=== PATIENT | male | born 1960 | race Caucasian/White ===

== ENCOUNTER → 2019-12-26 08:05 | Outpatient (BNVA) | payer BC, MEDICARE, OTHER, SELFPAY | PROVIDERS: PCP Internal Medicine; Referring Provider Physician Assistant; Visit Provider Family Medicine Adult Medicine | DX: Z76.89 Persons encountering health services in other specified circumstances (principal) ==

== ENCOUNTER → 2020-02-05 08:06 | Outpatient (BNVA) | payer BC, MEDICARE, OTHER, SELFPAY | PROVIDERS: Visit Provider Family Medicine Adult Medicine | DX: Z76.89 Persons encountering health services in other specified circumstances (principal) ==

== ENCOUNTER → 2020-03-09 08:03 | Outpatient (BNVA) | payer MEDICARE, OTHER, SELFPAY | PROVIDERS: PCP Internal Medicine; Visit Provider Family Medicine Adult Medicine | DX: M54.16 Radiculopathy, lumbar region (principal); M47.812 Spondylosis without myelopathy or radiculopathy, cervical region; Z96.89 Presence of other specified functional implants | CPT/HCPCS: 99212 ==

== ENCOUNTER → 2020-04-20 08:00 | Outpatient (BNVA) | payer MEDICARE, OTHER, SELFPAY | PROVIDERS: PCP Internal Medicine; Visit Provider Family Medicine Adult Medicine | DX: M54.16 Radiculopathy, lumbar region (principal); M47.812 Spondylosis without myelopathy or radiculopathy, cervical region; Z96.89 Presence of other specified functional implants; Z79.899 Other long term (current) drug therapy | CPT/HCPCS: 99212 ==

== ENCOUNTER → 2020-05-21 11:17 | Outpatient (BNVA) | payer MEDICARE, OTHER, SELFPAY | PROVIDERS: PCP Internal Medicine; Visit Provider Nurse Practitioner Family | DX: M54.16 Radiculopathy, lumbar region (principal); Z96.89 Presence of other specified functional implants; M47.812 Spondylosis without myelopathy or radiculopathy, cervical region ==

== ENCOUNTER → 2020-06-21 08:02 | Outpatient (BNVA) | payer MEDICARE, OTHER, SELFPAY | PROVIDERS: PCP Hospitalist; Visit Provider Nurse Practitioner Family | DX: M54.16 Radiculopathy, lumbar region (principal); M47.812 Spondylosis without myelopathy or radiculopathy, cervical region | CPT/HCPCS: 99212 ==

== ENCOUNTER → 2020-07-20 09:33 | Outpatient (BNVA) | payer MEDICARE, OTHER, SELFPAY | PROVIDERS: PCP Hospitalist; Visit Provider Family Medicine Adult Medicine | DX: M54.16 Radiculopathy, lumbar region (principal); M47.812 Spondylosis without myelopathy or radiculopathy, cervical region | CPT/HCPCS: Q3014 ==

== ENCOUNTER → 2020-08-18 08:58 | Outpatient (BNVA) | payer MEDICARE, OTHER, SELFPAY | PROVIDERS: PCP Hospitalist; Visit Provider Nurse Practitioner Family | DX: M54.16 Radiculopathy, lumbar region (principal); M47.812 Spondylosis without myelopathy or radiculopathy, cervical region | CPT/HCPCS: 99212 ==

== ENCOUNTER → 2020-08-30 09:02 | Outpatient (BNVA) | payer MEDICARE, OTHER, SELFPAY | PROVIDERS: PCP Hospitalist; Visit Provider Anesthesiology | DX: M96.1 Postlaminectomy syndrome, not elsewhere classified (principal); M46.1 Sacroiliitis, not elsewhere classified; Z96.89 Presence of other specified functional implants | CPT/HCPCS: 99212 ==

== ENCOUNTER → 2020-09-16 08:11 | Outpatient (BNVA) | payer MEDICARE, OTHER, SELFPAY | PROVIDERS: PCP Hospitalist; Visit Provider Family Medicine Adult Medicine | DX: M54.16 Radiculopathy, lumbar region (principal); M47.812 Spondylosis without myelopathy or radiculopathy, cervical region | CPT/HCPCS: 99212 ==

== ENCOUNTER → 2020-10-14 08:34 | Outpatient (BNVA) | payer MEDICARE, OTHER, SELFPAY | PROVIDERS: PCP Hospitalist; Visit Provider Family Medicine Adult Medicine | DX: Z51.81 Encounter for therapeutic drug level monitoring (principal); M54.16 Radiculopathy, lumbar region; M47.812 Spondylosis without myelopathy or radiculopathy, cervical region | CPT/HCPCS: 99212 ==

== ENCOUNTER → 2020-11-09 08:33 | Outpatient (BNVA) | payer MEDICARE, OTHER, SELFPAY | PROVIDERS: PCP Hospitalist; Visit Provider Family Medicine Adult Medicine | DX: M96.1 Postlaminectomy syndrome, not elsewhere classified (principal); M46.1 Sacroiliitis, not elsewhere classified; M47.812 Spondylosis without myelopathy or radiculopathy, cervical region; M54.16 Radiculopathy, lumbar region; Z79.891 Long term (current) use of opiate analgesic; Z96.89 Presence of other specified functional implants | CPT/HCPCS: 99212 ==

== ENCOUNTER 2020-11-16 06:20 | Outpatient (REF) | payer MEDICARE, OTHER, SELFPAY ==
--- NOTE | ~2020-11-16 | FL_ITS ---
EXAMINATION: XR FLUOROSCOPY WITH IMAGES CLINICAL INFORMATION: Sacroiliitis. COMPARISON: MRI lumbar spine of 05/16/2017 TECHNIQUE: Fluoroscopy performed by Michelle Banegas NP. Fluoroscopy time: 0.2 minutes DAP: 2.24 Gycm2 Images: 1 FINDINGS: Single view demonstrates the patient to be status post pedicle screw and tierra fixation of what appears to be L4 through S1. Single needle is directed to the sacroiliac joint with a small amount of contrast present. FL/FL guidance in treatment room IMPRESSION: Apparent sacroiliac joint injection.
== END 2020-11-16 06:21 | disposition home or self-care (01) ==
LOC: HO.RADIR 06:20
PROVIDERS: Visit Provider Anesthesiology
DX: M96.1 Postlaminectomy syndrome, not elsewhere classified (principal); M46.1 Sacroiliitis, not elsewhere classified; Z96.89 Presence of other specified functional implants
CPT/HCPCS: 27096; Q9967

== ENCOUNTER → 2020-11-24 08:33 | Outpatient (BNVA) | payer MEDICARE, OTHER, SELFPAY | PROVIDERS: Visit Provider Anesthesiology | DX: M96.1 Postlaminectomy syndrome, not elsewhere classified (principal); M46.1 Sacroiliitis, not elsewhere classified; Z96.89 Presence of other specified functional implants | CPT/HCPCS: 99212 ==

== ENCOUNTER → 2020-12-07 08:26 | Outpatient (BNVA) | payer MEDICARE, OTHER, SELFPAY | PROVIDERS: PCP Hospitalist; Visit Provider Family Medicine Adult Medicine | DX: Z51.81 Encounter for therapeutic drug level monitoring (principal); M96.1 Postlaminectomy syndrome, not elsewhere classified; M54.16 Radiculopathy, lumbar region; Z96.89 Presence of other specified functional implants | CPT/HCPCS: 99212 ==

== ENCOUNTER 2020-12-09 16:33 | Outpatient (REF) | payer MEDICARE, OTHER, SELFPAY | END 2020-12-09 16:34 | disposition home or self-care (01) | LOC: HO.LAB 16:33 | PROVIDERS: Visit Provider Internal Medicine | DX: Z20.822 Contact with and (suspected) exposure to COVID-19 (principal); J06.9 Acute upper respiratory infection, unspecified | CPT/HCPCS: U0003; U0005 ==

== ENCOUNTER → 2021-01-11 08:00 | Outpatient (BNVA) | payer MEDICARE, OTHER, SELFPAY | PROVIDERS: PCP Hospitalist; Visit Provider Family Medicine Adult Medicine | DX: M96.1 Postlaminectomy syndrome, not elsewhere classified (principal); M54.16 Radiculopathy, lumbar region; M47.812 Spondylosis without myelopathy or radiculopathy, cervical region; M46.1 Sacroiliitis, not elsewhere classified; Z88.8 Allergy status to other drugs, medicaments and biological substances; Z96.89 Presence of other specified functional implants; Z95.1 Presence of aortocoronary bypass graft | CPT/HCPCS: 99212 ==

== ENCOUNTER → 2021-02-17 08:24 | Outpatient (BNVA) | payer MEDICARE, OTHER, SELFPAY | PROVIDERS: PCP Hospitalist; Visit Provider Family Medicine Adult Medicine | DX: Z51.81 Encounter for therapeutic drug level monitoring (principal); M96.1 Postlaminectomy syndrome, not elsewhere classified; M54.16 Radiculopathy, lumbar region; Z96.89 Presence of other specified functional implants | CPT/HCPCS: 99212 ==

== ENCOUNTER → 2021-03-17 08:08 | Outpatient (BNVA) | payer MEDICARE, OTHER, SELFPAY | PROVIDERS: PCP Hospitalist; Visit Provider Family Medicine Adult Medicine ==

== ENCOUNTER → 2021-04-14 08:29 | Outpatient (BNVA) | payer MEDICARE, OTHER, SELFPAY | PROVIDERS: PCP Hospitalist; Visit Provider Anesthesiology ==

== ENCOUNTER → 2021-05-11 15:32 | Outpatient (BNVA) | payer MEDICARE, OTHER, SELFPAY | PROVIDERS: PCP Hospitalist; Visit Provider Anesthesiology | DX: M96.1 Postlaminectomy syndrome, not elsewhere classified (principal); M46.1 Sacroiliitis, not elsewhere classified; Z96.82 Presence of neurostimulator; Z95.1 Presence of aortocoronary bypass graft | CPT/HCPCS: 99212 ==

== ENCOUNTER → 2021-06-15 08:47 | Outpatient (BNVA) | payer MEDICARE, OTHER, SELFPAY | PROVIDERS: PCP Hospitalist; Visit Provider Anesthesiology | DX: Z13.89 Encounter for screening for other disorder (principal) ==

== ENCOUNTER → 2021-07-13 08:23 | Outpatient (BNVA) | payer MEDICARE, OTHER, SELFPAY | PROVIDERS: PCP Hospitalist; Visit Provider Anesthesiology | DX: Z51.81 Encounter for therapeutic drug level monitoring (principal); F11.20 Opioid dependence, uncomplicated | CPT/HCPCS: 99211 ==

== ENCOUNTER → 2021-08-10 08:30 | Outpatient (BNVA) | payer MEDICARE, OTHER, SELFPAY | PROVIDERS: PCP Hospitalist; Visit Provider Anesthesiology | DX: Z79.891 Long term (current) use of opiate analgesic (principal) | CPT/HCPCS: 99211 ==

== ENCOUNTER → 2021-09-14 08:27 | Outpatient (BNVA) | payer MEDICARE, OTHER, SELFPAY | PROVIDERS: PCP Hospitalist; Visit Provider Nurse Practitioner Family | DX: Z51.81 Encounter for therapeutic drug level monitoring (principal); F11.20 Opioid dependence, uncomplicated; M46.1 Sacroiliitis, not elsewhere classified; M96.1 Postlaminectomy syndrome, not elsewhere classified; M47.812 Spondylosis without myelopathy or radiculopathy, cervical region | CPT/HCPCS: 99212 ==

== ENCOUNTER → 2021-10-19 08:00 | Outpatient (BNVA) | payer MEDICARE, OTHER, SELFPAY | PROVIDERS: PCP Hospitalist; Visit Provider Nurse Practitioner Family | DX: Z51.81 Encounter for therapeutic drug level monitoring (principal); F11.20 Opioid dependence, uncomplicated; M46.1 Sacroiliitis, not elsewhere classified; M96.1 Postlaminectomy syndrome, not elsewhere classified; M47.812 Spondylosis without myelopathy or radiculopathy, cervical region | CPT/HCPCS: 99212 ==

== ENCOUNTER 2021-11-18 10:19 | Day surgery (SDC) | payer MEDICARE, OTHER, SELFPAY ==
--- NOTE | 2021-11-17 13:45 | P.CONAN_ITS ---
Documented by User: Shyanne Del Cid NP 11/17/21 13:45 HPI - Anesthesia Eval Consult details Narrative: 61yo M for Upper Endoscopy with Balloon Dilitation PMFSH Active Problems Active Problems: All Active Problems (Updated 11/15/21 @ 14:37 by Rahel Ramachandran RN) Upper respiratory tract infection (Acute) Sacroiliitis (Acute) Postlaminectomy syndrome of lumbosacral region (Acute) Right lumbar radiculopathy (Acute) Spinal cord stimulator status (Acute) Derangement of left shoulder joint (Acute) Cervical arthritis (Acute) History of coronary artery bypass graft (Acute) Past Medical History Medical History Angina pectoris Anxiety and depression Asthma CAD (coronary artery disease) Cervical arthritis Derangement of left shoulder joint History of shingles HTN (hypertension) Hx of migraines On beta irineo at home HELDER on CPAP Postlaminectomy syndrome of lumbosacral region Pre-diabetes Right lumbar radiculopathy Sacroiliitis Spinal cord stimulator status Surgical History Surgical History History of carpal tunnel release History of coronary artery bypass graft History of esophagogastroduodenoscopy (EGD) History of lumbar discectomy History of umbilical hernia repair Hx of colonoscopy Hx of shoulder surgery Social History Social History Household Members Other:: lives with and son Alcohol intake: never Patient Tobacco Use Status: Former Tobacco user Quit Date: 1976 Use of substances other than those prescribed or required for medical reasons: No Are you DNR?: No Advance Directives: No Advance Directives Information Provided: Yes 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 Meds Allergies Allergy/AdvReac Type Severity Reaction Status Date / Time Mvjvnyh-CVS-GtP Reductase Allergy Unknown RAISES CPK Verified 09/14/21 08:46 Inhibitor LEVELS [JFENSZL-ITF-CGB REDUCTASE INHIBITOR] Home Medications Medication Instructions Recorded Confirmed Last Taken Type alirocumab 75 mg/mL subcutaneous mg subcut 12/20/19 09/14/21 Unknown History pen injector flu vac [id number] 36mos up(PF) 60 ml IM 12/20/19 09/14/21 Unknown History mcg (15 mcg x4)/0.5 mL IM syringe lorazepam 1 mg tablet 1 mg PO BID 12/20/19 11/15/21 Unknown History trazodone 100 mg tablet 100 mg PO BEDTIME 12/20/19 11/15/21 Unknown History albuterol sulfate 90 mcg/actuation 2 puff PO Q4H 12/26/19 11/15/21 Unknown History aerosol inhaler losartan 50 mg tablet 50 mg PO DAILY 12/26/19 11/15/21 11/18/21 History chlorthalidone 25 mg tablet 25 mg PO DAILY 03/09/20 11/15/21 Unknown History metformin 500 mg tablet 500 mg PO DAILY 03/09/20 11/15/21 11/18/21 History metoprolol succinate 100 mg 200 mg PO DAILY 08/18/20 11/15/21 Unknown History tablet,extended release 24 hr valsartan 80 mg tablet 160 mg PO DAILY 08/18/20 11/15/21 Unknown History Exam Exam Date and Time: November 17, 2021 1345 Assessment and Plan Assessment Anesthesia Assessment: Chart Reviewed Documented by User: David Mac MD 11/18/21 12:28 [facility] Past Medical History Medical History Angina pectoris Anxiety and depression Asthma CAD (coronary artery disease) Cervical arthritis Derangement of left shoulder joint History of shingles HTN (hypertension) Hx of migraines On beta irineo at home HELDER on CPAP Postlaminectomy syndrome of lumbosacral region Pre-diabetes Right lumbar radiculopathy Sacroiliitis Spinal cord stimulator status Family History Family history of problems with anesthesia: No Surgical History Surgical History History of carpal tunnel release History of coronary artery bypass graft History of esophagogastroduodenoscopy (EGD) History of lumbar discectomy History of umbilical hernia repair Hx of colonoscopy Hx of shoulder surgery History of Problems with Anesthesia: No Social History Social History Household Members Other:: lives with and son Alcohol intake: never Patient Tobacco Use Status: Former Tobacco user Quit Date: 1976 Use of substances other than those prescribed or required for medical reasons: No Are you DNR?: No Advance Directives: No Advance Directives Information Provided: Yes 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 Meds Allergies Allergy/AdvReac Type Severity Reaction Status Date / Time Xzfjibi-YZK-YzK Reductase Allergy Unknown RAISES CPK Verified 09/14/21 08:46 Inhibitor LEVELS [GJUWJTB-CLY-MYE REDUCTASE INHIBITOR] Home Medications Medication Instructions Recorded Confirmed Last Taken Type alirocumab 75 mg/mL subcutaneous mg subcut 12/20/19 09/14/21 Unknown History pen injector flu vac [id number] 36mos up(PF) 60 ml IM 12/20/19 09/14/21 Unknown History mcg (15 mcg x4)/0.5 mL IM syringe lorazepam 1 mg tablet 1 mg PO BID 12/20/19 11/15/21 Unknown History trazodone 100 mg tablet 100 mg PO BEDTIME 12/20/19 11/15/21 Unknown History albuterol sulfate 90 mcg/actuation 2 puff PO Q4H 12/26/19 11/15/21 Unknown History aerosol inhaler losartan 50 mg tablet 50 mg PO DAILY 12/26/19 11/15/21 11/18/21 History chlorthalidone 25 mg tablet 25 mg PO DAILY 03/09/20 11/15/21 Unknown History metformin 500 mg tablet 500 mg PO DAILY 03/09/20 11/15/21 11/18/21 History metoprolol succinate 100 mg 200 mg PO DAILY 08/18/20 11/15/21 Unknown History tablet,extended release 24 hr valsartan 80 mg tablet 160 mg PO DAILY 08/18/20 11/15/21 Unknown History Exam Airway Mallampati Class: III TM Dist: >3cm Neck ROM: Full Assessment and Plan Assessment Anesthesia Assessment: Anesthesia Plan Discussed Final Anesthetic Review Family History of Problems with Anesthesia: No History of Problems with Anesthesia: No NPO: Yes ASA Class: III Final Preanesthetic Review: No Changes in Pt Med Stat, Meds/Allgs Chart Reviewed, Consent Obtained/Reviewed and Anes Risks/Benef Reviewed Patient Risk: Intermediate Procedure Risk: Low Anesthetic Plan Anesthetic Plan: MAC: Disposition: Standard PACU
[2021-11-18 10:50] VITALS: BP 116/76; PULSE 76; RESP 20; TEMP 36.2; O2SAT 97; BMI 29.4
[2021-11-18 11:15] LABS: Glucose, Whole Blood 129 mg/dL (60-115)
[2021-11-18 11:35] VITALS: BMI 29.4
[2021-11-18] MEDS: Lactated Ringers 1,000 ML 100 ML IVCONT (11:37)
[2021-11-18 12:52] VITALS: BP 87/40; PULSE 76; RESP 16; TEMP 36.5; O2SAT 97
--- NOTE | 2021-11-18 12:54 | PM.OP ---
Brief Operative Note Date of Service: 11/18/21 Pre-op diagnosis: Dysphagia Post-op diagnosis: other (Minimal hiatal hernia, minimal gastritis, R/O EoE) Procedure: EGD with biopsies Surgeon: Kirt Platt Anesthesia: MAC Was an Electric Pile Driver Operator used for this Procedure?: No Estimated blood loss (mL): 2.0 Pathology: other (A. EG Junction at 39cm B. Gastric antrum C. Esophagus at 25cm ) Condition: stable Disposition: PACU
[2021-11-18 13:07] VITALS: BP 92/52; PULSE 72; RESP 16; O2SAT 97
[2021-11-18 13:22] VITALS: BP 103/68; PULSE 69; RESP 16; TEMP 36.5; O2SAT 97
--- NOTE | 2021-11-19 01:01 | OP_ITS ---
SURGEON: Kirt Platt MD INDICATIONS: The patient presents for evaluation of a sense of dysphagia and reflux. Full consent has been obtained from him for this, including risks of bleeding and perforation. PREOPERATIVE DIAGNOSIS: POSTOPERATIVE DIAGNOSIS: PROCEDURE PERFORMED: Esophagogastroduodenoscopy with biopsies. ESTIMATED BLOOD LOSS: COMPLICATIONS: ANESTHESIA: Monitored anesthesia care. ASSISTANTS: SPECIMENS: PREOPERATIVE DIAGNOSES: Dysphagia and reflux. POSTOPERATIVE DIAGNOSES: Dysphagia and reflux, minimal hiatal hernia, rule out eosinophilic esophagitis, minimal gastritis. DESCRIPTION OF PROCEDURE: Patient was placed in the left lateral decubitus position. The Olympus video gastroscope was passed in the posterior oropharynx and upper esophagus under direct vision. The scope was passed slowly to the distal esophagus. The gastroesophageal junction appeared at 39 cm. The gastroesophageal junction was patent without any sign of stricture nor ring. There was some minimal irregularity, but no esophagitis. The scope entered into the stomach easily. There was a minimal hiatal hernia. The scope was advanced to the pylorus and the duodenum was cannulated to the descending portion. The duodenum including the bulb appeared normal without mass or ulceration. The scope was withdrawn back into the stomach. The gastric antrum and body had some mild areas of erythema, but no erosions or ulceration. The scope was retroflexed visualizing the proximal stomach carefully, which appeared normal, without any sign of mass or ulceration. The scope was straightened. Biopsies were obtained from the gastric antrum. There was good peristalsis, The scope was withdrawn back to the esophagus. Again, the gastroesophageal junction was widely patent; and therefore, dilation was not performed. Biopsies were obtained at the EG junction at 39 cm. Proximal to this, the esophageal mucosa appeared normal. There were no proximal esophageal rings. I did obtain biopsies in the proximal esophagus at 25 cm. The scope was withdrawn from the patient. He tolerated the procedure well and was returned to the recovery area in stable condition. IMPRESSION: 1. Minimal hiatal hernia. 2. Minimal gastritis. 3. Gastroesophageal reflux. 4. Rule out eosinophilic esophagitis. PLAN: The results of the biopsies will be checked. He does report that he has actually been feeling better since he resumed his omeprazole and I did advise him to continue that in regard to the reflux and sense of dysphagia, which is probably in relation to some reflux and esophageal spasm. He reports that his dysphagia has been quite minimal and without any difficult eating. If things are stable, he will see me on a p.r.n. basis and undergo a screening colonoscopy in 2024. I did advise him to contact me prior to that if the dysphagia becomes a problem again. This has been discussed with his . MD LOTTIE Zamarripa/PJ / [id number] MTDD
== END 2021-11-18 13:33 | disposition home or self-care (01) ==
PROVIDERS: PCP Internal Medicine; Visit Provider Internal Medicine
PROC: (CPT 43239; principal; 2021-11-18 11:30)
DX: R13.10 Dysphagia, unspecified (principal); K21.9 Gastro-esophageal reflux disease without esophagitis; K29.50 Unspecified chronic gastritis without bleeding; K44.9 Diaphragmatic hernia without obstruction or gangrene; G47.33 Obstructive sleep apnea (adult) (pediatric); I10 Essential (primary) hypertension; E78.5 Hyperlipidemia, unspecified; R73.03 Prediabetes; F32.A Depression, unspecified; I25.10 Atherosclerotic heart disease of native coronary artery without angina pectoris; Z95.1 Presence of aortocoronary bypass graft; M96.1 Postlaminectomy syndrome, not elsewhere classified; Z96.82 Presence of neurostimulator; Z79.84 Long term (current) use of oral hypoglycemic drugs; Z79.82 Long term (current) use of aspirin; Z79.899 Other long term (current) drug therapy; Z88.8 Allergy status to other drugs, medicaments and biological substances; Z87.891 Personal history of nicotine dependence
CPT/HCPCS: 43239; 82947; 88305; 88342

== ENCOUNTER → 2021-11-23 08:38 | Outpatient (BNVA) | payer MEDICARE, OTHER, SELFPAY | PROVIDERS: PCP Internal Medicine; Visit Provider Anesthesiology | DX: Z51.81 Encounter for therapeutic drug level monitoring (principal); F11.20 Opioid dependence, uncomplicated; M46.1 Sacroiliitis, not elsewhere classified; M96.1 Postlaminectomy syndrome, not elsewhere classified; M47.812 Spondylosis without myelopathy or radiculopathy, cervical region | CPT/HCPCS: 99212 ==

== ENCOUNTER → 2021-12-28 09:20 | Outpatient (BNVA) | payer MEDICARE, OTHER, SELFPAY | PROVIDERS: PCP Internal Medicine; Visit Provider Anesthesiology | DX: Z51.81 Encounter for therapeutic drug level monitoring (principal); F11.20 Opioid dependence, uncomplicated; M46.1 Sacroiliitis, not elsewhere classified; M96.1 Postlaminectomy syndrome, not elsewhere classified; M47.812 Spondylosis without myelopathy or radiculopathy, cervical region | CPT/HCPCS: 99212 ==

== ENCOUNTER → 2022-01-25 08:35 | Outpatient (BNVA) | payer MEDICARE, OTHER, SELFPAY | PROVIDERS: PCP Internal Medicine; Visit Provider Anesthesiology | DX: Z51.81 Encounter for therapeutic drug level monitoring (principal); F11.20 Opioid dependence, uncomplicated | CPT/HCPCS: 99211 ==

== ENCOUNTER → 2022-02-23 08:07 | Outpatient (BNVA) | payer MEDICARE, OTHER, SELFPAY | PROVIDERS: PCP Internal Medicine; Visit Provider Anesthesiology | DX: Z51.81 Encounter for therapeutic drug level monitoring (principal); F11.20 Opioid dependence, uncomplicated; M46.1 Sacroiliitis, not elsewhere classified; M96.1 Postlaminectomy syndrome, not elsewhere classified; M47.812 Spondylosis without myelopathy or radiculopathy, cervical region | CPT/HCPCS: 99212 ==

== ENCOUNTER → 2022-03-29 08:36 | Outpatient (BNVA) | payer MEDICARE, OTHER, SELFPAY | PROVIDERS: PCP Internal Medicine; Visit Provider Anesthesiology | DX: Z51.81 Encounter for therapeutic drug level monitoring (principal); Z79.899 Other long term (current) drug therapy | CPT/HCPCS: 99211 ==

== ENCOUNTER → 2022-04-26 08:30 | Outpatient (BNVA) | payer MEDICARE, OTHER, SELFPAY | PROVIDERS: PCP Internal Medicine; Visit Provider Anesthesiology | DX: Z51.81 Encounter for therapeutic drug level monitoring (principal); F11.20 Opioid dependence, uncomplicated; M46.1 Sacroiliitis, not elsewhere classified; M96.1 Postlaminectomy syndrome, not elsewhere classified; M47.812 Spondylosis without myelopathy or radiculopathy, cervical region | CPT/HCPCS: 99212 ==

== ENCOUNTER → 2022-05-29 08:31 | Outpatient (BNVA) | payer MEDICARE, OTHER, SELFPAY | PROVIDERS: PCP Internal Medicine; Visit Provider Anesthesiology | DX: Z51.81 Encounter for therapeutic drug level monitoring (principal); F11.20 Opioid dependence, uncomplicated; M96.1 Postlaminectomy syndrome, not elsewhere classified; M46.1 Sacroiliitis, not elsewhere classified; M47.812 Spondylosis without myelopathy or radiculopathy, cervical region | CPT/HCPCS: 99212 ==

== ENCOUNTER → 2022-06-28 08:33 | Outpatient (BNVA) | payer MEDICARE, OTHER, SELFPAY | PROVIDERS: PCP Internal Medicine; Visit Provider Anesthesiology | DX: Z51.81 Encounter for therapeutic drug level monitoring (principal); F11.20 Opioid dependence, uncomplicated | CPT/HCPCS: 99211 ==

== ENCOUNTER → 2022-07-26 08:28 | Outpatient (BNVA) | payer MEDICARE, OTHER, SELFPAY | PROVIDERS: PCP Internal Medicine; Visit Provider Anesthesiology | DX: Z51.81 Encounter for therapeutic drug level monitoring (principal); F11.20 Opioid dependence, uncomplicated; M46.1 Sacroiliitis, not elsewhere classified; M96.1 Postlaminectomy syndrome, not elsewhere classified; M47.812 Spondylosis without myelopathy or radiculopathy, cervical region; G62.9 Polyneuropathy, unspecified | CPT/HCPCS: 99212 ==

== ENCOUNTER 2022-08-15 06:15 | Outpatient (REF) | payer MEDICARE, OTHER, SELFPAY ==
--- NOTE | ~2022-08-15 | FL_ITS ---
EXAMINATION: FL guidance in treatment room INDICATION: Reason for Exam M46.1 - Sacroiliitis, not elsewhere classified COMPARISON: Radiographs 11/16/2021 TECHNIQUE: Multiple fluoroscopic OR images were provided. FLUOROSCOPY TIME: 0.1 minute DOSE AREA PRODUCT: 0.743 Gy-cm2 FINDINGS: Intraoperative fluoroscopy was obtained. No radiologist was in attendance. Please refer to operative report for complete evaluation. Partially imaged lumbar spinal fusion hardware. FL/FL guidance in treatment room IMPRESSION: Intraoperative fluoroscopy was obtained. No radiologist was in attendance. Please refer to operative report for complete evaluation.
== END 2022-08-15 06:16 | disposition home or self-care (01) ==
LOC: CF 06:15
PROVIDERS: Visit Provider Anesthesiology
DX: M46.1 Sacroiliitis, not elsewhere classified (principal); M96.1 Postlaminectomy syndrome, not elsewhere classified; M47.812 Spondylosis without myelopathy or radiculopathy, cervical region; G62.9 Polyneuropathy, unspecified
CPT/HCPCS: 27096; J3301

== ENCOUNTER → 2022-08-23 08:29 | Outpatient (BNVA) | payer MEDICARE, OTHER, SELFPAY | PROVIDERS: PCP Internal Medicine; Visit Provider Anesthesiology | DX: Z51.81 Encounter for therapeutic drug level monitoring (principal); F11.20 Opioid dependence, uncomplicated | CPT/HCPCS: 99211 ==

== ENCOUNTER → 2022-09-11 13:11 | Outpatient (BNVA) | payer MEDICARE, OTHER, SELFPAY | PROVIDERS: PCP Internal Medicine; Visit Provider Anesthesiology | DX: M46.1 Sacroiliitis, not elsewhere classified (principal); M96.1 Postlaminectomy syndrome, not elsewhere classified; M47.812 Spondylosis without myelopathy or radiculopathy, cervical region; G62.9 Polyneuropathy, unspecified | CPT/HCPCS: 99212 ==

== ENCOUNTER 2022-09-14 08:25 | Outpatient (REF) | payer MEDICARE, OTHER, SELFPAY ==
--- NOTE | 2022-09-14 08:28 | EMG_ITS ---
Bilateral tibial and peroneal motor studies were performed. Bilateral superficial peroneal and a sural study was performed and paraspinal muscles were tested. IMPRESSION: 1. Chronic right lower lumbar radiculopathy. 2. Mild axonal sensory motor peripheral neuropathy. MD USSI Sahni/PJ / [id number]
== END 2022-09-14 08:26 | disposition home or self-care (01) ==
LOC: HO.NEURO 08:25
PROVIDERS: PCP Internal Medicine; Visit Provider Anesthesiology
DX: G62.9 Polyneuropathy, unspecified (principal); R20.0 Anesthesia of skin
CPT/HCPCS: 95886; 95911

== ENCOUNTER → 2022-09-25 08:35 | Outpatient (BNVA) | payer MEDICARE, OTHER, SELFPAY | PROVIDERS: PCP Internal Medicine; Visit Provider Anesthesiology | DX: Z51.81 Encounter for therapeutic drug level monitoring (principal); F11.20 Opioid dependence, uncomplicated; M46.1 Sacroiliitis, not elsewhere classified; M96.1 Postlaminectomy syndrome, not elsewhere classified; M47.812 Spondylosis without myelopathy or radiculopathy, cervical region; G62.9 Polyneuropathy, unspecified | CPT/HCPCS: 99212 ==

== ENCOUNTER → 2022-10-27 08:39 | Outpatient (BNVA) | payer MEDICARE, OTHER, SELFPAY | PROVIDERS: PCP Internal Medicine; Visit Provider Anesthesiology | DX: Z79.891 Long term (current) use of opiate analgesic (principal) | CPT/HCPCS: 99211 ==

== ENCOUNTER 2022-10-30 09:10 | Outpatient (AMB) | payer MEDICARE, OTHER, SELFPAY ==
[2022-10-30 09:16] VITALS: BP 106/64; PULSE 88; RESP 18; O2SAT 97; BMI 27.3
--- NOTE | 2022-10-30 09:16 | MHC.OFFVIS ---
Intake Vital Signs 10/30/22 09:16 Height 5 ft 10 in Weight 190 lb 2 oz BMI 27.3 BP 106/64 Blood Pressure Location Lt brachial Position Sitting Respiration 18 Pulse 88 Pulse Source Pulse Oximeter Pulse Oximetry (%) 97 Oxygen Delivery Method Room Air Intake Visit Reasons: Follow Up Allergies Jdrsved-SSY-RzE Reductase Inhibitor [IZRSZUG-VIM-DBX REDUCTASE INHIBITOR] Allergy (Unknown, Verified 10/30/22 09:17) RAISES CPK LEVELS HPI HPI Comments History of Present Illness Details Issac presents to the office today to discuss possibility of the treatments. He is here to meet [employer] field service representative who is working to adjust the spinal cord stimulator (it was implanted by a neurosurgeon.) He receives some benefits from DTM program but is willing to consider I DDD. He is requesting me to increase his doses of the opioid next time he is here for pill count. I told him that considering idea of the pain pump this will be contour productive. I told him that I would not mind to increase the dose a little bit but if he considers pain pump we would need to taper medication 1st and then stop it for 2 month before implantation of the pain pump. Possibility of treatment of his condition with nonopioid intrathecal medication also exists. therapeutic SI joint injection which was performed on 08/15/2022. Now patient reports that he has pain was reduced not significantly enough after sacroiliac joint injection. Originally he said that his pain was reduced by 50%. He is diabetic with polyneuropathy. EMG results: 1. Chronic right lower lumbar radiculopathy. 2. Mild axonal sensory motor peripheral neuropathy. Therefore patient suffers from combination of the radiculopathy stemming out of the postlaminectomy syndrome as well as idiopathic and diabetic peripheral neuropathy. He is here for pill count. His supposed to present 57 pills in his possession. He came with 58 pills in his possession. His pill count is correct. It demonstrates responsible attitude to were the opioid medication. His primary care physician prescribes him lorazepam, however the patient admits that other medications were tried to substitute lorazepam and did not well worked for him. Therefore he will continue lorazepam. He has naloxone at home in his possession. In the past we discussed possibility of treating his conditions with [employer] SCS by replacing the batteries of the SCS from [employer] to [employer]. Prior: Patient does report over the last several months he has also noticed some pain, numbness and tingling of his feet bilaterally. Feels like the balls of my feet are swollen sometimes. He is unsure if this was related to his blood sugars though he reports that these have been better controlled recently he takes his metformin daily as prescribed and states that his diet has been better controlled which leads him to believe that this neuropathy is not caused by his diabetes. He states that his most recent A1c was just over 7. We discussed ordering an EMG which patient is familiar with and agrees with this plan. Prior: Issac is in the office today for pill count and discussion of the further management.? His pill count is correct today his supposed to bring 33 pills in his possession and he presented with 34 pills. He reports his pain level today 4/10 or less.? He is currently on oxycodone/acetaminophen 10mg t.i.d. He reports that the medications were result in significant help with his pain condition, he reports better ADLs, less anxiety, more mobility, better social interactions.? He reports level of pain today a 4/10.? He denies side effects of the medications.? Denies constipation. SI joint fusion verses SI joint stimulations was discussed in the past , the patient is reluctant to go for the procedure at this time.? He cannot commit himself for 8-12 months for low physical activity. Prior :? History of low back pain 2 to postlaminectomy syndrome with radiation of the pain into bilateral lower extremity however with sensation of intermittent numbness into the right lower extremity when he positions himself on the right side in the bed.? He received sacroiliac joint diagnostic injection right with bupivacaine only and he reports overall 75% pain relief for the 1st 6 hours.? ? I offered him sacroiliac joint fusion versus sacroiliac joint peripheral stimulation on the right.? 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 He is asking me to return to this issue in the future. [facility] Medical History (Updated 07/26/22 @ 10:38 by Alfredito Fulton MD) Angina pectoris Anxiety and depression Asthma CAD (coronary artery disease) Cervical arthritis Derangement of left shoulder joint History of shingles HTN (hypertension) Hx of migraines On beta irineo at home HELDER on CPAP Postlaminectomy syndrome of lumbosacral region Pre-diabetes Right lumbar radiculopathy Sacroiliitis Spinal cord stimulator status Surgical History History of carpal tunnel release History of coronary artery bypass graft History of esophagogastroduodenoscopy (EGD) History of lumbar discectomy History of umbilical hernia repair Hx of colonoscopy Hx of shoulder surgery Social History Household Members Other:: lives with and son Alcohol intake: never Patient Tobacco Use Status: Former Tobacco user Quit Date: 1976 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 Review of Systems Const All systems reviewed & are unremarkable except as noted in HPI and below ENT Reports Normal hearing present Neuro Reports Normal hearing present and Denies Abnormal speech present Physical Exam Vital Signs: Last Vital Signs Pulse 88 10/30/22 09:16 Resp 18 10/30/22 09:16 BP 106/64 10/30/22 09:16 Pulse Ox 97 10/30/22 09:16 Oxygen Delivery Method Room Air 10/30/22 09:16 BMI result Body Mass Index 27.3 Const General: cooperative, healthy appearing and alert Orientation/consciousness: patient oriented x3 HEENT Head: Yes normocephalic and Yes atraumatic Ears: hearing grossly normal bilaterally Eyes General: appearance normal, both eyes and all related structures Eyelids: Yes eyelids normal Pupils: Equal, round and reactive pupils present EOM: EOMs intact bilaterally Neck Neck: Yes normal visual inspection Resp Effort & Inspection: normal respiratory effort and able to speak in complete sentences Cardio Jugular venous distension: no JVD Back/Spine/Pelvis Other: Lumbar spine visible inspection multiple very well-healed scars demonstrates previous fusions. Lateral left hip incision also demonstrates the results of anterior fusion. Peter test positive on right Pelvic compression test positive on right Suri finger test positive on right SLR with increased pain on right Spurling test negative bilaterally Stinchfield positive on right Neuro General: patient oriented x3 and gait normal Cranial nerves: Yes Equal, round and reactive pupils present and Yes Normal hearing present Cognition (Neuro): normal cognition Speech: No Abnormal speech present Motor exam (neuro): 5/5 motor strength present throughout Psych Appearance: grossly normal Mental Status: mental status grossly normal Speech and movement: Normal speech and movement present Affect: normal affect Attitude: cooperative Thought process: Normal thought process present Thought content: Normal thought content present Insight: Good insight present (Psych) Judgement: Good judgement present (Psych) Assessment & Plan Assessment & Plan (1) Sacroiliitis: Code(s): M46.1 - Sacroiliitis, not elsewhere classified (2) Postlaminectomy syndrome of lumbosacral region: Code(s): M96.1 - Postlaminectomy syndrome, not elsewhere classified (3) Cervical arthritis: Code(s): M47.812 - Spondylosis without myelopathy or radiculopathy, cervical region (4) Peripheral neuropathy: Code(s): G62.9 - Polyneuropathy, unspecified Plan The patient is working with [employer] field service representative Dharmesh hernandez to adjust the SCS to introduce D TM into the system.. He is considering pain pump. Opioid and nonopioid medications could be employed for the pain pump. Trial with a bupivacaine could be done without waiting for opioid taper down and waiting. He reports that the DTM is so far helping him very minimally. Sacroiliac joint injection also was effective less than 50%. That was therapeutic SI joint injection. He requests me to increase the doses of the opioid medications, however I would like to avoid it if it is possible especially if we go for pain pump trials and eventually implants. Coding Level of Care Code Tele Est Pt Level 4 (22470) Diagnoses Sacroiliitis M46.1 Postlaminectomy syndrome of lumbosacral region M96.1 Cervical arthritis M47.812 Peripheral neuropathy G62.9
== END 2022-10-30 10:02 | disposition home or self-care (01) ==
PROVIDERS: PCP Internal Medicine; Visit Provider Anesthesiology
DX: M46.1 Sacroiliitis, not elsewhere classified (principal); M96.1 Postlaminectomy syndrome, not elsewhere classified; M47.812 Spondylosis without myelopathy or radiculopathy, cervical region; G62.9 Polyneuropathy, unspecified
CPT/HCPCS: 99214

== ENCOUNTER → 2022-10-30 09:10 | Outpatient (BNVA) | payer MEDICARE, OTHER, SELFPAY | PROVIDERS: PCP Internal Medicine; Visit Provider Anesthesiology | DX: M54.16 Radiculopathy, lumbar region (principal); M47.812 Spondylosis without myelopathy or radiculopathy, cervical region; M46.1 Sacroiliitis, not elsewhere classified; M96.1 Postlaminectomy syndrome, not elsewhere classified; G62.9 Polyneuropathy, unspecified; G60.8 Other hereditary and idiopathic neuropathies; R73.03 Prediabetes; Z96.82 Presence of neurostimulator; Z79.891 Long term (current) use of opiate analgesic | CPT/HCPCS: 99212 ==

== ENCOUNTER 2022-11-29 08:26 | Outpatient (AMB) | payer MEDICARE, OTHER, SELFPAY ==
[2022-11-29 18:00] VITALS: BP 137/81; PULSE 73; RESP 16; O2SAT 98; BMI 27.9
--- NOTE | 2022-11-29 18:00 | A.OFFVIS_ITS ---
Intake Vital Signs 11/29/22 18:00 Height 5 ft 10 in Weight 194 lb 4 oz BMI 27.9 BP 137/81 Blood Pressure Location Rt brachial Position Sitting Respiration 16 Pulse 73 Pulse Source Pulse Oximeter Pulse Oximetry (%) 98 Oxygen Delivery Method Room Air Intake Visit Reasons: Pill count Intake Note: patient comes in for pill count. Allergies Najwyjy-JYF-MtK Reductase Inhibitor [EFRIZMO-MWK-DVI REDUCTASE INHIBITOR] Allergy (Unknown, Verified 11/29/22 18:00) RAISES CPK LEVELS HPI HPI Comments History of Present Illness Details Issac is here for the follow-up and pain medication pill count. He presented himself originally with 51 tablet in his possession. When he was confronted with the fact that he field up this medication on November 19 he stated that he left night pills intentionally at home because he thought that he would need to calculate his pills from the date of the prescription which his pharmacy [facility] wrote on the prescription bottle instead of the issue date. The date of the prescription issue was 11/16/2022. He was allowed to go home and bring missing 9 pills. He did that which put our suspicion for diversion to low level. We have had prolonged and difficult conversation with the patient. He was explained that according to the opioid contract he signed with us he needs to bring all the prescription without calculation to the office for the count. He was strictly warned this time that he will be allowed to pass with his opioid prescriptions without suspension, however if minimal misconduct will happen again he will be suspended without any consideration. His opioid addiction risk is low so therefore he would be suspended only for 6 month. At this time we will continue without suspension. Possibility of treatment of his condition with nonopioid intrathecal medication also exists. therapeutic SI joint injection which was performed on 08/15/2022. Now patient reports that he has pain was reduced not significantly enough after sacroiliac joint injection. Originally he said that his pain was reduced by 50%. He is diabetic with polyneuropathy. EMG results: 1. Chronic right lower lumbar radiculopathy. 2. Mild axonal sensory motor peripheral neuropathy. Therefore patient suffers from combination of the radiculopathy stemming out of the postlaminectomy syndrome as well as idiopathic and diabetic peripheral neuropathy. He requested me to send him to repeat MRI of the lumbar spine to port the issue of right chronic radiculopathy which was diagnosed by EMG to rest. I will send him for the MRI of the lumbar spine. It will be with and without contrast because of postlaminectomy syndrome. He is here for pill count. His supposed to present 57 pills in his possession. He came with 58 pills in his possession. His pill count is correct. It demonstrates responsible attitude to were the opioid medication. His primary care physician prescribes him lorazepam, however the patient admits that other medications were tried to substitute lorazepam and did not well worked for him. Therefore he will continue lorazepam. He has naloxone at home in his po ssession. In the past we discussed possibility of treating his conditions with Nevro SCS by replacing the batteries of the SCS from [employer] to [employer]. Prior: Patient does report over the last several months he has also noticed some pain, numbness and tingling of his feet bilaterally. Feels like the balls of my feet are swollen sometimes. He is unsure if this was related to his blood sugars though he reports that these have been better controlled recently he takes his metformin daily as prescribed and states that his diet has been better controlled which leads him to believe that this neuropathy is not caused by his diabetes. He states that his most recent A1c was just over 7. We discussed ordering an EMG which patient is familiar with and agrees with this plan. Prior: Issac is in the office today for pill count and discussion of the further management.? His pill count is correct today his supposed to bring 33 pills in his possession and he presented with 34 pills. He reports his pain level today 4/10 or less.? He is currently on oxycodone/acetaminophen 10mg t.i.d. He reports that the medications were result in significant help with his pain condition, he reports better ADLs, less anxiety, more mobility, better social interactions.? He reports level of pain today a 4/10.? He denies side effects of the medications.? Denies constipation. SI joint fusion verses SI joint stimulations was discussed in the past , the patient is reluctant to go for the procedure at this time.? He cannot commit himself for 8-12 months for low physical activity. Prior :? History of low back pain 2 to postlaminectomy syndrome with radiation of the pain into bilateral lower extremity however with sensation of intermittent numbness into the right lower extremity when he positions himself on the right side in the bed.? He received sacroiliac joint diagnostic injection right with bupivacaine only and he reports overall 75% pain relief for the 1st 6 hours.? ? I offered him sacroiliac joint fusion versus sacroiliac joint peripheral stimulation on the right.? 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 He is asking me to return to this issue in the future. [facility] Medical History (Updated 07/26/22 @ 10:38 by Alfredito Fulton MD) Pre-diabetes History of shingles Hx of migraines Anxiety and depression HELDER on CPAP Asthma On beta irineo at home CAD (coronary artery disease) Angina pectoris HTN (hypertension) Sacroiliitis Postlaminectomy syndrome of lumbosacral region Right lumbar radiculopathy Spinal cord stimulator status Derangement of left shoulder joint Cervical arthritis Surgical History History of esophagogastroduodenoscopy (EGD) Hx of colonoscopy Hx of shoulder surgery History of carpal tunnel release History of umbilical hernia repair History of coronary artery bypass graft History of lumbar discectomy Social History Household Members Other:: lives with and son Alcohol intake: never Patient Tobacco Use Status: Former Tobacco user Quit Date: 1976 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 Review of Systems Const All systems reviewed & are unremarkable except as noted in HPI and below ENT Reports Normal hearing present Neuro Reports Normal hearing present and Denies Abnormal speech present Physical Exam Vital Signs: Last Vital Signs Pulse 73 11/29/22 18:00 Resp 16 11/29/22 18:00 BP 137/81 11/29/22 18:00 Pulse Ox 98 11/29/22 18:00 Oxygen Delivery Method Room Air 11/29/22 18:00 BMI result Body Mass Index 27.9 Const General: cooperative, healthy appearing and alert Orientation/consciousness: patient oriented x3 HEENT Head: Yes normocephalic and Yes atraumatic Ears: hearing grossly normal bilaterally Eyes General: appearance normal, both eyes and all related structures Eyelids: Yes eyelids normal Pupils: Equal, round and reactive pupils present EOM: EOMs intact bilaterally Neck Neck: Yes normal visual inspection Resp Effort & Inspection: normal respiratory effort and able to speak in complete sentences Cardio Jugular venous distension: no JVD Back/Spine/Pelvis Other: Lumbar spine visible inspection multiple very well-healed scars demonstrates previous fusions. Lateral left hip incision also demonstrates the results of anterior fusion. Peter test positive on right Pelvic compression test positive on right Suri finger test positive on right SLR with increased pain on right Spurling test negative bilaterally Stinchfield positive on right Neuro General: patient oriented x3 and gait normal Cranial nerves: Yes Equal, round and reactive pupils present and Yes Normal hearing present Cognition (Neuro): normal cognition Speech: No Abnormal speech present Motor exam (neuro): 5/5 motor strength present throughout Psych Appearance: grossly normal Mental Status: mental status grossly normal Speech and movement: Normal speech and movement present Affect: normal affect Attitude: cooperative Thought process: Normal thought process present Thought content: Normal thought content present Insight: Good insight present (Psych) Judgement: Good judgement present (Psych) Assessment & Plan Assessment & Plan (1) Peripheral neuropathy: Code(s): G62.9 - Polyneuropathy, unspecified (2) Postlaminectomy syndrome of lumbosacral region: Code(s): M96.1 - Postlaminectomy syndrome, not elsewhere classified (3) Right lumbar radiculopathy: Code(s): M54.16 - Radiculopathy, lumbar region (4) Spinal cord stimulator status: Code(s): Z96.89 - Presence of other specified functional implants (5) Cervical arthritis: Code(s): M47.812 - Spondylosis without myelopathy or radiculopathy, cervical region Plan 1. Patient came today with 9 pills short. He was allowed to go home and bring those 9 pills to us because it looks like that it was honest mistake he made because of the way his pharmacy labels his opioid medication putting instead of the date of the issue of the medication when actual medication exchanged hands the date on when the received the prescription. He was strictly warned that next time he needs to bring all of his opioid pills without any calculation to the office he just need to be sure not to exceed the the daily doses he is being prescribed. He wants to investigate where the radiculopathy which was diagnosed on EMG is coming from. He requests me to send him to the MRI. Because he has postlaminectomy syndrome I will send him for MRI with and without contrast. I will see him for the next pill count in 1 month hopefully the MRI will be ready by then. Orders: Orders MR lumbar spine wo/w con Today M96.1 - Postlaminectomy syndrome, not elsewhere classified Medications: Refilled oxycodone Partial Fill upon patient request. 10 mg PO Q8H 30 days PRN 90 tabs 0RF pain M46.1 - Sacroiliitis, not elsewhere classified, M96.1 - Postlaminectomy syndrome, not elsewhere classified Patient Instructions: I here by testify that I spent 1 hour and 15 minutes today with the patient explaining his conditions performing pill counts planning his care organizing his note. Coding Level of Care Code Est Pt Level 5 (76496) Diagnoses Peripheral neuropathy G62.9 Postlaminectomy syndrome of lumbosacral region M96.1 Right lumbar radiculopathy M54.16 Spinal cord stimulator status Z96.89 Cervical arthritis M47.812
== END 2022-11-29 08:55 | disposition home or self-care (01) ==
PROVIDERS: PCP Internal Medicine; Visit Provider Anesthesiology
DX: G62.9 Polyneuropathy, unspecified (principal); M96.1 Postlaminectomy syndrome, not elsewhere classified; M54.16 Radiculopathy, lumbar region; Z79.891 Long term (current) use of opiate analgesic; Z96.89 Presence of other specified functional implants
CPT/HCPCS: 99215

== ENCOUNTER → 2022-11-29 08:26 | Outpatient (BNVA) | payer MEDICARE, OTHER, SELFPAY | PROVIDERS: PCP Internal Medicine; Visit Provider Anesthesiology | DX: M96.1 Postlaminectomy syndrome, not elsewhere classified (principal); M46.1 Sacroiliitis, not elsewhere classified; M54.16 Radiculopathy, lumbar region; M47.812 Spondylosis without myelopathy or radiculopathy, cervical region; Z96.82 Presence of neurostimulator; Z79.891 Long term (current) use of opiate analgesic | CPT/HCPCS: 99212 ==

== ENCOUNTER 2022-12-29 09:03 | Outpatient (REF) | payer MEDICARE, OTHER, SELFPAY | END 2022-12-29 09:04 | disposition home or self-care (01) | LOC: HO.LAB 09:03 | PROVIDERS: PCP Internal Medicine; Visit Provider Nurse Practitioner Family | DX: M46.1 Sacroiliitis, not elsewhere classified (principal); M96.1 Postlaminectomy syndrome, not elsewhere classified; M47.812 Spondylosis without myelopathy or radiculopathy, cervical region; M54.16 Radiculopathy, lumbar region; Z79.891 Long term (current) use of opiate analgesic | CPT/HCPCS: 99212 ==

== ENCOUNTER 2022-12-29 09:03 | Outpatient (AMB) | payer MEDICARE, OTHER, SELFPAY ==
--- NOTE | 2022-12-29 09:12 | A.OFFVIS_ITS ---
Intake Vital Signs 12/29/22 09:17 Height 5 ft 10 in Weight 187 lb 8 oz BMI 26.9 BP 143/81 H Blood Pressure Location Rt brachial Position Sitting Pulse 89 Pulse Source Pulse Oximeter Pulse Oximetry (%) 97 Oxygen Delivery Method Room Air Intake Visit Reasons: PILL COUNT/random UDS Intake Note: Issac comes in today for a pill count to oxycodone, patient should have 60 tablets and presents with 60 tablets which he last took today 12/29/22 at 2am. Pain today 08/26. Patient will also have random UDS done today, aware that he will need to go to the lab on the first floor of this building today 12/29/22 before 12pm. Phlebotomy Services Technician Required: No Allergies Ibyltxx-GPW-PsO Reductase Inhibitor [TRTQEMA-AZB-OOR REDUCTASE INHIBITOR] Allergy (Unknown, Verified 12/29/22 09:19) RAISES CPK LEVELS HPI HPI Comments History of Present Illness Details Patient is a 62 years old male with history of sacroiliitis, postlaminectomy syndrome of lumbosacral region, chronic right lumbar radiculopathy, Medtronic alexa cord stimulator status, derangement of left shoulder joint, and cervical arthritis presents today for a pill count. He was previously seen in this office by Dr. Fulton. Patient is supposed to have #60 pills, in his possession has #60 pills. This demonstrates a responsible attitude in regards to the medication regimen. Patient reports mild to moderate pain relief on his current regime of oxycodone 10 mg TID prn. Denies any constipation, nausea, sedation, dizziness, or urinary retention. Patient reports he is trying to schedule lumbar spine MRI for past 6 weeks without success due to MRI department missing information about his Medtronic SCS device and confirming function of MRI mode. Patient reports lower back pain across his lumbar and sacral regions with radiation into his right lower leg. This has been chronic issue for him per EMG studies. We will contact MRI department today to expedite scheduling of his test. PRIOR Dr. Fulton 11/29/22: Issac is here for the follow-up and pain medication pill count. He presented himself originally with 51 tablet in his possession. When he was confronted with the fact that he field up this medication on November 19 he stated that he left night pills intentionally at home because he thought that he would need to calculate his pills from the date of the prescription which his pharmacy [facility]idi wrote on the prescription bottle instead of the issue date. The date of the prescription issue was 11/16/2022. He was allowed to go home and bring missing 9 pills. He did that which put our suspicion for diversion to low level. We have had prolonged and difficult conversation with the patient. He was explained that according to the opioid contract he signed with us he needs to bring all the prescription without calculation to the office for the count. He was strictly warned this time that he will be allowed to pass with his opioid prescriptions without suspension, however if minimal misconduct will happen again he will be suspended without any consideration. His opioid addiction risk is low so therefore he would be suspended only for 6 month. At this time we will continue without suspension. Possibility of treatment of his condition with nonopioid intrathecal medication also exists. therapeutic SI joint injection which was performed on 08/15/2022. Now patient reports that he has pain was reduced not significantly enough after sacroiliac joint injection. Originally he said that his pain was reduced by 50%. He is diabetic with polyneuropathy. EMG results: 1. Chronic right lower lumbar radiculopathy. 2. Mild axonal sensory motor peripheral neuropathy. Therefore patient suffers from combination of the radiculopathy stemming out of the postlaminectomy syndrome as well as idiopathic and diabetic peripheral neuropathy. He requested me to send him to repeat MRI of the lumbar spine to port the issue of right chronic radiculopathy which was diagnosed by EMG to rest. I will send him for the MRI of the lumbar spine. It will be with and without contrast because of postlaminectomy syndrome. He is here for pill count. His supposed to present 57 pills in his possession. He came with 58 pills in his possession. His pill count is correct. It demonstrates responsible attitude to were the opioid medication. His primary c are physician prescribes him lorazepam, however the patient admits that other medications were tried to substitute lorazepam and did not well worked for him. Therefore he will continue lorazepam. He has naloxone at home in his possession. In the past we discussed possibility of treating his conditions with Nevro SCS by replacing the batteries of the SCS from [employer] to [employer]. Prior: Patient does report over the last several months he has also noticed some pain, numbness and tingling of his feet bilaterally. Feels like the balls of my feet are swollen sometimes. He is unsure if this was related to his blood sugars though he reports that these have been better controlled recently he takes his metformin daily as prescribed and states that his diet has been better controlled which leads him to believe that this neuropathy is not caused by his diabetes. He states that his most recent A1c was just over 7. We discussed ordering an EMG which patient is familiar with and agrees with this plan. Prior: Issac is in the office today for pill count and discussion of the further management.? His pill count is correct today his supposed to bring 33 pills in h is possession and he presented with 34 pills. He reports his pain level today 4/10 or less.? He is currently on oxycodone/acetaminophen 10mg t.i.d. He reports that the medications were result in significant help with his pain condition, he reports better ADLs, less anxiety, more mobility, better social interactions.? He reports level of pain today a 4/10.? He denies side effects of the medications.? Denies constipation. SI joint fusion verses SI joint stimulations was discussed in the past , the patient is reluctant to go for the procedure at this time.? He cannot commit himself for 8-12 months for low physical activity. Prior :? History of low back pain 2 to postlaminectomy syndrome with radiation of the pain into bilateral lower extremity however with sensation of intermittent numbness into the right lower extremity when he positions himself on the right side in the bed.? He received sacroiliac joint diagnostic injection right with bupivacaine only and he reports overall 75% pain relief for the 1st 6 hours.? ? I offered him sacroiliac joint fusion versus sacroiliac joint peripheral stimulation on the right.? 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 He is asking me to return to this issue in the future. [facility] Medical History Pre-diabetes History of shingles Hx of migraines Anxiety and depression HELDER on CPAP Asthma On beta irineo at home CAD (coronary artery disease) Angina pectoris HTN (hypertension) Sacroiliitis Postlaminectomy syndrome of lumbosacral region Right lumbar radiculopathy Spinal cord stimulator status Derangement of left shoulder joint Cervical arthritis Surgical History History of esophagogastroduodenoscopy (EGD) Hx of colonoscopy Hx of shoulder surgery History of carpal tunnel release History of umbilical hernia repair History of coronary artery bypass graft History of lumbar discectomy Social History Household Members Other:: lives with and son Alcohol intake: never Patient Tobacco Use Status: Former Tobacco user Quit Date: 1976 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 Alert and oriented. Mood and affect appropriate. Follows and participates in conversation appropriately. Respiratory effort is unlabored. No cough. Able to transition from sit to stand unassisted. Back/Spine/Pelvis Cervical Spine: cervical ROM normal and No Cervical spine tenderness Thoracic/Lumbar Spine: thoracic and lumbar spine normal to inspection, Thoracic/lumbar spine scar(s), Lasegue's sign positive on the right and localized, pain with thoraco-lumbar ROM, paraspinal muscle tenderness, No thoracic spinal tenderness and lumbar spinal tenderness Sacroiliac joints: on the right (+Peter's, +Stinchfield, +Pelvic compression, +Suri sign) tender to palpation and on the left nontender Psych Appearance: grossly normal Mental Status: mental status grossly normal Speech and movement: Normal speech and movement present Affect: normal affect Attitude: cooperative Thought process: Normal thought process present Thought content: Normal thought content present Insight: Good insight present (Psych) Judgement: Good judgement present (Psych) Assessment & Plan Assessment & Plan (1) Sacroiliitis: Code(s): M46.1 - Sacroiliitis, not elsewhere classified (2) Postlaminectomy syndrome of lumbosacral region: Code(s): M96.1 - Postlaminectomy syndrome, not elsewhere classified (3) Cervical arthritis: Code(s): M47.812 - Spondylosis without myelopathy or radiculopathy, cervical region (4) Right lumbar radiculopathy: Code(s): M54.16 - Radiculopathy, lumbar region Plan Patient has shown accountability for his opioid regimen and the pill count was accurate. Patient brought all of his medication in its original container. The patient reported no noted side effects and noted mild to moderate analgesia. There is no evidence of misuse, abuse or diversion at this time. Jumia. Will send in prescription for Percocet 10-325 mg TID for 30 days with an advanced date of 01/18/23. Patient is aware to avoid simultaneous intake of his opioid and lorazepam, as well as to separate by at least 2 hours. He does have narcan at home. MRI department contacted to expedite scheduling patient's MRI test. All questions were answered and patient is in agreement of plan. Follow up in 4 weeks for a pill count. Orders: Orders MR lumbar spine wo/w con 11/29/22 M48.061 - Spinal stenosis, lumbar region without neurogenic claudication, M96.1 - Postlaminectomy syndrome, not elsewhere classified Medications: Refilled oxycodone Partial Fill upon patient request. 10 mg PO Q8H PRN 90 tabs 0RF pain 30 days M46.1 - Sacroiliitis, not elsewhere classified, M96.1 - Postlaminectomy syndrome, not elsewhere classified Coding Level of Care Code Est Pt Level 4 (84407) Diagnoses Sacroiliitis M46.1 Postlaminectomy syndrome of lumbosacral region M96.1 Cervical arthritis M47.812 Right lumbar radiculopathy M54.16
[2022-12-29 09:17] VITALS: BP 143/81; PULSE 89; O2SAT 97; BMI 26.9
== END 2022-12-29 09:30 | disposition home or self-care (01) ==
PROVIDERS: PCP Internal Medicine; Visit Provider Nurse Practitioner Family
DX: M46.1 Sacroiliitis, not elsewhere classified (principal); M96.1 Postlaminectomy syndrome, not elsewhere classified; M47.812 Spondylosis without myelopathy or radiculopathy, cervical region; M54.16 Radiculopathy, lumbar region
CPT/HCPCS: 99214

== ENCOUNTER 2023-02-07 08:53 | Outpatient (AMB) | payer MEDICARE, OTHER, SELFPAY ==
--- NOTE | 2023-02-07 08:55 | A.OFFVIS_ITS ---
Intake Vital Signs 02/07/23 09:03 Height 5 ft 10 in Weight 189 lb 4 oz BMI 27.2 BP 137/70 Blood Pressure Location Lt brachial Position Sitting Respiration 18 Pulse 83 Pulse Source Pulse Oximeter Pulse Oximetry (%) 98 Oxygen Delivery Method Room Air Intake Visit Reasons: PILL COUNT/confirmed Allergies Hicieeu-KCZ-LoN Reductase Inhibitor [[id number]-DKK REDUCTASE INHIBITOR] Allergy (Unknown, Verified 02/07/23 09:04) RAISES CPK LEVELS HPI HPI Comments History of Present Illness Details Issac is a very pleasant 62 year old male who presents to the office for follow up chronic pain and chronic opioid therapy management. Patient is prescribed Oxycodone 10mg po TID prn. Patient arrived today with the expectation of having 30 pills, she presented 32 pills which were counted in the presence of two staff members and returned to the patient in the original prescription bottle. This demonstrates responsible attitude toward patient's opioid medications. Pain is reported today as 5/10 and last dose of pain medication was taken at 12 o'clock this morning. Pain is adequately managed on current opioid regimen. Patient states he is able to engage in activities of daily living with minimal interruption due to chronic pain. Patient denies side effects including somnolence, constipation, itching, dyspnea, rash, dizziness or weakness. Patient given Gabapentin 300mg po TID at last visit. He reports this has been helping with the radiculopathy pain to the right leg. Requesting refill today. MRI has finally been scheduled, 02/21/2023. Prior visit with Riri [employer]IST[employer] MANAGER: Patient is a 62 years old male with history of sacroiliitis, postlaminectomy syndrome of lumbosacral region, chronic right lumbar radiculopathy, Medtronic alexa cord stimulator status, derangement of left shoulder joint, and cervical arthritis presents today for a pill count. He was previously seen in this office by Dr. Fulton. Patient is supposed to have #60 pills, in his possession has #60 pills. This demonstrates a responsible attitude in regards to the medication regimen. Patient reports mild to moderate pain relief on his current regime of oxycodone 10 mg TID prn. Denies any constipation, nausea, sedation, dizziness, or urinary retention. Patient reports he is trying to schedule lumbar spine MRI for past 6 weeks without success due to MRI department missing information about his Medtronic SCS device and confirming function of MRI mode. Patient reports lower back pain across his lumbar and sacral regions with radiation into his right lower leg. This has been chronic issue for him per EMG studies. We will contact MRI department today to expedite scheduling of his test. PRIOR Dr. Fulton 11/29/22: Issac is here for the follow-up and pain medication pill count. He presented himself originally with 51 tablet in his possession. When he was confronted with the fact that he field up this medication on November 19 he stated that he left night pills intentionally at home because he thought that he would need to calculate his pills from the date of the prescription which his pharmacy Heidi wrote on the prescription bottle instead of the issue date. The date of the prescription issue was 11/16/2022. He was allowed to go home and bring missing 9 pills. He did that which put our suspicion for diversion to low level. We have had prolonged and difficult conversation with the patient. He was explained that according to the opioid contract he signed with us he needs to bring all the prescription without calculation to the office for the count. He was strictly warned this time that he will be allowed to pass with his opioid prescriptions without suspension, however if minimal misconduct will happen again he will be suspended without any consideration. His opioid addiction risk is low so therefore he would be suspended only for 6 month. At this time we will continue without suspension. Possibility of treatment of his condition with nonopioid intrathecal medication also exists. therapeutic SI joint injection which was performed on 08/15/2022. Now patient reports that he has pain was reduced not significantly enough after sacroiliac joint injection. Originally he said that his pain was reduced by 50%. He is diabetic with polyneuropathy. EMG results: 1. Chronic right lower lumbar radiculopathy. 2. Mild axonal sensory motor peripheral neuropathy. Therefore patient suffers from combination of the radiculopathy stemming out of the postlaminectomy syndrome as well as idiopathic and diabetic peripheral neuropathy. He requested me to send him to repeat MRI of the lumbar spine to port the issue of right chronic radiculopathy which was diagnosed by EMG to rest. I will send him for the MRI of the lumbar spine. It will be with and without contrast because of postlaminectomy syndrome. He is here for pill count. His supposed to present 57 pills in his possession. He came with 58 pills in his possession. His pill count is correct. It demonstrates responsible attitude to were the opioid medication. His primary care physician prescribes him lorazepam, however the patient admits that other medications were tried to substitute lorazepam and did not well worked for him. Therefore he will continue lorazepam. He has naloxone at home in his possession. In the past we discussed possibility of treating his conditions with Nev[employer] SCS by replacing the batteries of the SCS from [employer] to [employer]. Prior: Patient does report over the last several months he has also noticed some pain, numbness and tingling of his feet bilaterally. Feels like the balls of my feet are swollen sometimes. He is unsure if this was related to his blood sugars though he reports that these have been better controlled recently he takes his metformin daily as prescribed and states that his diet has been better controlled which leads him to believe that this neuropathy is not caused by his diabetes. He states that his most recent A1c was just over 7. We discussed ordering an EMG which patient is familiar with and agrees with this plan. Prior: Issac is in the office today for pill count and discussion of the further management.? His pill count is correct today his supposed to bring 33 pills in his possession and he presented with 34 pills. He reports his pain level today 4/10 or less.? He is currently on oxycodone/acetaminophen 10mg t.i.d. He reports that the medications were result in significant help with his pain condition, he reports better ADLs, less anxiety, more mobility, better social interactions.? He reports level of pain today a 4/10.? He denies side effects of the medications.? Denies constipation. SI joint fusion verses SI joint stimulations was discussed in the past , the patient is reluctant to go for the procedure at this time.? He cannot commit himself for 8-12 months for low physical activity. Prior :? History of low back pain 2 to postlaminectomy syndrome with radiation of the pain into bilateral lower extremity however with sensation of intermittent numbness into the right lower extremity when he positions himself on the right side in the bed.? He received sacroiliac joint diagnostic injection right with bupivacaine only and he reports overall 75% pain relief for the 1st 6 hours.? ? I offered him sacroiliac joint fusion versus sacroiliac joint peripheral stimulation on the right.? 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 He is asking me to return to this issue in the future. [facility] Medical History Pre-diabetes History of shingles Hx of migraines Anxiety and depression HELDER on CPAP Asthma On beta irineo at home CAD (coronary artery disease) Angina pectoris HTN (hypertension) Sacroiliitis Postlaminectomy syndrome of lumbosacral region Right lumbar radiculopathy Spinal cord stimulator status Derangement of left shoulder joint Cervical arthritis Surgical History History of esophagogastroduodenoscopy (EGD) Hx of colonoscopy Hx of shoulder surgery History of carpal tunnel release History of umbilical hernia repair History of coronary artery bypass graft History of lumbar discectomy Household Members Other:: lives with and son Alcohol intake: never Patient Tobacco Use Status: Former Tobacco user Quit Date: 1976 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 Answers questions appropriately. Fully engaged in examination. Skin: warm, dry, intact HEENT: Normocephalic. Hearing intact. Cardiac: External chest normal in appearance. Respiratory: No cough, audible wheezing or stridor. Abdomen: without gross distension. MS: No obvious swelling or deformities. Able to transition from sit to stand unassisted. Ambulates with bilaterally normal heel strike and toe off Neurological: Oriented to person, place, time and situation. Thought process intact. Psychiatric: Appropriate mood and affect. Good judgment and insight. Assessment & Plan Assessment & Plan (1) Sacroiliitis: Code(s): M46.1 - Sacroiliitis, not elsewhere classified (2) Postlaminectomy syndrome of lumbosacral region: Code(s): M96.1 - Postlaminectomy syndrome, not elsewhere classified (3) Cervical arthritis: Code(s): M47.812 - Spondylosis without myelopathy or radiculopathy, cervical region (4) Right lumbar radiculopathy: Code(s): M54.16 - Radiculopathy, lumbar region Plan [place]pat was reviewed and without concerns. No obvious signs of diversion, abuse or misuse of the opioid medications. Will send in prescription for Oxycodone 10mg po Q8H PRN with an advanced date of 02/17/2023. Gabapentin 300mg po TID 3RF sent today Patient to follow-up in the office in 1 month, sooner if needed. All questions and concerns have been answered and patient agrees with the plan. Medications: Refilled gabapentin 300 mg PO TID 30 days 90 caps 3RF pain M54.16 - Radiculopathy, lumbar region, M96.1 - Postlaminectomy syndrome, not elsewhere classified oxycodone Partial Fill upon patient request. 10 mg PO Q8H 30 days PRN 90 tabs 0RF pain M46.1 - Sacroiliitis, not elsewhere classified, M96.1 - Postlaminectomy syndrome, not elsewhere classified Coding Level of Care Code Est Pt Level 4 (13777) Diagnoses Sacroiliitis M46.1 Postlaminectomy syndrome of lumbosacral region M96.1 Cervical arthritis M47.812 Right lumbar radiculopathy M54.16
[2023-02-07 09:03] VITALS: BP 137/70; PULSE 83; RESP 18; O2SAT 98; BMI 27.2
== END 2023-02-07 09:12 | disposition home or self-care (01) ==
PROVIDERS: PCP Internal Medicine; Visit Provider Registered Nurse Emergency
DX: M46.1 Sacroiliitis, not elsewhere classified (principal); M96.1 Postlaminectomy syndrome, not elsewhere classified; M47.812 Spondylosis without myelopathy or radiculopathy, cervical region; Z79.891 Long term (current) use of opiate analgesic; M54.16 Radiculopathy, lumbar region
CPT/HCPCS: 99214

== ENCOUNTER → 2023-02-07 08:53 | Outpatient (BNVA) | payer MEDICARE, OTHER, SELFPAY | PROVIDERS: PCP Internal Medicine; Visit Provider Registered Nurse Emergency | DX: M96.1 Postlaminectomy syndrome, not elsewhere classified (principal); M46.1 Sacroiliitis, not elsewhere classified; M47.812 Spondylosis without myelopathy or radiculopathy, cervical region; M54.16 Radiculopathy, lumbar region; Z79.891 Long term (current) use of opiate analgesic | CPT/HCPCS: 99212 ==

== ENCOUNTER 2023-02-21 08:17 | Outpatient (REF) | payer MEDICARE, OTHER, SELFPAY ==
--- NOTE | ~2023-02-21 | MR_ITS ---
MR LUMBAR SPINE WITHOUT AND WITH CONTRAST CLINICAL INFORMATION: Postlaminectomy syndrome. COMPARISON: Lumbar spine MRI May 16, 2017. TECHNIQUE: MRI of the lumbar spine was obtained using routine sequences with and without contrast. Intravenous contrast: Gadavist 8.5 mL FINDINGS: There are redemonstrated postoperative changes following laminectomy and posterior instrumented lumbar interbody fusion at the L4-S1 levels. The surgical hardware is not diagnostically assessed on MRI. There are 5 nonrib-bearing lumbar-type vertebral bodies. There is no bone marrow edema. There are no acute fractures. There is an intraosseous hemangioma within the T12 vertebral body. Fatty marrow changes involving the L5 vertebral body. Nonsurgical disc volumes are preserved. There is disc desiccation at L3-L4. Conus terminates at the L1 level. There are no significant extraspinal soft tissue findings. There is artifact from a spinal stimulator device versus baclofen pump within the lower thoracic spine. At T11-T12, there is stable slight grade 1 degenerative anterolisthesis in the setting of advanced bilateral facet arthropathy resulting in bilateral foraminal encroachment with mass effect on the exiting nerve roots bilaterally. L1-L2: Disc contour is normal. There is mild bilateral facet arthropathy. There is no central canal stenosis and there is no foraminal stenosis. L2-L3: There is a diffuse annular disc bulge and there is mild bilateral facet arthropathy. There is no central canal stenosis. There is mild foraminal encroachment bilaterally. L3-L4: There is a diffuse annular disc bulge and there is severe bilateral facet arthropathy and ligamentum flavum thickening. Findings in concert result in right subarticular zone stenosis with mass effect on the traversing right L4 nerve root which is progressed. Disc C5 and facet arthropathy result in similar mild to moderate bilateral foraminal stenosis. L4-L5: There are postoperative changes following laminectomy and posterior instrumented lumbar interbody fusion. There is diffuse osteophytic ridging and there is advanced bilateral facet arthropathy. There is no central canal stenosis. There is mild foraminal encroachment bilaterally. L5-S1: There are postoperative changes following laminectomy and posterior instrumented lumbar interbody fusion. There is no central canal stenosis. Osteophytic ridging results in mass effect on the extraforaminal L5 nerve roots bilaterally and narrowing of the right subarticular zone with mass effect on the traversing right S1 nerve root which is unchanged. There is enhancing granulation/scar tissue inseparable from the traversing right S1 nerve root as well. MR/MR lumbar spine wo/w con IMPRESSION: - At the junctional L3-L4 level, progressive spondylitic changes result in worsening right subarticular zone stenosis with mass effect on the traversing right L4 nerve root. Similar mild to moderate bilateral foraminal stenosis at this level. - There are redemonstrated postoperative changes following laminectomy and posterior instrumented lumbar interbody fusion at the L4-S1 levels. Osteophytic ridging at L5-S1 results in mass effect on the extraforaminal L5 nerve roots bilaterally and narrowing of the right subarticular zone with mass effect on the traversing right S1 nerve root which is unchanged. There is enhancing granulation/scar tissue inseparable from the traversing right S1 nerve root as well. - At T11-T12, there is stable slight grade 1 degenerative anterolisthesis in the setting of advanced bilateral facet arthropathy resulting in bilateral foraminal encroachment with mass effect on the exiting nerve roots bilaterally.
[2023-02-21] MEDS: gadobutroL 10 ML VIAL IVPUSH (09:26)
== END 2023-02-21 08:18 | disposition home or self-care (01) ==
LOC: HO.MRI 08:17
PROVIDERS: PCP Internal Medicine; Visit Provider Nurse Practitioner Family
DX: M48.061 Spinal stenosis, lumbar region without neurogenic claudication (principal); M96.1 Postlaminectomy syndrome, not elsewhere classified
CPT/HCPCS: 72158; A9585

== ENCOUNTER 2023-03-07 08:16 | Outpatient (AMB) | payer MEDICARE, OTHER, SELFPAY ==
--- NOTE | 2023-03-07 08:35 | A.OFFVIS_ITS ---
Intake Vital Signs 03/07/23 08:54 Height 5 ft 10 in Weight 189 lb 6 oz BMI 27.2 BP 140/80 H Blood Pressure Location Lt brachial Position Sitting Respiration 16 Pulse 79 Pulse Source Pulse Oximeter Pulse Oximetry (%) 97 Oxygen Delivery Method Room Air Intake Visit Reasons: Medication Count/ MRI results Intake Note: patient comes in for pill count to oxycodone 10 mg tablets. Reports pain level of 3/10. Allergies Gstavtp-YWJ-PjG Reductase Inhibitor [EVIZLSL-KEQ-HGR REDUCTASE INHIBITOR] Allergy (Unknown, Verified 03/07/23 08:55) RAISES CPK LEVELS HPI HPI Comments History of Present Illness Details Issac is a very pleasant 62 year old male who presents to the office for follow up chronic pain and chronic opioid therapy management. Patient is prescribed Oxycodone 10mg po TID prn. He presented himself today with 21 pills in his possession. He is supposed to have 36 pills in his possession. He reports today that he has pain since the last refill visit started to get a lot worse. However he never informed us about his pain worsening, he never gave us a call he never explained the needs to increase the dose. He on the last visit admitted that gabapentin and oxycodone help his pain significantly. He is also taking lorazepam 2 g a day. This is very dangerous combination of the medications. With his behavior when he takes the medications in higher dose the than his daily dose and he takes unpredictable amount of lorazepam it is very dangerous to prescribe he has opioid medications further. His risks level were moderate therefore he will be suspended with us for 1 year. I will start tapering his medication starting from next prescription date. I will decrease his medication to 25 mg for the next month. Alternatively he can ask his primary care physician to prescribe him the current dose of the medication. I also will prescribe him medications to mitigate symptoms of the withdrawal. They will be clonidine and hydroxyzine. I evaluated his MRI as well. There is 1 level higher than his fusion L3-L4 on the right were there is subarticular stenosis with progression. It might be giving him exacerbation of his postlaminectomy pain. I offered him and he agreed to go for L3-L4 transforaminal epidural steroid injection on the right. I will schedule this procedure AP. I also will refer him to evaluation to Dr. Nieto. I am not sure if anything could be done minimally invasively at L3-L4 subarticular level but at least the conversation in my opinion could be done. Will continue gabapentin 300 mg p.o. t.i.d. Prior: Issac is here for the follow-up and pain medication pill count. He presented himself originally with 51 tablet in his possession. When he was confronted with the fact that he field up this medication on November 19 he stated that he left night pills intentionally at home because he thought that he would need to calculate his pills from the date of the prescription which his pharmacy [facility] wrote on the prescription bottle instead of the issue date. The date of the prescription issue was 11/16/2022. He was allowed to go home and bring missing 9 pills. He did that which put our suspicion for diversion to low level. We have had prolonged and difficult conversation with the patient. He was explained that according to the opioid contract he signed with us he needs t o bring all the prescription without calculation to the office for the count. He was strictly warned this time that he will be allowed to pass with his opioid prescriptions without suspension, however if minimal misconduct will happen again he will be suspended without any consideration. His opioid addiction risk is low so therefore he would be suspended only for 6 month. At this time we will continue without suspension. Possibility of treatment of his condition with nonopioid intrathecal medication also exists. therapeutic SI joint injection which was performed on 08/15/2022. Now patient reports that he has pain was reduced not significantly enough after sacroiliac joint injection. Originally he said that his pain was reduced by 50%. He is diabetic with polyneuropathy. EMG results: 1. Chronic right lower lumbar radiculopathy. 2. Mild axonal sensory motor peripheral neuropathy. Therefore patient suffers from combination of the radiculopathy stemming out of the postlaminectomy syndrome as well as idiopathic and diabetic peripheral neuropathy. He requested me to send him to repeat MRI of the lumbar spine to port the issue of right chronic radiculopathy which was diagnosed by EMG to rest. I will send him for the MRI of the lumbar spine. It will be with and without contrast because of postlaminectomy syndrome. He is here for pill count. His supposed to present 57 pills in his possession. He came with 58 pills in his possession. His pill count is correct. It demonstrates responsible attitude to were the opioid medication. His primary care physician prescribes him lorazepam, however the patient admits that other medications were tried to substitute lorazepam and did not well worked for him. Therefore he will continue lorazepam. He has naloxone at home in his possession. In the past we discussed possibility of treating his conditions with Nevro SCS by replacing the batteries of the SCS from [employer] to [employer]. Prior: Patient does report over the last several months he has also noticed some pain, numbness and tingling of his feet bilaterally. Feels like the balls of my feet are swollen sometimes. He is unsure if this was related to his blood sugars though he reports that these have been better controlled recently he takes his metformin daily as prescribed and states that his diet has been better controlled which leads him to believe that this neuropathy is not caused by his diabetes. He states that his most recent A1c was just over 7. We discussed ordering an EMG which patient is familiar with and agrees with this plan. Prior: Issac is in the office today for pill count and discussion of the further management.? His pill count is correct today his supposed to bring 33 pills in his possession and he presented with 34 pills. He reports his pain level today 4/10 or less.? He is currently on oxycodone/acetaminophen 10mg t.i.d. He reports that the medications were result in significant help with his pain condition, he reports better ADLs, less anxiety, more mobility, better social interactions.? He reports level of pain today a 4/10.? He denies side effects of the medications.? Denies constipation. SI joint fusion verses SI joint stimulations was discussed in the past , the patient is reluctant to go for the procedure at this time.? He cannot commit himself for 8-12 months for low physical activity. Prior :? History of low back pain 2 to postlaminectomy syndrome with radiation of the pain into bilateral lower extremity however with sensation of intermittent numbness into the right lower extremity when he positions himself on the right side in the bed.? He received sacroiliac joint diagnostic injection right with bupivacaine only and he reports overall 75% pain relief for the 1st 6 hours.? ? I offered him sacroiliac joint fusion versus sacroiliac joint peripheral stimulation on the right.? 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 He is asking me to return to this issue in the future. [facility] Medical History Pre-diabetes History of shingles Hx of migraines Anxiety and depression HELDER on CPAP Asthma On beta irineo at home CAD (coronary artery disease) Angina pectoris HTN (hypertension) Sacroiliitis Postlaminectomy syndrome of lumbosacral region Right lumbar radiculopathy Spinal cord stimulator status Derangement of left shoulder joint Cervical arthritis Surgical History History of esophagogastroduodenoscopy (EGD) Hx of colonoscopy Hx of shoulder surgery History of carpal tunnel release History of umbilical hernia repair History of coronary artery bypass graft History of lumbar discectomy Social History Household Members Other:: lives with and son Alcohol intake: never Patient Tobacco Use Status: Former Tobacco user Quit Date: 1976 Current occupation: [employer] Review of Systems Const All systems reviewed & are unremarkable except as noted in HPI and below ENT Reports Normal hearing present Neuro Reports Normal hearing present and Denies Abnormal speech present Physical Exam Vital Signs: Last Vital Signs Pulse 79 03/07/23 08:54 Resp 16 03/07/23 08:54 BP 140/80 H 03/07/23 08:54 Pulse Ox 97 03/07/23 08:54 Oxygen Delivery Method Room Air 03/07/23 08:54 BMI result Body Mass Index 27.2 Const General: cooperative, healthy appearing and alert Orientation/consciousness: patient oriented x3 HEENT Head: Yes normocephalic and Yes atraumatic Ears: hearing grossly normal bilaterally Eyes General: appearance normal, both eyes and all related structures Eyelids: Yes eyelids normal Pupils: Equal, round and reactive pupils present EOM: EOMs intact bilaterally Neck Neck: Yes normal visual inspection Resp Effort & Inspection: normal respiratory effort and able to speak in complete sentences Cardio Jugular venous distension: no JVD Back/Spine/Pelvis Other: Lumbar spine visible inspection multiple very well-healed scars demonstrates previous fusions. Lateral left hip incision also demonstrates the results of anterior fusion. Peter test positive on right Pelvic compression test positive on right Suri finger test positive on right SLR with increased pain on right Spurling test negative bilaterally Stinchfield positive on right Neuro General: patient oriented x3 and gait normal Cranial nerves: Yes Equal, round and reactive pupils present and Yes Normal hearing present Cognition (Neuro): normal cognition Speech: No Abnormal speech present Motor exam (neuro): 5/5 motor strength present throughout Psych Appearance: grossly normal Mental Status: mental status grossly normal Speech and movement: Normal speech and movement present Affect: normal affect Attitude: cooperative Thought process: Normal thought process present Thought content: Normal thought content present Insight: Good insight present (Psych) Judgement: Good judgement present (Psych) Results Reviewed Results Reviewed: MRI of the lumbar spine was obtained using routine sequences with and without contrast. Intravenous contrast: Gadavist 8.5 mL FINDINGS: There are redemonstrated postoperative changes following laminectomy and posterior instrumented lumbar interbody fusion at the L4-S1 levels. The surgical hardware is not diagnostically assessed on MRI. There are 5 nonrib-bearing lumbar-type vertebral bodies. There is no bone marrow edema. There are no acute fractures. There is an intraosseous hemangioma within the T12 vertebral body. Fatty marrow changes involving the L5 vertebral body. Nonsurgical disc volumes are preserved. There is disc desiccation at L3-L4. Conus terminates at the L1 level. There are no significant extraspinal soft tissue findings. There is artifact from a spinal stimulator device versus baclofen pump within the lower thoracic spine. At T11-T12, there is stable slight grade 1 degenerative anterolisthesis in the setting of advanced bilateral facet arthropathy resulting in bilateral foraminal encroachment with mass effect on the exiting nerve roots bilaterally. L1-L2: Disc contour is normal. There is mild bilateral facet arthropathy. There is no central canal stenosis and there is no foraminal stenosis. L2-L3: There is a diffuse annular disc bulge and there is mild bilateral facet arthropathy. There is no central canal stenosis. There is mild foraminal encroachment bilaterally. L3-L4: There is a diffuse annular disc bulge and there is severe bilateral facet arthropathy and ligamentum flavum thickening. Findings in concert result in right subarticular zone stenosis with mass effect on the traversing right L4 nerve root which is progressed. Disc C5 and facet arthropathy result in similar mild to moderate bilateral foraminal stenosis. L4-L5: There are postoperative changes following laminectomy and posterior instrumented lumbar interbody fusion. There is diffuse osteophytic ridging and there is advanced bilateral facet arthropathy. There is no central canal stenosis. There is mild foraminal encroachment bilaterally. L5-S1: There are postoperative changes following laminectomy and posterior instrumented lumbar interbody fusion. There is no central canal stenosis. Osteophytic ridging results in mass effect on the extraforaminal L5 nerve roots bilaterally and narrowing of the right subarticular zone with mass effect on the traversing right S1 nerve root which is unchanged. There is enhancing granulation/scar tissue inseparable from the traversing right S1 nerve root as well. IMPRESSION: - At the junctional L3-L4 level, progressive spondylitic changes result in worsening right subarticular zone stenosis with mass effect on the traversing right L4 nerve root. Similar mild to moderate bilateral foraminal stenosis at this level. - There are redemonstrated postoperative changes following laminectomy and posterior instrumented lumbar interbody fusion at the L4-S1 levels. Osteophytic ridging at L5-S1 results in mass effect on the extraforaminal L5 nerve roots bilaterally and narrowing of the right subarticular zone with mass effect on the traversing right S1 nerve root which is unchanged. There is enhancing granulation/scar tissue inseparable from the traversing right S1 nerve root as well. - At T11-T12, there is stable slight grade 1 degenerative anterolisthesis in the setting of advanced bilateral facet arthropathy resulting in bilateral foraminal encroachment with mass effect on the exiting nerve roots bilaterally Assessment & Plan Assessment & Plan (1) Postlaminectomy syndrome of lumbosacral region: Code(s): M96.1 - Postlaminectomy syndrome, not elsewhere classified (2) Right lumbar radiculopathy: Code(s): M54.16 - Radiculopathy, lumbar region (3) Radiculopathy of lumbar region: Code(s): M54.16 - Radiculopathy, lumbar region Plan 1. He will be suspended for 12 months. See discussion as above. I will start taper of the medication of this patient a by prescribing him 25 mg of oxycodone a day for the next 30 days. I will see him for the pill count in 1 month. I will prescribe him clonidine and hydroxyzine to mitigate withdrawal symptoms. 2. I will schedule him for transforaminal epidural steroid injection L3-L4 on the right. 3. I will send him for consult with Dr. Nieto. Orders: Referrals Neurosurgery Referral M54.16 - Radiculopathy, lumbar region, M96.1 - Postlaminectomy syndrome, not elsewhere classified Medications: New oxycodone Partial Fill upon patient request. 5 mg PO Q4H 30 days PRN 125 tabs 0RF pain MDD 5 pills a day clonidine HCl 0.1 mg PO BID 10 days PRN 20 tabs 1RF opioid withdrawal Discontinued oxycodone Partial Fill upon patient request. Discontinued Reason: Doctor's Order 10 mg PO Q8H 30 days PRN 90 tabs 0RF pain M46.1 - Sacroiliitis, not elsewhere classified, M96.1 - Postlaminectomy syndrome, not elsewhere classified Patient Instructions: I here by testify that I spent 55 minutes in conversation with this patient, preparation of his discharge materials, evaluating his prior records, evaluating his prior injections, evaluating his diagnostic studies, and organizing this note. Coding Level of Care Code Est Pt Level 5 (27014) Diagnoses Postlaminectomy syndrome of lumbosacral region M96.1 Right lumbar radiculopathy M54.16 Radiculopathy of lumbar region M54.16
[2023-03-07 08:54] VITALS: BP 140/80; PULSE 79; RESP 16; O2SAT 97; BMI 27.2
== END 2023-03-07 09:08 | disposition home or self-care (01) ==
PROVIDERS: PCP Internal Medicine; Visit Provider Anesthesiology
DX: M96.1 Postlaminectomy syndrome, not elsewhere classified (principal); M54.16 Radiculopathy, lumbar region
CPT/HCPCS: 99215

== ENCOUNTER → 2023-03-07 08:16 | Outpatient (BNVA) | payer MEDICARE, OTHER, SELFPAY | PROVIDERS: PCP Internal Medicine; Visit Provider Anesthesiology | DX: Z51.81 Encounter for therapeutic drug level monitoring (principal); F11.20 Opioid dependence, uncomplicated; M96.1 Postlaminectomy syndrome, not elsewhere classified; M54.16 Radiculopathy, lumbar region | CPT/HCPCS: 99212 ==

== ENCOUNTER 2023-04-04 08:19 | Outpatient (AMB) | payer MEDICARE, OTHER, SELFPAY ==
[2023-04-04 08:30] VITALS: BP 164/98; PULSE 103; RESP 16; O2SAT 97; BMI 27.3
--- NOTE | 2023-04-04 08:30 | MHC.OFFVIS ---
Intake Vital Signs 04/04/23 08:30 Height 5 ft 10 in Weight 190 lb 6 oz BMI 27.3 BP 164/98 H Blood Pressure Location Rt brachial Position Sitting Respiration 16 Pulse 103 H Pulse Source Pulse Oximeter Pulse Oximetry (%) 97 Oxygen Delivery Method Room Air Intake Visit Reasons: 1 month follow up/confirmed Allergies Wzkxtfs-VEG-WfM Reductase Inhibitor [JPDTMIO-BCG-COP REDUCTASE INHIBITOR] Allergy (Unknown, Verified 04/04/23 08:26) RAISES CPK LEVELS HPI HPI Comments History of Present Illness Details Issac is a very pleasant 62 year old male who presents to the office for follow up chronic pain and chronic opioid therapy management. He was on Oxycodone 10mg po TID prn. For failing to present proper amount of opioid medications for us on a pill count in February he was suspended for 1 year. He is currently in the taper. I will prescribe next time for him 5 mg oxycodone p.r.n. every 6 hours 120 pills. Very difficult and prolonged conversation started today with the patient. He was requesting not to taper his medication today. I explained to him the reasons he was suspended and I told him that I can not take it back. I suggested him that he may ask his primary care physician to prescribe medications for him with the way he wants it. He did not break any contracts with his PCP. He stated that his primary care physician from the day one told him that he will not be prescribing any opioid medications to him. His risks level were moderate therefore he is suspended with us for 1 year. We discussed his MRI again today. There is 1 level higher than his fusion L3-L4 on the right were there is subarticular stenosis with progression. It might be giving him exacerbation of his postlaminectomy pain. I offered him and he agreed to go for L3-L4 transforaminal epidural steroid injection on the right. He decided not to go for this procedure and he wants to see Dr. Nieto first. Last time I made a referral to him and the appointment is scheduled . He aslo was c/o multiple other pain generators including rotator cuff tear b/l shoulder joints, stiff elbow with severe pain there, migrain headaches for which he apparently is taking fioricet. This is another reason not to return to the opioids, because his psychiatrist prescribes him benzodiazepins, his neurologist prescribes him barbiturate and at the same time he is receiving opioids from me. This fact only support out decision about his taper. At the same time concurrent administration of opioid medications for patients with migraine headache very often results in worsening headache. Prior: Issac is here for the follow-up and pain medication pill count. He presented himself originally with 51 tablet in his possession. When he was confronted with the fact that he field up this medication on November 19 he stated that he left night pills intentionally at home because he thought that he would need to calculate his pills from the date of the prescription which his pharmacy [facility] wrote on the prescription bottle instead of the issue date. The date of the prescription issue was 11/16/2022. He was allowed to go home and bring missing 9 pills. He did that which put our suspicion for diversion to low level. We have had prolonged and difficult conversation with the patient. He was explained that according to the opioid contract he signed with us he needs to bring all the prescription without calculation to the office for the count. He was strictly warned this time that he will be allowed to pass with his opioid prescriptions without suspension, however if minimal misconduct will happen again he will be suspended without any consideration. His opioid addiction risk is low so therefore he would be suspended only for 6 month. At this time we will continue without suspension. Possibility of treatment of his condition with nonopioid intrathecal medication also exists. therapeutic SI joint injection which was performed on 08/15/2022. Now patient reports that he has pain was reduced not significantly enough after sacroiliac joint injection. Originally he said that his pain was reduced by 50%. He is diabetic with polyneuropathy. EMG results: 1. Chronic right lower lumbar radiculopathy. 2. Mild axonal sensory motor peripheral neuropathy. In the past we discussed possibility of treating his conditions with Nevro SCS by replacing the batteries of the SCS from [employer] to [employer] Prior: Patient does report over the last several months he has also noticed some pain, numbness and tingling of his feet bilaterally. Feels like the balls of my feet are swollen sometimes. He is unsure if this was related to his blood sugars though he reports that these have been better controlled recently he takes his metformin daily as prescribed and states that his diet has been better controlled which leads him to believe that this neuropathy is not caused by his diabetes. Prior :? History of low back pain 2 to postlaminectomy syndrome with radiation of the pain into bilateral lower extremity however with sensation of intermittent numbness into the right lower extremity when he positions himself on the right side in the bed.? He received sacroiliac joint diagnostic injection right with bupivacaine only and he reports overall 75% pain relief for the 1st 6 hours.? ? I offered him sacroiliac joint fusion versus sacroiliac joint peripheral stimulation on the right.? 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 He is asking me to return to this issue in the future. [facility] Medical History Pre-diabetes History of shingles Hx of migraines Anxiety and depression HELDER on CPAP Asthma On beta irineo at home CAD (coronary artery disease) Angina pectoris HTN (hypertension) Sacroiliitis Postlaminectomy syndrome of lumbosacral region Right lumbar radiculopathy Spinal cord stimulator status Derangement of left shoulder joint Cervical arthritis Surgical History History of esophagogastroduodenoscopy (EGD) Hx of colonoscopy Hx of shoulder surgery History of carpal tunnel release History of umbilical hernia repair History of coronary artery bypass graft History of lumbar discectomy Social History Household Members Other:: lives with and son Alcohol intake: never Patient Tobacco Use Status: Former Tobacco user Quit Date: 1976 Current occupation: Disabled [employer] Review of Systems Const All systems reviewed & are unremarkable except as noted in HPI and below ENT Reports Normal hearing present Neuro Reports Normal hearing present and Denies Abnormal speech present Physical Exam Vital Signs: Last Vital Signs Pulse 103 H 04/04/23 08:30 Resp 16 04/04/23 08:30 BP 164/98 H 04/04/23 08:30 Pulse Ox 97 04/04/23 08:30 Oxygen Delivery Method Room Air 04/04/23 08:30 BMI result Body Mass Index 27.3 Const General: cooperative, healthy appearing and alert Orientation/consciousness: patient oriented x3 HEENT Head: Yes normocephalic and Yes atraumatic Ears: hearing grossly normal bilaterally Eyes General: appearance normal, both eyes and all related structures Eyelids: Yes eyelids normal Pupils: Equal, round and reactive pupils present EOM: EOMs intact bilaterally Neck Neck: Yes normal visual inspection Resp Effort & Inspection: normal respiratory effort and able to speak in complete sentences Cardio Jugular venous distension: no JVD Back/Spine/Pelvis Other: Lumbar spine visible inspection multiple very well-healed scars demonstrates previous fusions. Lateral left hip incision also demonstrates the results of anterior fusion. Peter test positive on right Pelvic compression test positive on right Suri finger test positive on right SLR with increased pain on right Spurling test negative bilaterally Stinchfield positive on right Neuro General: patient oriented x3 and gait normal Cranial nerves: Yes Equal, round and reactive pupils present and Yes Normal hearing present Cognition (Neuro): normal cognition Speech: No Abnormal speech present Motor exam (neuro): 5/5 motor strength present throughout Psych Appearance: grossly normal Mental Status: mental status grossly normal Speech and movement: Normal speech and movement present Affect: normal affect Attitude: cooperative Thought process: Normal thought process present Thought content: Normal thought content present Insight: Good insight present (Psych) Judgement: Good judgement present (Psych) Assessment & Plan Assessment & Plan (1) Postlaminectomy syndrome of lumbosacral region: Code(s): M96.1 - Postlaminectomy syndrome, not elsewhere classified (2) Right lumbar radiculopathy: Code(s): M54.16 - Radiculopathy, lumbar region (3) Radiculopathy of lumbar region: Code(s): M54.16 - Radiculopathy, lumbar region Plan 1. He is suspended for 12 months starting from February 2023. See discussion as above. Continue taper of the medication of this patient a by prescribing him 25 mg of oxycodone a day for the next 30 days. I will see him for the pill count in 1 month.He will continue clonidine and hydroxyzine to mitigate withdrawal symptoms. 2. He does not want to go transforaminal epidural steroid injection L3-L4 on the right. 3. He wants to see Dr. Nieto first. Medications: Changed From oxycodone Partial Fill upon patient request. 5 mg PO Q4H 30 days PRN 125 tabs 0RF pain MDD 5 pills a day To oxycodone Partial Fill upon patient request. 5 mg PO Q6H 30 days PRN 120 tabs 0RF pain MDD 5 pills a day Refilled oxycodone Partial Fill upon patient request. 5 mg PO Q6H PRN 120 tabs 0RF pain 30 days MDD max 4 pills a day Coding Level of Care Code Est Pt Level 4 (48480) Diagnoses Postlaminectomy syndrome of lumbosacral region M96.1 Right lumbar radiculopathy M54.16 Radiculopathy of lumbar region M54.16
== END 2023-04-04 09:16 | disposition home or self-care (01) ==
PROVIDERS: PCP Internal Medicine; Visit Provider Anesthesiology
DX: M96.1 Postlaminectomy syndrome, not elsewhere classified (principal); M54.16 Radiculopathy, lumbar region
CPT/HCPCS: 99214

== ENCOUNTER → 2023-04-04 08:19 | Outpatient (BNVA) | payer MEDICARE, OTHER, SELFPAY | PROVIDERS: PCP Internal Medicine; Visit Provider Anesthesiology | DX: M96.1 Postlaminectomy syndrome, not elsewhere classified (principal); M54.16 Radiculopathy, lumbar region; Z79.891 Long term (current) use of opiate analgesic | CPT/HCPCS: 99212 ==

== ENCOUNTER 2023-05-02 08:29 | Outpatient (AMB) | payer MEDICARE, OTHER, SELFPAY ==
--- NOTE | 2023-05-02 08:30 | A.OFFVIS_ITS ---
Intake Vital Signs 05/02/23 08:39 Height 5 ft 10 in Weight 186 lb 4 oz BMI 26.7 BP 140/72 H Blood Pressure Location Lt brachial Position Sitting Respiration 16 Pulse 67 Pulse Source Pulse Oximeter Pulse Oximetry (%) 98 Oxygen Delivery Method Room Air Intake Visit Reasons: PILL COUNT Intake Note: Patient comes in for pill count. Reports pain 6/10. Allergies Hzheoci-ARQ-XwV Reductase Inhibitor [KAVJHYF-ZDP-YYF REDUCTASE INHIBITOR] Allergy (Unknown, Verified 05/02/23 08:39) RAISES CPK LEVELS HPI HPI Comments History of Present Illness Details Issac is a very pleasant 62 year old male who presents to the office for follow up chronic pain and chronic opioid therapy management. He was on Oxycodone 10mg po TID prn. For failing to present proper amount of opioid medications for us on a pill count in February he was suspended for 1 year. He is currently in the taper. Last time I prescribed him 5 mg oxycodone p.r.n. every 6 hours 120 pills. Today he reported that he agreed with his primary care physician that he will continue to prescribe him his opioid medications until February when he will be restored in our opioid program. His pill count is correct today he is supposed to have 72 pills in his possession and he presented with 71 pill. Last time it was difficult and prolonged conversation started today with the patient. He was requesting not to taper his medication today. I explained to him the reasons he was suspended and I told him that I can not take it back. I suggested him that he may ask his primary care physician to prescribe medications for him with the way he wants it. He did not break any contracts with his PCP. He stated that his primary care physician from the day one told him that he will not be prescribing any opioid medications to him. His risks level were moderate therefore he is suspended with us for 1 year. He has an appointment with Dr. Nieto scheduled next week. There is 1 level higher than his fusion L3-L4 on the right were there is subarticular stenosis with progression. It might be giving him exacerbation of his postlaminectomy pain. I offered him L3-L4 transforaminal epidural steroid injection however she decided to go for neurosurgical consult 1st. He aslo was c/o multiple other pain generators including rotator cuff tear b/l shoulder joints, stiff elbow with severe pain there, migrain headaches for which he apparently is taking fioricet. This is another reason not to return to the opioids, because his psychiatrist prescribes him benzodiazepins, his neurologist prescribes him barbiturate and at the same time he is receiving opioids from me. This fact only support out decision about his taper. At the same time concurrent administration of opioid medications for patients with migraine headache very often results in worsening headache. Prior: Issac is here for the follow-up and pain medication pill count. He presented himself originally with 51 tablet in his possession. When he was confronted with the fact that he field up this medication on November 19 he stated that he left night pills intentionally at home because he thought that he would need to calculate his pills from the date of the prescription which his pharmacy [facility] wrote on the prescription bottle instead of the issue date. The date of the prescription issue was 11/16/2022. He was allowed to go home and bring missing 9 pills. He did that which put our suspicion for diversion to low level. We have had prolonged and difficult conversation with the patient. He was explained that according to the opioid contract he signed with us he needs to bring all the prescription without calculation to the office for the count. He was strictly warned this time that he will be allowed to pass with his opioid prescriptions without suspension, however if minimal misconduct will happen again he will be suspended without any consideration. His opioid addiction risk is low so therefore he would be suspended only for 6 month. At this time we will continue without suspension. Possibility of treatment of his condition with nonopioid intrathecal medication also exists. therapeutic SI joint injection which was performed on 08/15/2022. Now patient reports that he has pain was reduced not significantly enough after sacroiliac joint injection. Originally he said that his pain was reduced by 50%. He is diabetic with polyneuropathy. EMG results: 1. Chronic right lower lumbar radiculopathy. 2. Mild axonal sensory motor peripheral neuropathy. In the past we discussed possibility of treating his conditions with Nevro SCS by replacing the batteries of the SCS from [employer] to [employer]. Prior: Patient does report over the last several months he has also noticed some pain, numbness and tingling of his feet bilaterally. Feels like the balls of my feet are swollen sometimes. He is unsure if this was related to his blood sugars though he reports that these have been better controlled recently he takes his metformin daily as prescribed and states that his diet has been better controlled which leads him to believe that this neuropathy is not caused by his diabetes. Prior :? History of low back pain 2 to postlaminectomy syndrome with radiation of the pain into bilateral lower extremity however with sensation of intermittent numbness into the right lower extremity when he positions himself on the right side in the bed.? He received sacroiliac joint diagnostic injection right with bupivacaine only and he reports overall 75% pain relief for the 1st 6 hours.? ? I offered him sacroiliac joint fusion versus sacroiliac joint peripheral stimulation on the right.? 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 He is asking me to return to this issue in the future. [facility] Medical History Pre-diabetes History of shingles Hx of migraines Anxiety and depression HELDER on CPAP Asthma On beta irineo at home CAD (coronary artery disease) Angina pectoris HTN (hypertension) Sacroiliitis Postlaminectomy syndrome of lumbosacral region Right lumbar radiculopathy Spinal cord stimulator status Derangement of left shoulder joint Cervical arthritis Surgical History History of esophagogastroduodenoscopy (EGD) Hx of colonoscopy Hx of shoulder surgery History of carpal tunnel release History of umbilical hernia repair History of coronary artery bypass graft History of lumbar discectomy Social History Household Members Other:: lives with and son Alcohol intake: never Patient Tobacco Use Status: Former Tobacco user Quit Date: 1976 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 Review of Systems Const All systems reviewed & are unremarkable except as noted in HPI and below ENT Reports Normal hearing present Neuro Reports Normal hearing present and Denies Abnormal speech present Physical Exam Vital Signs: Last Vital Signs Pulse 67 05/02/23 08:39 Resp 16 05/02/23 08:39 BP 140/72 H 05/02/23 08:39 Pulse Ox 98 05/02/23 08:39 Oxygen Delivery Method Room Air 05/02/23 08:39 BMI result Body Mass Index 26.7 Const General: cooperative, healthy appearing and alert Orientation/consciousness: patient oriented x3 HEENT Head: Yes normocephalic and Yes atraumatic Ears: hearing grossly normal bilaterally Eyes General: appearance normal, both eyes and all related structures Eyelids: Yes eyelids normal Pupils: Equal, round and reactive pupils present EOM: EOMs intact bilaterally Neck Neck: Yes normal visual inspection Resp Effort & Inspection: normal respiratory effort and able to speak in complete sentences Cardio Jugular venous distension: no JVD Back/Spine/Pelvis Other: Lumbar spine visible inspection multiple very well-healed scars demonstrates previous fusions. Lateral left hip incision also demonstrates the results of anterior fusion. Peter test positive on right Pelvic compression test positive on right Suri finger test positive on right SLR with increased pain on right Spurling test negative bilaterally Stinchfield positive on right Neuro General: patient oriented x3 and gait normal Cranial nerves: Yes Equal, round and reactive pupils present and Yes Normal hearing present Cognition (Neuro): normal cognition Speech: No Abnormal speech present Motor exam (neuro): 5/5 motor strength present throughout Psych Appearance: grossly normal Mental Status: mental status grossly normal Speech and movement: Normal speech and movement present Affect: normal affect Attitude: cooperative Thought process: Normal thought process present Thought content: Normal thought content present Insight: Good insight present (Psych) Judgement: Good judgement present (Psych) Results Reviewed Results Reviewed: MRI of the lumbar spine was obtained using routine sequences with and without contrast. Intravenous contrast: Gadavist 8.5 mL FINDINGS: There are redemonstrated postoperative changes following laminectomy and posterior instrumented lumbar interbody fusion at the L4-S1 levels. The surgical hardware is not diagnostically assessed on MRI. There are 5 nonrib-bearing lumbar-type vertebral bodies. There is no bone marrow edema. There are no acute fractures. There is an intraosseous hemangioma within the T12 vertebral body. Fatty marrow changes involving the L5 vertebral body. Nonsurgical disc volumes are preserved. There is disc desiccation at L3-L4. Conus terminates at the L1 level. There are no significant extraspinal soft tissue findings. There is artifact from a spinal stimulator device versus baclofen pump within the lower thoracic spine. At T11-T12, there is stable slight grade 1 degenerative anterolisthesis in the setting of advanced bilateral facet arthropathy resulting in bilateral foraminal encroachment with mass effect on the exiting nerve roots bilaterally. L1-L2: Disc contour is normal. There is mild bilateral facet arthropathy. There is no central canal stenosis and there is no foraminal stenosis. L2-L3: There is a diffuse annular disc bulge and there is mild bilateral facet arthropathy. There is no central canal stenosis. There is mild foraminal encroachment bilaterally. L3-L4: There is a diffuse annular disc bulge and there is severe bilateral facet arthropathy and ligamentum flavum thickening. Findings in concert result in right subarticular zone stenosis with mass effect on the traversing right L4 nerve root which is progressed. Disc C5 and facet arthropathy result in similar mild to moderate bilateral foraminal stenosis. L4-L5: There are postoperative changes following laminectomy and posterior instrumented lumbar interbody fusion. There is diffuse osteophytic ridging and there is advanced bilateral facet arthropathy. There is no central canal stenosis. There is mild foraminal encroachment bilaterally. L5-S1: There are postoperative changes following laminectomy and posterior instrumented lumbar interbody fusion. There is no central canal stenosis. Osteophytic ridging results in mass effect on the extraforaminal L5 nerve roots bilaterally and narrowing of the right subarticular zone with mass effect on the traversing right S1 nerve root which is unchanged. There is enhancing granulation/scar tissue inseparable from the traversing right S1 nerve root as well. IMPRESSION: - At the junctional L3-L4 level, progressive spondylitic changes result in worsening right subarticular zone stenosis with mass effect on the traversing right L4 nerve root. Similar mild to moderate bilateral foraminal stenosis at this level. - There are redemonstrated postoperative changes following laminectomy and posterior instrumented lumbar interbody fusion at the L4-S1 levels. Osteophytic ridging at L5-S1 results in mass effect on the extraforaminal L5 nerve roots bilaterally and narrowing of the right subarticular zone with mass effect on the traversing right S1 nerve root which is unchanged. There is enhancing granulation/scar tissue inseparable from the traversing right S1 nerve root as well. - At T11-T12, there is stable slight grade 1 degenerative anterolisthesis in the setting of advanced bilateral facet arthropathy resulting in bilateral foraminal encroachment with mass effect on the exiting nerve roots bilaterally Assessment & Plan Assessment & Plan (1) Postlaminectomy syndrome of lumbosacral region: Code(s): M96.1 - Postlaminectomy syndrome, not elsewhere classified (2) Right lumbar radiculopathy: Code(s): M54.16 - Radiculopathy, lumbar region (3) Radiculopathy of lumbar region: Code(s): M54.16 - Radiculopathy, lumbar region Plan 1. He is suspended for 12 months starting from February 2023. See discussion as above. He does not want me to prescribe any medications anymore for him. He requested primary care physician to prescribe him the opioids until February 2023. 2. He does not want to go transforaminal epidural steroid injection L3-L4 on the right which was offered to him by me. 3. He wants to see Dr. Nieto first. The appointment with Dr. Nieto is next week May 07 through . 4. No new appointment with me until February unless the patient is referred to me by Dr. Nieto for injections and patient wants to discuss injections with me. Coding Level of Care Code Est Pt Level 3 (00763) Diagnoses Postlaminectomy syndrome of lumbosacral region M96.1 Right lumbar radiculopathy M54.16 Radiculopathy of lumbar region M54.16
[2023-05-02 08:39] VITALS: BP 140/72; PULSE 67; RESP 16; O2SAT 98; BMI 26.7
== END 2023-05-02 08:50 | disposition home or self-care (01) ==
PROVIDERS: PCP Internal Medicine; Visit Provider Anesthesiology
DX: M96.1 Postlaminectomy syndrome, not elsewhere classified (principal); M54.16 Radiculopathy, lumbar region
CPT/HCPCS: 99213

== ENCOUNTER → 2023-05-02 08:29 | Outpatient (BNVA) | payer MEDICARE, OTHER, SELFPAY | PROVIDERS: PCP Internal Medicine; Visit Provider Anesthesiology | DX: Z51.81 Encounter for therapeutic drug level monitoring (principal); F11.20 Opioid dependence, uncomplicated; M96.1 Postlaminectomy syndrome, not elsewhere classified; M54.16 Radiculopathy, lumbar region | CPT/HCPCS: 99212 ==

== ENCOUNTER 2023-05-09 09:02 | Outpatient (AMB) | payer MEDICARE, OTHER, SELFPAY ==
--- NOTE | 2023-05-09 09:15 | A.SPINEOV_ITS ---
Intake Intake Visit Reasons: low back pain Intake Note: Mr. Nieto is here today c/o low back pain. 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 HPI: This 63-year-old male has an extensive spinal surgical history, which started with a microdiskectomy in 2003 and ended with an L4-5 and L5-S1 lumbar fusion after facet denervations no longer worked. He continued to complain of back pain and eventually had a spinal cord stimulator placed that alleviated his back pain. He is able to sit and stand for longer periods of time. He denies significant radiation down his legs. He does have numbness tingling in his feet at night. He developed a new type of pain in his right hip at night. He can not lay on his right side. During the day he has no hip pain. He had SI joint injections without effect. He went to see his spine surgeon in [place] who did not recommend additional surgery after review an MRI. He was referred to me by to evaluate him for possible lateral recess stenosis. The following conservative treatment options were tried without success antiinflammatories, tylenol, physician guided home exercise plan, cortisone shots PMH: Hypertension, previous diabetes, stent placement Physical Exam: Pleasant male. Outward rotation of the right hip is painful. Straight leg raise is negative. Is absent reflexes. Motor exam is intact. SI joint tests are negative. Radiological Studies: [place] [facility] [place] post L4-5 and L5-S1 lumbar fusion. There is mild adjacent degenerative disc disease and mild central stenosis. No nerve root compression. No foraminal stenosis. Impression/Plan: Mr. River suffering from a new type pain in the right hip. An MRI shows no signs of nerve compression. An EMG shows chronic changes and signs of polyneuropathy, explaining his burning feet at night. I did not recommend additional surgery, which is in agreement with the findings of the ot her surgeon. Thank you for allowing me to participate in your patients care. total time spent was 50 minutes in counseling ,coordination of plan, personal review of imaging, surgical decision making and subsequent plan Vladislav Nieto MD, PhD Spine Fellowship Trained Neurosurgeon Director, [facility] Coding Level of Care Code New Pt Level 4 (24362) Diagnoses Hip pain, right M25.551
== END 2023-05-09 10:14 | disposition home or self-care (01) ==
PROVIDERS: PCP Internal Medicine; Referring Provider Anesthesiology; Visit Provider Neurological Surgery
DX: M25.551 Pain in right hip (principal)
CPT/HCPCS: 99204

== ENCOUNTER → 2023-05-09 09:02 | Outpatient (BNVA) | payer MEDICARE, OTHER, SELFPAY | PROVIDERS: PCP Internal Medicine; Referring Provider Anesthesiology; Visit Provider Neurological Surgery | DX: M25.551 Pain in right hip (principal) | CPT/HCPCS: 99202 ==

== ENCOUNTER 2024-01-09 08:51 | Outpatient (REF) | payer MEDICARE, OTHER, SELFPAY ==
--- NOTE | ~2024-01-09 | FL_ITS ---
EXAMINATION: XR FLUOROSCOPY UPPER GI WITH AIR CLINICAL INFORMATION: Reflux COMPARISON: None TECHNIQUE: Fluoroscopic air contrast upper GI examination was performed utilizing standard techniques with thin and thick barium and effervescent granules. Numerous spot images were obtained. FINDINGS: Lateral cine images of the oropharynx and hypopharynx demonstrate normal swallow mechanism with normal epiglottic inversion and soft palate elevation. There is trace laryngeal penetration with thick barium. No tracheal penetration, glottic or subglottic aspiration identified. No nasopharyngeal reflux present. No masses or diverticulum are seen. There is ballooning of the hypopharynx with moderate cricopharyngeal achalasia present. Median sternotomy wires are present. Intrathecal spinal stimulator wires terminate in the thoracic region. Dual and single contrast images of the esophagus demonstrate normal caliber, contour, and mucosal pattern. No evidence of stricture, mass, or ulcerations identified. There is to and fro motion of the barium column, with nonpropulsive tertiary contractions noted throughout the esophagus. The patient swallowed the barium tablet without any difficulty. The tablet passed freely into the stomach without any evidence of stasis. A small type I hiatal hernia is present. No significant gastroesophageal reflux was seen during the course of the examination and on reflux views. Dual contrast and single contrast images of the stomach demonstrated a normal contour. There are multiple tiny foci of contrast pooling in the fundus and body of the stomach that likely represents small mucosal ulcerations. No masses are seen. Contrast freely passed into the gastric antrum and duodenal bulb without delay. Single and air-contrast images of the duodenal bulb demonstrate no abnormality. The duodenal sweep has a normal appearance, course, and mucosal fold appearance. The imaged proximal jejunum has a normal fold pattern and caliber. FLUOROSCOPY TIME: 3 minutes 48 seconds Number of Spot Images: 9 Number of Cine: 13 DOSE AREA PRODUCT: 2671 uGy-m2 (microgray-meter squared) FL/FL barium swallow with air IMPRESSION: 1. Trace laryngeal penetration with thick barium. 2. Ballooning of the hypopharynx with moderate cricopharyngeal achalasia present. 3. Esophageal dysmotility. 4. Small type I hiatal hernia. 5. Multiple tiny foci of contrast pooling in the fundus and body of the stomach that likely represent small mucosal ulcerations. Recommend correlation with EGD. 6. Status post CABG 7. Status post spinal stimulator. This procedure was performed by Tj Ramirez PA-C, and supervised by Dr. Rasheed Electronically signed by: Dmitry Rasheed MD 01/10/2024 02:35 PM EDT
== END 2024-01-09 08:52 | disposition home or self-care (01) ==
LOC: HO.XRAY 08:51
PROVIDERS: PCP Internal Medicine; Visit Provider Internal Medicine
DX: R13.10 Dysphagia, unspecified (principal); K21.9 Gastro-esophageal reflux disease without esophagitis
CPT/HCPCS: 74221

== ENCOUNTER → 2024-01-09 08:56 | Outpatient (BNV) | payer MEDICARE, OTHER, SELFPAY | PROVIDERS: PCP Internal Medicine; Visit Provider Physician Assistant Surgical | DX: K21.9 Gastro-esophageal reflux disease without esophagitis (principal) | CPT/HCPCS: 74221 ==

== ENCOUNTER 2024-05-22 08:22 | Outpatient (AMB) | payer MEDICARE, SELFPAY ==
--- NOTE | 2024-05-22 08:30 | A.OFFVIS_ITS ---
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 In fact he was suspended in February of 2023. He will be given UDS today. he reports today he that he took his last oxycodone yesterday, he did not take his lorazepam 1 week. He was started on some sort of a new sleeping medicine name of which he does not remember. He takes it every day. When UDS will be ready I willprescribe him his previous dose oxycodone 10 mg t.i.d.. He suffers from multiple pain generators including pain in the bilateral shoulders, he had multiple surgeries of bilateral shoulders including arthroscopy of the right shoulder several times and several procedures on the left shoulder with open surgeries and anchors and hardware insertion. He also was diagnose with left elbow arthritis he complains on severe pain in left elbow. He was examined by neurosurgeon Dr. Nieto and in Dr. Poole opinion he does not need any neurosurgical intervention. He reports in his note that there is no nerve root compressions. Therefore it is unlikely that the transforaminal epidural steroid injections will help the patient. However Dr. Nieto paid attention to symptoms of right hip joint arthritis. He has pain in the hip on lateral rotation of the hip and he has pain in the groin with Peter test performance. He had an x-ray of the right hip done at [facility] office dose in [place], he will sign medical information release and we will obtain the report. I discussed with the patient today steroid injections in the I also offered him possible PRP injection in the right shoulder and PRP injection into the elbow. PRP injection into the hip joint also can not be performed. PRP injection into bilateral knees could be done for him. Prior :? History of low back pain 2 to postlaminectomy syndrome with radiation of the pain into bilateral lower extremity however with sensation of intermittent numbness into the right lower extremity when he positions himself on the right side in the bed.? He received sacroiliac joint diagnostic injection right with bupivacaine only and he reports overall 75% pain relief for the 1st 6 hours.? ? I offered him sacroiliac joint fusion versus sacroiliac joint peripheral stimulation on the right.? 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 He is asking me to return to this issue in the future. [facility] Medical History Pre-diabetes History of shingles Hx of migraines Anxiety and depression HELDER on CPAP Asthma On beta irineo at home CAD (coronary artery disease) Angina pectoris HTN (hypertension) Sacroiliitis Postlaminectomy syndrome of lumbosacral region Right lumbar radiculopathy Spinal cord stimulator status Derangement of left shoulder joint Cervical arthritis Surgical History History of esophagogastroduodenoscopy (EGD) Hx of colonoscopy Hx of shoulder surgery History of carpal tunnel release History of umbilical hernia repair History of coronary artery bypass graft History of lumbar discectomy Social History Household Members Other:: lives with and son Alcohol intake: never Patient Tobacco Use Status: Former Tobacco user Current occupation: Disabled [employer] Review of Systems Const All systems reviewed & are unremarkable except as noted in HPI and below ENT Reports Normal hearing present Neuro Reports Normal hearing present and Denies Abnormal speech present Physical Exam Vital Signs: Last Vital Signs Pulse 80 05/22/24 08:35 BP 156/80 H 05/22/24 08:35 Pulse Ox 97 05/22/24 08:35 Oxygen Delivery Method Room Air 05/22/24 08:35 BMI result Body Mass Index 27.5 Const General: cooperative, healthy appearing and alert Orientation/consciousness: patient oriented x3 HEENT Head: Yes normocephalic and Yes atraumatic Ears: hearing grossly normal bilaterally Eyes General: appearance normal, both eyes and all related structures Eyelids: Yes eyelids normal Pupils: Equal, round and reactive pupils present EOM: EOMs intact bilaterally Neck Neck: Yes normal visual inspection Resp Effort & Inspection: normal respiratory effort and able to speak in complete sentences Cardio Jugular venous distension: no JVD Back/Spine/Pelvis Other: Lumbar spine visible inspection multiple very well-healed scars demonstrates previous fusions. Lateral left hip incision also demonstrates the results of anterior fusion. Peter test positive on right Pelvic compression test positive on right Suri finger test positive on right SLR with increased pain on right Spurling test negative bilaterally Stinchfield positive on right Neuro General: patient oriented x3 and gait normal Cranial nerves: Yes Equal, round and reactive pupils present and Yes Normal hearing present Cognition (Neuro): normal cognition Speech: No Abnormal speech present Motor exam (neuro): 5/5 motor strength present throughout Psych Appearance: grossly normal Mental Status: mental status grossly normal Speech and movement: Normal speech and movement present Affect: normal affect Attitude: cooperative Thought process: Normal thought process present Thought content: Normal thought content present Insight: Good insight present (Psych) Judgement: Good judgement present (Psych) Results Reviewed Results Reviewed: MRI of the lumbar spine was obtained using routine sequences with and without contrast. Intravenous contrast: Gadavist 8.5 mL FINDINGS: There are redemonstrated postoperative changes following laminectomy and posterior instrumented lumbar interbody fusion at the L4-S1 levels. The surgical hardware is not diagnostically assessed on MRI. There are 5 nonrib-bearing lumbar-type vertebral bodies. There is no bone marrow edema. There are no acute fractures. There is an intraosseous hemangioma within the T12 vertebral body. Fatty marrow changes involving the L5 vertebral body. Nonsurgical disc volumes are preserved. There is disc desiccation at L3-L4. Conus terminates at the L1 level. There are no significant extraspinal soft tissue findings. There is artifact from a spinal stimulator device versus baclofen pump within the lower thoracic spine. At T11-T12, there is stable slight grade 1 degenerative anterolisthesis in the setting of advanced bilateral facet arthropathy resulting in bilateral foraminal encroachment with mass effect on the exiting nerve roots bilaterally. L1-L2: Disc contour is normal. There is mild bilateral facet arthropathy. There is no central canal stenosis and there is no foraminal stenosis. L2-L3: There is a diffuse annular disc bulge and there is mild bilateral facet arthropathy. There is no central canal stenosis. There is mild foraminal encroachment bilaterally. L3-L4: There is a diffuse annular disc bulge and there is severe bilateral facet arthropathy and ligamentum flavum thickening. Findings in concert result in right subarticular zone stenosis with mass effect on the traversing right L4 nerve root which is progressed. Disc C5 and facet arthropathy result in similar mild to moderate bilateral foraminal stenosis. L4-L5: There are postoperative changes following laminectomy and posterior instrumented lumbar interbody fusion. There is diffuse osteophytic ridging and there is advanced bilateral facet arthropathy. There is no central canal stenosis. There is mild foraminal encroachment bilaterally. L5-S1: There are postoperative changes following laminectomy and posterior instrumented lumbar interbody fusion. There is no central canal stenosis. Osteophytic ridging results in mass effect on the extraforaminal L5 nerve roots bilaterally and narrowing of the right subarticular zone with mass effect on the traversing right S1 nerve root which is unchanged. There is enhancing granulation/scar tissue inseparable from the traversing right S1 nerve root as well. IMPRESSION: - At the junctional L3-L4 level, progressive spondylitic changes result in worsening right subarticular zone stenosis with mass effect on the traversing right L4 nerve root. Similar mild to moderate bilateral foraminal stenosis at this level. - There are redemonstrated postoperative changes following laminectomy and posterior instrumented lumbar interbody fusion at the L4-S1 levels. Osteophytic ridging at L5-S1 results in mass effect on the extraforaminal L5 nerve roots bilaterally and narrowing of the right subarticular zone with mass effect on the traversing right S1 nerve root which is unchanged. There is enhancing granulation/scar tissue inseparable from the traversing right S1 nerve root as well. - At T11-T12, there is stable slight grade 1 degenerative anterolisthesis in the setting of advanced bilateral facet arthropathy resulting in bilateral foraminal encroachment with mass effect on the exiting nerve roots bilaterally Assessment & Plan Assessment & Plan (1) Postlaminectomy syndrome of lumbosacral region: Code(s): M96.1 - Postlaminectomy syndrome, not elsewhere classified Category: Medical (2) Right lumbar radiculopathy: Code(s): M54.16 - Radiculopathy, lumbar region Category: Medical (3) Radiculopathy of lumbar region: Code(s): M54.16 - Radiculopathy, lumbar region Category: Medical Plan 1. He is suspended for 12 months starting from February 2023. He will be sent for UDS when UDS is ready I will restart his previous dose of 10 mg t.i.d. of oxycodone. I offered him schedule 3 buprenorphine and schedule for tramadol patient refused. He is currently on oxycodone prescribed by PCP he stopped his benzodiazepine 1 week ago. Now after the suspension his risk becomes severe risk of opioid addiction and therefore he will be suspended indefinitely. 2. He was seen by Dr. Poole send attention was attracted to his right hip symptoms see as above. I will schedule him for right hip steroid injection if he desires to. 3. PRP discussed as above. Patient Instructions: I here by testify that I spent 45 minutes in conversation with this patient as well as planning his care and organizing this note. Coding Level of Care Code Est Pt Level 5 (31392) Diagnoses Postlaminectomy syndrome of lumbosacral region M96.1 Right lumbar radiculopathy M54.16 Radiculopathy of lumbar region M54.16
[2024-05-22 08:35] VITALS: BP 156/80; PULSE 80; O2SAT 97; BMI 27.5
--- OUTSIDE RECORDS SUMMARY | 2024-05-22 08:45 | XMS_ITS | Data Portability ---
Author Organization [place] - [facility], [facility] Office Address [address] [place] [address] Care Team Providers Care Money Order Clerk Name Role Phone TONY ALEJANDRO Primary Care Provider Assessment No assessment recorded. Plan of Treatment Reminders Order Date Submit Date Provider Last Modified By Organization Details Last Modified Time Details Appointments None recorded. Lab None recorded. Referral None recorded. Procedures None recorded. Surgeries orthopaedi c surgery (SURG) 2023 024 [email or web address] [facility] [address], [place], [address], 14:12:27 Imaging None recorded. Medication Orders Kenalog 40 mg/mL suspension for injection 2023 024 [id number] [address] [place], [address], 4 10:21:02 Kenalog 40 mg/mL suspension for injection 2023 024 [id number], [address] [place], [address], 4 10:21:02 Kenalog 40 mg/mL suspension for injection 2023 024 [id number] [address] [place], [address], 4 15:52:04 Patient TargetsNo targets recorded. Patient Instructions Encounter Date Encounter Id Patient Instructions Last Modified By Organization Details Last Modified Time 05/10/2023 [id number] Educational materials are supplied regarding diagnoses & management Not available 05/10/2023 21:44:01 The findings, diagnosis, and options are discussed with the patient. The potential surgical procedure options were also outlined. Based on symptoms and findings, the decision was made to plan for left elbow arthroscopy with extensive debridement and removal of loose bodies The risks and benefits are outlined including (but not limited to): infection, persistent symptoms, limited healing, instability, heterotopic bone, complications of hardware or implant and neurovascular or tendon injury. All questions are answered. Pre-testing to be arranged. Follow up will be at the time of surgery. The patient will call if problems or questions. [place] [id number] Not available 05/10/2023 21:44:46 06/11/2023 [id number] The findings, diagnosis, and options are discussed including potential treatments. The patient is doing well early on. Wound care stretching program and restrictions for lifting activity outlined. All questions are answered. He will consider referral to PT in several weeks. Follow up will be arranged as noted in 4 weeks for recheck. Patient will call if problems or questions. [place] Not available 06/11/2023 09:19:23 07/12/2023 [id number] Educational materials are supplied regarding diagnoses & management Not available 07/12/2023 09:03:05 The findings, diagnosis, and options are discussed including potential treatments. He would like to plan for R first CMC cortisone injection this is performed as above. The patient is doing well as prior from elbow arthroscopy. All questions are answered. He does not feel PT is needed. Follow up will be arranged as noted in 8-12 weeks for recheck if needed at his request. Patient will call if problems or questions. [email or web address] Not available 07/12/2023 09:04:22 10/01/2023 [id number] Educational materials are supplied regarding diagnoses & management [place] Not available 10/01/2023 13:05:21 The findings, diagnosis, and options are discussed including potential treatments. He would like to plan for left elbow joint cortisone injection this is performed as above. Follow up will be arranged as needed at his request. Patient will call if problems or questions. [email or web address] Not available 10/01/2023 13:08:33 03/10/2024 [id number] Educational materials are supplied regarding diagnoses & management [email or web address] Not available 03/10/2024 21:15:42 The findings, diagnosis, and options are discussed including potential treatments. He would like to plan for left elbow joint and wrist CMC cortisone injections These are performed as above. Follow up will be arranged as needed at his request. Patient will call if problems or questions. maria [email or web address] Not available 03/10/2024 21:19:01 Reason for Referral None Reported. Results Created Date Observation Date Name Description Value Unit Range Abnormal Flag Note LastModifiedBy Organization Detail LastModifiedTime 04/17/19 24 02/21/2023 MRI, lumba r spine , w/wo contr ast No observ ation record ed. [email or web address] Not Available 04/17 09:38:38 05/10/19 24 05/10/2023 xr elbow s bilat min3 views Fin al Report EXAM#: [id number] PROCED URE: DXR 0030 XR ELBOWS BILAT MIN3 VIEWS May 10 2023 10:03A M CLINIC AL INDICA TION: L/R ELBOW PAIN ADDITI ONAL INDICA TION: Bilate ral elbow pain. TECHNI QUE: 3 views of the right elbow and 3 views of the left elbow. COMPAR QUE: None. FINDIN GS: Right elbow: There is no eviden ce of fractu re or malali gnment . Osseou s irregu larity at the medial and latera l jaja l epicon dyles, which may reflec t sequel ae of prior trauma . Degene rative change s at the radioc apitel lar and ulnotr ochlea r articu lation s with joint space narrow ing, subcho ndral sclero sis, and bony spurri ng. No signif icant joint effusi on. Mild enthes opathy at the tricep s tendon insert ion. No soft tissue abnorm ality is seen. Left elbow: There is no eviden ce of fractu re or malali gnment . No osseou s abnorm alitie s are identi fied. Degene rative change s at the radioc apitel lar and ulnotr ochlea r articu lation s with joint space narrow ing, subcho ndral sclero sis, and bony spurri ng. No signif icant joint effusi on. Mild enthes opathy at the tricep s tendon insert ion. Small linear densit y projec ting over the volar soft tissue s of the proxim al forear m, which are nonspe cific, may reflec t foreig n body which could be relate d to prior surger y. Recomm end clinic al correl ation. NUMBER OF IMAGES : 6 Report ed by : ADONIS PELLETIER M.D. On: May 10 2023 11:35A Signed by: ADONIS LUONG M.D. On: May 10 2023 11:35A [email or web address] [facility] [address], [place], [address], 05/10/2023 16:57:39 05/10/19 24 05/10/2023 XR, elbow No observ ation record ed. [email or web address] Not Available 2023 16:55:45 05/30/19 24 05/30/2023 elect romyo gram + nerve condu ction study No observ ation record ed. [email or web address] Not Available 2023 15:28:20 07/12/19 24 07/12/2023 xr hands bilat 3 views each min Fin al Report EXAM#: [id number] PROCED URE: DXR 0076 XR HANDS BILAT 3 VIEWS EACH MIN Jul 12 2023 8:52AM CLINIC AL INDICA TION: PAIN IN L/R HAND FINDIN GS: Left side: No displa scot fractu re. Joints are congru ent. Mild STT and first CMC osteoa rthrit is. Mild to modera te first IP osteoa rthrit is. Arteri al calcif icatio ns noted. Right side: No displa scot fractu re. Joints are congru ent. Mild STT and first CMC osteoa rthrit is, and mild to modera te first IP osteoa rthrit is. Arteri al calcif icatio ns noted. NUMBER OF IMAGES : 6 Report ed by : CONSTANCE GUERRA M.D. On: Jul 12 2023 8:58A Signed by: CONSTANCE GUEVARA M.D. On: Jul 12 2023 8:58A [email or web address] [facility] [address], [place], [address], 07/12/2023 09:05:18 07/12/19 24 07/12/2023 XR, hand No observ ation record ed. [email or web address] Not Available 2023 09:54:22 Result Notes None recorded. Problems Name Problem SNOMED Code Status Onset Date Resolution Date Notes Provider Name and Address Organization Details Recorded Time Chronic low back pain 525510281 Active 024 Not Available [employer] 4 11:15:08 Problem Notes None recorded. Procedures Surgical History Date Name Laterality Status Provider Name and Address Organization Details Recorded Time 4 Cortisone Injection(s) completed JOE MILLER MD [address] [place] [address], [phone], [facility] 03/10/2024 21:15:52 4 Cortisone Injection(s) completed JOE MILLER MD [address] [place] [address], [phone], [facility] 10/01/2023 13:07:56 4 Cortisone Injection(s) completed JOE MILLER MD [address] [place] [address], [phone], [facility] 07/12/2023 09:02:37 4 Orthopaedic Surgery completed Delroy Soto [facility] 06/11/2023 09:03:17 8 Orthopaedic Surgery completed Brittani Cotton [facility] 04/23/2023 10:29:52 7 Orthopaedic Surgery completed Brittani Cotton [facility] 04/23/2023 10:30:17 6 Other completed Brittani Cotton [facility] 04/23/2023 10:32:13 5 Orthopaedic Surgery completed Brittani Cotton [facility] 04/23/2023 10:31:24 Other completed Delroy Soto [place] - [facility] 05/10/2023 10:50:20 Imaging Results Imaging Date Name Status LastModified by Organization Details LastModified Time 02/21/2023 MRI, lumbar spine, w/wo contrast completed [email or web address] Information not available 04/17/2023 09:38:38 05/10/2023 xr elbows bilat min3 views completed [email or web address] [facility] [address] [place], [address], 05/10/2023 16:57:39 05/10/2023 XR, elbow completed [email or web address] Information no t available 05/10/2023 16:55:45 05/30/2023 electromyogram + nerve conduction study completed [email or web address] Information not available 05/30/2023 15:28:20 07/12/2023 xr hands bilat 3 views each min completed [email or web address] [facility] [address] [place], [address], 07/12/2023 09:05:18 07/12/2023 XR, hand completed [email or web address] Information no t available 07/12/2023 09:54:22 Procedure Notes None recorded. Medical Equipment None Reported. Allergies No known drug allergies Medications Name Sig Start Date Stop Date Status Note LastModified by Organization Details LastModified Time celecoxib 200 mg capsule TAKE 1 CAPSULE BY MOUTH EVERY DAY active Not Available Not Available No t Available metformin 500 mg tablet TAKE 2 TABLETS BY MOUTH TWICE A DAY active Not Available Not Available No t Available clonidine HCl 0.1 mg tablet TAKE 1 TABLET BY MOUTH TWICE DAILY FOR 10 DAYS NEEDED FOR OPIOID WITHDRAWA LS active Not Available Not Available No t Available azithromyci n 250 mg tablet TAKE 2 TABLETS BY MOUTH TODAY, THEN TAKE 1 TABLET DAILY FOR 4 DAYS DIRECTED active Not Available Not Available No t Available meloxicam 15 mg tablet TAKE 1 TABLET BY MOUTH ONCE A DAY WITH FOOD OR MILK active Not Available Not Available No t Available metoprolol succinate ER 100 mg tablet,exte nded release 24 hr TAKE 2 TABLETS BY MOUTH EVERY DAY active Not Available Not Available No t Available valsartan 80 mg tablet TAKE 2 TABLETS BY MOUTH DAILY active Not Available Not Available No t Available chlorthalid one 25 mg tablet TAKE 1 TABLET BY MOUTH EVERY DAY active Not Available Not Available No t Available Kenalog 40 mg/mL suspension for injection Kenalog 40 mg/mL 2023 active Not Available Not Available Not Avai lable oxycodone-a cetaminophe n 10 mg-325 mg tablet TAKE 1 TABLET ORALLY EVERY 8 HOURS NEEDED FOR SEVERE PAIN FOR 30 DAYS 07/11 completed Not Available Not Available Not Available oxycodone 5 mg capsule TAKE 1 CAPSULE BY MOUTH EVERY 6 HOURS 03/10 completed Not Available Not Available Not Available gabapentin 300 mg capsule TAKE 1 CAPSULE BY MOUTH THREE TIMES DAILY FOR PAIN active Not Available Not Available No t Available hydroxyzine HCl 25 mg tablet TAKE 1 TABLET BY MOUTH EVERY DAY AT NIGHT active Not Available Not Available No t Available lorazepam 1 mg tablet TAKE 1 TABLET BY MOUTH TWICE A DAY NEEDED active Not Available Not Available No t Available scopolamine 1 mg over 3 days transdermal patch 1 PATCH TOPICALLY EVERY 72 HOURS active Not Available Not Available No t Available oxycodone 5 mg tablet TAKE 1 TABLET BY MOUTH EVERY 6 HOURS NEEDED FOR PAIN active Not Available Not Available No t Available oxycodone 10 mg tablet TAKE 1 TABLET BY MOUTH EVERY 8 HOURS NEEDED FOR PAIN 07/11 completed Not Available Not Available Not Available Simponi active Not Available Not Avail able Not Available Praluent Pen 75 mg/mL subcutaneou s pen injector INJECT 75 MG SUBCUTANE OUSLY EVERY 2 WEEKS ROTATE INJECTION SITES active Not Available Not Available No t Available Repatha SureClick 140 mg/mL subcutaneou s pen injector INJECT 140 MG SUBCUTANE OUSLY EVERY 14 DAYS active Not Available Not Available No t Available naloxone 4 mg/actuatio n nasal spray PLEASE SEE ATTACHED FOR DETAILED DIRECTION S active Not Available Not Available No t Available Vitals Date Recorded Body height Body mass index (BMI) Body weight Provider Name and Address Organization Details Last Updated DateTime 05/10/2023 177.8 cm 26.7 kg/m2 76174.18 g Delroy Soto [place] - [facility] 05/10/2023 10:49:25 Date Recorded Body height Body mass index (BMI) Body weight Provider Name and Address Organization Details Last Updated DateTime 06/11/2023 177.8 cm 26.5 kg/m2 33412.59 g Delroy Soto [facility] 06/11/2023 09:06:26 Date Recorded Body height Body mass index (BMI) Body weight Provider Name and Address Organization Details Last Updated DateTime 07/12/2023 179.07 cm 25.7 kg/m2 26610.81 g Tri Edson Victor [facility] 07/12/2023 08:42:36 Date Recorded Body height Body mass index (BMI) Body weight Provider Name and Address Organization Details Last Updated DateTime 10/01/2023 179.07 cm 28.1 kg/m2 83274.88 g Delroy Soto [facility] 10/01/2023 12:28:11 Date Recorded Body height Body mass index (BMI) Body weight Provider Name and Address Organization Details Last Updated DateTime 03/10/2024 179.07 cm 27.7 kg/m2 38591.1 g Delroy Soto [facility] 03/10/2024 15:52:01 Social History Question Answer Notes LastModified by Organizat ion Details LastModified Time Tobacco Smoking Status Never Smoker Not Available [facility] 02/23/2022 23:20:34 What Is Your Level Of Alcohol Consumption? Moderate [email or web address] Information not available 04/17/2023 Do You Or Have You Ever Used E-cigarettes Or Vape? Never Used Electronic Cigarettes [email or web address] Information not available 04/17/2023 What Is Your Occupation? Retired [email or web address] Information not available 04/17/2023 Do You Or Have You Ever Used Smokeless Tobacco? Never Used Smokeless Tobacco [email or web address] Information not available 04/17/2023 Sex: Unknown Functional Status None recorded. Mental Status None recorded. Family History Relationship Description Onset Age of this Age Resolved Age Notes LastModified by Organization Details LastModified Time Father No current problems or disability [email or web address] Not available 05/10 10:49:53 Mother No current problems or disability [email or web address] Not available 05/10 10:49:53 Medical History Condition Response Blood Clots / Phlebitis N Heart Problems N HIV or AIDS N Depression or Anxiety N High Blood Pressure Y Irregular Heartbeat N MRSA N Emphysema / Chronic Bronchitis N Any Other Significant Medical Issues N Reaction to General/Local Anesthesia N Weight Gain / Loss N Hepatitis / Jaundice N Kidney / Bladder Infections N Diabetes N Bleeding Disorder N Hearing Loss N Angina, Heart Failure or Attack N Night Sweats N Seizures / Epilepsy N Osteoarthritis / Rheumatoid arthritis / Other N Cancer N Stroke N Chemical Dependency / Alcoholism N Ulcer / Stomach Bleeding / Indigestion N Visual Loss or Glaucoma N Psoriasis / Skin Rash N Thyroid Disorder N Heart Disease Y Asthma / Shortness of Breath / Sleep Event Av Operator ea (please specify) N Pulmonary Embolism N Past Encounters Encounter ID Performer Location Encounter Start Date Encounter Closed Date Diagnosis/Indication Diagnosis SNOMED-CT Code Diagnosis ICD10 Code Diagnosis Note [id number] JAQUELINE CHRISTIE MD [facility] Office [address] [place] [address] 04/17/2023 09:23:37 04/17/2023 10:25:10 Chronic low back pain 057762200 M54.50 [id number] Christy Gavin [facility] Office [address] [place] [address] 04/23/2023 09:48:28 04/23/2023 11:07:39 Localized, primary osteoarthritis of the shoulder region 841053007 M19.338 [id number] Tamiko Murray [facility] am Office [address] [address] 05/10/2023 09:41:49 05/10/2023 11:15:26 Osteoarthritis of elbow 355467037 M19.075 [id number] JOE MILLER MD [facility] am Office [address] [address] 06/11/2023 08:53:11 06/11/2023 09:31:52 Osteoarthritis of elbow 457382883 M19.022 s/p debridemen t Osteoarthr osis of the carpometacarpal joint of the thumb 73524442 M18.12 [id number] JOE MILLER MD [facility] am Office [address] [address] 07/12/2023 08:39:01 07/12/2023 09:23:55 Osteoarthritis of elbow 009932491 M19.022 s/p debridemen t Osteoarthr osis of the carpometacarpal joint of the thumb 09717108 M18.0 injection R first CMC today [id number] JOE MILLER MD [facility] am [address] [place] [address] 10/01/2023 12:18:59 10/01/2023 12:58:00 Osteoarthritis of elbow 250636421 M19.022 s/p debridemen t Osteoarthr osis of the carpometacarpal joint of the thumb 61261471 M18.0 [id number] JOE MILLER MD [facility] am Office [address] [place] [address] 03/10/2024 15:46:52 03/10/2024 17:42:58 Osteoarthrosis of the carpometacarpal joint of the thumb 46786605 M18.12 Osteoarthr itis of elbow 933728965 M19.022 s/p debridemen t Health Concerns Section Related Observation LastModified by Organization Detai ls LastModified Time None Recorded Concern Status LastModified by Organization Details LastModified Time None Recorded Advance Directives Directive None Recorded Payers Encounter Date Sequence Insurance Name Policy Number Policy [place] Covered Member ID [place]una Member ID Guarantor Name 05/10/2023 1 [place] [employer] Issac Villalta Carrier [id number] Issac Carrier 05/10/2023 2 [facility] [id number] 1 Issac Villalta Carrier [id number] Issac Carrier 06/11/2023 1 [place] [employer] Issac Villalta Carrier [id number] Issac Carrier 06/11/2023 2 [facility] [id number] 1 Issac Villalta Carrier [id number] Issac Carrier 07/12/2023 1 [place] [employer] Issac Villalta Carrier [id number] Issac Carrier 07/12/2023 2 [facility] [id number] 1 Issac Villalta Carrier [id number] Issac Carrier 10/01/2023 1 [place] [employer] [employer] Issac Villalta Carrier [id number] Issac Carrier 10/01/2023 2 [facility] [id number] 1 Issac Ambar Carrier [id number] Issac Carrier 03/10/2024 1 [place] [employer] Issac Villalta Carrier [id number] Issac Carrier 03/10/2024 2 [employer] (MEDICARE SUPPLEMENT) Issac Nolan [id number] Issac Nolan Notes Date Note Type Note Provider Name and Address Organization Details Recorded Time 05/10/2023 text/html Mr. Nolan is a 63-year-old male who presents to the clinic for a visit. He has a history of multiple orthopedic surgeries, including four shoulder surgeries and a triple fusion on his back. He was referred to our clinic by Dr. Jigar Stevenson from [facility], who had previously performed shoulder surgeries on him. Mr. Nolan was informed that he might need a ball and socket replacement due to a completely detached rotator cuff. However, he is hesitant about this procedure due to its limitations. He has been experiencing increased pain in his elbow, which has never been as severe as it is this year. He also reports that his right shoulder, which was previously in good condition, is now starting to show signs of tenderness. He has been managing his pain with light exercises and an elbow brace. 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 He has not had any forearm surgeries. He also reports arthritis in his hands, which has been causing him difficulty in gripping objects. JOE MILLER MD [address] [place] [address], [phone], [facility] 05/10/2023 21:44:49 06/11/2023 text/html The patient is seen for evaluation s/p left elbow arthroscopy and debridement . Pain has been improving. No new paresthesias. No interval medical problems are noted. JOE MILLER MD [address] [place] [address], [phone], [facility] 06/11/2023 09:19:26 07/12/2023 text/html The patient is seen for bilateral hand pain. He has noted basilar thumb region pain over past year, consistent with thumb CMC arthritis. He is requesting evaluation for this. Also seen for re evaluation s/p left elbow arthroscopy and debridement . Pain has improved some from last visit. Now indicates some better motion also. No new paresthesias. JOE MILLER MD [address] [place] [address], [phone], [facility] 07/12/2023 09:04:26 10/01/2023 text/html The patient is seen for re evaluation of his left elbow. About 4 months s/p left elbow arthroscopy and debridement . Pain has improved but continues with some specific exercises. Now indicates some better motion also. No new paresthesias. JOE MILLER MD [address] [place] [address], [phone], [facility] 10/01/2023 13:08:36 03/10/2024 text/html The patient is seen for re evaluation of his left elbow and bilateral hand pain. About 9+ months s/p left elbow arthroscopy and debridement . Pain has improved but continues with some specific exercises. Now indicates some continued thumb CMC joint pain. He has diagnosis of thumb CMC arthritis. He would like to consider additional injections. No new paresthesias. JOE MILLER MD [address] [place] [address], [phone], [facility] 03/10/2024 21:19:03
--- OUTSIDE RECORDS SUMMARY | 2024-05-22 08:45 | XMS_ITS ---
Author Organization [facility] Address [address] [place] [id number] Care Team Providers Care Equipment Installation Professional Name Role Phone Bear Deras MD Primary Care Provider Kirt Thompson [phone] Allergies Allergen (clinical drug ingredient) Drug/Non Drug Allergy documented on EMR Reaction Allergy Type Onset Date Status Substance with 5-qkcbzvx-4-methylgluta ryl-coenzyme A reductase inhibitor mechanism of action (substance) statin drugs (uncoded) Unknown Allergy Activ e REASON FOR VISIT patient presents today for pain in esophagus Medications Medication SIG (Take, Route, Frequency, Duration) Notes Start Date End Date Status Omeprazole 20 MG 1 tablet 30 minutes before morning meal Orally Once a day for 30 day(s) Active Testosterone 0.4 % as directed Transder mal as directed Active Repatha SureClick 140 MG/ML Subcutaneous for 84 Active Valsartan 80 MG Oral for 30 Ac tive oxyCODONE-Acetaminophen 5-325 MG 1 tablet as needed Orally every 6 hrs Active Metoprolol Succinate ER 100 MG 1 tablet Orally twice a day Active LORazepam 1 MG 1 tablet as needed O rally Once a day Active Herb Aspirin EC Low Dose Active Social History Tobacco Use: Social History Observation Description Date Details (start date - stop date) Former Smoker NA - NA Tobacco Use/Smoking Question Answer Notes Patient is a former smoker How long has it been since you last smoked? > 10 years Alcohol Screen Question Answer Notes Did you have a drink contain ing alcohol in the past year? Yes How often did you have a dri nk containing alcohol in the past year? 2 to 3 times a week (3 points) How many drinks did you have on a typical day when you were drinking in the past year? 1 or 2 drinks (0 point) How often did you have 6 or more drinks on one occasion in the past year? Less than monthly (1 point) Points 4 Interpretation Positive Section Notes: Nonsmoker > 10 yrs; a couple of drinks once a week Vital Signs Blood pressure systolic 00 mm Hg 01/08/20 24 Blood pressure diastolic 00 mm Hg 024 Height 68.5 in 01/08/2024 Weight 193 lbs 01/08/2024 BMI 28.92 kg/m2 01/08/2024 Encounters Encounter Location Date Provider Diagnosis [facility] [address] [place] [address] 01/08/2024 Kirt Platt History of adenomato us polyp of colon Z86.010 ; GERD (gastroesophageal reflux disease) K21.9 ; Encounter for screening for malignant neoplasm of colon Z12.11 and Dysphagia R13.10 Assessments Encounter Date Diagnosis (ICD Code) Assessment Notes Treatment Notes Treatment Clinical Notes Section Notes 01/08/2024 History of adenomatous polyp of colon (ICD-10 - Z86.010) Do not take aspirin on the morning of the colonoscopy Overall, Xavier appears well from a clinical standpoint. His current upper GI complaints seem quite consistent with his known history of reflux and esophageal spasm. Given the negative endoscopy 2 years ago when he was having similar symptoms, his excellent clinical appearance, and his clinical history, I advised him that I do not think he needs another upper endoscopy at this time. We did review that he should try to avoid eating in the evening so as to avoid any reflux when he lies down. I did advise him to continue the omeprazole at least once or twice a day. We did review his dysphagia and I advised him that I don't think this is related to any intrinsic esophageal disease such as an esophageal stricture or significant esophagitis based on the negative endoscopy 2 years ago when he was having similar symptoms. I advised him that I suspect he is having episodes of esophageal spasm in relation to gastroesophageal reflux that are contributing to his sense of dysphagia. However, I will order a barium swallow with a barium tablet to indirectly assess his esophageal motility to see if there is any evidence of anything such as achalasia from a radiographic standpoint. If there is any sign of that or the symptoms of dysphagia worsen I would then recommend we get an esophageal motility study. I did recommend we schedule him for a followup colonoscopy for screening given his history of tubular adenomas and his last colonoscopy approaching the five-year [place]. We did review the rationale for that in regard to colon cancer prevention. Full consent is obtained for this, including risks of bleeding and perforation. The procedure will be done with monitored anesthesia care. He was given the below instruction regarding adjustment of his aspirin for the procedure. I did advise him to contact me prior to the colonoscopy if he is having any problems or questions I can be of assistance with in the interim. Xavier and his were comfortable with this plan. Thank you again for allowing me to participate in Xavier's care.I shall continue to keep you advised of his progress. 01/08/2024 GERD (gastroesophag eal reflux disease) (ICD-10 - K21.9) Do not eat or snack for at least 2 to 3 hours before bedtime Continue the omeprazole once or twice a day Overall, Xavier appears well from a clinical standpoint. His current upper GI complaints seem quite consistent with his known history of reflux and esophageal spasm. Given the negative endoscopy 2 years ago when he was having similar symptoms, his excellent clinical appearance, and his clinical history, I advised him that I do not think he needs another upper endoscopy at this time. We did review that he should try to avoid eating in the evening so as to avoid any reflux when he lies down. I did advise him to continue the omeprazole at least once or twice a day. We did review his dysphagia and I advised him that I don't think this is related to any intrinsic esophageal disease such as an esophageal stricture or significant esophagitis based on the negative endoscopy 2 years ago when he was having similar symptoms. I advised him that I suspect he is having episodes of esophageal spasm in relation to gastroesophageal reflux that are contributing to his sense of dysphagia. However, I will order a barium swallow with a barium tablet to indirectly assess his esophageal motility to see if there is any evidence of anything such as achalasia from a radiographic standpoint. If there is any sign of that or the symptoms of dysphagia worsen I would then recommend we get an esophageal motility study. I did recommend we schedule him for a followup colonoscopy for screening given his history of tubular adenomas and his last colonoscopy approaching the five-year [place]. We did review the rationale for that in regard to colon cancer prevention. Full consent is obtained for this, including risks of bleeding and perforation. The procedure will be done with monitored anesthesia care. He was given the below instruction regarding adjustment of his aspirin for the procedure. I did advise him to contact me prior to the colonoscopy if he is having any problems or questions I can be of assistance with in the interim. Xavier and his were comfortable with this plan. Thank you again for allowing me to participate in Xavier's care.I shall continue to keep you advised of his progress. 01/08/2024 Encounter for screening for malignant neoplasm of colon (ICD-10 - Z12.11) Overall, Xavier appears well from a clinical standpoint. His current upper GI complaints seem quite consistent with his known history of reflux and esophageal spasm. Given the negative endoscopy 2 years ago when he was having similar symptoms, his excellent clinical appearance, and his clinical history, I advised him that I do not think he needs another upper endoscopy at this time. We did review that he should try to avoid eating in the evening so as to avoid any reflux when he lies down. I did advise him to continue the omeprazole at least once or twice a day. We did review his dysphagia and I advised him that I don't think this is related to any intrinsic esophageal disease such as an esophageal stricture or significant esophagitis based on the negative endoscopy 2 years ago when he was having similar symptoms. I advised him that I suspect he is having episodes of esophageal spasm in relation to gastroesophageal reflux that are contributing to his sense of dysphagia. However, I will order a barium swallow with a barium tablet to indirectly assess his esophageal motility to see if there is any evidence of anything such as achalasia from a radiographic standpoint. If there is any sign of that or the symptoms of dysphagia worsen I would then recommend we get an esophageal motility study. I did recommend we schedule him for a followup colonoscopy for screening given his history of tubular adenomas and his last colonoscopy approaching the five-year [place]. We did review the rationale for that in regard to colon cancer prevention. Full consent is obtained for this, including risks of bleeding and perforation. The procedure will be done with monitored anesthesia care. He was given the below instruction regarding adjustment of his aspirin for the procedure. I did advise him to contact me prior to the colonoscopy if he is having any problems or questions I can be of assistance with in the interim. Xavier and his were comfortable with this plan. Thank you again for allowing me to participate in Xavier's care.I shall continue to keep you advised of his progress. 01/08/2024 Dysphagia (ICD-10 - R13.10) Overall, Xavier appears well from a clinical standpoint. His current upper GI complaints seem quite consistent with his known history of reflux and esophageal spasm. Given the negative endoscopy 2 years ago when he was having similar symptoms, his excellent clinical appearance, and his clinical history, I advised him that I do not think he needs another upper endoscopy at this time. We did review that he should try to avoid eating in the evening so as to avoid any reflux when he lies down. I did advise him to continue the omeprazole at least once or twice a day. We did review his dysphagia and I advised him that I don't think this is related to any intrinsic esophageal disease such as an esophageal stricture or significant esophagitis based on the negative endoscopy 2 years ago when he was having similar symptoms. I advised him that I suspect he is having episodes of esophageal spasm in relation to gastroesophageal reflux that are contributing to his sense of dysphagia. However, I will order a barium swallow with a barium tablet to indirectly assess his esophageal motility to see if there is any evidence of anything such as achalasia from a radiographic standpoint. If there is any sign of that or the symptoms of dysphagia worsen I would then recommend we get an esophageal motility study. I did recommend we schedule him for a followup colonoscopy for screening given his history of tubular adenomas and his last colonoscopy approaching the five-year [place]. We did review the rationale for that in regard to colon cancer prevention. Full consent is obtained for this, including risks of bleeding and perforation. The procedure will be done with monitored anesthesia care. He was given the below instruction regarding adjustment of his aspirin for the procedure. I did advise him to contact me prior to the colonoscopy if he is having any problems or questions I can be of assistance with in the interim. Xavier and his were comfortable with this plan. Thank you again for allowing me to participate in Xavier's care.I shall continue to keep you advised of his progress. Plan Of Treatment Treatment Notes Assessment Notes History of adenomatous polyp of colon Do not take aspirin on the morning of the colonoscopy GERD (gastroesophageal reflux disease) Do not eat or snack for at least 2 to 3 hours before bedtime Continue the omeprazole once or twice a day Pending Test Test Name Order Date XR BARIUM SWALLOW-ESOPHAGUS 01/08/2024 Future Test Test Name Order Date COLONOSCOPY 01/08/2024 Next Appt Details Follow Up: prn, Reason: Provider Name:Kirt Barillas Platt , 05/26/2024 08:30:00 AM, [address] [place] [address] , [place], [place], [phone], Progress Notes * RADHA MANNINGDOB:[birth year] (63 yo M)Acc No.[id number]:01/08/2024 Progress Notes Patient:?RADHA MANNING Provider:?Kirt Platt MD :1960???Age:63 Y???Sex:Male Twan e:01/08/2024 Address:[address] [place], [place] [id number] Pcp:Bear Deras MD Subjective: * Chief Complaints: * ???Patient presents today fo r pain in esophagus * HPI: ???incontinence:? I saw Xavier in followup today in regard to his chronic gastroesophageal reflux, some dysphagia, his personal history of tubular adenomas of the colon, and need for colorectal cancer screening. He was accompanied by his . ?I last saw Xavier in November of 2021, at which time he underwent an upper endoscopy for evaluation of some reflux symptoms and dysphagia, as well as discomfort in the chest in regard to swallowing and reflux. This did not reveal any sign of esophagitis, Reyes's esophagus, esophageal stricture, significant hiatal hernia, H. pylori, nor eosinophilic esophagitis. Since that time he had remained on 20 mg of omeprazole daily. ?He called here recently with some increasing symptoms of reflux, chest discomfort, and sense of dysphagia. He was advised to increase omeprazole to twice a day which he thinks may have helped a little bit. He does tend to eat and snack mostly in the evening, and he'll then either lie down to watch TV or lay in bed to go to sleep. However, he denies any nocturnal symptoms of reflux. He described that the episodes of discomfort can be uncomfortable for him but do not last very long. Sometimes they will Just resolves spontaneously. ?He has been experiencing some intermittent chest discomfort and a sense of difficulty swallowing. He describes that he eats very slowly compared to other people he eats with. 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 He has lost about 30 or 40 pounds intentionally by dieting and exercising. ?He reports that his bowel movements are regular and without any sign of bleeding. He denies any known family history of colorectal cancer. He denies any abdominal pain, jaundice, nor fevers. * ROS:?General/Constitutional:?Change in appetite?denies.?Chills?denies.?Fatigue?denies.?Ophthalmologic:?Patient denies? Negative..?ENT:?Patient denies?Negative..?Respiratory:?Patient denies?No coughing/hemoptysis..?Cardiovascular:?Patient denies? No chest pain/orthopnea..?Gastrointestinal:?Comments?See HPI for details.?Genitourinary:?Patient denies? No dysuria/hematuria..?Musculoskeletal:?Patient complaining of? Different joints and back aches.?Skin:?Patient denies?No rash/pruritus..?Neurologic:?Patient denies? No headaches/seizures..?Psychiatric:?Patient complaining of? Depression and/or anxiety.? * Medical History:? * Surgical History:?Back surge ry triple fusion Carpal tunnel surgery Umbilical hernia surgery Patient had triple bypass surgery on december Shoulder surgery x 4 Spinal simulator in back Vasectomy Elbow surgery * Hospitalization/Major Diagno stic Procedure:?No Hospitalization History. * Family History:?Father: dece ased, colon polyps/ of pancreatic cancer at age 79.?Mother: , diagnosed with HTN (hypertension).?Siblings: sisters had colon polypsbrother colon polyps,htn.? No colorectal cancer. * Social History:?Tobacco Use:?Tobacco Use/Smoking?Patient is a?former smoker,?How long has it been since you last smoked??> 10 years.?Drugs/Alcohol:?Alcohol Screen?Did you have a drink containing alcohol in the past year??Yes,?How often did you have a drink containing alcohol in the past year??2 to 3 times a week (3 points),?How many drinks did you have on a typical day when you were drinking in the past year??1 or 2 drinks (0 point),?How often did you have 6 or more drinks on one occasion in the past year??Less than monthly (1 point),?Points?4,?Interpretation?Positive.?Miscellaneous:?Marital status: . 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 ???Nonsmoker >10 yrs; a couple of drinks once a week. * Medications:?TakingTestoster one 0.4 % Cream as directed Transdermal as directedOmeprazole 20 MG Tablet Delayed Release 1 tablet 30 minutes before morning meal Orally Once a dayBayer Aspirin EC Low Dose LORazepam 1 MG Tablet 1 tablet as needed Orally Once a dayMetoprolol Succinate ER 100 MG Tablet Extended Release 24 Hour 1 tablet Orally twice a dayValsartan 80 MG Tablet Oral oxyCODONE- Acetaminophen 5-325 MG Tablet 1 tablet as needed Orally every 6 hrsRepatha SureClick 140 MG/ML Solution Auto-injector Subcutaneous Taking Testosterone 0.4 % Cream as directed Transdermal as directedTaking Omeprazole 20 MG Tablet Delayed Release 1 tablet 30 minutes before morning meal Orally Once a dayTaking Herb Aspirin EC Low Dose Taking LORazepam 1 MG Tablet 1 tablet as needed Orally Once a dayTaking Metoprolol Succinate ER 100 MG Tablet Extended Release 24 Hour 1 tablet Orally twice a dayTaking Valsartan 80 MG Tablet Oral Taking oxyCODONE-Acetaminophen 5-325 MG Tablet 1 tablet as needed Orally every 6 hrsTaking Repatha SureClick 140 MG/ML Solution Auto-injector Subcutaneous DiscontinuedtraZODone HCl 100 MG Tablet 1 tablet at bedtime Orally Once a dayPraluent 75 MG/ML Solution Pen-injector as directed Subcutaneous every two weeksChlorthalidone 25 MG Tablet Oral metFORMIN HCl ER 500 MG Tablet Extended Release 24 Hour TAKE 2 TABLETS BY MOUTH TWICE A DAY Oral Medication List reviewed and reconciled with the patientDiscontinued traZODone HCl 100 MG Tablet 1 tablet at bedtime Orally Once a dayDiscontinued Praluent 75 MG/ML Solution Pen-injector as directed Subcutaneous every two weeksDiscontinued Chlorthalidone 25 MG Tablet Oral Discontinued metFORMIN HCl ER 500 MG Tablet Extended Release 24 Hour TAKE 2 TABLETS BY MOUTH TWICE A DAY Oral Medication List reviewed and reconciled with the patient * Allergies:?statin drugsyes[A llergies Verified] Objective: * Vitals:?Wt: 193 lbs, Ht: 68. 5 in, BMI:28.92 Index, BP: 00/00 mm Hg. * Examination: ???General Examination: ?GENERAL APPEARANCE:?pleasant, well nourished, well developed, in no acute distress.?EYES:?sclera non-icteric.?ORAL CAVITY:?mucosa moist.?NECK/THYROID:?no cervical lymphadenopathy, neck supple.?SKIN:?nonjaundiced, no spider angiomata..?HEART:?S1, S2 normal.?LUNGS:?clear to auscultation bilaterally.?ABDOMEN:?normal bowel sounds, no guarding or rigidity, no hepatosplenomegaly, no masses palpable, soft, nontender, nondistended..?EXTREMITIES:?no edema.?NEUROLOGIC:?alert and oriented.? Assessment: * Assessment: 1.?GERD (gastroesophageal re flux disease) - K21.9 (Primary)?2.?History of adenomatous polyp of colon - Z86.010?3.?Encounter for screening for malignant neoplasm of colon - Z12.11?4.?Dysphagia - R13.10? Overall, Xavier appears well fr om a clinical standpoint. His current upper GI complaints seem quite consistent with his known history of reflux and esophageal spasm. Given the negative endoscopy 2 years ago when he was having similar symptoms, his excellent clinical appearance, and his clinical history, I advised him that I do not think he needs another upper endoscopy at this time. We did review that he should try to avoid eating in the evening so as to avoid any reflux when he lies down. I did advise him to continue the omeprazole at least once or twice a day. We did review his dysphagia and I advised him that I don't think this is related to any intrinsic esophageal disease such as an esophageal stricture or significant esophagitis based on the negative endoscopy 2 years ago when he was having similar symptoms. I advised him that I suspect he is having episodes of esophageal spasm in relation to gastroesophageal reflux that are contributing to his sense of dysphagia. However, I will order a barium swallow with a barium tablet to indirectly assess his esophageal motility to see if there is any evidence of anything such as achalasia from a radiographic standpoint. If there is any sign of that or the symptoms of dysphagia worsen I would then recommend we get an esophageal motility study. I did recommend we schedule him for a followup colonoscopy for screening given his history of tubular adenomas and his last colonoscopy approaching the five-year [place]. We did review the rationale for that in regard to colon cancer prevention. Full consent is obtained for this, including risks of bleeding and perforation. The procedure will be done with monitored anesthesia care. He was given the below instruction regarding adjustment of his aspirin for the procedure. I did advise him to contact me prior to the colonoscopy if he is having any problems or questions I can be of assistance with in the interim. Xavier and his were comfortable with this plan. Thank you again for allowing me to participate in Xavier's care.I shall continue to keep you advised of his progress. Plan: * Treatment: * Notes: Do not eat or snack for at least 2 to 3 hours before bedtime Continue the omeprazole once or twice a day??2.?History of adenomatous polyp of colon?Procedure: COLONOSCOPY (Ordered for 01/08/2024)* with MACsched for 05/27/23 at 8:30 ammiralax Notes: Do not take aspirin on the morning of the colonoscopy??3.?Encounter for screening for malignant neoplasm of colon?Procedure: COLONOSCOPY (Ordered for 01/08/2024)* with MACsched for 05/27/23 at 8:30 ammiralax 4.?Dysphagia?Imaging: XR BARIUM SWALLOW-ESOPHAGUS* with a Barium tabletsched fo r 01/09/24 at 9:00 [facility] Radiology dept 2nd floorfasting after midnight * * Procedure Codes:?3017F COLOR ECTAL CA SCREEN DOC [id number] TOBACCO [id number] BP SCR NOT PRFRM REC REASON NOS * Preventive Medicine:? ??Counseling:?Care goal follow-up plan:?Above Normal BMI Follow-up?Giving encouragement to exercise,?BMI management provided?Yes.? ??Screenings:?Fall Risk Screening?Fall Risk Assessment:?No falls in the past year,?Screening:?No falls in the past year,?Assessment:?Not performed, no reason specified,?Plan of Care:?Not documented, no reason specified.? * Follow Up:?prn * * Sign off status: Completed true * Provider:?Kirt Platt MD Date:? 024 Generated for Oneyda segal/Hari/Ghulamitting on:?05/22/2024 08:45 AM EST History and Physical Notes * HPI (History of Present Illness) Category Sub-Category Detail Notes Category Not es incontinence I saw Xavier in followup today in regard to his chronic gastroesophageal reflux, some dysphagia, his personal history of tubular adenomas of the colon, and need for colorectal cancer screening. He was accompanied by his . I last saw Xavier in November of 2021, at which time he underwent an upper endoscopy for evaluation of some reflux symptoms and dysphagia, as well as discomfort in the chest in regard to swallowing and reflux. This did not reveal any sign of esophagitis, Reyes's esophagus, esophageal stricture, significant hiatal hernia, H. pylori, nor eosinophilic esophagitis. Since that time he had remained on 20 mg of omeprazole daily. He called here recently with some increasing symptoms of reflux, chest discomfort, and sense of dysphagia. He was advised to increase omeprazole to twice a day which he thinks may have helped a little bit. He does tend to eat and snack mostly in the evening, and he'll then either lie down to watch TV or lay in bed to go to sleep. However, he denies any nocturnal symptoms of reflux. He described that the episodes of discomfort can be uncomfortable for him but do not last very long. Sometimes they will Just resolves spontaneously. He has been experiencing some intermittent chest discomfort and a sense of difficulty swallowing. He describes that he eats very slowly compared to other people he eats with. 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 He has lost about 30 or 40 pounds intentionally by dieting and exercising. He reports that his bowel movements are regular and without any sign of bleeding. He denies any known family history of colorectal cancer. He denies any abdominal pain, jaundice, nor fevers. Examination Category Sub-Category Detail Notes Category Not es General Examination GENERAL APPEARANCE: pleasant , well nourished, well developed, in no acute distress EYES: sclera non-icteric NECK/THYROID: no cervical lymphade nopathy, neck supple HEART: S1, S2 normal LUNGS: clear to auscultatio n bilaterally ABDOMEN: normal bowel sounds, no guarding or rigidity, no hepatosplenomegaly, no masses palpable, soft, nontender, nondistended. NEUROLOGIC: alert and oriented SKIN: nonjaundiced, no spi rosemary angiomata. EXTREMITIES: no edema ORAL CAVITY: mucosa moist
--- OUTSIDE RECORDS SUMMARY | 2024-05-22 08:46 | XMS_ITS | Patient Health Record ---
Author Organization [facility] Address [address] [place] [address] Care Team Providers Care Mill Recorder Name Role Phone Alejandro Jimenez MD Primary Care Provider Kirt Thompson [phone] Allergies Allergen (clinical drug ingredient) Drug/Non Drug Allergy documented on EMR Reaction Allergy Type Onset Date Status Substance with 9-hhvyzyy-3-methylgluta ryl-coenzyme A reductase inhibitor mechanism of action (substance) statin drugs (uncoded) Unknown Allergy Activ e Results Component Value Reference Range Notes FL barium swallow with air ( Not yet reviewed by provider) Interpretation: Performing Lab: Notes/Report: [address] [address] Fluoroscopy Report Signed Patient: Radha Nolan MR#: [id number] 162 : 1960 Acct:[id number] Age/Sex: 63 / M ADM Date: 01/09/24 [facility] Attending Dr: Kirt Platt MD Ordering Physician: Kirt Platt MD Date of Service: 01/09/24 Procedure(s): FL barium swallow with air Accession Number(s): [id number] cc: ALEJANDRO JIMENEZ MD; Kirt Platt MD EXAMINATION: XR FLUOROSCOPY UPPER GI WITH AIR CLINICAL INFORMATION: Reflux COMPARISON: None TECHNIQUE: Fluoroscopic air contrast upper GI examination was performed utilizing standard techniques with thin and thick barium and effervescent granules. Numerous spot images were obtained. FINDINGS: Lateral cine images of the oropharynx and hypopharynx demonstrate normal swallow mechanism with normal epiglottic inversion and soft palate elevation. There is trace laryngeal penetration with thick barium. No tracheal penetration, glottic or subglottic aspiration identified. No nasopharyngeal reflux present. No masses or diverticulum are seen. There is ballooning of the hypopharynx with moderate cricopharyngeal achalasia present. Median sternotomy wires are present. Intrathecal spinal stimulator wires terminate in the thoracic region. Dual and single contrast images of the esophagus demonstrate normal caliber, contour, and mucosal pattern. No evidence of stricture, mass, or ulcerations identified. There is to and fro motion of the barium column, with nonpropulsive tertiary contractions noted throughout the esophagus. The patient swallowed the barium tablet without any difficulty. The tablet passed freely into the stomach without any evidence of stasis. A small type I hiatal hernia is present. No significant gastroesophageal reflux was seen during the course of the examination and on reflux views. Dual contrast and single contrast images of the stomach demonstrated a normal contour. There are multiple tiny foci of contrast pooling in the fundus and body of the stomach that likely represents small mucosal ulcerations. No masses are seen. Contrast freely passed into the gastric antrum and duodenal bulb without delay. Single and air-contrast images of the duodenal bulb demonstrate no abnormality. The duodenal sweep has a normal appearance, course, and mucosal fold appearance. The imaged proximal jejunum has a normal fold pattern and caliber. FLUOROSCOPY TIME: 3 minutes 48 seconds Number of Spot Images: 9 Number of Cine: 13 DOSE AREA PRODUCT: 2671 uGy-m2 (microgray-meter squared) FL/FL barium swallow with air IMPRESSION: 1. Trace laryngeal penetration with thick barium. 2. Ballooning of the hypopharynx with moderate cricopharyngeal achalasia present. 3. Esophageal dysmotility. 4. Small type I hiatal hernia. 5. Multiple tiny foci of contrast pooling in the fundus and body of the stomach that likely represent small mucosal ulcerations. Recommend correlation with EGD. 6. Status post CABG 7. Status post spinal stimulator. This procedure was performed by Tj Ramirez PA-C, and supervised by Dr. Rasheed Electronically signed by: Dmitry Rasheed MD 01/10/2024 02:35 PM EDT RP Dictated By: Tj Ramirez Signed By: <Electronically signed by Tj Ramirez in OV> 01/10/24 1435 <Electronically signed by Dmitry Rasheed MD in OV> 02/05/24 1126 DD/ 0856 TD/TT: 01/09/24 0922 [employer]roomcorn Sorter: [address] [address] Fluoroscopy Report Signed Patient: Lorenzo Nolan MR#: [id number] 162 : 1960 Acct:[id number] Age/Sex: 63 / M ADM Date: 01/09/24 Loc: HO.XRAY Attending Dr: Kirt Platt MD Ordering Physician: Kirt Platt MD Date of Service: 01/09/24 Procedure(s): FL bar ium swallow with air Accession Number(s): [id number] cc: ALEJANDRO JIMENEZ MD; Kirt Platt MD EXAMINATION: XR FLUOROSCOPY UPPER GI WITH AIR CLINICAL INFORMATION: Reflux COMPARISON: None TECHNIQUE: Fluoroscopic air con trast upper GI examination was performed utilizing standard techniques with thin and thick barium and effervescent granules. Numerous s pot images were obtained. FINDINGS: Lateral cine images of the oropharynx and hypopharynx demonstrate normal swallow mecha nism with normal epiglottic inversion and soft palate elevation. Th ere is trace laryngeal penetration with thick barium. No tracheal penetration, glottic or subglottic aspiration identified. No nasop haryngeal reflux present. No masses or diverticulum are seen. There is b allooning of the hypopharynx with moderate cricopharyngeal sylvester lasia present. Median sternotomy wi res are present. Intrathecal spinal stimulator wires terminate in t he thoracic region. Dual and single cont rast images of the esophagus demonstrate normal caliber, contour, an d mucosal pattern. No evidence of stricture, mass, or ulcerations ident ified. There is to and fro motion of the barium column, with nonprop ulsive tertiary contractions noted throughout the esophagus. The patie nt swallowed the barium tablet without any difficulty. The tabl et passed freely into the stomach without any evidence of stasis. A small type I hiata l hernia is present. No significant gastroesophageal ref lux was seen during the course of the examination and on reflux views. Dual contrast and si ngle contrast images of the stomach demonstrated a normal contour. Ther e are multiple tiny foci of contrast pooling in the fundus and body of t he stomach that likely represents small mucosal ulcerations. No mass es are seen. Contrast freely passed into the gastric antrum and d uodenal bulb without delay. Single and air-contr ast images of the duodenal bulb demonstrate no abnormality. The duo denal sweep has a normal appearance, course, and mucosal fold appeara nce. The imaged proximal jejunum has a normal fold pattern and caliber. FLUOROSCOPY TIME: 3 minutes 48 seconds Number of Spot Images: 9 Number of Cine: 13 DOSE AREA PRODUCT: 2671 uGy-m2 (microgr ay-meter squared) F L/FL barium swallow with air IMPRESSION: 1. Trace laryngeal p enetration with thick barium. 2. Ballooning of the hypopharynx with moderate cricopharyngeal achalasia present. 3. Esophageal dysmotility. 4. Small type I hiatal hernia. 5. Multiple tiny foc i of contrast pooling in the fundus and body of the stomach that likely represent small mucosal ulcerations. Recommend correlation with EGD. 6. Status post CABG 7. Status post spina l stimulator. This procedure was p erformed by Tj Ramirez PA-C, and supervised by Dr. Rasheed Electronically robson d by: Dmitry Rasheed MD 01/10/2024 02:35 PM EDT RP Dictated By: Tj Ramirez Signed By: <Karen marrufo signed by Tj Ramirez in OV> 01/10/24 1435 <Electronically sign ed by Dmitry Rasheed MD in OV> 02/05/24 1126 DD/ 0856 TD/TT: 01/09/24 0922 [employer] Sorter: Reason For Referral No Information Medications Medication SIG (Take, Route, Frequency, Duration) Notes Start Date End Date Status Repatha SureClick 140 MG/ML Subcutaneous for 84 Active Valsartan 80 MG Oral for 30 Ac tive oxyCODONE-Acetaminophen 5-325 MG 1 tablet as needed Orally every 6 hrs Active LORazepam 1 MG 1 tablet as needed O rally Once a day Active Metoprolol Succinate ER 100 MG 1 tablet Orally twice a day Active Omeprazole 20 MG 1 tablet 30 minutes before morning meal Orally Once a day for 30 day(s) Active Herb Aspirin EC Low Dose Active Testosterone 0.4 % as directed Transder mal as directed Active Immunizations Vaccine Route Administration Date Status Comme nts Influenza Unknown 01/17/2018 Administered Influenza Unknown 06/17/2021 Administered Social History Tobacco Use: Social History Observation [...] > 10 yrs; a couple of drinks QOD Nonsmoker > 10 yrs; a couple of drinks QOD Nonsmoker > 10 yrs; a couple of drinks once a week Nonsmoker > 10 yrs; a couple of drinks once a week Problems Problem Type SNOMED Code ICD Code Onset Dates Problem Status W/U Status Risk Notes Problem Esophageal reflux (303115335) Esophageal reflux (K21.9) Active confirmed Problem 382389847 Encounter for screening for malignant neoplasm of colon (Z12.11) Active confirmed Problem 563103578 History of adenomatous polyp of colon (Z86.010) Active confirmed Problem Dysphagia (48243191) Dysphagia (R13.10) Active confirmed Problem 136863254132466 Preprocedural examination (Z01.818) Active confirmed Problem Gastritis (2869774) Gastritis (K29.70) Active confirmed Problem Gastroesophageal reflux disease (467169532) GERD (gastroesophagea l reflux disease) (K21.9) Active confirmed Vital Signs Blood pressure diastolic 00 mm Hg 01/08/2024 Height 68.5 in 01/08/2024 Blood pressure systolic 00 mm Hg 01/08/2024 Weight 193 lbs 01/08/2024 BMI 28.92 kg/m2 01/08/2024 Encounters Encounter Location Date Provider Diagnosis [facility] [address] [place] [address] 01/08/2024 Kirt Platt History of adenomato us polyp of colon Z86.010 ; GERD (gastroesophageal reflux disease) K21.9 ; Encounter for screening for malignant neoplasm of colon Z12.11 and Dysphagia R13.10 [facility] [address] [place] [address] 01/01/2024 Kirt Platt [facility] [address] [place] [address] 01/20/2024 Kirt Platt Assessments Encounter Date Diagnosis (ICD Code) Assessment [...] advised of his progress. Plan Of Treatment Pending Test Test Name Order Date XR BARIUM SWALLOW-ESOPHAGUS 01/08/2024 FL barium swallow with air 01/09/2024 Future Test Test Name Order Date UPPER GI ENDOSCOPY 09/11/2012 COLONOSCOPY 09/11/2012 COLONOSCOPY 01/01/2019 UPPER GI ENDOSCOPY [place]ON DILATION OF ESOPH 11/03/2021 COLONOSCOPY 01/08/2024 Next Appt Details Provider Name:Kirt Barillas Giulia , 05/26/2024 08:30:00 AM, [address] [facility] , [place], [place], [phone], Insurance Providers Payer Name Payer Address Payer Phone Subscriber Number Group Number Insured Name Patient Relationship to Insured Coverage Start Date Coverage End Date MEDICARE OF [place] [address] [place] [address] [phone] [id number] CARRIERRADHA Self - patient is the insured HUMAN [address] [address] [place] [address] [phone] [id number] CARRIER, RADHA Self - patient is the insured Medical (General) History Medical History History ICD Code Hospitalized in 06/2012 for a bd.pain--neg. CT scan and U/S, resolved spontaneously Hypertension Hyperlipidemia Depression Hypertension Sleep apnea--he describes a history of being told of a difficult intubation during his heart surgery in 2018 at [facility]; not using a CPAP as of the 10/2021 OV Denies KS,DM,CVA,Lung disease,renal dise ase Elevated CPK's-being evaluated GERD-EGD in 2012-small HH--no esophagiti s, no Barrettt's Migraines Colonoscopy in 2012--1 small tubular jossie noma CAD--3V-CABG on 01/14/19 at [facility]--se gladys Vizcarra cardiology at [facility] Colonoscopy 04/2019 with 1 tubular adenom a removed Upper endoscopy in November of 2021-small hiatal hernia, minimal changes of reflux and gastritis. There was no evidence of Reyes's esophagus, H. pylori, nor eosinophilic esophagitis Surgical History Surgery Date(Month/Year) Back surgery triple fusion Carpal tunnel surgery Umbilical hernia surgery Patient had triple bypass surgery on dec Shoulder surgery x 4 Spinal simulator in back Vasectomy Elbow surgery
--- OUTSIDE RECORDS SUMMARY | 2024-05-22 08:46 | XMS_ITS ---
Author Organization [facility] Address [address] [place] [address] Care Team Providers Care Musical Engineer Name Role Phone Bear Deras MD Primary Care Provider Kirt Thompson [phone] REASON FOR VISIT pain in esophagus Encounters Encounter Location Date Provider Diagnosis [facility] [address] [facility] [address] [place] [phone] 01/01/2024 Kirt Platt Plan Of Treatment Next Appt Details Provider Name:Kirt Platt , 05/26/2024 08:30:00 AM, [address] [place] [address] , [place], [place], [phone], Progress Notes * RADHA MANNINGDOB:[birth year] (63 yo M)Acc No.[id number]:01/01/2024 Patient:?ELAINE RADHA Villalta :1960???Age:63 Y???Sex:Male Address:[address] [place] [address], [address] * true * Date:? Generated for Printi ng/Faricharg/eTransmitting on:?05/22/2024 08:46 AM EST
--- OUTSIDE RECORDS SUMMARY | 2024-05-22 08:46 | XMS_ITS ---
Author Organization [facility] Address [address] [place] [address] Care Team Providers Care Supervisor Education Name Role Phone Bear Deras MD Primary Care Provider Kirt Thompson [phone] Encounters Encounter Location Date Provider Diagnosis [facility] [address] [place] [address] 01/20/2024 Kirt Platt Plan Of Treatment Next Appt Details Provider Name:Kirt Platt , 05/26/2024 08:30:00 AM, [address] [place] [address] , [place], [place], [phone], Progress Notes * RADHA MANNINGDOB:[birth year] (63 yo M)Acc No.[id number]:01/20/2024 Patient:?ELAINE RADHA Villalta :1960???Age:63 Y???Sex:Male Address: [place], [address] * true * Date:? Generated for Printi philipp/Hari/eTransmitting on:?05/22/2024 08:45 AM EST
--- OUTSIDE RECORDS SUMMARY | 2024-05-22 08:46 | XMS_ITS | Continuity of Care Document ---
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 Name Role Phone Bear Deras MD Primary Care Physician [place] [facility] [place]): [place]24/24 - 05/01/24 [facility] Bobby Francisley Adult [address] [place] [address]- Encounter Diagnosis CAD (coronary artery disease)(Discharge Diagnosis) - 04/24/24 HTN (hypertension)(Discharge Diagnosis) - 04/24/24 Hyperlipidemia(Discharge Diagnosis) - 04/24/24 Pain syndrome, chronic(Discharge Diagnosis) - 04/24/24 Testosterone deficiency(Discharge Diagnosis) - 04/24/24 Type 2 diabetes mellitus(Discharge Diagnosis) - 04/24/24 Attending Physician: Bear Deras MD Encounter Type: Office Visit Allergies, Adverse Reactions, Alerts Substance Criticality Severity Reaction Reaction Severity Status statins Active Immunizations Given and Recorded Vaccine Date Status Refusal Reason influenza virus vaccine, inactivated 01/08/24 Give n influenza virus vaccine, inactivated 04/24/23 Give n influenza virus vaccine, inactivated 11/26/19 Isael rded influenza virus vaccine, inactivated 01/30/19 Isael rded influenza virus vaccine, inactivated 01/11/19 Isael rded influenza virus vaccine, inactivated 12/18/16 Isael rded influenza virus vaccine, inactivated 12/16/15 Isael rded influenza virus vaccine, inactivated 01/18/15 Isael rded zoster vaccine, inactivated 10/13/22 Recorded zoster vaccine, inactivated 08/18/15 Recorded zoster vaccine, inactivated 03/20/15 Recorded pneumococcal 20-valent conjugate vaccine 10/09/22 Given SARS-CoV-2 (COVID-19) mRNA BNT-162b2 vac 04/01/21 Recorded SARS-CoV-2 (COVID-19) mRNA-1273 vaccine 08/07/20 R ecorded SARS-CoV-2 (COVID-19) mRNA-1273 vaccine 07/10/20 R ecorded Influenza Virus Vaccine (oldterm) 1 11/18/19 Recor ded tetanus/diphtheria/pertussis, acel(Tdap) 12/16/15 Recorded pneumococcal 23-valent vaccine 08/04/13 Recorded 1Result Comment: Pharmacy Medications Aspirin Tablet 81 mg, By Mouth, Daily, Refills 0, Maintenance, 10/10/17 8:26:24 AM EDT Start Date: 10/10/17 Status: Ordered Repeat number: 1 CPAP CHANGE CPAP CHANGE, See Instructions, # 1 each, Refills 0, Tot. Refills 0, Maintenance, E0601 AutoCPAP 8 to 13cm H20 with compliance data A4604 Heated Tubing/Climate line or A7037 Tubing A7038 or A7039 Filters A7036 Chin strap A7046 Humidifier Chamber A7035 Headgear A7027, A7030, A7031, A7032, A7033, A7034 Nasal, Full or Pillow Mask and parts E0562 Heated Humidifier length of need Lifetime 99 months Forhome use, 05/29/22 12:10:00 PM EDT, Supply, 179, cm, 05/25/22 14:48:00 EST, Height Start Date: 05/29/22 Status: Ordered Quantity: 1.0 Unit: each Repeat number: 1 D/C CPAP D/C CPAP, See Instructions, # 1 each, Refills 0, Tot. Refills 0, Maintenance, Please d/c CPAP orderdx: HELDER G47.33, 12/05/21 8:09:00 AM EDT, Supply Start Date: 12/05/21 Status: Ordered Quantity: 1.0 Unit: each Repeat number: 1 Indication: Obstructive sleep apnea (adult) (pediatric) LORazepam 1 mg oral tablet 1 tablet = 1 mg, By Mouth, Daily at bedtime, 0 Refills, Maintenance, 04/19/23 9:29:00 AM EST, Tablet,Partial fill upon patient request if the prescription is for a schedule II opioid drug. Start Date: 04/19/23 Status: Ordered Repeat number: 1 Metoprolol Succinate ER 100 mg oral tablet, extended release 2, tablet, By Mouth, Daily, # 180 tablet, Refills 0, Maintenance, 04/14/24 8:19:00 AM EST, Route to Pharmacy Electronically, [id number], 179, cm, 02/06/24 10:27:00 EST, Height Start Date: 04/14/24 Status: Ordered Quantity: 180.0 Unit: tablet Repeat number: 1 Multivitamin Daily, 0 Refills, Maintenance, 10/05/22 10:03:00 AM EDT, Partial fill upon patient request if the prescription is for a schedule II opioid drug. Start Date: 10/05/22 Status: Ordered Repeat number: 1 omeprazole 20 mg oral delayed release tablet 1 tablet = 20 mg, By Mouth, Daily, 0 Refills, Maintenance, 10/14/21 9:55:00 AM EDT, Partial fill upon patient request if the prescription is for a schedule II opioid drug. Start Date: 10/14/21 Status: Ordered Repeat number: 1 oxyCODONE 5 mg oral tablet 5 mg, 1, tablet, By Mouth, Every 6 hours, PRN, # 112 tablet, Refills 0, Tot. Refills 0, Maintenance, as needed for pain, 04/01/24 10:19:00 AM EST, Route to Pharmacy Electronically, [facility]/pharmacy #[id number],Partial fill upon patient request if the prescription is for a schedule II opioid drug., 04/10/24, 179, cm, 02/06/24 10:27:00 EST, Height Start Date: 04/01/24 Status: Ordered Quantity: 112.0 Unit: tablet Repeat number: 1 Repatha SureClick 140 mg/mL subcutaneous solution See Instructions, INJECT 140 MG SUBCUTANEOUSLY EVERY 14 DAYS, # 6 Unknown, 1 Refills, Maintenance, 04/30/24 7:43:00 AM EST, [id number], 179, cm, 04/24/24 8:25:00 EST, Height Start Date: 04/30/24 Status: Ordered Quantity: 6.0 Unit: Unknown Repeat number: 1 sildenafil 100 mg oral tablet 1 tablet = 100 mg, By Mouth, Daily, 1 hour before sexual activity, # 10 tablet, 5 Refills, Maintenance, 12/29/19 4:28:00 PM EDT, Tablet, [id number], 179, cm, 12/29/19 16:07:00 EDT, Height, 91.4, kg, 01/14/19 6:36:00 EDT, Dry Weight Start Date: 12/29/19 Status: Ordered Quantity: 10.0 Unit: tablet Repeat number: 6 Testosterone 0 Refills, Maintenance, 10/05/22 9:47:00 AM EDT, Partial fill upon patient request if the prescription is for a schedule II opioid drug. Start Date: 10/05/22 Status: Ordered Repeat number: 1 valsartan 320 mg oral tablet 1 tablet = 320 mg, By Mouth, Daily, # 90 tablet, 3 Refills, Maintenance, 04/24/24 9:11:00 AM EST, Tablet, [id number], Partial fill upon patient request if the prescription is for a schedule II opioid drug., 179, cm, 04/24/24 8:25:00 EST, Height Start Date: 04/24/24 Status: Ordered Quantity: 90.0 Unit: tablet Repeat number: 4 Problem List Condition Confirmation Course Effective Dates Status Health Status Informant Asthma, persistent controlled Confirmed Active Chronic pain syndrome Confirmed Active Pain syndrome, chronic Confirmed Active CAD (coronary artery disease) Confirmed Active Presence of neurostimulator Confirmed Active Diverticulosis 1 Confirmed Active Statin myopathy Confirmed Active Chronic shortness of breath Confirmed Active GERD (gastroesophageal reflux disease) Confirmed Active H/O polycythemia Confirmed Active Hiatal hernia 2 Confirmed Active History of colonoscopy 3 Confirmed Active Hyperlipidemia Confirmed Active HTN (hypertension) Confirmed Active Hypertriglyceridemia Confirmed Active Testosterone deficiency Confirmed Active Insomnia Confirmed Active Internal hemorrhoids 4 Confirmed Active HELDER (obstructive sleep apnea) Confirmed Active OA (osteoarthritis) Confirmed Active Neuropathy, peripheral Confirmed Active Polyp of colon 5 Confirmed Active Failed back syndrome Confirmed Active residential prescription opiate use Confirmed Active Type 2 diabetes mellitus Confirmed Active 1colo 2019 2EGD 2021 51757; repeat 2024 4colo 2019 5colo 2019 Diagnosis Diagnosis Type Effective Dates Health Status Clinical Service Informant CAD (coronary artery disease) Discharge Diagnosis 04/24/24 HTN (hypertension) Discharge Diagnosis 04/24/24 Hyperlipidemia Discharge Diagnosis 04/24/24 Pain syndrome, chronic Discharge Diagnosis 04/24/24 Testosterone deficiency Discharge Diagnosis 04/24/24 Type 2 diabetes mellitus Discharge Diagnosis 04/24/24 Vital Signs Most recent to oldest [Reference Range]: 1 Height 179 cm (04/24/24 8:25 AM) Weight 86.6 kg (2/6/25 8:25 AM) Oxygen Saturation [94-100 %] 97 % (04/24/24 8:25 AM) Pulse Rate [55-90 bpm] 81 bpm (04/24/24 8:25 AM) Body Mass Index [18.5-24.99 kg/m2] 27.03 kg/m2 *H* (04/24/24 8:25 AM) Blood Pressure [90-138/55-84 mm Hg] 160/ 78mm Hg *H* (04/24/24 8:25 AM) Mode of Delivery (Oxygen) Room air (04/24/24 8:25 AM) Blood pressure sites Arm, left (04/24/24 8:25 AM) Weight Obtained Via Standing scale (04/24/24 8:25 AM) Social History Social History Type Response Smoking Status Former smoker, quit more than 30 days ago; Tobacco user in household: No; Other: pt states he smoked for 1 year in 1978; entered on: 04/23/19 Sex Male Sex Representation Male (finding) Note * Daria Weaver: PERFORM Event Display: Patient Education/Instruction Authored Date: [id number] Ambulatory Adult Visit Summary [facility] Adult [address] [address] Name: RADHA HENRY : 1960?? Visit: 2024 08:10?? Ambulatory Visit Instructions ?? Your Care Team Primary Care Provider Bear Deras MD? This Visit Provider Bear Deras MD Your Diagnosis CAD (coronary artery disease) HTN (hypertension) Hyperlipidemia Pain syndrome, chronic Testosterone deficiency Type 2 diabetes mellitus Vitals Signs Pulse Rate: 81 bpm Height: 179 cm Systolic Blood Pressure:??160 mm Hg??High Weight: 86.6 kg Diastolic Blood Pressure: 78 mm Hg Body Mass Index:??27.03 kg/m2??High Oxygen Saturation: 97 % Body surface area: 2.08 What to do next Follow-Up Appointments Follow Up with??Bear Deras MD When:??In 6 months Where: ?? Future Orders CBC - Routine, Once, 09/21/24 9:16:00 EDT, Future Order, [facility], Blood?? Lipid Panel - Routine, Once, 09/21/24 9:17:00 EDT, Future Order, [facility], Blood?? Comprehensive Metabolic Panel - Routine, Once, 09/21/24 9:17:00 EDT, Future Order, [facility], Blood?? PSA - Routine, Once, 09/21/24 9:17:00 EDT, Future Order, [facility], Blood?? Thyroid Panel - Routine, Once, 09/21/24 9:17:00 EDT, Future Order, [facility], Blood?? Medications The list below reflects the information in our records and provided by you today along with any changes made during this visit. Please continue your medications until treatment is completed or stopped by your provider. If this is different from the information you have or there are other questions,please contact the prescribing provider. What How Much When Why Instructions Changed Valsartan (valsartan 320 mg oral tablet) 1 tab(s) Oral Daily Pickup at [facility]/pharmacy #[id number] Unchanged Aspirin (Aspirin Tablet) 81 Milligram Oral Daily Unchanged Durable Medical Equipment (CPAP CHANGE) See instructions E0601 AutoCPAP 8 to 13cm H20 with compliance data ?? A4604 Heated Tubing/ Climate line or A7037 Tubing A7038 or A7039 Filters A7036 Chin strap A7046 Humidifier Chamber A7035 Headgear A7027, A7030, A7031, A7032, A7033, A7034 Nasal, Full or Pillow Mask and parts E0562 Heated Humidifier length of need Lifetime 99 months For home use ?? Unchanged Durable Medical Equipment (D/ C CPAP) See instructions HELDER on CPAP Please d/ c CPAP order dx: HELDER G47.33 ?? Unchanged evolocumab (Repatha SureClick 140 mg/ mL subcutaneous solution) See instructions INJECT 140 MG SUBCUTANEOUSLY EVERY 14 DAYS ?? Unchanged Lorazepam (LORazepam 1 mg oral tablet) 1 tab(s) Oral Daily at Bedtime Unchanged Metoprolol (Metoprolol Succinate ER 100 mg oral tablet, extended release) 2 tab(s) Oral Daily Unchanged Multivitamin Daily Unchanged Omeprazole (omeprazole 20 mg oral delayed release tablet) 1 tab(s) Oral Daily Unchanged Oxycodone (oxyCODONE 5 mg oral tablet) 1 tab(s) Oral Every 6 hours as needed for as needed for pain Unchanged Sildenafil (sildenafil 100 mg oral tablet) 1 tab(s) Oral Daily 1 hour before sexual activity ?? Unchanged Testosterone Pharmacy Information [facility]/pharmacy #[id number]: [address] [place] [phone] Test Performed Below is a partial list of the tests performed during your Visit. You may have had other tests and procedures not included in this list. Please discuss all test results with your provider. CBC?-- Results Pending -- Comprehensive Metabolic Panel?-- Results Pending -- Lipid Panel?-- Results Pending -- PSA?-- Results Pending -- Thyroid Panel?-- Results Pending -- Medications and Immunizations Administered Medications Given During Visit No medications given during this visit.?? Allergies (NKA means No Known Allergies) statins Common Emergency Awareness Tips IS IT A STROKE? Act FAST and Check for these signs: FACE Does the face look uneven? ARM Does one arm drift down? SPEECH Does their speech sound strange? TIME Call at any sign of stroke ?? Heart Attack Signs Chest discomfort: Most heart attacks involve discomfort in the center of the chest and lasts more than a few minutes, or goes away and comes back. It can feel like uncomfortable pressure, squeezing, fullness or pain. Discomfort in upper body: Symptoms can include pain or discomfort in one or both arms, back, neck, jaw or stomach. Shortness of breath: With or without discomfort. Other signs: Breaking out in a cold sweat, nausea, or lightheaded. Remember, MINUTES DO MATTER. If you experience any of these heart attack warning signs, call to get immediate medical attention! ?? Smoking can increase your chances of developing chronic health problems and can cause harmful effects to other family members in your house. If you smoke, you are strongly encouraged to quit. Please call [employer] at [phone] or [phone]) or log in to [email or web address] for referrals to smoking cessation programs. ?? The National Suicide Prevention Hotline is available 09/10 if you or someone you know needs to find a reason to keep living. By calling 8-446-687-eapm ([phone]) you'll be connected to a skilled, trained counselor at a crisis center in your area. [facility] [employer] Portal You can view and manage your care through the patient portal or by using a health care oswaldo of your choosing. [employer] is a website that allows you to securely view your medical information including your hospital discharge summary, office visit summaries, medications and follow-up visits. You can also request appointments, renew medications, and request access to your medical information using a health care oswaldo of your choosing, or just ask a question. You can enroll at [email or web address] or register during your next office visit. [facility], in keeping with [facility] guidance, no longer requires face masks for staff, patientsor visitors in most situations. Similiar to time spent indoors at other locations, there is the chance that you were exposed to repiratory viruses during your time with us (such as flu or COVID-19). If you develop symptoms concerning for a viral respiratory infection, please seek testing (and treatment if indicated) from your medical provider or home test kit. ?? Disclaimer: The information provided is of a general nature and is intended to be used in conjunction with the recommendations and advice of your health care practitioner. Every effort has been made to ensure that the information provided is accurate and complete at the time it is provided to you however, as your needs change, or, as new information becomes available, different or additional instructions may be required. ?? If you have questions, please consult with your primary care provider or pharmacist, as appropriate. This information is not intended to serve as substitution for assessment and evaluation by a qualified health care provider. If you do not have a primary care provider, you may find a [facility] provider by calling [facility] [employer] at [phone]. Patient Care team information Care Team Personnel Name: Zainab Cruz RN Position: S RN Member Role: Primary Care Nurse Name: Bear Deras MD Position: S Physician - Primary Care Member Role: PCP Address: [address] [place] [address]- Telecom: Name: Yazmin Mireles RN Position: Dave RN Member Role: Primary Care Nurse Name: Amrik Lutz MD Position: Dave Renal MD Member Role: Lifetime Consulting Physician Address: [address] [facility] [address] [facility] [address] Telecom: Name: Calista Moody RN Position: Dave RN Member Role: Primary Care Nurse Care Team Related Persons Name: ELAINE, KRISTA Insurance Providers Guarantor name: RADHA HENRY Health Plan Information #: 4 Payer: [employer] Member Number: [id number] Policy Number: NA Group Number: [id number] Health Plan Information #: 3 Payer: NA Member Number: [id number] Policy Number: NA Group Number: NA Health Plan Information #: 1 Payer: MEDICARE PART B OUTPT Member Number: [id number] Policy Number: NA Group Number: NA Health Plan Information #: 2 Payer: MEDICARE PART B OUTPT Member Number: [id number] Policy Number: NA Group Number: NA
== END 2024-05-22 09:05 | disposition home or self-care (01) ==
PROVIDERS: PCP Internal Medicine; Visit Provider Anesthesiology
DX: M96.1 Postlaminectomy syndrome, not elsewhere classified (principal); M54.16 Radiculopathy, lumbar region
CPT/HCPCS: 99215

== ENCOUNTER → 2024-05-22 08:22 | Outpatient (BNVA) | payer MEDICARE, SELFPAY | PROVIDERS: PCP Internal Medicine; Visit Provider Anesthesiology | DX: M96.1 Postlaminectomy syndrome, not elsewhere classified (principal); M54.16 Radiculopathy, lumbar region; Z79.891 Long term (current) use of opiate analgesic | CPT/HCPCS: 99212 ==

== ENCOUNTER 2024-05-26 07:12 | Day surgery (SDC) | payer MEDICARE, SELFPAY ==
[2024-05-22 13:50] VITALS: BMI 28.9
--- NOTE | 2024-05-22 14:13 | P.CONAN_ITS ---
Documented by User: Shyanne Del Cid NP 05/22/24 14:17 HPI - Anesthesia Eval Consult details Narrative: 64yo M for Colonoscopy Pt reports hx DI. Last intubation 2019 with CABG, records unavailable from [facility] Follows [facility] cardiology for CAD s/p CABG x 2 2019. Stable at 01/2024 office visit [facility] Active Problems Active Problems: All Active Problems Hip pain, right (Acute) Radiculopathy of lumbar region (Acute) Peripheral neuropathy (Acute) Upper respiratory tract infection (Acute) Sacroiliitis (Acute) Postlaminectomy syndrome of lumbosacral region (Acute) Right lumbar radiculopathy (Acute) Spinal cord stimulator status (Acute) Derangement of left shoulder joint (Acute) Cervical arthritis (Acute) History of coronary artery bypass graft (Acute) Past Medical History Medical History (Updated 05/22/24 @ 13:42 by Mikaela Abraham RN) GERD (gastroesophageal reflux disease) Elevated CPK Depression Hyperlipidemia Pre-diabetes History of shingles Hx of migraines Anxiety and depression HELDER on CPAP Asthma On beta irineo at home CAD (coronary artery disease) Angina pectoris HTN (hypertension) Sacroiliitis Postlaminectomy syndrome of lumbosacral region Right lumbar radiculopathy Spinal cord stimulator status Derangement of left shoulder joint Cervical arthritis Family History Family history of problems with anesthesia: No Surgical History Surgical History (Updated 05/22/24 @ 13:45 by Mikaela Abraham RN) Hx of vasectomy Hx of elbow surgery History of esophagogastroduodenoscopy (EGD) Hx of colonoscopy Hx of shoulder surgery History of carpal tunnel release History of umbilical hernia repair History of coronary artery bypass graft History of lumbar discectomy History of Problems with Anesthesia: No Social History Social History Household Members Other:: lives with and son Alcohol intake: never Patient Tobacco Use Status: Former Tobacco user Have you been hit, kicked, punched, or otherwise hurt by someone within the past year? 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 Meds Allergies Allergy/AdvReac Type Severity Reaction Status Date / Time Yoaonae-JWH-BhV Reductase Allergy Unknown RAISES CPK Verified 05/22/24 08:35 Inhibitor LEVELS [FVKPAAM-XHI-RYB REDUCTASE INHIBITOR] Home Medications ?Medication ?Instructions ?Recorded ?Confirmed ?Last Taken ?Type alirocumab 75 mg/mL subcutaneous mg subcut 12/20/19 08/23/22 05/22/24 History pen injector lorazepam 1 mg tablet 1 mg PO BID 12/20/19 08/23/22 Unknown History trazodone 100 mg tablet 100 mg PO BEDTIME 12/20/19 08/23/22 Unknown History albuterol sulfate 90 mcg/actuation 2 puff PO Q4H 12/26/19 08/23/22 Unknown History aerosol inhaler losartan 50 mg tablet 50 mg PO DAILY 12/26/19 08/23/22 11/18/21 History chlorthalidone 25 mg tablet 25 mg PO DAILY 03/09/20 08/23/22 Unknown History metformin 500 mg tablet 500 mg PO DAILY 03/09/20 08/23/22 11/18/21 History metoprolol succinate 100 mg 200 mg PO DAILY 08/18/20 08/23/22 05/26/24 History tablet,extended release 24 hr valsartan 320 mg tablet mg PO DAILY 05/22/24 05/26/24 History Exam Height,Weight and Vital Signs: Height 5 ft 8.5 in Weight 87.543 kg Pertinent Lab Results Pertinent Lab Results: Lab ResultsCardiology Labs WBC: 10 x10E3/uL (01/08/24) RBC: 5.77 (01/08/24) Hgb:?12.8 Gm/dL?Low (01/08/24) Hct: 44.7 % (01/08/24) MCV:?78 fL?Low (01/08/24) MCH:?22.2 pg?Low (01/08/24) MCHC:?28.6 Gm/dL?Low (01/08/24) Platelet Count: 412 x10E3/uL (01/08/24) RDW-SD:?56.6 femtoliters?High (05/02/23) Nucleated RBC (Automated): 0 #/100 WBC'S (05/02/23) Sodium: 137 mmol/L (01/08/24) Potassium: 4.7 mmol/L (01/08/24) Chloride: 98 mmol/L (01/08/24) Bicarbonate Level: 24 mmol/L (01/08/24) Glucose Level:?141 mg/dL?High (01/08/24) Hemoglobin A1C (Monitoring):?6.3 %?High (08/17/23) BUN: 19 mg/dL (05/02/23) BUN: 24 mg/dL (01/08/24) Creatinine-Blood: 1.26 mg/dL (01/08/24) Calcium: 9.7 mg/dL (01/08/24) Protein, Total: 6.9 Gm/dL (01/08/24) Albumin: 4.5 Gm/dL (01/08/24) Alkaline Phosphatase:?32 IU/L?Low (01/08/24) AST (SGOT):?43 IU/L?High (01/08/24) ALT (SGPT):?54 IU/L?High (01/08/24) Bilirubin, Total: 0.3 mg/dL (01/08/24) Cholesterol: 140 mg/dL (05/02/23) Triglycerides: 90 mg/dL (05/02/23) HDL Cholesterol: 41 mg/dL (05/02/23) LDL Cholesterol: 81 mg/dL (05/02/23) Non HDL Cholesterol: 99 mg/dL (05/02/23) Direct Low Density Lipoprotein: 70 mg/dL (08/17/23) TSH: 2.82 uIU/mL (08/17/23) Free T4: 1.4 ng/dL (08/17/23) Narrative Narrative: ECGECG 12-Lead 05/2023 ? 07:24:31 Ventricular Rate: 71 BPM Atrial Rate: 71 BPM P-R Interval: 164 ms QRS Duration: 112 ms Q-T Interval: 370 ms QTC Calculation(Bazett): 402 ms P Stock[place]: 45 degrees R Stock[place]: 51 degrees T Stock[place]: 38 degrees Normal sinus rhythm Normal ECG When compared with ECG of 14-FEB-2019 13:20, T wave inversion no longer evident in Anterior leads QT has shortened Confirmed by RADHA PEREZ MD ([id number]) on 05/30/2023 4:10:11 PM Assessment and Plan Assessment Anesthesia Assessment: Chart Reviewed Final Anesthetic Review Family History of Problems with Anesthesia: No History of Problems with Anesthesia: No Documented by User: Richard Linton MD 05/26/24 08:59 PMFSH Past Medical History Medical History (Updated 05/22/24 @ 13:42 by Mikaela Abraham RN) GERD (gastroesophageal reflux disease) Elevated CPK Depression Hyperlipidemia Pre-diabetes History of shingles Hx of migraines Anxiety and depression HELDER on CPAP Asthma On beta irineo at home CAD (coronary artery disease) Angina pectoris HTN (hypertension) Sacroiliitis Postlaminectomy syndrome of lumbosacral region Right lumbar radiculopathy Spinal cord stimulator status Derangement of left shoulder joint Cervical arthritis Surgical History Surgical History (Updated 05/22/24 @ 13:45 by Mikaela Abraham RN) Hx of vasectomy Hx of elbow surgery History of esophagogastroduodenoscopy (EGD) Hx of colonoscopy Hx of shoulder surgery History of carpal tunnel release History of umbilical hernia repair History of coronary artery bypass graft History of lumbar discectomy Social History Social History Household Members Other:: lives with and son Alcohol intake: never Patient Tobacco Use Status: Former Tobacco user Have you been hit, kicked, punched, or otherwise hurt by someone within the past year? 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 [employer] Meds Allergies Allergy/AdvReac Type Severity Reaction Status Date / Time Zueottc-OXE-VzW Reductase Allergy Unknown RAISES CPK Verified 05/22/24 08:35 Inhibitor LEVELS [UQYQPVA-WXA-OLT REDUCTASE INHIBITOR] Home Medications ?Medication ?Instructions ?Recorded ?Confirmed ?Last Taken ?Type alirocumab 75 mg/mL subcutaneous mg subcut 12/20/19 08/23/22 05/22/24 History pen injector lorazepam 1 mg tablet 1 mg PO BID 12/20/19 08/23/22 Unknown History trazodone 100 mg tablet 100 mg PO BEDTIME 12/20/19 08/23/22 Unknown History albuterol sulfate 90 mcg/actuation 2 puff PO Q4H 12/26/19 08/23/22 Unknown History aerosol inhaler losartan 50 mg tablet 50 mg PO DAILY 12/26/19 08/23/22 11/18/21 History chlorthalidone 25 mg tablet 25 mg PO DAILY 03/09/20 08/23/22 Unknown History metformin 500 mg tablet 500 mg PO DAILY 03/09/20 08/23/22 11/18/21 History metoprolol succinate 100 mg 200 mg PO DAILY 08/18/20 08/23/22 05/26/24 History tablet,extended release 24 hr valsartan 320 mg tablet mg PO DAILY 05/22/24 05/26/24 History Exam Airway Mallampati Class: II TM Dist: <=3cm Neck ROM: Full Loose/Missing/Broken Teeth: No Heart: ok Lungs: ok Assessment and Plan Assessment Anesthesia Assessment: Anesthesia Plan Discussed Final Anesthetic Review NPO: Yes ASA Class: III Final Preanesthetic Review: No Changes in Pt Med Stat, Meds/Allgs Chart Reviewed, Consent Obtained/Reviewed and Anes Risks/Benef Reviewed Patient Risk: Intermediate Procedure Risk: Low Anesthetic Plan Anesthetic Plan: MAC: and Agree w/ Assess. and Plan Disposition: Standard PACU
[2024-05-26 07:22] VITALS: BP 122/70; PULSE 82; RESP 19; TEMP 36.9; O2SAT 98; BMI 29.2
[2024-05-26 07:32] LABS: Glucose, Whole Blood 101 mg/dL (60-115)
[2024-05-26] MEDS: Lactated Ringers 1,000 ML 100 ML IVCONT (07:45)
[2024-05-26 09:34] VITALS: BP 97/36; PULSE 75; RESP 20; TEMP 37.1; O2SAT 97
--- NOTE | 2024-05-26 09:37 | P.BOP_ITS ---
Brief Operative Note Date of Service: 05/26/24 Pre-op diagnosis: Screening Post-op diagnosis: other (Polyp) Procedure: Colonoscopy to the cecum and TI with bx/removal of polyp Surgeon: Kirt Platt MD Anesthesia: MAC Was an Sustainable Design Coordinator used for this Procedure?: No Estimated blood loss (mL): 2.0 Pathology: other (A. Polyp at 50cm) Condition: stable Disposition: PACU
[2024-05-26 09:48] VITALS: BP 116/56; PULSE 74; RESP 20; TEMP 36.9; O2SAT 97
--- NOTE | 2024-05-26 10:02 | OP_ITS ---
DATE OF SERVICE: 05/26/2024 SURGEON: Kirt Platt MD INDICATIONS: The patient presents for evaluation of personal history of tubular adenoma of the colon and colorectal cancer screening. Full consent has been obtained from him for this, including risks of bleeding and perforation. PREOPERATIVE DIAGNOSIS: POSTOPERATIVE DIAGNOSIS: PROCEDURE PERFORMED: Colonoscopy to the cecum and terminal ileum with biopsy and removal of polyp. ESTIMATED BLOOD LOSS: COMPLICATIONS: ANESTHESIA: Medication used, monitored anesthesia care. ASSISTANTS: SPECIMENS: PREOPERATIVE DIAGNOSES: Colorectal cancer screening and personal history of tubular adenoma of the colon. POSTOPERATIVE DIAGNOSES: Colorectal cancer screening and personal history of tubular adenoma of the colon, colon polyp, diverticulosis, and internal hemorrhoids. DESCRIPTION OF PROCEDURE: The patient was placed in the left lateral decubitus position. The digital rectal exam revealed no abnormalities. The Olympus video pediatric colonoscope was entered into the rectum and advanced easily to the cecum. Once in the cecum, I did identify normal-appearing cecal pouch with appendiceal orifice and a normal-appearing ileocecal valve. The terminal ileum was cannulated and appeared normal. The scope was withdrawn back in the colon. The entire cecum and ileocecal valve appeared normal. The scope was then slowly withdrawn assessing all mucosal surfaces carefully. Preparation was excellent. At 50 cm was a flat, approximately 3 or 4 mm polyp, which was biopsied and removed with a cold biopsy forceps. I did not visualize any other polyps, colitis, nor angiodysplasia. There was a mild amount of sigmoid diverticulosis. In the rectum, scope was retroflexed visualizing internal hemorrhoids, but no other pathology. The rectal mucosa appeared normal. Scope was straightened and withdrawn from the patient. He tolerated the procedure well and was returned to the recovery area in stable condition. IMPRESSION: 1. Colon polyp. 2. Diverticulosis. 3. Internal hemorrhoids. PLAN: The results of the biopsy will be checked. I would recommend a repeat colonoscopy in 5 years for further surveillance. He was advised to resume his aspirin by tomorrow. MD LOTTIE Zamarripa/PJ / [phone]
== END 2024-05-26 10:30 | disposition home or self-care (01) ==
PROVIDERS: PCP Internal Medicine; Visit Provider Internal Medicine
PROC: 0DJD8ZZ Inspection of Lower Intestinal Tract, Via Natural or Artificial Opening Endoscopic (ICD-10-PCS; CPT 45378; principal; 2024-05-26 08:30)
DX: Z12.11 Encounter for screening for malignant neoplasm of colon (principal); Z86.0101 Personal history of adenomatous and serrated colon polyps; D12.5 Benign neoplasm of sigmoid colon; K57.30 Diverticulosis of large intestine without perforation or abscess without bleeding; K64.8 Other hemorrhoids; K21.9 Gastro-esophageal reflux disease without esophagitis; I10 Essential (primary) hypertension; I25.10 Atherosclerotic heart disease of native coronary artery without angina pectoris; Z95.1 Presence of aortocoronary bypass graft; E78.5 Hyperlipidemia, unspecified; F32.A Depression, unspecified; G47.33 Obstructive sleep apnea (adult) (pediatric); Z79.899 Other long term (current) drug therapy; Z87.891 Personal history of nicotine dependence
CPT/HCPCS: 45380; 82947; 88305; J2003; J2704; J3010

== ENCOUNTER 2024-06-05 11:08 | Outpatient (AMB) | payer MEDICARE, SELFPAY ==
--- NOTE | 2024-06-05 11:10 | A.OFFVIS_ITS ---
Vital Signs 06/05/24 11:19 Height 5 ft 8.5 in Weight 193 lb 8 oz BMI 29.0 BP 159/77 H Blood Pressure Location Rt brachial Position Sitting Pulse 81 Pulse Source Pulse Oximeter Intake Visit Reasons: Opioid Contract Follow Up Intake Note: Pain today 08/26, states he last took oxycodone 06/04/24 at 10pm. Golf Course Laborer Required: No Accompanied by: Self / Same As Patient Allergies Cxrgyql-MVL-StM Reductase Inhibitor [NAICJDM-FZZ-KBX REDUCTASE INHIBITOR] Allergy (Unknown, Verified 06/05/24 11:20) RAISES CPK LEVELS HPI Comments Details: Issac Is back in my office to get restarted on chronic opioid program after 1 year suspension. In fact he was suspended in February of 2023. His UDS came back and it was positive for oxycodone which was prescribed to him elsewhere. It is also positive for metoprolol, Tylenol, hydroxyzine. All of this is congruent with his current medication regimen . I will start him on oxycodone 10 mg t.i.d. as it was before. Risks and benefits were explained to the patient. Next appointment for the pill count in 2 weeks. After that appointments will be once in a month. Previously steroid injections as well as possible PRP injection in the right shoulder and PRP injection into the elbow were explained to the patient. PRP injection into the hip joint also can not be performed. PRP injection into bilateral knees could be done for him. He suffers from multiple pain generators including pain in the bilateral shoulders, he had multiple surgeries of bilateral shoulders including arthroscopy of the right shoulder several times and several procedures on the left shoulder with open surgeries and anchors and hardware insertion. He also was diagnose with left elbow arthritis he complains on severe pain in left elbow. He was examined by neurosurgeon Dr. Nieto and in Dr. Poole opinion he does not need any neurosurgical intervention. He reports in his note that there is no nerve root compressions. Therefore it is unlikely that the transforaminal epidural steroid injections will help the patient. However Dr. Neito paid attention to symptoms of right hip joint arthritis. He has pain in the hip on lateral rotation of the hip and he has pain in the groin with Peter test performance. He had an x-ray of the right hip done at [facility] office dose in [place], he will sign medical information release and we will obtain the report. Prior :? History of low back pain 2 to postlaminectomy syndrome with radiation of the pain into bilateral lower extremity however with sensation of intermittent numbness into the right lower extremity when he positions himself on the right side in the bed.? He received sacroiliac joint diagnostic injection right with bupivacaine only and he reports overall 75% pain relief for the 1st 6 hours.? ? I offered him sacroiliac joint fusion versus sacroiliac joint per ipheral stimulation on the right.? 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 He is asking me to return to this issue in the future. [facility] Medical History (Updated 05/22/24 @ 13:42 by Mikaela Abraham RN) GERD (gastroesophageal reflux disease) Elevated CPK Depression Hyperlipidemia Pre-diabetes History of shingles Hx of migraines Anxiety and depression HELDER on CPAP Asthma On beta irineo at home CAD (coronary artery disease) Angina pectoris HTN (hypertension) Sacroiliitis Postlaminectomy syndrome of lumbosacral region Right lumbar radiculopathy Spinal cord stimulator status Derangement of left shoulder joint Cervical arthritis Surgical History (Updated 05/22/24 @ 13:45 by Mikaela Abraham RN) Hx of vasectomy Hx of elbow surgery History of esophagogastroduodenoscopy (EGD) Hx of colonoscopy Hx of shoulder surgery History of carpal tunnel release History of umbilical hernia repair History of coronary artery bypass graft History of lumbar discectomy Social History Household Members Other:: lives with and son Alcohol intake: never Patient Tobacco Use Status: Former Tobacco user 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 Review of Systems Const All systems reviewed & are unremarkable except as noted in HPI and below ENT Reports Normal hearing present Neuro Reports Normal hearing present and Denies Abnormal speech present Physical Exam Vital Signs: Last Vital Signs Pulse 81 06/05/24 11:19 BP 159/77 H 06/05/24 11:19 BMI result Body Mass Index 29.0 Const General: cooperative, healthy appearing and alert Orientation/consciousness: patient oriented x3 HEENT Head: Yes normocephalic and Yes atraumatic Ears: hearing grossly normal bilaterally Eyes General: appearance normal, both eyes and all related structures Eyelids: Yes eyelids normal Pupils: Equal, round and reactive pupils present EOM: EOMs intact bilaterally Neck Neck: Yes normal visual inspection Resp Effort & Inspection: normal respiratory effort and able to speak in complete sentences Cardio Jugular venous distension: no JVD Back/Spine/Pelvis Other: Lumbar spine visible inspection multiple very well-healed scars demonstrates previous fusions. Lateral left hip incision also demonstrates the results of anterior fusion. Peter test positive on right Pelvic compression test positive on right Suri finger test positive on right SLR with increased pain on right Spurling test negative bilaterally Stinchfield positive on right Neuro General: patient oriented x3 and gait normal Cranial nerves: Yes Equal, round and reactive pupils present and Yes Normal hearing present Cognition (Neuro): normal cognition Speech: No Abnormal speech present Motor exam (neuro): 5/5 motor strength present throughout Psych Appearance: grossly normal Mental Status: mental status grossly normal Speech and movement: Normal speech and movement present Affect: normal affect Attitude: cooperative Thought process: Normal thought process present Thought content: Normal thought content present Insight: Good insight present (Psych) Judgement: Good judgement present (Psych) Assessment & Plan Assessment & Plan (1) Postlaminectomy syndrome of lumbosacral region: Code(s): M96.1 - Postlaminectomy syndrome, not elsewhere classified Category: Medical (2) Right lumbar radiculopathy: Code(s): M54.16 - Radiculopathy, lumbar region Category: Medical (3) Radiculopathy of lumbar region: Code(s): M54.16 - Radiculopathy, lumbar region Category: Medical Plan 1. I will reinstate his opioid prescriptions today. Oxycodone 10 mg t.i.d. we will be prescribed to the patient. I also will prescribe renewed naloxone prescription for him as of today 06/05/2024. 2. He was seen by Dr. Poole send attention was attracted to his right hip symptoms see as above. I will schedule him for right hip steroid injection if he desires to. 3. PRP discussed as above. Medications: New oxycodone Partial Fill upon patient request. 10 mg PO Q8H 30 days PRN 90 tabs 0RF pain Refilled naloxone 4 mg/actuation (Narcan) spray 1 dose into ONE nostril; alternate nostrils w each dose until help arrives 4 mg intranasal Q3M PRN 2 ea 0RF opioid overdose Discontinued oxycodone Partial Fill upon patient request. Discontinued Reason: Doctor's Order 5 mg PO Q6H 30 days PRN 120 tabs 0RF pain MDD max 4 pills a day Coding Level of Care Code Est Pt Level 3 (62587) Diagnoses Postlaminectomy syndrome of lumbosacral region M96.1 Right lumbar radiculopathy M54.16 Radiculopathy of lumbar region M54.16
[2024-06-05 11:19] VITALS: BP 159/77; PULSE 81; BMI 29.0
== END 2024-06-05 11:36 | disposition home or self-care (01) ==
LOC: HO.PMC 11:08
PROVIDERS: PCP Internal Medicine; Visit Provider Anesthesiology
DX: M96.1 Postlaminectomy syndrome, not elsewhere classified (principal); M54.16 Radiculopathy, lumbar region
CPT/HCPCS: 99214

== ENCOUNTER → 2024-06-05 11:08 | Outpatient (BNVA) | payer MEDICARE, SELFPAY | PROVIDERS: PCP Internal Medicine; Visit Provider Anesthesiology | DX: M96.1 Postlaminectomy syndrome, not elsewhere classified (principal); M54.16 Radiculopathy, lumbar region; Z51.81 Encounter for therapeutic drug level monitoring; Z79.891 Long term (current) use of opiate analgesic | CPT/HCPCS: 99212 ==

== ENCOUNTER 2024-06-19 08:18 | Outpatient (AMB) | payer MEDICARE, SELFPAY ==
[2024-06-19 08:20] VITALS: BP 157/84; PULSE 68; O2SAT 98; BMI 29.0
--- NOTE | 2024-06-19 08:20 | MHC.OFFVIS ---
Vital Signs 06/19/24 08:20 Height 5 ft 8.5 in Weight 193 lb 6 oz BMI 29.0 BP 157/84 H Blood Pressure Location Lt brachial Position Sitting Pulse 68 Pulse Source Pulse Oximeter Pulse Oximetry (%) 98 Oxygen Delivery Method Room Air Intake Visit Reasons: 2 week pill count Allergies Prdvpqy-QJN-TlH Reductase Inhibitor [ZJVVOFQ-YGO-RYJ REDUCTASE INHIBITOR] Allergy (Unknown, Verified 06/19/24 08:20) RAISES CPK LEVELS HPI Comments Details: Issac is back in my office for a pill count and follow-up. He presented himself with 62 pills, his supposed to have 60 pills. This demonstrates responsible attitude to were the opioid medications. He denies side effects of the opioid medications, he denies constipation. Reports opioid medications increase range of motion of his extremities. He suffers from multiple pain generators including pain in the bilateral shoulders, he had multiple surgeries of bilateral shoulders including arthroscopy of the right shoulder several times and several procedures on the left shoulder with open surgeries and anchors and hardware insertion. He also was diagnose with left elbow arthritis he complains on severe pain in left elbow. He was examined by neurosurgeon Dr. Nieto and in Dr. Poole opinion he does not need any neurosurgical intervention. He reports in his note that there is no nerve root compressions. Therefore it is unlikely that the transforaminal epidural steroid injections will help the patient. However Dr. Nieto paid attention to symptoms of right hip joint arthritis. He has pain in the hip on lateral rotation of the hip and he has pain in the groin with Peter test performance. He had an x-ray of the right hip done at [facility] dose in [place], he will sign medical information release and we will obtain the report. Prior :? History of low back pain 2 to postlaminectomy syndrome with radiation of the pain into bilateral lower extremity however with sensation of intermittent numbness into the right lower extremity when he positions himself on the right side in the bed.? He received sacroiliac joint diagnostic injection right with bupivacaine only and he reports overall 75% pain relief for the 1st 6 hours.? ? I offered him sacroiliac joint fusion versus sacroiliac joint peripheral stimulation on the right.? 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 He is asking me to return to this issue in the future. [facility] Medical History GERD (gastroesophageal reflux disease) Elevated CPK Depression Hyperlipidemia Pre-diabetes History of shingles Hx of migraines Anxiety and depression HELDER on CPAP Asthma On beta irineo at home CAD (coronary artery disease) Angina pectoris HTN (hypertension) Sacroiliitis Postlaminectomy syndrome of lumbosacral region Right lumbar radiculopathy Spinal cord stimulator status Derangement of left shoulder joint Cervical arthritis Surgical History Hx of vasectomy Hx of elbow surgery History of esophagogastroduodenoscopy (EGD) Hx of colonoscopy Hx of shoulder surgery History of carpal tunnel release History of umbilical hernia repair History of coronary artery bypass graft History of lumbar discectomy Social History Household Members Other:: lives with and son Alcohol intake: never Patient Tobacco Use Status: Former Tobacco user Current occupation: [employer] Review of Systems Const All systems reviewed & are unremarkable except as noted in HPI and below ENT Reports Normal hearing present Neuro Reports Normal hearing present and Denies Abnormal speech present Physical Exam Vital Signs: Last Vital Signs Pulse 68 06/19/24 08:20 BP 157/84 H 06/19/24 08:20 Pulse Ox 98 06/19/24 08:20 Oxygen Delivery Method Room Air 06/19/24 08:20 BMI result Body Mass Index 29.0 Const General: cooperative, healthy appearing and alert Orientation/consciousness: patient oriented x3 HEENT Head: Yes normocephalic and Yes atraumatic Ears: hearing grossly normal bilaterally Eyes General: appearance normal, both eyes and all related structures Eyelids: Yes eyelids normal Pupils: Equal, round and reactive pupils present EOM: EOMs intact bilaterally Neck Neck: Yes normal visual inspection Resp Effort & Inspection: normal respiratory effort and able to speak in complete sentences Cardio Jugular venous distension: no JVD Back/Spine/Pelvis Other: Lumbar spine visible inspection multiple very well-healed scars demonstrates previous fusions. Lateral left hip incision also demonstrates the results of anterior fusion. Peter test positive on right Pelvic compression test positive on right Suri finger test positive on right SLR with increased pain on right Spurling test negative bilaterally Stinchfield positive on right Neuro General: patient oriented x3 and gait normal Cranial nerves: Yes Equal, round and reactive pupils present and Yes Normal hearing present Cognition (Neuro): normal cognition Speech: No Abnormal speech present Motor exam (neuro): 5/5 motor strength present throughout Psych Appearance: grossly normal Mental Status: mental status grossly normal Speech and movement: Normal speech and movement present Affect: normal affect Attitude: cooperative Thought process: Normal thought process present Thought content: Normal thought content present Insight: Good insight present (Psych) Judgement: Good judgement present (Psych) Assessment & Plan Assessment & Plan (1) Postlaminectomy syndrome of lumbosacral region: Code(s): M96.1 - Postlaminectomy syndrome, not elsewhere classified Category: Medical (2) Right lumbar radiculopathy: Code(s): M54.16 - Radiculopathy, lumbar region Category: Medical (3) Radiculopathy of lumbar region: Code(s): M54.16 - Radiculopathy, lumbar region Category: Medical Plan 1. Continue Oxycodone 10 mg t.i.d. I will prescribe it on 07/09/2024 2. He was seen by Dr. Poole, no neurosurgical intervention indicated, attention was attracted to his right hip symptoms see as above. I will schedule him for right hip steroid injection if he desires to. 3. PRP is not discussed today but remains the option for the patient. Medications: Refilled oxycodone Partial Fill upon patient request. 10 mg PO Q8H 30 days PRN 90 tabs 0RF pain Coding Level of Care Code Est Pt Level 3 (42501) Diagnoses Postlaminectomy syndrome of lumbosacral region M96.1 Right lumbar radiculopathy M54.16 Radiculopathy of lumbar region M54.16
--- OUTSIDE RECORDS SUMMARY | 2024-06-19 08:24 | XMS_ITS ---
Author Organization [facility] Address [address] [place] [phone] Care Team Providers Care Websphere Commerce Architect Name Role Phone Bear Deras MD Primary Care Provider Kirt Thompson [phone] Encounters Encounter Location Date Provider Diagnosis [facility] [address] [place] [phone] 01/20/2024 Kirt Platt Plan Of Treatment No Information Progress Notes * RADHA M[birth year]DOB:[birth year] (63 yo M)Acc No.[id number]:01/20/2024 Patient:?RADHA MANNING :1960???Age:63 Y???Sex:Male Address:[address] [place] [address], [phone] * true * Date:? Generated for Daishai philipp/Hari/eTransmitting on:?06/19/2024 08:24 AM EDT
--- OUTSIDE RECORDS SUMMARY | 2024-06-19 08:24 | XMS_ITS ---
Author Organization [facility] Address [address] [place] [phone] Care Team Providers Care Hand Collator Name Role Phone Bear Deras MD Primary Care Provider Kirt Thompson [phone] Allergies Allergen (clinical drug ingredient) Drug/Non Drug Allergy documented on EMR Reaction Allergy Type Onset Date Status Substance with 6-qmvrnyn-6-methylgluta ryl-coenzyme A reductase inhibitor mechanism of action [...] 01/08/2024 Encounters Encounter Location Date Provider Diagnosis [facility] [address] [place] [address] 01/08/2024 Kirt Platt History of adenomato us [...] Next Appt Details Follow Up: prn, Reason: Progress Notes * RADHA MANNINGDOB:[birth year] (63 yo M)Acc No.[id number]:01/08/2024 Progress Notes Patient:RADHA PEDRAZA Provider:?Kirt Platt MD :1960???Age:63 Y???Sex:Male Twan e:01/08/2024 Address:[address] [place], [place] [id number] Pcp:Bear Deras MD Subjective: * Chief Complaints: [...] a recent negative stress test with his float tender. He has lost about 30 or 40 [...] Barium tabletsched fo r 01/09/24 at 9:00 [facility] Radiology dept 2nd floorfasting after midnight * * Procedure Codes:?3017F COLOR ECTAL CA SCREEN DOC FED1412J TOBACCO [id number] BP SCR NOT PRFRM REC REASON NOS [...] Platt MD Date:? 024 Generated for Oneyda segal/Hari/Star on:?06/19/2024 08:24 AM EDT History and Physical Notes * HPI (History [...] a recent negative stress test with his float tender. He has lost about 30 or 40 [...]
--- OUTSIDE RECORDS SUMMARY | 2024-06-19 08:24 | XMS_ITS ---
Author Organization [facility] Address [address] [place] [phone] Care Team Providers Care City Plant Supervisor Name Role Phone Augusta RANGEL, Bear Primary Care Provider Kirt Tohmpson [phone] REASON FOR VISIT screening,hx polyps Encounters Encounter Location Date Provider Diagnosis [facility] [address] [place] [phone] 05/26/2024 Kirt Platt Colon cancer scree maya [...] RADHA MANNING AmbarDOB:[birth year] (64 yo M)Acc No.[id number]:05/26/2024 COLON WITH MAC Patient:?RADHA MANNING Provider:?Kirt Platt MD :1960???Age:64 Y???Sex:Male Twan e:05/26/2024 Address:[address] [place], [place] [phone] Pcp:Bear Deras MD Subjective: * Chief Complaints: * ???1. Screening,hx polyps. * Medical History:? Objective: * Vitals:? Assessment: * Assessment: 1.?Colon cancer screening - Z12.11 (Primary)???2.?Colon polyps - K63.5???3.?Diverticulosis of large intestine without perforation or abscess without bleeding - K57.30???4.?Other hemorrhoids - K64.8??? Plan: * Treatment: * Procedure Codes:?47645 COLON OSCOPY AND BIOPSY, Modifiers: PT , 0529F INTRVL 3+YRS PTS CLNSCP DOCD, 0528F RCMND FLW-UP 10 YRS DOCD * * The named appointment provid er may or may not be the originator of this progress note, and it is not deemed complete until electronically signed by the appointment provider. Sign off status: Pending * Provider:?Kirt Platt MD Date:? 025 Generated for Oneyda segal/Hari/Ghulamitting on:?06/19/2024 08:24 AM EDT
--- OUTSIDE RECORDS SUMMARY | 2024-06-19 08:24 | XMS_ITS | Data Portability ---
Author Organization [place] [facility] [place] [facility], [facility] - INPATIENT Address [address] [place] [phone] Care Team Providers Care Treasury Agent Name Role Phone ALEJANDRO JIMENEZ Primary Care Provider Assessment No assessment recorded. Plan of Treatment Reminders Order Date Submit Date Provider Last Modified By Organization Details Last Modified Time Details Appointments None recorded. Lab None recorded. Referral None recorded. Procedures None recorded. Surgeries orthopaedi c surgery (SURG) 2023 024 [email or web address] [facility] Surgery [facility]), [address] [place], [address], 4 14:12:27 Imaging None recorded. Medication Orders Kenalog 40 mg/mL suspension for injection 2023 024 [place] [address] [id number], [address] [place], [address], 4 10:21:02 Kenalog 40 mg/mL suspension for injection 2023 024 [place] [address] [id number], [address] [place], [address], 4 10:21:02 Kenalog 40 mg/mL suspension for injection 2023 024 [id number], [address] [place], [address], 4 15:52:04 Patient TargetsNo targets recorded. Patient Instructions Encounter Date Encounter Id Patient Instructions Last Modified By Organization Details Last Modified Time 05/10/2023 [id number] Educational materials are supplied regarding diagnoses & management [facility] Not available 05/10/2023 21:44:01 The findings, diagnosis, [...] patient will call if problems or questions. [place] [address] Not available 05/10/2023 21:44:46 06/11/2023 [id number] The findings, diagnosis, and options are discussed including potential treatments. The patient is doing well early on. Wound care stretching program and restrictions for lifting activity outlined. All questions are answered. He will consider referral to PT in several weeks. Follow up will be arranged as noted in 4 weeks for recheck. Patient will call if problems or questions. [facility] Not available 06/11/2023 09:19:23 07/12/2023 [id number] Educational materials are supplied regarding diagnoses & management [facility] Not available 07/12/2023 09:03:05 The findings, diagnosis, [...] Patient will call if problems or questions. [facility] Not available 07/12/2023 09:04:22 10/01/2023 [id number] Educational materials are supplied regarding diagnoses & management [facility] Not available 10/01/2023 13:05:21 The findings, diagnosis, and options are discussed including potential treatments. He would like to plan for left elbow joint cortisone injection this is performed as above. Follow up will be arranged as needed at his request. Patient will call if problems or questions. [facility] Not available 10/01/2023 13:08:33 03/10/2024 [id number] Educational materials are supplied regarding diagnoses & management [email or web address] Not available 03/10/2024 21:15:42 The findings, diagnosis, and options are discussed including potential treatments. He would like to plan for left elbow joint and wrist [facility] cortisone injections These are performed as above. Follow up will be arranged as needed at his request. Patient will call if problems or questions. [email or web address] Not available 03/10/2024 21:19:01 Reason for Referral None Reported. Results Created Date Observation Date Name Description Value Unit Range Abnormal Flag Note LastModifiedBy Organization Detail LastModifiedTime 04/17/19 24 02/21/2023 MRI, lumba r spine , w/wo contr ast No observ ation record ed. [email or web address] Not Available 04/17 09:38:38 05/10/19 24 05/10/2023 xr elbow s bilat min3 views Fin al Report EXAM#: [id number] PROCED URE: DXR 0030 XR ELBOWS [...] LUONG M.D. On: May 10 2023 11:35A [email or web address] [facility] [address] [facility], [place], [address], 05/10/2023 16:57:39 05/10/19 24 05/10/2023 XR, elbow No observ ation record ed. [email or web address] Not Available 2023 16:55:45 05/30/19 24 05/30/2023 elect romyo gram + nerve condu ction study No observ ation record ed. [email or web address] Not Available 2023 15:28:20 07/12/19 24 07/12/2023 xr hands bilat 3 views each min Fin al Report EXAM#: [id number] PROCED URE: DXR 0076 XR HANDS [...] GUEVARA M.D. On: Jul 12 2023 8:58A [email or web address] [facility] [address] [facility], [place], [address], 07/12/2023 09:05:18 07/12/19 24 07/12/2023 XR, hand No observ ation record ed. Not Available 2023 09:54:22 Result Notes None recorded. Problems Name Problem SNOMED Code Status Onset Date Resolution Date Notes Provider Name and Address Organization Details Recorded Time Chronic low back pain 819498224 Active 024 Not Available [employer] 4 11:15:08 Problem Notes None recorded. Procedures Surgical History Date Name Laterality Status Provider Name and Address Organization Details Recorded Time 4 Cortisone Injection(s) completed JOE MILLER MD [address] [place] [address], [phone], [facility] 03/10/2024 21:15:52 4 Cortisone Injection(s) completed JOE MILLER MD [address] [place] [address], [phone], [facility] 10/01/2023 13:07:56 4 Cortisone Injection(s) completed JOE MILLER MD [address] [place] [address], [phone], [facility] 07/12/2023 09:02:37 4 Orthopaedic Surgery completed Delroy Soto [facility] 06/11/2023 09:03:17 8 Orthopaedic Surgery completed Brittani Cotton [facility] 04/23/2023 10:29:52 7 Orthopaedic Surgery completed Brittani Cotton [facility] 04/23/2023 10:30:17 6 Other completed Brittani Cotton [facility] 04/23/2023 10:32:13 5 Orthopaedic Surgery completed Brittani Cotton [facility] 04/23/2023 10:31:24 Other completed Delroy Soto [facility] [place] [facility] 05/10/2023 10:50:20 Imaging Results Imaging Date Name Status LastModified by Organization Details LastModified Time 02/21/2023 MRI, lumbar spine, w/wo contrast completed [email or web address] Information not available 04/17/2023 09:38:38 05/10/2023 xr elbows bilat min3 views completed [email or web address] [facility] [address] [place], [address], 05/10/2023 16:57:39 05/10/2023 XR, elbow completed [email or web address] Information no t available 05/10/2023 16:55:45 05/30/2023 electromyogram + nerve conduction study completed [email or web address] Information not available 05/30/2023 15:28:20 07/12/2023 xr hands bilat 3 views each min completed [facility] [address] [place], [address], 07/12/2023 09:05:18 07/12/2023 XR, hand completed [email or web address] Information no t available 07/12/2023 09:54:22 Procedure [...] Updated DateTime 05/10/2023 177.8 cm 26.7 kg/m2 24785.18 g Delroy Soto [place] [facility] [place] [facility] 05/10/2023 10:49:25 Date Recorded Body height Body mass index (BMI) Body weight Provider Name and Address Organization Details Last Updated DateTime 06/11/2023 177.8 cm 26.5 kg/m2 77763.59 g Delroy Soto [facility] 06/11/2023 09:06:26 Date Recorded Body height Body mass index (BMI) Body weight Provider Name and Address Organization Details Last Updated DateTime 07/12/2023 179.07 cm 25.7 kg/m2 14385.81 g Tri Edson [place] Meghan Victor [facility] 07/12/2023 08:42:36 Date Recorded Body height Body mass index (BMI) Body weight Provider Name and Address Organization Details Last Updated DateTime 10/01/2023 179.07 cm 28.1 kg/m2 39447.88 g Delroy Charles [facility] 10/01/2023 12:28:11 Date Recorded Body height Body mass index (BMI) Body weight Provider Name and Address Organization Details Last Updated DateTime 03/10/2024 179.07 cm 27.7 kg/m2 52950.1 g Delroy Charles [facility] 03/10/2024 15:52:01 Social History Question Answer Notes LastModified by Organizat ion Details LastModified Time Tobacco Smoking Status Never Smoker Not Available [facility] 02/23/2022 23:20:34 What Is Your Level Of Alcohol Consumption? Moderate [email or web address] Information not available 04/17/2023 Do You Or Have You Ever Used E-cigarettes Or Vape? Never Used Electronic Cigarettes [email or web address] Information not available 04/17/2023 What Is Your Occupation? Retired [email or web address] Information not available 04/17/2023 Do You Or Have You Ever Used Smokeless Tobacco? Never Used Smokeless Tobacco [email or web address] Information not available 04/17/2023 Sex: Unknown Functional [...] Asthma / Shortness of Breath / Sleep Daycare Teacher ea (please specify) N Pulmonary Embolism N Past Encounters Encounter ID Performer Location Encounter Start Date Encounter Closed Date Diagnosis/Indication Diagnosis SNOMED-CT Code Diagnosis ICD10 Code Diagnosis Note [id number] JAQUELINE CHRISTIE MD [facility] Office [address] [place] [phone] 04/17/2023 09:23:37 04/17/2023 10:25:10 Chronic low back pain 964896473 M54.50 [id number] Christy Gavin [facility] Office [address] [place] [phone] 04/23/2023 09:48:28 04/23/2023 11:07:39 Localized, primary osteoarthritis of the shoulder region 795659382 M19.894 [id number] Tamiko Murray [facility] am Office [address] [address] 05/10/2023 09:41:49 05/10/2023 11:15:26 Osteoarthritis of elbow 287232199 M19.624 [id number] JOE MILLER MD [facility] am Office [address] [address] 06/11/2023 08:53:11 06/11/2023 09:31:52 Osteoarthritis of elbow 528396327 M19.022 s/p debridemen t Osteoarthr osis of the carpometacarpal joint of the thumb 39935999 M18.12 [id number] JOE MILLER MD [facility] am Office [address] [address] 07/12/2023 08:39:01 07/12/2023 09:23:55 Osteoarthritis of elbow 031850695 M19.022 s/p debridemen t Osteoarthr osis of the carpometacarpal joint of the thumb 46041316 M18.0 injection R first [facility] today [id number] JOE MILLER MD [facility] am Office [address] [employer] [place] [address] 10/01/2023 12:18:59 10/01/2023 12:58:00 Osteoarthritis of elbow 621870866 M19.022 s/p debridemen t Osteoarthr osis of the carpometacarpal joint of the thumb 85154023 M18.0 [id number] JOE MILLER MD [facility] am Office [address] [employer] [place] [address] 03/10/2024 15:46:52 03/10/2024 17:42:58 Osteoarthrosis of the carpometacarpal joint of the thumb 91500463 M18.12 Osteoarthr itis of elbow 233613136 M19.022 s/p debridemen t Health Concerns Section Related Observation LastModified by Organization Detai ls LastModified Time None Recorded Concern Status LastModified by Organization Details LastModified Time None Recorded Advance Directives Directive None Recorded Payers Encounter Date Sequence Insurance Name Policy Number Policy Laguna Covered Member ID Laguna Member ID Guarantor Name 05/10/2023 1 [place] [employer] Issac Villalta Carrier [id number] Issac Carrier 05/10/2023 2 [facility] [id number] 1 Issac Villalta Carrier [id number] Issac Carrier 06/11/2023 1 [place] [employer] Issac Villalta Carrier [id number] Issac Carrier 06/11/2023 2 [facility] [id number] 1 Issac Villalta Carrier [id number] Issac Carrier 07/12/2023 1 [place] [employer] Issac Villalta Carrier [id number] Issac Carrier 07/12/2023 2 [facility] [id number] 1 Issac Villalta Carrier [id number] Issac Carrier 10/01/2023 1 [place] [employer] Issac Villalta Carrier [id number] Issac Carrier 10/01/2023 2 [facility] [id number] 1 Issac Villalta Carrier [id number] Issac Carrier 03/10/2024 1 [place] [employer] Issac Villalta Carrier [id number] Issac Carrier 03/10/2024 2 [employer] (MEDICARE SUPPLEMENT) Issac Nolan [id number] Issac Nolan Notes Date Note Type Note Provider Name and Address Organization Details Recorded Time 05/10/2023 text/html Mr. Nolan is a 63-year-old male who presents to the clinic for a visit. He has a history of multiple orthopedic surgeries, including four shoulder surgeries and a triple fusion on his back. He was referred to our clinic by Dr. 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 He has not had any forearm surgeries. He also reports arthritis in his hands, which has been causing him difficulty in gripping objects. JOE MILLER MD [address] [place] [address], [phone], [facility] 05/10/2023 21:44:49 06/11/2023 text/html The patient is seen for evaluation s/p left elbow arthroscopy and debridement . Pain has been improving. No new paresthesias. No interval medical problems are noted. JOE MILLER MD [address] [place] [address], [phone], [facility] 06/11/2023 09:19:26 07/12/2023 text/html The patient is [...] also. No new paresthesias. JOE MILLER MD [address] [place] [address], [phone], [facility] 07/12/2023 09:04:26 10/01/2023 text/html The patient is seen for re evaluation of his left elbow. About 4 months s/p left elbow arthroscopy and debridement . Pain has improved but continues with some specific exercises. Now indicates some better motion also. No new paresthesias. JOE MILLER MD [address] [place] [address], [phone], [facility] 10/01/2023 13:08:36 03/10/2024 text/html The patient is [...] injections. No new paresthesias. JOE MILLER MD [address] [place] [address], [phone], [facility] 03/10/2024 21:19:03
--- OUTSIDE RECORDS SUMMARY | 2024-06-19 08:24 | XMS_ITS | Patient Health Record ---
Author Organization [facility] Address [address] [place] [address] Care Team Providers Care Delivery Tech Name Role Phone Alejandro Jimenez MD Primary Care Provider Kirt Thompson [phone] Allergies Allergen (clinical drug ingredient) Drug/Non Drug Allergy documented on EMR Reaction Allergy Type Onset Date Status Substance with 3-abxqpih-9-methylgluta ryl-coenzyme A reductase inhibitor mechanism of action (substance) statin drugs (uncoded) Unknown Allergy Activ e Results Component Value Reference Range Notes FL barium swallow with air ( Not yet reviewed by provider) Interpretation: Performing Lab: Notes/Report: [address] [address] Fluoroscopy Report Signed Patient: Radha Nolan MR#: [id number] 162 : 1960 Acct:[id number] Age/Sex: 63 / M ADM Date: 01/09/24 [facility] Attending Dr: Kirt Platt MD Ordering Physician: Kirt Platt MD Date of Service: 01/09/24 Procedure(s): FL barium swallow with air Accession Number(s): [id number] cc: ALEJANDRO JIMENEZ MD; Kirt Platt MD [...] 02/05/24 1126 DD/ 0856 TD/TT: 01/09/24 0922 Plate Fitter: [address] [address] Fluoroscopy Report Signed Patient: Lorenzo Nolan MR#: [id number] 162 : 1960 Acct:[id number] Age/Sex: 63 / M ADM Date: 01/09/24 Loc: HO.XRAY Attending Dr: Kirt Platt MD Ordering Physician: Kirt Platt MD Date of Service: 01/09/24 Procedure(s): FL bar ium swallow with air Accession Number(s): [id number] cc: ALEJANDRO JIMENEZ MD; Kirt Platt MD [...] ballooning of the hypopharynx with moderate cricopharyngeal sylvester [...] and duodenal bulb without delay. Single and air-contr ast images of the duodenal bulb demonstrate no abnormality. The duo denal sweep has a normal appearance, course, and mucosal fold appeara nce. The imaged proximal jejunum has a normal fold pattern and caliber. FLUOROSCOPY TIME: 3 minutes 48 seconds Number of Spot Images: 9 Number of Cine: 13 DOSE AREA PRODUCT: 2671 uGy-m2 (microgray-meter squared) F L/FL barium swallow with air IMPRESSION: 1. Trace laryngeal penetration with thick barium. 2. Ballooning of the hypopharynx with moderate cricopharyngeal achalasia present. 3. Esophageal dysmotility. 4. Small type I hiat al hernia. 5. Multiple tiny foc i of contrast pooling in the fundus and body of the stomach that likely represent small mucosal ulcerations. Recommend correlation with EGD. 6. Status post CABG 7. Status post spina l stimulator. This procedure was performed by Tj Ramirez PA-C, and supervised by Dr. Rasheed Electronically robson d by: Dmitry Rasheed MD 01/10/2024 02:35 PM EDT RP Dictated By: Calvin Ramirez Signed By: <Electronically signed by Tj Ramirez in OV> 01/10/24 1435 <Electronically sign ed by Dmitry Rasheed MD in OV> 02/05/24 1126 DD/ 0856 TD/TT: 01/09/24 0922 Plate Fitter: Glucose, Whole Blood Reviewed date:05/26/2024 05:12:20 PM Interpretation: Performing Lab:[facility], [address] [place] [phone] Notes/Report: Glucose, Whole Blood 101 60-115 mg/dL METER # : [id number] Pathology (Not yet reviewed by provider) Interpretation: Performing Lab:[facility], [address] [place] [phone] Notes/Report: ----- Name: Radha Nolan Age/Sex: 64/M : 1960 Unit#: [id number] Attend Dr: Kirt Platt MD Re05/26/24 Status : [facility] Location: [facility] Disch: ----- SPEC : [id number] RECD : 05/26/24-1010 [facility] NUM: [id number] GARRY: 05/26/[address] [facility] [address]: Kirt Platt MD ENTERED: 05/26/24 15 SP TYPE: Surgical OTHR DR: ALEJANDRO JIMENEZ MD ORDERED: HE Stain/3, Gross Micro L4 Diagnosis Colon, polyp at 50 c m, polypectomy: Tubular adenoma; negative for high-grade dysplasia. Clinical History Pre-Op Dx: Encounter for screening for malignant neoplasm of colon Post-Op Dx: Colon po lyp, diverticulosis, hemorrhoids Microscopic Description Microscopic sections reviewed. Material Received Polyp at 50 Gross Description Received in formalin labeled ?polyp at 50? is a 0.35 cm cash-pink rectangular-papular tissue fragment, submitted in toto in a cassette labeled A. CEDS Copies To: ALEJANDRO JIMENEZ MD [facility] [address] [place] [address] Kirt Platt MD [address] [place] [address] ----- Signed (signature on file) Joanna Diaz MD 05/27/24 1146 ----- END OF REPORT Reason For Referral No Information Medications Medication [...] Dose Active Testosterone 0.4 % as directed Katerinaer barbara as directed Active Immunizations Vaccine Route Administration [...] W/U Status Risk Notes Problem Esophageal reflux (050130647) Esophageal reflux (K21.9) Active confirmed Problem 536884154 Encounter for screening for malignant neoplasm of colon (Z12.11) Active confirmed Problem 533111680 History of adenomatous polyp of colon (Z86.010) Active confirmed Problem Dysphagia (05035163) Dysphagia (R13.10) Active confirmed Problem 832822445230953 Preprocedural examination (Z01.818) Active confirmed Problem Gastritis (6073516) Gastritis (K29.70) Active confirmed Problem Gastroesophageal reflux disease (939757084) GERD (gastroesophagea l reflux disease) (K21.9) Active confirmed Vital Signs Blood pressure diastolic 00 mm Hg 01/08/2024 Height 68.5 in 01/08/2024 Blood pressure systolic 00 mm Hg 01/08/2024 Weight 193 lbs 01/08/2024 BMI 28.92 kg/m2 01/08/2024 Encounters Encounter Location Date Provider Diagnosis [facility] Outpatient [address] [place] [id number] 05/26/2024 Kirt Platt Colon cancer screeni ng Z12.11 ; Colon polyps K63.5 ; Diverticulosis of large intestine without perforation or abscess without bleeding K57.30 and Other hemorrhoids K64.8 [facility] [address] [place] [phone] 01/08/2024 Kirt Platt History of adenomato us polyp of colon Z86.010 ; GERD (gastroesophageal reflux disease) K21.9 ; Encounter for screening for malignant neoplasm of colon Z12.11 and Dysphagia R13.10 [facility] [address] [place] [address] 01/01/2024 Kirt Platt [facility] [address] [place] [phone] 01/20/2024 Kirt Platt Assessments Encounter Date Diagnosis (ICD Code) Assessment Notes Treatment Notes Treatment Clinical Notes Section Notes 05/26/2024 Colon cancer screening (ICD-10 - Z12.11) 05/26/2024 Colon polyps (ICD-10 - K63.5) 01/08/2024 History of adenomatous polyp of colon [...] you advised of his progress. 01/08/2024 GERD (gastroesophageal reflux disease) (ICD-10 - K21.9) Do not [...] to keep you advised of his progress. 05/26/2024 Diverticulosis of large intestine without perforation or abscess without bleeding (ICD-10 - K57.30) 01/08/2024 Encounter for screening for malignant neoplasm [...] to keep you advised of his progress. 05/26/2024 Other hemorrhoids (ICD-10 - K64.8) 01/08/2024 Dysphagia (ICD-10 - R13.10) Overall, Xavier [...] Name Order Date XR BARIUM SWALLOW-ESOPHAGUS 01/08/2024 Pathology 05/26/2024 FL barium swallow with air 01/09/2024 Future Test Test Name Order Date UPPER GI ENDOSCOPY 09/11/2012 COLONOSCOPY 09/11/2012 COLONOSCOPY 01/01/2019 UPPER GI ENDOSCOPY [place] DILATION OF ESOPH 11/03/2021 COLONOSCOPY 01/08/2024 Insurance Providers Payer Name Payer Address Payer Phone Subscriber Number Group Number Insured Name Patient Relationship to Insured Coverage Start Date Coverage End Date [place] [address] [place] [address] [id number] CARRIER, RADHA Self - patient is the insured [facility] [address] [address] [place] [address] [id number] CARRIER, RADHA Self - patient is the insured Medical (General) History Medical History History ICD Code Hospitalized in 06/2012 for a bd.pain--neg. CT scan and U/S, resolved spontaneously Hypertension Hyperlipidemia Depression Hypertension Sleep apnea--he describes a history of being told of a difficult intubation during his heart surgery in 2018 at [facility]; not using a CPAP as of the 10/2021 OV Denies [place],DM,CVA,Lung disease,renal dise ase Elevated CPK's-being evaluated GERD-EGD in 2012-small HH--no esophagiti s, no Barrettt's Migraines Colonoscopy in 2012--1 small tubular jossie noma CAD--3V-CABG on 01/14/19 at [facility]--se gladys Vizcarra cardiology at [facility] Colonoscopy 04/2019 with 1 tubular adenom [...]
== END 2024-06-19 08:32 | disposition home or self-care (01) ==
LOC: HO.PMC 08:18
PROVIDERS: PCP Internal Medicine; Visit Provider Anesthesiology
DX: M96.1 Postlaminectomy syndrome, not elsewhere classified (principal); M54.16 Radiculopathy, lumbar region; Z79.891 Long term (current) use of opiate analgesic
CPT/HCPCS: 99213

== ENCOUNTER → 2024-06-19 08:18 | Outpatient (BNVA) | payer MEDICARE, SELFPAY | PROVIDERS: PCP Internal Medicine; Visit Provider Anesthesiology | DX: M96.1 Postlaminectomy syndrome, not elsewhere classified (principal); M54.16 Radiculopathy, lumbar region; Z51.81 Encounter for therapeutic drug level monitoring; Z79.891 Long term (current) use of opiate analgesic | CPT/HCPCS: 99212 ==

== ENCOUNTER 2024-07-17 08:24 | Outpatient (AMB) | payer MEDICARE, OTHER, SELFPAY ==
--- NOTE | 2024-07-17 08:29 | A.OFFVIS_ITS ---
Vital Signs 07/17/24 08:35 Height 5 ft 8.5 in Weight 190 lb 4 oz BMI 28.5 BP 145/77 H Blood Pressure Location Rt brachial Position Sitting Pulse 69 Pulse Source Pulse Oximeter Pulse Oximetry (%) 100 Oxygen Delivery Method Room Air Intake Visit Reasons: Pill count Intake Note: Issac comes in today for a pill count to oxycodone, patient should have 69 tablets and presents with 70 tablets which he last took today 07/17/24 at 1 am, Pain today 05/26 Office Services Representative Required: No Accompanied by: Self / Same As Patient Allergies Sqktqwn-AWY-UlU Reductase Inhibitor [[id number] REDUCTASE INHIBITOR] Allergy (Unknown, Verified 07/17/24 08:36) RAISES CPK LEVELS HPI Comments Details: Issac is back in my office for a pill count and follow-up. Pill count today is correct he presented himself with 70 pills in his possession his supposed to have 69. He today reported that in the past he received gabapentin for his neuropathy. He denied side effects from gabapentin. I offered him to start gabapentin today however he said that he would like to think about it. We also discussed possibility of giving him yet another steroid injection in the right hip, he wants to think about it he said that he will call us in 1 week a bout this injection. He suffers from multiple pain generators including pain in the bilateral shoulders, he had multiple surgeries of bilateral shoulders including arthroscopy of the right shoulder several times and several procedures on the left shoulder with open surgeries and anchors and hardware insertion. He also was diagnose with left elbow arthritis he complains on severe pain in left el bow. He was examined by neurosurgeon Dr. Nieto and in Dr. Poole opinion he does not need any neurosurgical intervention. He reports in his note that there is no nerve root compressions. Therefore it is unlikely that the transforaminal epidural steroid injections will help the patient. However Dr. Nieto paid attention to symptoms of right hip joint arthritis. He has pain in the hip on lateral rotation of the hip and he has pain in the groin with Peter test performance. He had an x-ray of the right hip done at [facility] dose in [place], he will sign medical information release and we will obtain the report. Prior :? History of low back pain 2 to postlaminectomy syndrome with radiation of the pain into bilateral lower extremity however with sensation of intermittent numbness into the right lower extremity when he positions himself on the right side in the bed.? He received sacroiliac joint diagnostic injection right with bupivacaine only and he reports overall 75% pain relief for the 1st 6 hours.? ? I offered him sacroiliac joint fusion versus sacroiliac joint peripheral stimulation on the right.? The patient declined siting several c onstruction projects at his job and he cannot confine himself for 8-10 weeks of the bedrest if procedure will be performed for him.? He is asking me to return to this issue in the future. FORMERLY [facility], [facility] Medical History GERD (gastroesophageal reflux disease) Elevated CPK Depression Hyperlipidemia Pre-diabetes History of shingles Hx of migraines Anxiety and depression HELDER on CPAP Asthma On beta irineo at home CAD (coronary artery disease) Angina pectoris HTN (hypertension) Sacroiliitis Postlaminectomy syndrome of lumbosacral region Right lumbar radiculopathy Spinal cord stimulator status Derangement of left shoulder joint Cervical arthritis Surgical History Hx of vasectomy Hx of elbow surgery History of esophagogastroduodenoscopy (EGD) Hx of colonoscopy Hx of shoulder surgery History of carpal tunnel release History of umbilical hernia repair History of coronary artery bypass graft History of lumbar discectomy Social History Household Members Other:: lives with and son Alcohol intake: never Patient Tobacco Use Status: Former Tobacco user 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 Review of Systems Const All systems reviewed & are unremarkable except as noted in HPI and below ENT Reports Normal hearing present Neuro Reports Normal hearing present and Denies Abnormal speech present Physical Exam Vital Signs: Last Vital Signs Pulse 69 07/17/24 08:35 BP 145/77 H 07/17/24 08:35 Pulse Ox 100 07/17/24 08:35 Oxygen Delivery Method Room Air 07/17/24 08:35 BMI result Body Mass Index 28.5 Const General: cooperative, healthy appearing and alert Orientation/consciousness: patient oriented x3 HEENT Head: Yes normocephalic and Yes atraumatic Ears: hearing grossly normal bilaterally Eyes General: appearance normal, both eyes and all related structures Eyelids: Yes eyelids normal Pupils: Equal, round and reactive pupils present EOM: EOMs intact bilaterally Neck Neck: Yes normal visual inspection Resp Effort & Inspection: normal respiratory effort and able to speak in complete sentences Cardio Jugular venous distension: no JVD Back/Spine/Pelvis Other: Lumbar spine visible inspection multiple very well-healed scars demonstrates previous fusions. Lateral left hip incision also demonstrates the results of anterior fusion. Peter test positive on right Pelvic compression test positive on right Suri finger test positive on right SLR with increased pain on right Spurling test negative bilaterally Stinchfield positive on right Neuro General: patient oriented x3 and gait normal Cranial nerves: Yes Equal, round and reactive pupils present and Yes Normal hearing present Cognition (Neuro): normal cognition Speech: No Abnormal speech present Motor exam (neuro): 5/5 motor strength present throughout Psych Appearance: grossly normal Mental Status: mental status grossly normal Speech and movement: Normal speech and movement present Affect: normal affect Attitude: cooperative Thought process: Normal thought process present Thought content: Normal thought content present Insight: Good insight present (Psych) Judgement: Good judgement present (Psych) Results Reviewed Results Reviewed: MRI of the lumbar spine was obtained using routine sequences with and without contrast. Intravenous contrast: Gadavist 8.5 mL FINDINGS: There are redemonstrated postoperative changes following laminectomy and posterior instrumented lumbar interbody fusion at the L4-S1 levels. The surgical hardware is not diagnostically assessed on MRI. There are 5 nonrib-bearing lumbar-type vertebral bodies. There is no bone marrow edema. There are no acute fractures. There is an intraosseous hemangioma within the T12 vertebral body. Fatty marrow changes involving the L5 vertebral body. Nonsurgical disc volumes are preserved. There is disc desiccation at L3-L4. Conus terminates at the L1 level. There are no significant extraspinal soft tissue findings. There is artifact from a spinal stimulator device versus baclofen pump within the lower thoracic spine. At T11-T12, there is stable slight grade 1 degenerative anterolisthesis in the setting of advanced bilateral facet arthropathy resulting in bilateral foraminal encroachment with mass effect on the exiting nerve roots bilaterally. L1-L2: Disc contour is normal. There is mild bilateral facet arthropathy. There is no central canal stenosis and there is no foraminal stenosis. L2-L3: There is a diffuse annular disc bulge and there is mild bilateral facet arthropathy. There is no central canal stenosis. There is mild foraminal encroachment bilaterally. L3-L4: There is a diffuse annular disc bulge and there is severe bilateral facet arthropathy and ligamentum flavum thickening. Findings in concert result in right subarticular zone stenosis with mass effect on the traversing right L4 nerve root which is progressed. Disc C5 and facet arthropathy result in similar mild to moderate bilateral foraminal stenosis. L4-L5: There are postoperative changes following laminectomy and posterior instrumented lumbar interbody fusion. There is diffuse osteophytic ridging and there is advanced bilateral facet arthropathy. There is no central canal stenosis. There is mild foraminal encroachment bilaterally. L5-S1: There are postoperative changes following laminectomy and posterior instrumented lumbar interbody fusion. There is no central canal stenosis. Osteophytic ridging results in mass effect on the extraforaminal L5 nerve roots bilaterally and narrowing of the right subarticular zone with mass effect on the traversing right S1 nerve root which is unchanged. There is enhancing granulation/scar tissue inseparable from the traversing right S1 nerve root as well. IMPRESSION: - At the junctional L3-L4 level, progressive spondylitic changes result in worsening right subarticular zone stenosis with mass effect on the traversing right L4 nerve root. Similar mild to moderate bilateral foraminal stenosis at this level. - There are redemonstrated postoperative changes following laminectomy and posterior instrumented lumbar interbody fusion at the L4-S1 levels. Osteophytic ridging at L5-S1 results in mass effect on the extraforaminal L5 nerve roots bilaterally and narrowing of the right subarticular zone with mass effect on the traversing right S1 nerve root which is unchanged. There is enhancing granulation/scar tissue inseparable from the traversing right S1 nerve root as well. - At T11-T12, there is stable slight grade 1 degenerative anterolisthesis in the setting of advanced bilateral facet arthropathy resulting in bilateral foraminal encroachment with mass effect on the exiting nerve roots bilaterally Assessment & Plan Assessment & Plan (1) Postlaminectomy syndrome of lumbosacral region: Code(s): M96.1 - Postlaminectomy syndrome, not elsewhere classified Category: Medical (2) Right lumbar radiculopathy: Code(s): M54.16 - Radiculopathy, lumbar region Category: Medical (3) Radiculopathy of lumbar region: Code(s): M54.16 - Radiculopathy, lumbar region Category: Medical Plan 1. Continue Oxycodone 10 mg t.i.d. I will prescribe it on 08/09/2024 2. He was seen by Dr. Poole, no neurosurgical intervention indicated, attention was attracted to his right hip symptoms see as above. I will schedule him for right hip steroid injection if he desires to. 3 . hip injection was discussed today, patient stated that he will call us in the week if he decides to schedule hip injection on the right with me. Medications: Refilled oxycodone Partial Fill upon patient request. 10 mg PO Q8H PRN 90 tabs 0RF pain 30 days Coding Level of Care Code Est Pt Level 3 (53540) Diagnoses Postlaminectomy syndrome of lumbosacral region M96.1 Right lumbar radiculopathy M54.16 Radiculopathy of lumbar region M54.16
[2024-07-17 08:35] VITALS: BP 145/77; PULSE 69; O2SAT 100; BMI 28.5
--- OUTSIDE RECORDS SUMMARY | 2024-07-17 08:36 | XMS_ITS | Data Portability ---
Author Organization [place] [facility] [place] [facility], [facility] - [place]PATIENT Address [address] [place] [id number] Care Team Providers Care Winch Driver Name Role Phone ALEJANDRO JIMENEZ Primary Care Provider [phone] Assessment No assessment recorded. Plan of Treatment Reminders Order Date Submit Date Provider Last Modified By Organization Details Last Modified Time Details Appointments None recorded. Lab None recorded. Referral None recorded. Procedures None recorded. Surgeries orthopaedi c surgery (SURG) 2023 024 [email or web address] [facility] Surgery [facility]), [address] [place], [address], 4 14:12:27 Imaging None recorded. Medication Orders Kenalog 40 mg/mL suspension for injection 2023 024 [place] [address] [id number], [address] [place], [address], 4 10:21:02 Kenalog 40 mg/mL suspension for injection 2023 024 [place] [address] [id number], [address] [place], [address], 4 10:21:02 Kenalog 40 mg/mL suspension for injection 2023 024 [id number], [address] [place], [address], 4 15:52:04 Patient TargetsNo targets recorded. Patient Instructions Encounter Date Encounter Id Patient Instructions Last Modified By Organization Details Last Modified Time 05/10/2023 [id number] Educational materials are supplied regarding diagnoses & management [facility] Not available 05/10/2023 21:44:01 The findings, diagnosis, [...] patient will call if problems or questions. [place] [address] Not available 05/10/2023 21:44:46 06/11/2023 [id number] The findings, diagnosis, and options are discussed including potential treatments. The patient is doing well early on. Wound care stretching program and restrictions for lifting activity outlined. All questions are answered. He will consider referral to PT in several weeks. Follow up will be arranged as noted in 4 weeks for recheck. Patient will call if problems or questions. [facility] Not [facility] 06/11/2023 09:19:23 07/12/2023 [id number] Educational materials are supplied regarding diagnoses & management [facility] Not available 07/12/2023 09:03:05 The findings, diagnosis, [...] Patient will call if problems or questions. [facility] Not available 07/12/2023 09:04:22 10/01/2023 [id number] Educational materials are supplied regarding diagnoses & management [facility] Not available 10/01/2023 13:05:21 The findings, diagnosis, and options are discussed including potential treatments. He would like to plan for left elbow joint cortisone injection this is performed as above. Follow up will be arranged as needed at his request. Patient will call if problems or questions. [facility] Not available 10/01/2023 13:08:33 03/10/2024 [id number] Educational materials are supplied regarding diagnoses & [...] contr ast No observ ation record ed. [email or web address] Not Available 04/17 09:38:38 05/10/19 24 05/10/2023 xr elbow s bilat min3 views Fin al Report EXAM#: [id number] PROCED URE: DXR 0030 XR ELBOWS [...] LUONG M.D. On: May 10 2023 11:35A [email or web address] [facility] [address] [facility], [place], [address], 05/10/2023 16:57:39 05/10/19 24 05/10/2023 XR, elbow No observ ation record ed. [email or web address] Not Available 2023 16:55:45 05/30/19 24 05/30/2023 elect romyo gram + nerve condu ction study No observ ation record ed. [email or web address] Not Available 2023 15:28:20 07/12/19 24 07/12/2023 xr hands bilat 3 views each min Fin al Report EXAM#: [id number] PROCED URE: DXR 0076 XR HANDS [...] GUEVARA M.D. On: Jul 12 2023 8:58A [email or web address] [facility] [address] [facility], [place], [address], 07/12/2023 09:05:18 07/12/19 24 07/12/2023 XR, hand No observ ation record ed. [email or web address] Not Available 2023 09:54:22 Result Notes None recorded. Problems Name Problem SNOMED Code Status Onset Date Resolution Date Notes Provider Name and Address Organization Details Recorded Time Chronic low back pain 708540968 Active 024 Not Available [employer] 4 11:15:08 Problem Notes None recorded. Procedures Surgical History Date Name Laterality Status Provider Name and Address Organization Details Recorded Time 4 Cortisone Injection(s) completed JOE MILLER MD [address] [place] [address], [phone], [facility] 03/10/2024 21:15:52 4 Cortisone Injection(s) completed JOE MILLER MD [address] [place] [address], [phone], [facility] 10/01/2023 13:07:56 4 Cortisone Injection(s) completed JOE MILLER MD [address] [place] [address], [phone], [facility] 07/12/2023 09:02:37 4 Orthopaedic Surgery completed Delroy Soto [facility] 06/11/2023 09:03:17 8 Orthopaedic Surgery completed Brittani Cotton [facility] 04/23/2023 10:29:52 7 Orthopaedic Surgery completed Brittani Cotton [facility] 04/23/2023 10:30:17 6 Other completed Brittani Cotton [facility] 04/23/2023 10:32:13 5 Orthopaedic Surgery completed Brittani Cotton [facility] 04/23/2023 10:31:24 Other completed Delroy Soto [facility] 05/10/2023 10:50:20 Imaging Results Imaging Date Name Status LastModified by Organization Details LastModified Time 02/21/2023 MRI, lumbar spine, w/wo contrast completed [email or web address] Information not available 04/17/2023 09:38:38 05/10/2023 xr elbows bilat min3 views completed [email or web address] [facility] [address] [place], [address], 05/10/2023 16:57:39 05/10/2023 XR, elbow completed [email or web address] Information no t available 05/10/2023 16:55:45 05/30/2023 electromyogram + nerve conduction study completed [email or web address] Information not available 05/30/2023 15:28:20 07/12/2023 xr hands bilat 3 views each min completed [email or web address] [facility] [address] [place], [address], 07/12/2023 09:05:18 07/12/2023 XR, hand completed [email or web address] Information no t available 07/12/2023 09:54:22 Procedure [...] Updated DateTime 05/10/2023 177.8 cm 26.7 kg/m2 06836.18 g Delroy Soto [place] [facility] 05/10/2023 10:49:25 Date Recorded Body height Body mass index (BMI) Body weight Provider Name and Address Organization Details Last Updated DateTime 06/11/2023 177.8 cm 26.5 kg/m2 64909.59 g Delroy Soto [facility] 06/11/2023 09:06:26 Date Recorded Body height Body mass index (BMI) Body weight Provider Name and Address Organization Details Last Updated DateTime 07/12/2023 179.07 cm 25.7 kg/m2 65127.81 g Tri Edson [place] Meghan Victor [facility] 07/12/2023 08:42:36 Date Recorded Body height Body mass index (BMI) Body weight Provider Name and Address Organization Details Last Updated DateTime 10/01/2023 179.07 cm 28.1 kg/m2 32749.88 g Delroy Charles [facility] 10/01/2023 12:28:11 Date Recorded Body height Body mass index (BMI) Body weight Provider Name and Address Organization Details Last Updated DateTime 03/10/2024 179.07 cm 27.7 kg/m2 28019.[address] Delroy Charles [facility] 03/10/2024 15:52:01 Social History Question Answer Notes LastModified by Organizat ion Details LastModified Time Tobacco Smoking Status Never Smoker Not Available [facility] 02/23/2022 23:20:34 What Is Your Level Of Alcohol Consumption? Moderate [email or web address] Information not available 04/17/2023 Do You Or Have You Ever Used E-cigarettes Or Vape? Never Used Electronic Cigarettes [email or web address] Information not available 04/17/2023 What Is Your Occupation? Retired [email or web address] Information not available 04/17/2023 Do You Or Have You Ever Used Smokeless Tobacco? Never Used Smokeless Tobacco [email or web address] Information not available 04/17/2023 Sex: Unknown Functional Status None recorded. Mental Status None recorded. Family History Relationship Description Onset Age of this Age Resolved Age Notes LastModified by Organization Details LastModified Time Father No current problems or disability [email or web address] Not available 05/10 10:49:53 Mother No current problems or disability [email or web address] Not available 05/10 10:49:53 Medical History Condition Response HIV or AIDS N High Blood Pressure Y Irregular Heartbeat N MRSA N Any Other Significant Medical Issues N Weight Gain / Loss N Hearing Loss N Angina, Heart Failure or Attack N Night Sweats N Seizures / Epilepsy N Osteoarthritis / Rheumatoid arthritis / Other N Cancer N Stroke N Ulcer / Stomach Bleeding / Indigestion N Visual Loss or Glaucoma N Blood Clots / Phlebitis N Heart Problems N Depression or Anxiety N Emphysema / Chronic Bronchitis N Reaction to General/Local Anesthesia N Hepatitis / Jaundice N Kidney / Bladder Infections N Diabetes N Bleeding Disorder N Chemical Dependency / Alcoholism N Psoriasis / Skin Rash N Thyroid Disorder N Heart Disease Y Asthma / Shortness of Breath / Sleep Herbologist ea (please specify) N Pulmonary Embolism N Past Encounters Encounter ID Performer Location Encounter Start Date Encounter Closed Date Diagnosis/Indication Diagnosis SNOMED-CT Code Diagnosis ICD10 Code Diagnosis Note [id number] JAQUELINE CHRISTIE MD [facility] Office [address] [place] [phone] 04/17/2023 09:23:37 04/17/2023 10:25:10 Chronic low back pain 165798486 M54.50 [id number] HARJIT CHRISTIAN MD [facility] Office [address] [place] [phone] 04/23/2023 09:48:28 04/23/2023 11:07:39 Localized, primary osteoarthritis of the shoulder region 090458731 M19.644 [id number] JOE MILLER MD [facility] am Office [address] [employer] [address] [address] 05/10/2023 09:41:49 05/10/2023 11:15:26 Osteoarthritis of elbow 191288460 M19.354 [id number] [facility] am Office [address] [address] 06/11/2023 08:53:11 06/11/2023 09:31:52 Osteoarthritis of elbow 850478020 M19.022 s/p debridemen t Osteoarthr osis of the carpometacarpal joint of the thumb 49938393 M18.12 [id number] [address] M[address] MD [facility] am Office [address] [address] 07/12/2023 08:39:01 07/12/2023 09:23:55 Osteoarthritis of elbow 000754421 M19.022 s/p debridemen t Osteoarthr osis of the carpometacarpal joint of the thumb 28052209 M18.0 injection R first [facility] today [id number] JOE MILLER MD [facility] am Office [address] [place] [address] 10/01/2023 12:18:59 10/01/2023 12:58:00 Osteoarthritis of elbow 209922476 M19.022 s/p debridemen t Osteoarthr osis of the carpometacarpal joint of the thumb 43558534 M18.0 [id number] [address] [facility] am Office [address] [place] [address] 03/10/2024 15:46:52 03/10/2024 17:42:58 Osteoarthrosis of the carpometacarpal joint of the thumb 61739713 M18.12 Osteoarthr itis of elbow 351912646 M19.022 s/p debridemen t Health Concerns Section Related Observation LastModified by Organization Detai ls LastModified Time None Recorded Concern Status LastModified by Organization Details LastModified Time None Recorded Advance Directives Directive None Recorded Payers Encounter Date Sequence Insurance Name Policy Number Policy [place] Covered Member ID [place]una Member ID Guarantor Name 05/10/2023 1 [place] [employer] Issac Villalta Carrier [id number] Issac Carrier 05/10/2023 2 [facility] [id number] 1 Issac Villalta Carrier [id number] Issac Carrier 06/11/2023 1 [place] [employer] Issac Villalta Carrier [id number] Issac Carrier 06/11/2023 2 [facility] [id number] 1 Issac Villalta Carrier [id number] Issac Carrier 07/12/2023 1 [place] [employer] Issac Villalta Carrier [id number] Issac Carrier 07/12/2023 2 [facility] [id number] 1 Issac Villalta Carrier [id number] Issac Carrier 10/01/2023 1 [place] [employer] Issac Villalta Carrier [id number] Issac Carrier 10/01/2023 2 [facility] [id number] 1 Issac Villalta Carrier [id number] Issac Carrier 03/10/2024 1 [place] [employer] Issac Villalta Carrier [id number] Issac Carrier 03/10/2024 2 [employer] (MEDICARE SUPPLEMENT) Issac Nolan [id number] Issac Nolan Notes Date Note Type Note Provider Name and Address Organization Details Recorded Time 05/10/2023 text/html Mr. Nolan is a 63-year-old male who presents to the clinic for a visit. He has a history of multiple orthopedic surgeries, including four shoulder surgeries and a triple fusion on his back. He was referred to our clinic by Dr. 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 He has not had any forearm surgeries. He also reports arthritis in his hands, which has been causing him difficulty in gripping objects. JOE MILLER MD [address] [place] [address], [phone], [facility] 05/10/2023 21:44:49 06/11/2023 text/html The patient is seen for evaluation s/p left elbow arthroscopy and debridement . Pain has been improving. No new paresthesias. No interval medical problems are noted. JOE MILLER MD [address] [place] [address], [phone], [facility] 06/11/2023 09:19:26 07/12/2023 text/html The patient is [...] also. No new paresthesias. JOE MILLER MD [address] [place] [address], [phone], [facility] 07/12/2023 09:04:26 10/01/2023 text/html The patient is seen for re evaluation of his left elbow. About 4 months s/p left elbow arthroscopy and debridement . Pain has improved but continues with some specific exercises. Now indicates some better motion also. No new paresthesias. JOE MILLER MD [address] [place] [address], [phone], [facility] 10/01/2023 13:08:36 03/10/2024 text/html The patient is [...] injections. No new paresthesias. JOE MILLER MD [address] [place] [address], [phone], [facility] 03/10/2024 21:19:03
== END 2024-07-17 08:41 | disposition home or self-care (01) ==
LOC: HO.PMC 08:24
PROVIDERS: PCP Internal Medicine; Visit Provider Anesthesiology
DX: M96.1 Postlaminectomy syndrome, not elsewhere classified (principal); M54.16 Radiculopathy, lumbar region; Z79.891 Long term (current) use of opiate analgesic
CPT/HCPCS: 99213

== ENCOUNTER → 2024-07-17 08:24 | Outpatient (BNVA) | payer MEDICARE, SELFPAY | PROVIDERS: PCP Internal Medicine; Visit Provider Anesthesiology | DX: M96.1 Postlaminectomy syndrome, not elsewhere classified (principal); M54.16 Radiculopathy, lumbar region; Z51.81 Encounter for therapeutic drug level monitoring; Z79.891 Long term (current) use of opiate analgesic | CPT/HCPCS: 99212 ==

== ENCOUNTER 2024-08-21 08:41 | Outpatient (AMB) | payer MEDICARE, OTHER, SELFPAY ==
--- NOTE | 2024-08-21 08:43 | MHC.OFFVIS ---
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 Pill count today is correct he presented himself with 56 pills in his possession his supposed to have 54. He refused today to consider previously offered to him right hip steroid injection. He is under care of multiple orthopedic surgeons including orthopedic surgeon in [place] and he receives multiple steroid injections. I agree with him that in the situation steroid load is significant and the injection of the hip would not be safe in this situation. Besides he reports today that his right hip pain is not very prominent. His total overall pain is 5/10 today. He suffers from multiple pain generators including pain in the bilateral shoulders, he had multiple surgeries of bilateral shoulders including arthroscopy of the right shoulder several times and several procedures on the left shoulder with open surgeries and anchors and hardware insertion. He also was diagnose with left elbow arthritis he complains on severe pain in left elbow. He was examined by neurosurgeon Dr. Nieto and in Dr. Poole opinion he does not need any neurosurgical intervention. He reports in his note that there is no nerve root compressions. Therefore it is unlikely that the transforaminal epidural steroid injections will help the patient. However Dr. Nieto paid attention to symptoms of right hip joint arthritis. He has pain in the hip on lateral rotation of the hip and he has pain in the groin with Peter test performance. He had an x-ray of the right hip done at [facility] dose in [place], he will sign medical information release and we will obtain the report. Prior :? History of low back pain 2 to postlaminectomy syndrome with radiation of the pain into bilateral lower extremity however with sensation of intermittent numbness into the right lower extremity when he positions himself on the right side in the bed.? He received sacroiliac joint diagnostic injection right with bupivacaine only and he reports overall 75% pain relief for the 1st 6 hours.? ? I offered him sacroiliac joint fusion versus sacroiliac joint peripheral stimulation on the right.? 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 He is asking me to return to this issue in the future. [facility] Medical History GERD (gastroesophageal reflux disease) Elevated CPK Depression Hyperlipidemia Pre-diabetes History of shingles Hx of migraines Anxiety and depression HELDER on CPAP Asthma On beta irineo at home CAD (coronary artery disease) Angina pectoris HTN (hypertension) Sacroiliitis Postlaminectomy syndrome of lumbosacral region Right lumbar radiculopathy Spinal cord stimulator status Derangement of left shoulder joint Cervical arthritis Surgical History Hx of vasectomy Hx of elbow surgery History of esophagogastroduodenoscopy (EGD) Hx of colonoscopy Hx of shoulder surgery History of carpal tunnel release History of umbilical hernia repair History of coronary artery bypass graft History of lumbar discectomy Social History Household Members Other:: lives with and son Alcohol intake: never Patient Tobacco Use Status: Former Tobacco user 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 Review of Systems Const All systems reviewed & are unremarkable except as noted in HPI and below ENT Reports Normal hearing present Neuro Reports Normal hearing present and Denies Abnormal speech present Physical Exam Vital Signs: Last Vital Signs Pulse 75 08/21/24 08:45 Resp 16 08/21/24 08:45 BP 168/74 H 08/21/24 08:45 Pulse Ox 98 08/21/24 08:45 Oxygen Delivery Method Room Air 08/21/24 08:45 Const General: cooperative, healthy appearing and alert Orientation/consciousness: patient oriented x3 HEENT Head: Yes normocephalic and Yes atraumatic Ears: hearing grossly normal bilaterally Eyes General: appearance normal, both eyes and all related structures Eyelids: Yes eyelids normal Pupils: Equal, round and reactive pupils present EOM: EOMs intact bilaterally Neck Neck: Yes normal visual inspection Resp Effort & Inspection: normal respiratory effort and able to speak in complete sentences Cardio Jugular venous distension: no JVD Back/Spine/Pelvis Other: Lumbar spine visible inspection multiple very well-healed scars demonstrates previous fusions. Lateral left hip incision also demonstrates the results of anterior fusion. Peter test positive on right Pelvic compression test positive on right Suri finger test positive on right SLR with increased pain on right Spurling test negative bilaterally Stinchfield positive on right Neuro General: patient oriented x3 and gait normal Cranial nerves: Yes Equal, round and reactive pupils present and Yes Normal hearing present Cognition (Neuro): normal cognition Speech: No Abnormal speech present Motor exam (neuro): 5/5 motor strength present throughout Psych Appearance: grossly normal Mental Status: mental status grossly normal Speech and movement: Normal speech and movement present Affect: normal affect Attitude: cooperative Thought process: Normal thought process present Thought content: Normal thought content present Insight: Good insight present (Psych) Judgement: Good judgement present (Psych) Results Reviewed Results Reviewed: MRI of the lumbar spine was obtained using routine sequences with and without contrast. Intravenous contrast: Gadavist 8.5 mL FINDINGS: There are redemonstrated postoperative changes following laminectomy and posterior instrumented lumbar interbody fusion at the L4-S1 levels. The surgical hardware is not diagnostically assessed on MRI. There are 5 nonrib-bearing lumbar-type vertebral bodies. There is no bone marrow edema. There are no acute fractures. There is an intraosseous hemangioma within the T12 vertebral body. Fatty marrow changes involving the L5 vertebral body. Nonsurgical disc volumes are preserved. There is disc desiccation at L3-L4. Conus terminates at the L1 level. There are no significant extraspinal soft tissue findings. There is artifact from a spinal stimulator device versus baclofen pump within the lower thoracic spine. At T11-T12, there is stable slight grade 1 degenerative anterolisthesis in the setting of advanced bilateral facet arthropathy resulting in bilateral foraminal encroachment with mass effect on the exiting nerve roots bilaterally. L1-L2: Disc contour is normal. There is mild bilateral facet arthropathy. There is no central canal stenosis and there is no foraminal stenosis. L2-L3: There is a diffuse annular disc bulge and there is mild bilateral facet arthropathy. There is no central canal stenosis. There is mild foraminal encroachment bilaterally. L3-L4: There is a diffuse annular disc bulge and there is severe bilateral facet arthropathy and ligamentum flavum thickening. Findings in concert result in right subarticular zone stenosis with mass effect on the traversing right L4 nerve root which is progressed. Disc C5 and facet arthropathy result in similar mild to moderate bilateral foraminal stenosis. L4-L5: There are postoperative changes following laminectomy and posterior instrumented lumbar interbody fusion. There is diffuse osteophytic ridging and there is advanced bilateral facet arthropathy. There is no central canal stenosis. There is mild foraminal encroachment bilaterally. L5-S1: There are postoperative changes following laminectomy and posterior instrumented lumbar interbody fusion. There is no central canal stenosis. Osteophytic ridging results in mass effect on the extraforaminal L5 nerve roots bilaterally and narrowing of the right subarticular zone with mass effect on the traversing right S1 nerve root which is unchanged. There is enhancing granulation/scar tissue inseparable from the traversing right S1 nerve root as well. IMPRESSION: - At the junctional L3-L4 level, progressive spondylitic changes result in worsening right subarticular zone stenosis with mass effect on the traversing right L4 nerve root. Similar mild to moderate bilateral foraminal stenosis at this level. - There are redemonstrated postoperative changes following laminectomy and posterior instrumented lumbar interbody fusion at the L4-S1 levels. Osteophytic ridging at L5-S1 results in mass effect on the extraforaminal L5 nerve roots bilaterally and narrowing of the right subarticular zone with mass effect on the traversing right S1 nerve root which is unchanged. There is enhancing granulation/scar tissue inseparable from the traversing right S1 nerve root as well. - At T11-T12, there is stable slight grade 1 degenerative anterolisthesis in the setting of advanced bilateral facet arthropathy resulting in bilateral foraminal encroachment with mass effect on the exiting nerve roots bilaterally Assessment & Plan Assessment & Plan (1) Postlaminectomy syndrome of lumbosacral region: Code(s): M96.1 - Postlaminectomy syndrome, not elsewhere classified Category: Medical (2) Right lumbar radiculopathy: Code(s): M54.16 - Radiculopathy, lumbar region Category: Medical (3) Radiculopathy of lumbar region: Code(s): M54.16 - Radiculopathy, lumbar region Category: Medical Plan 1. Continue Oxycodone 10 mg t.i.d. I will prescribe it on 09/08/2024 Next appointment is in 1 month. His naloxone was prescribed on 05/2024. Medications: Refilled oxycodone Partial Fill upon patient request. 10 mg PO Q8H 30 days PRN 90 tabs 0RF pain Coding Level of Care Code Est Pt Level 3 (78922) Diagnoses Postlaminectomy syndrome of lumbosacral region M96.1 Right lumbar radiculopathy M54.16 Radiculopathy of lumbar region M54.16
[2024-08-21 08:45] VITALS: BP 168/74; PULSE 75; RESP 16; O2SAT 98
--- OUTSIDE RECORDS SUMMARY | 2024-08-21 09:08 | XMS_ITS | Data Portability ---
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 Plan of Treatment Reminders Order Date Submit Date Provider Last Modified By Organization Details Last Modified Time Details Appointments None recorded. Lab None recorded. Referral None recorded. Procedures None recorded. Surgeries None recorded. Imaging None recorded. Medication Orders Kenalog 40 mg/mL suspension for injection [address]/Pharmacy #[id number], [address] [place] [address], [address], 16:34:47 Kenalog 40 mg/mL suspension for injection [address]/Pharmacy #[id number], [address] [place], [address], 16:34:47 Kenalog 40 mg/mL suspension for injection 2023 024 [facility]/Pharmacy #[id number], [address] [place], [address], 10:41:54 Kenalog 40 mg/mL suspension for injection 2023 024 [facility]/Pharmacy #[id number], [address] [place], [address], 10:41:54 Kenalog 40 mg/mL suspension for injection 2023 [id number] [address] [facility], [place], [address], 10:41:54 Patient TargetsNo targets recorded. Patient Instructions Encounter Date Encounter Id Patient Instructions Last Modified By Organization Details Last Modified Time 06/11/2023 [id number] The findings, diagnosis, and options are discussed including potential treatments. The patient is doing well early on. Wound care stretching program and restrictions for lifting activity outlined. All questions are answered. He will consider referral to PT in several weeks. Follow up will be arranged as noted in 4 weeks for recheck. Patient will call if problems or questions. Not available 06/11/2023 09:19:23 07/12/2023 [id number] Educational materials are supplied regarding diagnoses & [...] Patient will call if problems or questions. Not available 07/12/2023 09:04:22 10/01/2023 [id number] Educational materials are supplied regarding diagnoses & management Not available 10/01/2023 13:05:21 The findings, diagnosis, and options are discussed including potential treatments. He would like to plan for left elbow joint cortisone injection this is performed as above. Follow up will be arranged as needed at his request. Patient will call if problems or questions. Not available 10/01/2023 13:08:33 03/10/2024 [id number] Educational materials are supplied regarding diagnoses & management Not available 03/10/2024 21:15:42 The findings, diagnosis, and options are discussed including potential treatments. He would like to plan for left elbow joint and wrist CMC cortisone injections These are performed as above. Follow up will be arranged as needed at his request. Patient will call if problems or questions. Not available 03/10/2024 21:19:01 Reason for Referral None Reported. Results Created Date Observation Date Name Description Value Unit Range Abnormal Flag Note LastModifiedBy Organization Detail LastModifiedTime 05/30/19 24 05/30/2023 elect romyo gram + nerve condu ction study No observ ation record ed. [email or web address] Not Available 2023 15:28:20 07/12/19 24 07/12/2023 xr hands bilat 3 views each min Fin al Report EXAM#: [id number] PROCED URE: DXR 0076 XR HANDS [...] GUEVARA M.D. On: Jul 12 2023 8:58A [email or web address] [facility] [address], [place], [address], 07/12/2023 09:05:18 07/12/19 24 07/12/2023 XR, hand No observ ation record ed. [email or web address] Not Available 2023 09:54:22 Result Notes None recorded. Problems Name Problem SNOMED Code Status Onset Date Resolution Date Notes Provider Name and Address Organization Details Recorded Time Chronic low back pain 442365947 Active 024 Not Available [employer] 4 11:15:08 Problem Notes None recorded. Procedures Surgical History Date Name Laterality Status Provider Name and Address Organization Details Recorded Time Cortisone Injection(s) completed Justin Miller MD [address] [place] [address], [phone], [facility] 08/12/2024 19:28:26 4 Cortisone Injection(s) completed JUSTIN MILLER MD [address] [place] [address], [phone], [facility] 03/10/2024 21:15:52 4 Cortisone Injection(s) completed JUSTIN MILLER MD [address] [place] [address], [phone], [facility] 10/01/2023 13:07:56 4 Cortisone Injection(s) completed JUSTIN MILLER MD [address] [place] [address], [phone], [facility] 07/12/2023 09:02:37 4 Orthopaedic Surgery completed Delroy Soto [facility] 06/11/2023 09:03:17 8 Orthopaedic Surgery completed Brittani Cotton [facility] 04/23/2023 10:29:52 7 Orthopaedic Surgery completed Brittani Lula [facility] 04/23/2023 10:30:17 6 Other completed Brittani [facility] 04/23/2023 10:32:13 5 Orthopaedic Surgery completed Brittani Lula [facility] 04/23/2023 10:31:24 Other completed Delroy Soto [facility] 05/10/2023 10:50:20 Imaging Results None recorded. Procedure Notes None recorded. Medical Equipment None [...] tablet TAKE 2 TABLETS BY MOUTH DAILY 08/12 completed Not Available Not Available Not Available chlorthalid one 25 mg tablet TAKE 1 TABLET BY MOUTH EVERY DAY active Not Available Not Available No t Available Kenalog 40 mg/mL suspension for injection Kenalog 40 mg/mL 2024 active Not Available Not Available Not Avai lable oxycodone-a cetaminophe n 10 mg-325 mg tablet TAKE 1 TABLET ORALLY EVERY 8 HOURS NEEDED FOR SEVERE PAIN FOR 30 DAYS 07/11 completed Not Available Not Available Not Available valsartan 320 mg tablet TAKE 1 TABLET BY MOUTH EVERY DAY active Not Available Not Available No t Available oxycodone 5 mg capsule TAKE 1 [...] mg tablet TAKE 1 TABLET BY MOUTH EVERYDAY AT BEDTIME active Not Available Not Available No t Available scopolamine 1 mg over 3 days transdermal patch 1 PATCH TOPICALLY EVERY 72 HOURS active Not Available Not Available No t Available oxycodone 5 mg tablet TAKE 1 TABLET BY MOUTH EVERY 6 HOURS NEEDED FOR PAIN 08/12 completed Not Available Not Available Not Available oxycodone 10 mg tablet TAKE 1 TABLET ORALLY EVERY 8 HOURS NEEDED FOR PAIN FOR 30 DAYS *DNF 08/09/24* active Not Available Not Available No t Available Simponi active Not Available Not Avail [...] Updated DateTime 06/11/2023 177.8 cm 26.5 kg/m2 31938.59 g Delroy Soto [facility] 06/11/2023 09:06:26 Date Recorded Body height Body mass index (BMI) Body weight Provider Name and Address Organization Details Last Updated DateTime 07/12/2023 179.07 cm 25.7 kg/m2 70459.81 g Tri Sandhu [facility] 07/12/2023 08:42:36 Date Recorded Body height Body mass index (BMI) Body weight Provider Name and Address Organization Details Last Updated DateTime 08/12/2024 177.8 cm 27.3 kg/m2 93354.55 g Delroy Soto [facility] 08/12/2024 10:41:49 Date Recorded Body height Body mass index (BMI) Body weight Provider Name and Address Organization Details Last Updated DateTime 10/01/2023 179.07 cm 28.1 kg/m2 47081.88 g Delroy Soto [facility] 10/01/2023 12:28:11 Date Recorded Body height Body mass index (BMI) Body weight Provider Name and Address Organization Details Last Updated DateTime 03/10/2024 179.07 cm 27.7 kg/m2 15152.1 g Delroy Soto [facility] 03/10/2024 15:52:01 Social History None recorded. Functional Status Question Answer Note LastModified by Organizat ion Details LastModified Time What is your level of alcohol consumption? Moderate [email or web address] Information not available 04/17/2023 Do you or have you ever used smokeless tobacco? Never used smokeless tobacco [email or web address] Information not available 04/17/2023 What is your occupation? Retired [email or web address] Information not available 04/17/2023 Do you or have you ever used e-cigarettes or vape? Never used electronic cigarettes [email or web address] Information not available 04/17/2023 Mental Status None recorded. 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) N Pulmonary Embolism N Past Encounters Encounter ID Performer Location Encounter Start Date Encounter Closed Date Diagnosis/Indication Diagnosis SNOMED-CT Code Diagnosis ICD10 Code Diagnosis Note [id number] JAQUELINE CHRISTIE MD [facility] Office [address] [place] [phone] 04/17/2023 09:23:37 04/17/2023 10:25:10 Chronic low back pain 498836818 M54.50 [id number] HARJIT CHRISTIAN MD [facility] [address] [place] [phone] 04/23/2023 09:48:28 04/23/2023 11:07:39 Localized, primary osteoarthritis of the shoulder region 753563502 M19.822 [id number] JUSTIN MILLER MD [facility] am Office [address] [employer] [address] [address] 05/10/2023 09:41:49 05/10/2023 11:15:26 Osteoarthritis of elbow 295428344 M19.453 [id number] JUSTIN MILLER MD [facility] Office [address] [employer] [address] [phone] 06/11/2023 08:53:11 06/11/2023 09:31:52 Osteoarthritis of elbow 720644836 M19.022 s/p debridemen t Osteoarthr osis of the carpometacarpal joint of the thumb 76411771 M18.12 [id number] JUSTIN MILLER MD [facility] Office [address] [place] [address] 07/12/2023 08:39:01 07/12/2023 09:23:55 Osteoarthritis of elbow 843982125 M19.022 s/p debridemen t Osteoarthr osis of the carpometacarpal joint of the thumb 84673760 M18.0 injection R first CMC today [id number] JUSTIN MILLER MD [facility] Office [address] [address] 10/01/2023 12:18:59 10/01/2023 12:58:00 Osteoarthritis of elbow 474442121 M19.022 s/p debridemen t Osteoarthr osis of the carpometacarpal joint of the thumb 62028125 M18.0 [id number] JUSTIN MILLER MD [facility] Office [address] [facility] [place] [address] 03/10/2024 15:46:52 03/10/2024 17:42:58 Osteoarthrosis of the carpometacarpal joint of the thumb 71301475 M18.12 Osteoarthr itis of elbow 062662786 M19.022 s/p debridemen t [id number] Justin Miller MD [place] [facility] [address] [facility], [address] [place] [address] 08/12/2024 10:27:44 08/12/2024 11:09:11 Primary arthrosis of first carpometacarpal joints, bilateral 458627968 M18.0 Osteoarthr itis of elbow 440296437 M19.022 s/p debridemen t Health Concerns Section Related Observation LastModified by Organization Detai ls LastModified Time None Recorded Concern Status LastModified by Organization Details LastModified Time None Recorded Advance Directives Directive None Recorded Payers Insurance Date Sequence Insurance Name Policy Number Policy Laguna Covered Member ID Laguna Member ID Guarantor Name 08/18/2024 2 [employer] (MEDICARE SUPPLEMENT) Issac Nolan [id number] Issac Nolan 08/08/2024 1 MEDICARE [place]: [employer] Issac Nolan [id number] Issac Villalta Carrier 03/10/[address] [place] [id number] Issac Villalta Carrier [id number] Issac Villalta Carrier 08/09/2024 [employer] - SPECIALITY CLAIMS (MEDICARE DME REGION A) Issac Villalta Carrier [id number] Issac Villalta Carrier Notes Date Note Type Note Provider Name and Address Organization Details Recorded Time 06/11/2023 text/html The patient is seen for evaluation s/p left elbow arthroscopy and debridement . Pain has been improving. No new paresthesias. No interval medical problems are noted. JUSTIN MILLER MD [address] [place] [address], [phone], [facility] 06/11/2023 09:19:26 07/12/2023 text/html The patient is seen for bilateral hand pain. He has noted basilar thumb region pain over past year, consistent with thumb CMC arthritis. He is requesting evaluation for this. Also seen for re evaluation s/p left elbow arthroscopy and debridement . Pain has improved some from last visit. Now indicates some better motion also. No new paresthesias. JUSTIN MILLER MD [address] [place] [address], [phone], [facility] 07/12/2023 09:04:26 10/01/2023 text/html The patient is seen for re evaluation of his left elbow. About 4 months s/p left elbow arthroscopy and debridement . Pain has improved but continues with some specific exercises. Now indicates some better motion also. No new paresthesias. JUSTIN MILLER MD [address] [place] [address], [phone], [facility] 10/01/2023 13:08:36 03/10/2024 text/html The patient is seen for re evaluation of his left elbow and bilateral hand pain. About 9+ months s/p left elbow arthroscopy and debridement . Pain has improved but continues with some specific exercises. Now indicates some continued thumb CMC joint pain. He has diagnosis of thumb CMC arthritis. He would like to consider additional injections. No new paresthesias. JUSTIN MILLER MD [address] [place] [address], [phone], [facility] 03/10/2024 21:19:03 08/12/2024 text/html The patient is seen for re evaluation of bilateral hand pain. He indicates recurrent thumb CMC joint pain with use, particular with heavier gripping. He has prior diagnosis of thumb CMC arthritis. He would like to consider additional injections. No new paresthesias. Justin Miller MD [address] [place] [address], [phone], [facility] 08/12/2024 19:28:29
== END 2024-08-21 09:03 | disposition home or self-care (01) ==
LOC: HO.PMC 08:42
PROVIDERS: PCP Internal Medicine; Visit Provider Anesthesiology
DX: M96.1 Postlaminectomy syndrome, not elsewhere classified (principal); M54.16 Radiculopathy, lumbar region; Z79.891 Long term (current) use of opiate analgesic
CPT/HCPCS: 99213

== ENCOUNTER → 2024-08-21 08:41 | Outpatient (BNVA) | payer MEDICARE, OTHER, SELFPAY | PROVIDERS: PCP Internal Medicine; Visit Provider Anesthesiology | DX: Z51.81 Encounter for therapeutic drug level monitoring (principal); M96.1 Postlaminectomy syndrome, not elsewhere classified; M54.16 Radiculopathy, lumbar region; F11.20 Opioid dependence, uncomplicated | CPT/HCPCS: 99212 ==

== ENCOUNTER 2024-09-25 08:18 | Outpatient (AMB) | payer MEDICARE, OTHER, SELFPAY ==
--- OUTSIDE RECORDS SUMMARY | 2024-09-25 08:25 | XMS_ITS | Data Portability ---
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 Plan of Treatment Reminders Order Date Submit Date Provider Last Modified By Organization Details Last Modified Time Details Appointments None recorded. Lab None recorded. Referral None recorded. Procedures None recorded. Surgeries None recorded. Imaging None recorded. Medication Orders Kenalog 40 mg/mL suspension for injection 2024 025 [id number], [address] [place] [address], [address], 08:16:09 Kenalog 40 mg/mL suspension for injection 2024 025 [facility]/Pharmacy #[id number], [address] [place] [address], [address], 09:46:11 Kenalog 40 mg/mL suspension for injection 2024 025 [email or web address]/Pharmacy #[id number], [address] [place], [address], 5 09:46:11 Kenalog 40 mg/mL suspension for injection 2023 024 [facility]/Pharmacy #[id number], [address] [place], [address], 5 09:46:11 Kenalog 40 mg/mL suspension for injection 2023 024 [facility]/Pharmacy #[id number], [address] [place], [address], 09:46:11 Kenalog 40 mg/mL suspension for injection 2023 024 [facility]/Pharmacy #[id number], [address] [place], [address], 09:46:11 Patient TargetsNo targets recorded. Patient Instructions Encounter Date Encounter Id Patient Instructions Last Modified By Organization Details Last Modified Time 07/12/2023 [id number] Educational materials are supplied regarding diagnoses & [...] or questions. Not available 07/12/2023 09:04:22 10/01/2023 [id number] Educational materials are supplied regarding diagnoses & management Not available 10/01/2023 13:05:21 The findings, diagnosis, and options are discussed including potential treatments. He would like to plan for left elbow joint cortisone injection this is performed as above. Follow up will be arranged as needed at his request. Patient will call if problems or questions. Not available 10/01/2023 13:08:33 03/10/2024 [id number] Educational materials are supplied regarding diagnoses & [...] Abnormal Flag Note LastModifiedBy Organization Detail LastModifiedTime 07/12/19 24 07/12/2023 xr hands bilat 3 views each min Fin al Report EXAM#: [id number] PROCED URE: DXR 0076 XR HANDS [...] On: Jul 12 2023 8:58A Signed by: KENYA GUERRA M.D., CONSTANCE Mitchell On: Jul 12 2023 8:58A [email or web address] [facility] [address] [facility], [place], [address], 07/12/2023 09:05:18 07/12/19 24 07/12/2023 XR, hand No observ ation record ed. [email or web address] Not Available 2023 09:54:22 Result Notes None recorded. Problems Name Problem SNOMED Code Status Onset Date Resolution Date Notes Provider Name and Address Organization Details Recorded Time Chronic low back pain 426535132 Active 024 Not Available iScribe 4 11:15:08 Problem Notes None recorded. Procedures Surgical History Date Name Laterality Status Provider Name and Address Organization Details Recorded Time 5 Cortisone Injection(s) completed Justin Miller MD [address] [place] [address], [phone], [facility] 08/26/2024 17:47:30 5 Cortisone Injection(s) completed Justin Miller MD [address] [place] [address], [phone], [facility] 08/12/2024 19:28:26 4 Cortisone Injection(s) completed JUSTIN MILLER MD [address] [place] [address], [phone], [facility] 03/10/2024 21:15:52 4 Cortisone Injection(s) completed JUSTIN MILLER MD [address] [place] [address], [phone], [facility] 10/01/2023 13:07:56 4 Cortisone Injection(s) completed JUSTIN MILLER MD [address] [place] [address], [phone], [facility] 07/12/2023 09:02:37 4 Orthopaedic Surgery completed Delroy Soto [facility] 06/11/2023 09:03:17 8 Orthopaedic Surgery completed Brittani Cotton [facility] 04/23/2023 10:29:52 7 Orthopaedic Surgery completed Brittani Cotton [facility] 04/23/2023 10:30:17 6 Other completed Brittani Cotton [facility] 04/23/2023 10:32:13 5 Orthopaedic Surgery completed Brittani Cotton [facility] 04/23/2023 10:31:24 Other completed Delroy Soto [facility] 05/10/2023 10:50:20 Imaging Results None recorded. Procedure [...] Updated DateTime 07/12/2023 179.07 cm 25.7 kg/m2 77741.81 g Tri Edson [place] Meghan [facility] 07/12/2023 08:42:36 Date Recorded Body height Body mass index (BMI) Body weight Provider Name and Address Organization Details Last Updated DateTime 08/12/2024 177.8 cm 27.3 kg/m2 45902.55 g Delroy [facility] 08/12/2024 10:41:49 Date Recorded Body height Body mass index (BMI) Body weight Provider Name and Address Organization Details Last Updated DateTime 08/26/2024 177.8 cm 27.4 kg/m2 14641.14 g [facility] 08/26/2024 09:46:24 Date Recorded Body height Body mass index (BMI) Body weight Provider Name and Address Organization Details Last Updated DateTime 10/01/2023 179.07 cm 28.1 kg/m2 67521.88 g [facility] 10/01/2023 12:28:11 Date Recorded Body height Body mass index (BMI) Body weight Provider Name and Address Organization Details Last Updated DateTime 03/10/2024 179.07 cm 27.7 kg/m2 76117.1 g [facility] 03/10/2024 15:52:01 Social History None recorded. Functional Status Question Answer Note LastModified by Organizat ion Details LastModified Time What is your level of alcohol consumption? Moderate [email or web address] Information not available 04/17/2023 Do you or have you ever used smokeless tobacco? Never used smokeless tobacco [email or web address] Information not available 04/17/2023 What is your occupation? Retired [email or web address] Information not available 04/17/2023 Do you or have you ever used e-cigarettes or vape? Never used electronic cigarettes [email or web address] Information not available 04/17/2023 Mental Status None recorded. Family History Relationship Description Onset Age of this Age Resolved Age Notes LastModified by Organization Details LastModified Time Father No current problems or disability [email or web address] Not available 05/10 10:49:53 Mother No current problems or disability [email or web address] Not available 05/10 10:49:53 Medical History Condition Response Blood Clots / Phlebitis N HIV or AIDS N Heart Problems N High Blood Pressure Y Depression or Anxiety N Irregular Heartbeat N MRSA N Emphysema / Chronic Bronchitis N Any Other Significant Medical Issues N Reaction to General/Local Anesthesia N Hepatitis / Jaundice N Weight Gain / Loss N Kidney / Bladder Infections N Diabetes [...] Asthma / Shortness of Breath / Sleep [employer]forcing [employer] ea (please specify) N Pulmonary Embolism N Past Encounters Encounter ID Performer Location Encounter Start Date Encounter Closed Date Diagnosis/Indication Diagnosis SNOMED-CT Code Diagnosis ICD10 Code Diagnosis Note [id number] JAQUELINE CHRISTIE MD [address] [address] 04/17/2023 09:23:37 04/17/2023 10:25:10 Chronic low back pain 997475400 M54.50 [id number] HARJIT CHRISTIAN MD [address] [address] 04/23/2023 09:48:28 04/23/2023 11:07:39 Localized, primary osteoarthritis of the shoulder region 458784039 M19.123 [id number] JUSTIN MILLER MD [facility] Office [address] [address] 05/10/2023 09:41:49 05/10/2023 11:15:26 Osteoarthritis of elbow 744469231 M19.768 [id number] JUSTIN MILLER MD [facility] Office [address] [address] 06/11/2023 08:53:11 06/11/2023 09:31:52 Osteoarthritis of elbow 996202943 M19.022 s/p debridemen t Osteoarthr osis of the carpometacarpal joint of the thumb 32936519 M18.12 [id number] JUSTIN MILLER MD [facility] [address] [address] 07/12/2023 08:39:01 07/12/2023 09:23:55 Osteoarthritis of elbow 841211576 M19.022 s/p debridemen t Osteoarthr osis of the carpometacarpal joint of the thumb 77868233 M18.0 injection R first CMC today [id number] JUSTIN MILLER MD [facility] [address] [address] 10/01/2023 12:18:59 10/01/2023 12:58:00 Osteoarthritis of elbow 473703946 M19.022 s/p debridemen t Osteoarthr osis of the carpometacarpal joint of the thumb 89275728 M18.0 [id number] JUSTIN MILLER MD [facility] [address] [address] 03/10/2024 15:46:52 03/10/2024 17:42:58 Osteoarthrosis of the carpometacarpal joint of the thumb 82676006 M18.12 Osteoarthr itis of elbow 587808948 M19.022 s/p debridemen t [id number] Justin Miller MD [facility] [address], [address] [place] [address] 08/12/2024 10:27:44 08/12/2024 11:09:11 Primary arthrosis of first carpometacarpal joints, bilateral 537437096 M18.0 Osteoarthr itis of elbow 910623917 M19.022 s/p debridemen t [id number] Justin Miller MD [address] [place] [address] 08/26/2024 09:30:45 08/26/2024 10:07:01 Osteoarthritis of joint of left elbow 1089214955 81307 M19.022 s/p debridemen t Osteoarthr osis of the carpometacarpal joint of the thumb 00351461 M18.12 Health Concerns Section Related Observation LastModified by Organization Detai ls LastModified Time None Recorded Concern Status LastModified by Organization Details LastModified Time None Recorded Advance Directives Directive None Recorded Payers Insurance Date Sequence Insurance Name Policy Number Policy Laguna Covered Member ID Laguna Member ID Guarantor Name 09/01/2024 2 [employer] (MEDICARE SUPPLEMENT) Issac Nolan [id number] Issac Villalta Carrier 08/21/2024 1 [place]: [employer]ATIONAL [employer]ERNMENT [employer] Issac Nolan [id number] Issac Villalta Carrier 03/10/2024 2 [facility] [id number] Issac Villalta Carrier [id number] Issac Villalta Carrier 08/21/2024 [employer] - SPECIALITY CLAIMS (MEDICARE DME REGION A) Issac Villalta Carrier [id number] Issac Villalta Carrier Notes Date Note Type Note Provider Name and Address Organization Details Recorded Time 07/12/2023 text/html The patient is seen for bilateral hand pain. He has noted basilar thumb region pain over past year, consistent with thumb CMC arthritis. He is requesting evaluation for this. Also seen for re evaluation s/p left elbow arthroscopy and debridement . Pain has improved some from last visit. Now indicates some better motion also. No new paresthesias. JUSTIN MILLER MD [address] [place] [address], [phone], [facility] 07/12/2023 09:04:26 10/01/2023 text/html The patient is seen for re evaluation of his left elbow. About 4 months s/p left elbow arthroscopy and debridement . Pain has improved but continues with some specific exercises. Now indicates some better motion also. No new paresthesias. JUSTIN MILLER MD [address] [place] [address], [phone], [facility] 10/01/2023 13:08:36 03/10/2024 text/html The patient is [...] injections. No new paresthesias. JUSTIN MILLER MD [address] [place] [address], [phone], [facility] 03/10/2024 21:19:03 08/12/2024 text/html The patient is seen for re evaluation of bilateral hand pain. He indicates recurrent thumb CMC joint pain with use, particular with heavier gripping. He has prior diagnosis of thumb CMC arthritis. He would like to consider additional injections. No new paresthesias. Justin Miller MD [address] [place] [address], [phone], [facility] 08/12/2024 19:28:29 08/26/2024 text/html The patient is seen for re evaluation of his left elbow Now 14+ months s/p left elbow arthroscopy and debridement . Pain has improved but persists with some specific exercises. He would like to consider additional injection No new paresthesias. Justin Miller MD [address] [place], [phone], [facility] 08/26/2024 17:48:02
--- NOTE | 2024-09-25 08:26 | A.OFFVIS_ITS ---
Vital Signs 09/25/24 08:27 Weight 190 lb BP 151/81 H Blood Pressure Location Lt brachial Position Sitting Respiration 18 Pulse 69 Pulse Source Pulse Oximeter Pulse Oximetry (%) 98 Oxygen Delivery Method Room Air Intake Visit Reasons: Pill Count/ random UDS Intake Note: pt states he took his oxycodone-acetaminphen at 12am 09/25/24. MassPat said he should have 42 pills, he presented with 44 Senior Category Manager Required: No Allergies Nmhwuyt-OTF-DbR Reductase Inhibitor (GHDJGDD-CDZ-IJK REDUCTASE INHIBITOR) Allergy (Unknown, Verified 08/21/24 08:47) RAISES CPK LEVELS HPI Comments Details: Issac is back in my office for a pill count and follow-up. Pill count today is correct he presented himself with 44 pills in his possession his supposed to have 42. He denies side effects of the opioid medications he denies constipation. He is under care of multiple orthopedic surgeons including orthopedic surgeon in [place] and he receives multiple steroid injections. I agree with him that in the situation steroid load is significant and the injection of the hip would not be safe in this situation. Besides he reports today that his right hip pain is not very prominent. His total overall pain is 4/10 today. He suffers from multiple pain generators including pain in the bilateral shoulders, he had multiple surgeries of bilateral shoulders including arthroscopy of the right shoulder several times and several procedures on the left shoulder with open surgeries and anchors and hardware insertion. He also was diagnose with left elbow arthritis he complains on severe pain in left elbow. He was examined by neurosurgeon Dr. Nieto and in Dr. Poole opinion he does not need any neurosurgical intervention. He reports in his note that there is no nerve root compressions. Therefore it is unlikely that the transforaminal epidural steroid injections will help the patient. However Dr. Nieto paid attention to symptoms of right hip joint arthritis. He has pain in the hip on lateral rotation of the hip and he has pain in the groin with Peter test performance. He had an x-ray of the right hip done at [facility] dose in [place], he will sign medical information release and we will obtain the report. Prior :? History of low back pain 2 to postlaminectomy syndrome with radiation of the pain into bilateral lower extremity however with sensation of intermittent numbness into the right lower extremity when he positions himself o n the right side in the bed.? He received sacroiliac joint diagnostic injection right with bupivacaine only and he reports overall 75% pain relief for the 1st 6 hours.? ? I offered him sacroiliac joint fusion versus sacroiliac joint peripheral stimulation on the right.? 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 He is asking me to return to this issue in the future. [facility] Medical History GERD (gastroesophageal reflux disease) Elevated CPK Depression Hyperlipidemia Pre-diabetes History of shingles Hx of migraines Anxiety and depression HELDER on CPAP Asthma On beta irineo at home CAD (coronary artery disease) Angina pectoris HTN (hypertension) Sacroiliitis Postlaminectomy syndrome of lumbosacral region Right lumbar radiculopathy Spinal cord stimulator status Derangement of left shoulder joint Cervical arthritis Surgical History Hx of vasectomy Hx of elbow surgery History of esophagogastroduodenoscopy (EGD) Hx of colonoscopy Hx of shoulder surgery History of carpal tunnel release History of umbilical hernia repair History of coronary artery bypass graft History of lumbar discectomy Social History Household Members Other:: lives with and son Alcohol intake: never Patient Tobacco Use Status: Former Tobacco user 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 Review of Systems Const All systems reviewed & are unremarkable except as noted in HPI and below ENT Reports Normal hearing present Neuro Reports Normal hearing present and Denies Abnormal speech present Physical Exam Vital Signs: Last Vital Signs Pulse 69 09/25/24 08:27 Resp 18 09/25/24 08:27 BP 151/81 H 09/25/24 08:27 Pulse Ox 98 09/25/24 08:27 Oxygen Delivery Method Room Air 09/25/24 08:27 Const General: cooperative, healthy appearing and alert Orientation/consciousness: patient oriented x3 HEENT Head: Yes normocephalic and Yes atraumatic Ears: hearing grossly normal bilaterally Eyes General: appearance normal, both eyes and all related structures Eyelids: Yes eyelids normal Pupils: Equal, round and reactive pupils present EOM: EOMs intact bilaterally Neck Neck: Yes normal visual inspection Resp Effort & Inspection: normal respiratory effort and able to speak in complete sentences Cardio Jugular venous distension: no JVD Back/Spine/Pelvis Other: Lumbar spine visible inspection multiple very well-healed scars demonstrates previous fusions. Lateral left hip incision also demonstrates the results of anterior fusion. Peter test positive on right Pelvic compression test positive on right Suri finger test positive on right SLR with increased pain on right Spurling test negative bilaterally Stinchfield positive on right Neuro General: patient oriented x3 and gait normal Cranial nerves: Yes Equal, round and reactive pupils present and Yes Normal hearing present Cognition (Neuro): normal cognition Speech: No Abnormal speech present Motor exam (neuro): 5/5 motor strength present throughout Psych Appearance: grossly normal Mental Status: mental status grossly normal Speech and movement: Normal speech and movement present Affect: normal affect Attitude: cooperative Thought process: Normal thought process present Thought content: Normal thought content present Insight: Good insight present (Psych) Judgement: Good judgement present (Psych) Assessment & Plan Assessment & Plan (1) Postlaminectomy syndrome of lumbosacral region: Code(s): M96.1 - Postlaminectomy syndrome, not elsewhere classified Category: Medical (2) Right lumbar radiculopathy: Code(s): M54.16 - Radiculopathy, lumbar region Category: Medical (3) Radiculopathy of lumbar region: Code(s): M54.16 - Radiculopathy, lumbar region Category: Medical Plan 1. Continue Oxycodone 10 mg t.i.d. I will prescribe it on 10/09/2024 Next appointment is in 1 month. His naloxone was prescribed on 05/2024. Medications: Refilled oxycodone Partial Fill upon patient request. 10 mg PO Q8H PRN 90 tabs 0RF pain 30 days Coding Level of Care Code Est Pt Level 3 (16225) Diagnoses Postlaminectomy syndrome of lumbosacral region M96.1 Right lumbar radiculopathy M54.16 Radiculopathy of lumbar region M54.16
--- OUTSIDE RECORDS SUMMARY | 2024-09-25 08:26 | XMS_ITS | Patient Health Record ---
Author Organization [facility] Address [address] [place] [address] Care Team Providers Care Back Sizer Name Role Phone Alejandro Jimenez MD Primary Care Provider Kirt Thompson [phone] Allergies Allergen (clinical drug ingredient) Drug/Non Drug Allergy documented on EMR Reaction Allergy Type Onset Date Status Substance with 8-xfscdok-0-methylgluta ryl-coenzyme A reductase inhibitor mechanism of action (substance) statin drugs (uncoded) Unknown Allergy Activ e Results Component Value Reference Range Notes FL barium swallow with air ( Not yet reviewed by provider) Interpretation: Performing Lab: Notes/Report: [facility] [address] [place] [address] Fluoroscopy Report Signed Patient: Radha Nolan MR#: [id number] 162 : 1960 Acct:[id number] Age/Sex: 63 / M ADM Date: 01/09/24 [facility] Dr: Kirt Platt MD Ordering Physician: Kirt Platt MD Date of Service: 01/09/24 Procedure(s): FL barium swallow with air Accession Number(s): [id number] cc: ALEJANDRO JIMENEZ MD; Kirt Platt MD [...] 02/05/24 1126 DD/ 0856 TD/TT: 01/09/24 0922 Deputy Sheriff: Glucose, Whole Blood Reviewed date:05/26/2024 05:12:20 PM Interpretation: Performing Lab:[facility], [address] [place] [id number] Notes/Report: Glucose, Whole Blood 101 60-115 mg/dL METER # : [id number] Pathology (Not yet reviewed by provider) Interpretation: Performing Lab:[facility], [address] [place] [phone] Notes/Report: Reason For Referral No Information Medications Medication [...] W/U Status Risk Notes Problem Esophageal reflux (K21.9) Active confirmed Problem 631700184 Encounter for screening for malignant neoplasm of colon (Z12.11) Active confirmed Problem 039377323 History of adenomatous polyp of colon (Z86.010) Active confirmed Problem Dysphagia (R13.10) Active confirmed Problem 486923674272724 Preprocedural examination (Z01.818) Active confirmed Problem Gastritis (6218302) Gastritis (K29.70) Active confirmed Problem Gastroesophageal reflux disease (026573133) GERD (gastroesophagea l reflux disease) (K21.9) Active confirmed Vital Signs Blood pressure diastolic 00 mm Hg 01/08/2024 Height 68.5 in 01/08/2024 Blood pressure systolic 00 mm Hg 01/08/2024 Weight 193 lbs 01/08/2024 BMI 28.92 kg/m2 01/08/2024 Encounters Encounter Location Date Provider Diagnosis [facility] Outpatient [address] [place] [id number] 05/26/2024 Kirt Platt Colon cancer screeni ng Z12.11 ; Colon polyps K63.5 ; Diverticulosis of large intestine without perforation or abscess without bleeding K57.30 and Other hemorrhoids K64.8 [facility] [address] [place] [address] 01/08/2024 Kirt Platt History of adenomato us polyp of colon Z86.010 ; GERD (gastroesophageal reflux disease) K21.9 ; Encounter for screening for malignant neoplasm of colon Z12.11 and Dysphagia R13.10 [facility] [address] [address] 01/01/2024 Kirt Platt [facility] [address] [place] [address] 01/20/2024 Kirt Platt Assessments Encounter Date Diagnosis [...] Start Date Coverage End Date MEDICARE OF [place] [address] [place] [address] [id number] CARRIERRADHA Self - patient is the insured [facility] [address] [address] [place] [address] [phone] [id number] CARRIERRADHA Self - patient is the insured Medical (General) History Medical History History ICD Code Hospitalized in 06/2012 for a bd.pain--neg. CT scan and U/S, resolved spontaneously Hypertension Hyperlipidemia Depression Hypertension Sleep apnea--he describes a history of being told of a difficult intubation during his heart surgery in 2019 at [facility]; not using a CPAP as of the 10/2021 OV Denies AK,DM,CVA,Lung disease,renal dise ase Elevated CPK's-being evaluated GERD-EGD in 2012-small HH--no esophagiti s, no Barrettt's Migraines Colonoscopy in 2012--1 small tubular jossie noma CAD--3V-CABG on 01/14/19 at [facility]--se gladys Vizcarra cardiology at [facility] Colonoscopy 04/2019 with 1 tubular adenom [...]
[2024-09-25 08:27] VITALS: BP 151/81; PULSE 69; RESP 18; O2SAT 98
== END 2024-09-25 08:37 | disposition home or self-care (01) ==
LOC: HO.PMC 08:19
PROVIDERS: PCP Internal Medicine; Visit Provider Anesthesiology
DX: M96.1 Postlaminectomy syndrome, not elsewhere classified (principal); M54.16 Radiculopathy, lumbar region; Z79.891 Long term (current) use of opiate analgesic
CPT/HCPCS: 99213

== ENCOUNTER → 2024-09-25 08:18 | Outpatient (BNVA) | payer MEDICARE, OTHER, SELFPAY | PROVIDERS: PCP Internal Medicine; Visit Provider Anesthesiology | DX: Z51.81 Encounter for therapeutic drug level monitoring (principal); M96.1 Postlaminectomy syndrome, not elsewhere classified; M54.16 Radiculopathy, lumbar region; Z79.891 Long term (current) use of opiate analgesic | CPT/HCPCS: 99212 ==

== ENCOUNTER 2024-12-04 08:35 | Outpatient (AMB) | payer MEDICARE, OTHER, SELFPAY ==
--- OUTSIDE RECORDS SUMMARY | 2024-05-26 03:30 | XMS_ITS ---
Author Organization [facility] Address [address] [place] [phone] Care Team Providers Care Phone Representative Name Role Phone Augusta RANGEL, Bear Primary Care Provider Kirt Thompson [phone] REASON FOR VISIT screening,hx polyps Encounters Encounter Location Date Provider Diagnosis [facility] [address] [place] [phone] 05/26/2024 Kirt Platt Colon cancer scree maya [...] Treatment No Information Progress Notes * RADHA MANNINGDOB:[birth year] (64 yo M)Acc No.[id number]:05/26/2024 COLON WITH MAC Patient: RADHA DOVE Provider: Renan Platt MD :1960 A ge:64 Y S ex:Male Date:05/26/2024 Address:[address] [place], [place] [phone] Pcp:Bear Deras MD Subjective: * Chief Complaints: * 1 . Screening,hx polyps. * Medical History: Objective: * Vitals: Assessment: * Assessment: 1. C olon cancer screening - Z12.11 (Primary) 2 . C olon polyps - K63.5? 3. D iverticulosis of large intestine without perforation or abscess without bleeding - K57.30 4 . O ther hemorrhoids - K64.8 Plan: * Treatment: * Procedure Codes: 4 5380 COLONOSCOPY AND BIOPSY, Modifiers: PT , 0529F INTRVL 3+YRS PTS CLNSCP DOCD, 0528F RCMND FLW-UP 10 YRS DOCD * * The named appointment provid er may or may not be the originator of this progress note, and it is not deemed complete until electronically signed by the appointment provider. Sign off status: Pending * Provider: Renan Platt MD Date: 0 05/26/2024 Generated for Oneyda segal/Hari/Ghulamitting on: 0 12/04/2024 09:47 AM EDT
[2024-12-04 08:39] VITALS: BP 168/78; PULSE 75; RESP 18; O2SAT 98
--- NOTE | 2024-12-04 08:39 | MHC.OFFVIS ---
Vital Signs 12/04/24 08:39 Weight 185 lb BP 168/78 H Blood Pressure Location Lt brachial Position Sitting Respiration 18 Pulse 75 Pulse Source Pulse Oximeter Pulse Oximetry (%) 98 Oxygen Delivery Method Room Air Intake Visit Reasons: PILL COUNT Intake Note: pt states he last took his oxycodone at 3a 12/04/24. [facility] says he should have 15 he presented with 18 Allergies Skmsavf-MVK-TcP Reductase Inhibitor (KSNMCET-LBW-BZZ REDUCTASE INHIBITOR) Allergy (Unknown, Verified 12/04/24 08:39) RAISES CPK LEVELS HPI Comments Details: Issac is back in my office for a pill count and follow-up. He reports his pain is aggravated to 6/10 to 7/10. He reports severe pain in the right hip, pain in bilateral shoulders, pain in the left elbow. He has multiple widespread arthritis. Pill count correct today he is supposed to have 15 pills in his possession he presented with 18 pills in his possession. He reports improved mobility on opioid medications he denies side effects. We discussed PRP injections. He wants to try PRP in the right hip joint. As soon as he is ready to pay 650 dollars he will give us a call and schedule the procedure with me. He is under care of multiple orthopedic surgeons including orthopedic surgeon in [place] and he receives multiple steroid injections. I agree with him that in the situation steroid load is significant and the injection of the hip would not be safe in this situation. Besides he reports today that his right hip pain is not very prominent. He suffers from multiple pain generators including pain in the bilateral shoulders, he had multiple surgeries of bilateral shoulders including arthroscopy of the right shoulder several times and several procedures on the left shoulder with open surgeries and anchors and hardware insertion. He also was diagnose with left elbow arthritis he complains on severe pain in left elbow. He was examined by neurosurgeon Dr. Nieto and in Dr. Poole opinion he does not need any neurosurgical intervention. He reports in his note that there is no nerve root compressions. Therefore it is unlikely that the transforaminal epidural steroid injections will help the patient. However Dr. Nieto paid attention to symptoms of right hip joint arthritis. He has pain in the hip on lateral rotation of the hip and he has pain in the groin with Peter test performance. He had an x-ray of the right hip done at [facility] dose in [place], he will sign medical information release and we will obtain the report. Prior :? History of low back pain 2 to postlaminectomy syndrome with radiation of the pain into bilateral lower extremity however with sensation of intermittent numbness into the right lower extremity when he positions himself on the right side in the bed.? He received sacroiliac joint diagnostic injection right with bupivacaine only and he reports overall 75% pain relief for the 1st 6 hours.? ? I offered him sacroiliac joint fusion versus sacroiliac joint peripheral stimulation on the right.? 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 He is asking me to return to this issue in the future. [facility] Medical History GERD (gastroesophageal reflux disease) Elevated CPK Depression Hyperlipidemia Pre-diabetes History of shingles Hx of migraines Anxiety and depression HELDER on CPAP Asthma On beta irineo at home CAD (coronary artery disease) Angina pectoris HTN (hypertension) Sacroiliitis Postlaminectomy syndrome of lumbosacral region Right lumbar radiculopathy Spinal cord stimulator status Derangement of left shoulder joint Cervical arthritis Surgical History Hx of vasectomy Hx of elbow surgery History of esophagogastroduodenoscopy (EGD) Hx of colonoscopy Hx of shoulder surgery History of carpal tunnel release History of umbilical hernia repair History of coronary artery bypass graft History of lumbar discectomy Social History Household Members Other:: lives with and son Alcohol intake: never Patient Tobacco Use Status: Former Tobacco user 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 Review of Systems Const All systems reviewed & are unremarkable except as noted in HPI and below ENT Reports Normal hearing present Neuro Reports Normal hearing present and Denies Abnormal speech present Physical Exam Vital Signs: Last Vital Signs Pulse 75 12/04/24 08:39 Resp 18 12/04/24 08:39 BP 168/78 H 12/04/24 08:39 Pulse Ox 98 12/04/24 08:39 Oxygen Delivery Method Room Air 12/04/24 08:39 Const General: cooperative, healthy appearing and alert Orientation/consciousness: patient oriented x3 HEENT Head: Yes normocephalic and Yes atraumatic Ears: hearing grossly normal bilaterally Eyes General: appearance normal, both eyes and all related structures Eyelids: Yes eyelids normal Pupils: Equal, round and reactive pupils present EOM: EOMs intact bilaterally Neck Neck: Yes normal visual inspection Resp Effort & Inspection: normal respiratory effort and able to speak in complete sentences Cardio Jugular venous distension: no JVD Back/Spine/Pelvis Other: Lumbar spine visible inspection multiple very well-healed scars demonstrates previous fusions. Lateral left hip incision also demonstrates the results of anterior fusion. Peter test positive on right Pelvic compression test positive on right Suri finger test positive on right SLR with increased pain on right Spurling test negative bilaterally Stinchfield positive on right Neuro General: patient oriented x3 and gait normal Cranial nerves: Yes Equal, round and reactive pupils present and Yes Normal hearing present Cognition (Neuro): normal cognition Speech: No Abnormal speech present Motor exam (neuro): 5/5 motor strength present throughout Psych Appearance: grossly normal Mental Status: mental status grossly normal Speech and movement: Normal speech and movement present Affect: normal affect Attitude: cooperative Thought process: Normal thought process present Thought content: Normal thought content present Insight: Good insight present (Psych) Judgement: Good judgement present (Psych) Assessment & Plan Assessment & Plan (1) Postlaminectomy syndrome of lumbosacral region: Code(s): M96.1 - Postlaminectomy syndrome, not elsewhere classified Category: Medical (2) Right lumbar radiculopathy: Code(s): M54.16 - Radiculopathy, lumbar region Category: Medical (3) Radiculopathy of lumbar region: Code(s): M54.16 - Radiculopathy, lumbar region Category: Medical Plan Continue Oxycodone 10 mg t.i.d. I will prescribe it on 12/09/2024. Next appointment is in 1 month. He will consider PRP of the right hip. He will give us a call to schedule an appointment. His naloxone was prescribed on 05/2024. Medications: Refilled oxycodone Partial Fill upon patient request. 10 mg PO Q8H PRN 90 tabs 0RF pain 30 days Patient Instructions: I here by testify that I spent 35 minutes in conversation with this patient as well as planning his care and organizing this note. Coding Level of Care Code Est Pt Level 4 (03218) Diagnoses Postlaminectomy syndrome of lumbosacral region M96.1 Right lumbar radiculopathy M54.16 Radiculopathy of lumbar region M54.16
--- OUTSIDE RECORDS SUMMARY | 2024-12-04 09:48 | XMS_ITS | Clinical Summary ---
Author Organization [facility] Address [address] [address] Phone Care Team Providers Care Cadd Instructor Name Role Phone Dharmesh Mcmanus DO Primary Care Provider [phone] Social History Tobacco Use Types Packs/Day Years Used Date Smoking Tobacco: Never Assessed Education Answer Date Recorded Are you interested in more education? Not on richie e 07/14/2022 Are you concerned about learning? Not on file 07/14/2022 No 07/14/2022 No 07/14/2022 Digital Access Answer Date Recorded No 08/12/2022 No 08/12/2022 No 08/12/2022 Reliable internet access at home? Not on file 08/12/2022 Device with a working camera? Not on file Sex and Gender Information Value Date Recorded Sex Assigned at Not on file Legal Sex Male 10:32 AM EDT Gender Identity Not on file Sexual Orientation Not on file Plan of Treatment Health Maintenance Due Date Last Done Comments LIPID PANEL 1958 DEPRESSION SCREENING 1970 SMOKING Hx and SMOKELESS TOBACCO SCREENING 1971 HEPATITIS C SCREENING 1976 COLOGUARD 2003 COLONOSCOPY 2003 COLORECTAL CANCER SCREENING 2003 FIT TEST 2003 FOBT 2003 SIGMOIDOSCOPY 2003 VIRTUAL COLONOSCOPY 2003 ZOSTER VACCINES (1 of 2) 2008 PNEUMOCOCCAL VACCINES (50+ years) (2 of 2 - PCV) 08/04/2014 08/04/2013 INFLUENZA VACCINE (#1) 2024 , 01/30/2019, 01/11/2019, Additional history exists COVID-19 VACCINE (3 - 2024- season) 2024 08/07/2020, 07/10/2020 Adult Td,Tdap Booster 12/15/2025 12/16/2015 RSV VACCINE (1 - 1-dose 75+ series) 2033 HEPATITIS A VACCINES Aged Out No long er eligible based on patient's age to complete this topic HIB VACCINES Aged Out No longer eligi ble based on patient's age to complete this topic MENINGOCOCCAL VACCINES (ACWY) Aged Out No longer eligible based on patient's age to complete this topic MENINGOCOCCAL VACCINES (B) Aged Out N o longer eligible based on patient's age to complete this topic Medical Devices Not on file Insurance [facility] MEDICARE SUPPLEMENT [place] [id number] [facility] MEDICARE SUPPLEMENT MEDICARE PART A & B [facility] MEDICARE SUPPLEMENT MEDICARE PART A & B [facility] MEDICARE SUPPLEMENT MEDICARE PART A & B MEDICARE SUPPLEMENT MEDICARE PART A & B MEDICARE SUPPLEMENT MEDICARE PART A & B MEDICARE SUPPLEMENT MEDICARE PART A & B MEDICARE SUPPLEMENT MEDICARE PART A & B [facility] MEDICARE SUPPLEMENT Member Subscriber Plan / Payer (Ef fective 2019-Present) Name:Issac Nolan Relation to Subscriber:Self Name:Issac Nolan Payer ID:Not on file Type:Indemnity Address: [place] [id number] MEDICARE PART A & B Care Teams Cadd Instructor Relationship Specialty Start Date End Date Dharmesh Mcmanus DO [address] [place] [address] PCP - General 01/01/17 Additional Source Comments The information contained in this document represents components of the legal health record. It is not the complete legal health record.[facility]
--- OUTSIDE RECORDS SUMMARY | 2024-12-04 09:48 | XMS_ITS | Patient Health Record ---
Author Organization [facility] Address [address] [place] [address] Care Team Providers Care Pastoral Assistant Name Role Phone Alejandro Jimenez MD Primary Care Provider Kirt Thompson [phone] Allergies Allergen (clinical drug ingredient) Drug/Non Drug Allergy documented on EMR Reaction Allergy Type Onset Date Status Substance with 4-jugtklc-2-methylgluta ryl-coenzyme A reductase inhibitor mechanism of action (substance) statin drugs (uncoded) Unknown Allergy Activ e Results Component Value Reference Range Notes FL barium swallow with air ( Not yet reviewed by provider) Interpretation: Performing Lab: Notes/Report: [address] [address] Fluoroscopy Report Signed Patient: Radha Nolan MR#: [id number] 162 : 1960 Acct:[id number] Age/Sex: 63 / M ADM Date: 01/09/24 [facility] Attending Dr: Kirt Platt MD Ordering Physician: Kirt Platt MD Date of Service: 01/09/24 Procedure(s): FL barium swallow with air Accession Number(s): [id number] cc: ALEJANDRO JIMENEZ MD; Kirt Platt MD [...] 02/05/24 1126 DD/ 0856 TD/TT: 01/09/24 0922 Commercial Lawn Specialist: Glucose, Whole Blood Reviewed date:05/26/2024 05:12:20 PM Interpretation: Performing Lab:[facility], [address] [place] [id number] Notes/Report: Glucose, Whole Blood 101 60-115 mg/dL METER # : [id number] Pathology (Not yet reviewed by provider) Interpretation: Performing Lab:[facility], [address] [place] [id number] Notes/Report: Reason For Referral No Information Medications [...] W/U Status Risk Notes Problem Esophageal reflux (030903929) Esophageal reflux (K21.9) Active confirmed Problem 998667970 Encounter for screening for malignant neoplasm of colon (Z12.11) Active confirmed Problem 704242272 History of adenomatous polyp of colon (Z86.010) Active confirmed Problem Dysphagia (68898743) Dysphagia (R13.10) Active confirmed Problem [id number] Preprocedural examination (Z01.818) Active confirmed Problem Gastritis (5031932) Gastritis (K29.70) Active confirmed Problem Gastroesophageal reflux disease (023903044) GERD (gastroesophagea l reflux disease) (K21.9) Active confirmed Vital Signs Blood pressure diastolic 00 mm Hg 01/08/2024 Height 68.5 in 01/08/2024 Blood pressure systolic 00 mm Hg 01/08/2024 Weight 193 lbs 01/08/2024 BMI 28.92 kg/m2 01/08/2024 Encounters Encounter Location Date Provider Diagnosis [facility] [place] [address] [place] [id number] 05/26/2024 Kirt Platt Colon cancer screeni ng Z12.11 ; Colon polyps K63.5 ; Diverticulosis of large intestine without perforation or abscess without bleeding K57.30 and Other hemorrhoids K64.8 [facility] [address] [place] [phone] 01/08/2024 Kirt Platt History of adenomato us polyp of colon Z86.010 ; GERD (gastroesophageal reflux disease) K21.9 ; Encounter for screening for malignant neoplasm of colon Z12.11 and Dysphagia R13.10 [facility] [address] [place] [phone] 01/01/2024 Kirt Platt [facility] [address] [place] [phone] 01/20/2024 Kirt Platt Assessments Encounter Date Diagnosis [...] Date MEDICARE OF [place] [address] PEÑA WALTER [address] [id number] CARRIERRADHA Self - patient is the insured [facility] [address] [address] [place] [address] [id number] CARRIER, RADHA Self - patient is the insured Medical (General) History Medical History History ICD Code Hospitalized in 06/2012 for a bd.pain--neg. CT scan and U/S, resolved spontaneously Hypertension Hyperlipidemia Depression Hypertension Sleep apnea--he describes a history of being told of a difficult intubation during his heart surgery in 2019 at [facility]; not using a CPAP as of the 10/2021 OV Denies WA,DM,CVA,Lung disease,renal dise ase Elevated CPK's-being evaluated GERD-EGD in 2012-small HH--no esophagiti s, no Barrettt's Migraines Colonoscopy in 2012--1 small tubular jossie noma CAD--3V-CABG on 01/14/19 at [facility]--se gladys Vizcarra cardiology at [facility] Colonoscopy 04/2019 with 1 tubular [...]
== END 2024-12-04 09:04 | disposition home or self-care (01) ==
LOC: HO.PMC 08:36
PROVIDERS: PCP Internal Medicine; Visit Provider Anesthesiology
DX: M96.1 Postlaminectomy syndrome, not elsewhere classified (principal); M54.16 Radiculopathy, lumbar region; Z79.891 Long term (current) use of opiate analgesic
CPT/HCPCS: 99214

== ENCOUNTER → 2024-12-04 08:35 | Outpatient (BNVA) | payer MEDICARE, OTHER, SELFPAY | PROVIDERS: PCP Internal Medicine; Visit Provider Anesthesiology | DX: Z51.81 Encounter for therapeutic drug level monitoring (principal); M96.1 Postlaminectomy syndrome, not elsewhere classified; M54.16 Radiculopathy, lumbar region; Z79.891 Long term (current) use of opiate analgesic | CPT/HCPCS: 99212 ==

== ENCOUNTER 2025-01-08 08:20 | Outpatient (REF) | payer MEDICARE, OTHER, SELFPAY ==
--- NOTE | ~2025-01-08 | XR_ITS ---
EXAMINATION: XR HIP, RIGHT CLINICAL INFORMATION: M25.551 - Pain in right hip COMPARISON: None available. TECHNIQUE: AP and oblique views of the right hip. FINDINGS: No acute cortical disruption or malalignment. Sclerosis along the articular surface of the acetabulum with small marginal osteophyte formation. Soft tissue calcifications adjacent to the ischium and greater trochanter. Metallic hardware no fully included in the jflll-ox-soln at L5-S1. Vascular calcifications. No lytic or blastic lesions. XR/XR hip RT min 2V IMPRESSION: Osteoarthrosis/osteoarthritis, mild to moderate, right hip. Trochanter bursitis cannot be excluded. Electronically signed by: Chucky Lozoya MD 01/08/2025 09:22 AM EDT
--- OUTSIDE RECORDS SUMMARY | 2025-01-08 09:52 | XMS_ITS | Data Portability ---
Author Organization [place] - [facility] [place], [facility] - INPATIENT Address [address] [place] [address] Care Team Providers Care Mat Repairer Name Role Phone ALEJANDRO JIMENEZ Primary Care Provider Assessment No assessment recorded. Plan of Treatment Reminders Order Date Submit Date Provider Last Modified By Organization Details Last Modified Time Details Appointments None recorded. Lab None recorded. Referral None recorded. Procedures None recorded. Surgeries None recorded. Imaging None recorded. Medication Orders Kenalog 40 mg/mL suspension for injection [address]/Pharmacy #2339, [address] [place] [address], [address], 16:28:28 Kenalog 40 mg/mL suspension for injection [address]/Pharmacy #2339, [address] [place] [address], [address], 16:28:28 Kenalog 40 mg/mL suspension for injection 2024 025 [facility]/Pharmacy #2339, [address] [place], [address], 12:57:08 Kenalog 40 mg/mL suspension for injection 2024 025 [facility]/Pharmacy #2339, [address] [place], [address], 09:46:11 Kenalog 40 mg/mL suspension for injection 2024 025 [facility], [address] [place] [address], [place], [address], 5 09:46:11 Kenalog 40 mg/mL suspension for injection 2023 024 [facility], [address] [place] [address], [address], 5 09:46:11 Kenalog 40 mg/mL suspension for injection 2023 024 [employer] [facility]/Pharmacy #2339, [address] [facility], [place], [address], 5 09:46:11 Kenalog 40 mg/mL suspension for injection 2023 024 [employer] [facility]/Pharmacy #2339, [address] [place] [address], [address], 09:46:11 Patient TargetsNo targets recorded. Patient Instructions Encounter Date Encounter Id Patient Instructions Last Modified By Organization Details Last Modified Time 10/01/2023 [id number] Educational materials are supplied regarding diagnoses & management [email or web address] Not available 10/01/2023 13:05:21 The findings, diagnosis, and options are discussed including potential treatments. He would like to plan for left elbow joint cortisone injection this is performed as above. Follow up will be arranged as needed at his request. Patient will call if problems or questions. Not available 10/01/2023 13:08:33 03/10/2024 [id number] Educational materials are supplied regarding diagnoses & [...] 03/10/2024 21:19:01 Reason for Referral None Reported. Problems Name Problem SNOMED Code Status Onset Date Resolution Date Notes Provider Name and Address Organization Details Recorded Time Chronic low back pain 396544490 Active 024 Not Available [employer] 4 11:15:08 Problem Notes None recorded. Procedures Surgical History Date Name Laterality Status Provider Name and Address Organization Details Recorded Time 5 Cortisone Injection(s) completed Justin Miller MD [address] [facility] [address], [place], [address], [facility] [place] 12/22/2024 19:34:11 5 Cortisone Injection(s) completed Justin Miller MD [address] [place] [address] [address], [place], [address], [facility] [place] 08/26/2024 17:47:30 5 Cortisone Injection(s) completed Justin Miller MD [address] [place] [address] [address], [place], [address], [facility] [place] 08/12/2024 19:28:26 4 Cortisone Injection(s) completed JUSTIN MILLER MD [address] [place] [address], [phone], [facility] [place] 03/10/2024 21:15:52 4 Cortisone Injection(s) completed JUSTIN MILLER MD [address] [place] [address], [phone], [facility] [place] 10/01/2023 13:07:56 4 Cortisone Injection(s) completed JUSTIN MILLER MD [address] [place] [address], [phone], [facility] [place] 07/12/2023 09:02:37 4 Orthopaedic Surgery completed Delroy Soto [facility] [place] 06/11/2023 09:03:17 8 Orthopaedic Surgery completed Brittani Cotton [facility] [place] 04/23/2023 10:29:52 7 Orthopaedic Surgery completed Brittani Cotton [facility] [place] 04/23/2023 10:30:17 6 Other completed Brittani Cotton [facility] [place] 04/23/2023 10:32:13 5 Orthopaedic Surgery completed Brittani Cotton [facility] [place] 04/23/2023 10:31:24 Other completed Delroy Soto [facility] [place] 05/10/2023 10:50:20 Imaging Results None recorded. Procedure Notes None recorded. Medical Equipment None Reported. Allergies No known drug allergies Medications Name Sig Start Date Stop Date Status Note LastModified by Organization Details LastModified Time celecoxib 200 mg capsule TAKE 1 CAPSULE BY MOUTH EVERY DAY 12/20 completed Not Available Not Available Not Available metformin 500 mg tablet TAKE 1 TABLET BY MOUTH TWICE A DAY active Not Available Not Available No t Available clonidine HCl 0.1 mg tablet TAKE 1 TABLET BY MOUTH TWICE DAILY FOR 10 DAYS NEEDED FOR OPIOID WITHDRAWA LS 12/20 completed Not Available Not Available Not Available azithromyci n 250 mg tablet TAKE 2 TABLETS BY MOUTH TODAY, THEN TAKE 1 TABLET DAILY FOR 4 DAYS DIRECTED 12/20 completed Not Available Not Available Not Available meloxicam 15 mg tablet TAKE 1 [...] TAKE 1 TABLET BY MOUTH EVERY DAY 12/20 completed Not Available Not Available Not Available Kenalog 40 mg/mL suspension for injection [...] BY MOUTH THREE TIMES DAILY FOR PAIN 12/20 completed Not Available Not Available Not Available hydroxyzine HCl 25 mg tablet TAKE 1 TABLET BY MOUTH EVERY DAY active Not Available Not Available No t Available lorazepam 1 mg tablet TAKE 1 TABLET BY MOUTH EVERYDAY AT BEDTIME active Not Available Not Available No t Available scopolamine 1 mg over 3 days transdermal patch 1 PATCH TOPICALLY EVERY 72 HOURS 12/20 completed Not Available Not Available Not Available oxycodone 5 mg tablet TAKE 1 TABLET BY MOUTH EVERY 6 HOURS NEEDED FOR PAIN 08/12 completed Not Available Not Available Not Available oxycodone 10 mg tablet TAKE 1 TABLET BY MOUTH EVERY 8 HOURS NEEDED FOR PAIN active Not Available Not Available No t Available desvenlafax ine succinate ER 50 mg tablet,exte nded release 24 hr TAKE 1 TABLET BY MOUTH EVERY DAY active Not Available Not Available No t Available Simponi 12/20 completed Not Available Not Available Not Available desvenlafax ine succinate ER 25 mg tablet,exte nded release 24 hr TAKE 1 TABLET BY MOUTH EVERY DAY 12/20 completed Not Available Not Available Not Available Praluent Pen 75 mg/mL subcutaneou s pen injector INJECT 75 MG SUBCUTANE OUSLY EVERY 2 WEEKS ROTATE INJECTION SITES 12/20 completed Not Available Not Available Not Available Repatha SureClick 140 mg/mL subcutaneou s pen injector INJECT 140 MG SUBCUTANE OUSLY EVERY 14 DAYS active Not Available Not Available No t Available naloxone 4 mg/actuatio n nasal spray PLEASE SEE ATTACHED FOR DETAILED DIRECTION S 12/20 completed Not Available Not Available Not Available Vitals Date Recorded Body height Body mass index (BMI) Body weight Provider Name and Address Organization Details Last Updated DateTime 08/12/2024 177.8 cm 27.3 kg/m2 85454.55 g [facility] [place] 08/12/2024 10:41:49 Date Recorded Body height Body mass index (BMI) Body weight Provider Name and Address Organization Details Last Updated DateTime 08/26/2024 177.8 cm 27.4 kg/m2 25956.14 g [facility] [place] 08/26/2024 09:46:24 Date Recorded Body height Body mass index (BMI) Body weight Provider Name and Address Organization Details Last Updated DateTime 10/01/2023 179.07 cm 28.1 kg/m2 46479.88 g [facility] [place] 10/01/2023 12:28:11 Date Recorded Body height Body mass index (BMI) Body weight Provider Name and Address Organization Details Last Updated DateTime 12/22/2024 177.8 cm 26 kg/m2 51462.22 g [facility] [place] 12/22/2024 13:03:43 Date Recorded Body height Body mass index (BMI) Body weight Provider Name and Address Organization Details Last Updated DateTime 03/10/2024 179.07 cm 27.7 kg/m2 10776.1 g [facility] [place] 03/10/2024 15:52:01 Social History None recorded. Functional Status Question Answer Note LastModified by Organizat ion Details LastModified Time What is your level of alcohol consumption? Moderate Information not available 04/17/2023 Do you or have you ever used smokeless tobacco? Never used smokeless tobacco [email or web address] Information not available 04/17/2023 What is your occupation? Retired [email or web address] Information not available 04/17/2023 Do you or have you ever used e-cigarettes or vape? Never used electronic cigarettes [email or web address] Information not available 04/17/2023 Mental Status None recorded. Family History Relationship Description Onset Age of this Age Resolved Age Notes LastModified by Organization Details LastModified Time Father No current problems or disability [email or web address] Not available 05/10 10:49:53 Mother No current problems or disability [email or web address] Not available 05/10 10:49:53 Medical History Condition Response Blood Clots / Phlebitis N HIV or AIDS N Depression or Anxiety N High Blood Pressure Y MRSA N Emphysema / Chronic Bronchitis N Any Other Significant Medical Issues N Reaction to General/Local Anesthesia N Blood Disorder: Anemia, clotting disorde r, etc. (please specify) N Weight Gain / Loss N Hepatitis / Jaundice N Diabetes: Type I or II (please specify) N Kidney / Bladder Infections N Heart Condition: Heart Attac k, Afib, Irregular Heartbeat, etc. (please specify) N Hearing Loss Y Night Sweats N Seizures / Epilepsy N Cancer N Stroke N Chemical Dependency / Alcoholism N Ulcer / Stomach Bleeding / Indigestion N Visual Loss or Glaucoma N Psoriasis / Skin Rash N Thyroid Disorder N Asthma / Shortness of Breath / Sleep Research Scholar ea (please specify) N Pulmonary Embolism N Past Encounters Encounter ID Performer Location Encounter Start Date Encounter Closed Date Diagnosis/Indication Diagnosis SNOMED-CT Code Diagnosis ICD10 Code Diagnosis IMO Codes Diagnosis Note [id number] JAQUELINE CHRISTIE MD [facility] Office [address] [place] [address] 04/17/2023 09:23:37 04/17/2023 10:25:10 Chronic low back pain 207331247 M54.50 [id number] HARJIT CHRISTIAN MD [facility] Office [address] [place] [address] 04/23/2023 09:48:28 04/23/2023 11:07:39 Localized, primary osteoarthritis of the shoulder region 579661096 M19.670 [id number] JUSTIN MILLER MD [facility] am Office [address] [facility] [place] [address] 05/10/2023 09:41:49 05/10/2023 11:15:26 Osteoarthritis of elbow 569145547 M19.897 [id number] JUSTIN MILLER MD [facility] am [facility] [address] [facility] [place] [address] 06/11/2023 08:53:11 06/11/2023 09:31:52 Osteoarthritis of elbow 623323527 M19.022 s/p debridemen t Osteoarthr osis of the carpometacarpal joint of the thumb 48525654 M18.12 [id number] JUSTIN MILLER MD [facility] am Office [address] [facility] [place] [address] 07/12/2023 08:39:01 07/12/2023 09:23:55 Osteoarthritis of elbow 161881509 M19.022 s/p debridemen t Osteoarthr osis of the carpometacarpal joint of the thumb 43474860 M18.0 injection R first CMC today [id number] JUSTIN MILLER MD [facility] am [facility] [address] [facility] [place] [address] 10/01/2023 12:18:59 10/01/2023 12:58:00 Osteoarthritis of elbow 550248405 M19.022 s/p debridemen t Osteoarthr osis of the carpometacarpal joint of the thumb 64080603 M18.0 [id number] JUSTIN MILLER MD [facility] Office [address] [facility] [employer] [address] [place] [address] 03/10/2024 15:46:52 03/10/2024 17:42:58 Osteoarthrosis of the carpometacarpal joint of the thumb 50561299 M18.12 Osteoarthr itis of elbow 910924978 M19.022 s/p debridemen t [id number] Justin Miller MD [address], [address] [place] [address] 08/12/2024 10:27:44 08/12/2024 11:09:11 Primary arthrosis of first carpometacarpal joints, bilateral 292868316 M18.0 [id number] Osteoarthr itis of elbow 742783126 M19.022 s/p debridemen t [id number] Justin Miller MD [address], [address] [place] [address] 08/26/2024 09:30:45 08/26/2024 10:07:01 Osteoarthritis of joint of left elbow 4986618994 53294 M19.421 [id number] s/p debridemen t Osteoarthr osis of the carpometacarpal joint of the thumb 49593565 M18.12 [id number] Justin Miller MD [facility] [address] [facility] [employer] [address] [place] [address] 12/22/2024 12:55:57 12/22/2024 13:47:58 Bilateral wrist osteoarthritis 6821161096 66525 M19.031 M19.032 85295821 Osteoarthr itis of elbow 839006906 M19.022 s/p debridemen t Health Concerns Section Related Observation LastModified by Organization Detai ls LastModified Time None Recorded Concern Status LastModified by Organization Details LastModified Time None Recorded Advance Directives Directive None Recorded Payers Insurance Date Sequence Insurance Name Policy Number Policy [place] Covered Member ID [place]una Member ID Guarantor Name 12/25/2024 2 [employer] (MEDICARE SUPPLEMENT) Issac Carrier [id number] Issac Villalta Carrier 12/18/2024 1 [place]: [employer]MENT [employer] Issac Villalta Carrier [id number] Issac Villalta Carrier 03/10/2024 2 [facility] [id number] Issac Villalta Carrier [id number] Issac Villalta Carrier 12/19/2024 [place] - SPECIALITY CLAIMS (MEDICARE [facility]) Issac Villalta Carrier [id number] Issac Villalta Carrier Notes Date Note Type Note Provider Name and Address Organization Details Recorded Time 10/01/2023 text/html The patient is seen for re evaluation of his left elbow. About 4 months s/p left elbow arthroscopy and debridement . Pain has improved but continues with some specific exercises. Now indicates some better motion also. No new paresthesias. JUSTIN MILLER MD [address] [place] [address], [phone], [facility] [place] 10/01/2023 13:08:36 03/10/2024 text/html The patient is [...] injections. No new paresthesias. JUSTIN MILLER MD [address] [place] [address], [phone], [facility] [place] 03/10/2024 21:19:03 08/12/2024 text/html The patient is seen for re evaluation of bilateral hand pain. He indicates recurrent thumb CMC joint pain with use, particular with heavier gripping. He has prior diagnosis of thumb CMC arthritis. He would like to consider additional injections. No new paresthesias. Justin Miller MD [address] [place] [address] [address], [place], [address], [facility] [place] 08/12/2024 19:28:29 08/26/2024 text/html The patient is seen for re evaluation of his left elbow Now 14+ months s/p left elbow arthroscopy and debridement . Pain has improved but persists with some specific exercises. He would like to consider additional injection No new paresthesias. Justin Miller MD [address] [place] [address] [address], [place], [address], [facility] [place] 08/26/2024 17:48:02 12/22/2024 text/html Mr. Nolan returns for evaluation of bilateral thumb CMC arthritis and hand pain. He indicates recurrent CMC joint pain with use, particular with heavier gripping. He would like to consider additional injections. No new paresthesias. Justin Miller MD [address] [facility] [address], [place], [address], [facility] [place] 12/22/2024 19:35:14
== END 2025-01-08 08:21 | disposition home or self-care (01) ==
LOC: HO.XRAY 08:20
PROVIDERS: PCP Internal Medicine; Visit Provider Anesthesiology
DX: M16.11 Unilateral primary osteoarthritis, right hip (principal); M96.1 Postlaminectomy syndrome, not elsewhere classified; M54.16 Radiculopathy, lumbar region; M25.551 Pain in right hip; Z79.891 Long term (current) use of opiate analgesic
CPT/HCPCS: 73502; 99212

== ENCOUNTER 2025-01-08 08:20 | Outpatient (AMB) | payer MEDICARE, OTHER, SELFPAY ==
--- NOTE | 2025-01-08 08:25 | MHC.OFFVIS ---
Vital Signs 01/08/25 08:26 Height 5 ft 8.5 in Weight 192 lb BMI 28.8 BP 179/90 H Blood Pressure Location Rt brachial Position Sitting Respiration 16 Pulse 87 Pulse Source Pulse Oximeter Pulse Oximetry (%) 95 Oxygen Delivery Method Room Air Intake Visit Reasons: PILL COUNT Intake Note: Patient here for a pill count routine for Oxycodone. Per directions patient should have 9 pills. Patient presented 6 pills. Which is the limit. Ml Faith advise patient to take prescription as directed. Last took 11pm. Green Feed Attendant Required: No Allergies Wlfpoiu-EWY-OlK Reductase Inhibitor (KEKQSHE-CXS-UFM REDUCTASE INHIBITOR) Allergy (Unknown, Verified 01/08/25 08:26) RAISES CPK LEVELS HPI Comments Details: Issac is back in my office for a pill count and follow-up. He reports his pain is aggravated to 6/10 to 7/10. He reports severe pain in the right hip, pain in bilateral shoulders, pain in the left elbow. He has multiple widespread arthritis. Technically his pill count is correct today however he has 3 pills short. Patient was strictly were about following the rules of the contrast and avoiding taking more medication than prescribed. He actually admitted that he was taking more pills than it is prescribed to him. He continues to complain on pain in the right hip. He said that he had x-ray of the right hip long time ago. I will send him for the right hip x-ray today. Last time we discussed PRP injections. He wants to evaluate images of his hip before PRP. We also discussed treatment with his opioids. He was prescribed pseudoephedrine by natural functional practitioner. I explained to him to be careful with combination of this medication and lorazepam and his oxycodone. Prior: He is under care of multiple orthopedic surgeons including orthopedic surgeon in [place] and he receives multiple steroid injections. I agree with him that in the situation steroid load is significant and the injection of the hip would not be safe in this situation. Besides he reports today that his right hip pain is not very prominent. He suffers from multiple pain generators including pain in the bilateral shoulders, he had multiple surgeries of bilateral shoulders including arthroscopy of the right shoulder several times and several procedures on the left shoulder with open surgeries and anchors and hardware insertion. He also was diagnose with left elbow arthritis he complains on severe pain in left elbow. He was examined by neurosurgeon Dr. Nieto and in Dr. Poole opinion he does not need any neurosurgical intervention. He reports in his note that there is no nerve root compressions. Therefore it is unlikely that the transforaminal epidural steroid injections will help the patient. However Dr. Nieto paid attention to symptoms of right hip joint arthritis. He has pain in the hip on lateral rotation of the hip and he has pain in the groin with Peter test performance. He had an x-ray of the right hip done at [facility] dose in [place], he will sign medical information release and we will obtain the report. Prior :? History of low back pain 2 to postlaminectomy syndrome with radiation of the pain into bilateral lower extremity however with sensation of intermittent numbness into the right lower extremity when he positions himself on the right side in the bed.? He received sacroiliac joint diagnostic injection right with bupivacaine only and he reports overall 75% pain relief for the 1st 6 hours.? ? I offered him sacroiliac joint fusion versus sacroiliac joint peripheral stimulation on the right.? 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 He is asking me to return to this issue in the future. [facility] Medical History GERD (gastroesophageal reflux disease) Elevated CPK Depression Hyperlipidemia Pre-diabetes History of shingles Hx of migraines Anxiety and depression HELDER on CPAP Asthma On beta irineo at home CAD (coronary artery disease) Angina pectoris HTN (hypertension) Sacroiliitis Postlaminectomy syndrome of lumbosacral region Right lumbar radiculopathy Spinal cord stimulator status Derangement of left shoulder joint Cervical arthritis Surgical History Hx of vasectomy Hx of elbow surgery History of esophagogastroduodenoscopy (EGD) Hx of colonoscopy Hx of shoulder surgery History of carpal tunnel release History of umbilical hernia repair History of coronary artery bypass graft History of lumbar discectomy Social History Household Members Other:: lives with and son Alcohol intake: never Patient Tobacco Use Status: Former Tobacco user 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 Review of Systems Const All systems reviewed & are unremarkable except as noted in HPI and below ENT Reports Normal hearing present Neuro Reports Normal hearing present and Denies Abnormal speech present Physical Exam Vital Signs: Last Vital Signs Pulse 87 01/08/25 08:26 Resp 16 01/08/25 08:26 BP 179/90 H 01/08/25 08:26 Pulse Ox 95 01/08/25 08:26 Oxygen Delivery Method Room Air 01/08/25 08:26 BMI result Body Mass Index 28.8 Const General: cooperative, healthy appearing and alert Orientation/consciousness: patient oriented x3 HEENT Head: Yes normocephalic and Yes atraumatic Ears: hearing grossly normal bilaterally Eyes General: appearance normal, both eyes and all related structures Eyelids: Yes eyelids normal Pupils: Equal, round and reactive pupils present EOM: EOMs intact bilaterally Neck Neck: Yes normal visual inspection Resp Effort & Inspection: normal respiratory effort and able to speak in complete sentences Cardio Jugular venous distension: no JVD Back/Spine/Pelvis Other: Lumbar spine visible inspection multiple very well-healed scars demonstrates previous fusions. Lateral left hip incision also demonstrates the results of anterior fusion. Peter test positive on right Pelvic compression test positive on right Suri finger test positive on right SLR with increased pain on right Spurling test negative bilaterally Stinchfield positive on right Neuro General: patient oriented x3 and gait normal Cranial nerves: Yes Equal, round and reactive pupils present and Yes Normal hearing present Cognition (Neuro): normal cognition Speech: No Abnormal speech present Motor exam (neuro): 5/5 motor strength present throughout Psych Appearance: grossly normal Mental Status: mental status grossly normal Speech and movement: Normal speech and movement present Affect: normal affect Attitude: cooperative Thought process: Normal thought process present Thought content: Normal thought content present Insight: Good insight present (Psych) Judgement: Good judgement present (Psych) Results Reviewed Results Reviewed: MRI of the lumbar spine was obtained using routine sequences with and without contrast. Intravenous contrast: Gadavist 8.5 mL FINDINGS: There are redemonstrated postoperative changes following laminectomy and posterior instrumented lumbar interbody fusion at the L4-S1 levels. The surgical hardware is not diagnostically assessed on MRI. There are 5 nonrib-bearing lumbar-type vertebral bodies. There is no bone marrow edema. There are no acute fractures. There is an intraosseous hemangioma within the T12 vertebral body. Fatty marrow changes involving the L5 vertebral body. Nonsurgical disc volumes are preserved. There is disc desiccation at L3-L4. Conus terminates at the L1 level. There are no significant extraspinal soft tissue findings. There is artifact from a spinal stimulator device versus baclofen pump within the lower thoracic spine. At T11-T12, there is stable slight grade 1 degenerative anterolisthesis in the setting of advanced bilateral facet arthropathy resulting in bilateral foraminal encroachment with mass effect on the exiting nerve roots bilaterally. L1-L2: Disc contour is normal. There is mild bilateral facet arthropathy. There is no central canal stenosis and there is no foraminal stenosis. L2-L3: There is a diffuse annular disc bulge and there is mild bilateral facet arthropathy. There is no central canal stenosis. There is mild foraminal encroachment bilaterally. L3-L4: There is a diffuse annular disc bulge and there is severe bilateral facet arthropathy and ligamentum flavum thickening. Findings in concert result in right subarticular zone stenosis with mass effect on the traversing right L4 nerve root which is progressed. Disc C5 and facet arthropathy result in similar mild to moderate bilateral foraminal stenosis. L4-L5: There are postoperative changes following laminectomy and posterior instrumented lumbar interbody fusion. There is diffuse osteophytic ridging and there is advanced bilateral facet arthropathy. There is no central canal stenosis. There is mild foraminal encroachment bilaterally. L5-S1: There are postoperative changes following laminectomy and posterior instrumented lumbar interbody fusion. There is no central canal stenosis. Osteophytic ridging results in mass effect on the extraforaminal L5 nerve roots bilaterally and narrowing of the right subarticular zone with mass effect on the traversing right S1 nerve root which is unchanged. There is enhancing granulation/scar tissue inseparable from the traversing right S1 nerve root as well. IMPRESSION: - At the junctional L3-L4 level, progressive spondylitic changes result in worsening right subarticular zone stenosis with mass effect on the traversing right L4 nerve root. Similar mild to moderate bilateral foraminal stenosis at this level. - There are redemonstrated postoperative changes following laminectomy and posterior instrumented lumbar interbody fusion at the L4-S1 levels. Osteophytic ridging at L5-S1 results in mass effect on the extraforaminal L5 nerve roots bilaterally and narrowing of the right subarticular zone with mass effect on the traversing right S1 nerve root which is unchanged. There is enhancing granulation/scar tissue inseparable from the traversing right S1 nerve root as well. - At T11-T12, there is stable slight grade 1 degenerative anterolisthesis in the setting of advanced bilateral facet arthropathy resulting in bilateral foraminal encroachment with mass effect on the exiting nerve roots bilaterally Assessment & Plan Assessment & Plan (1) Hip pain, right: Code(s): M25.551 - Pain in right hip Category: Medical (2) Osteoarthritis of right hip: Code(s): M16.11 - Unilateral primary osteoarthritis, right hip Category: Medical (3) Postlaminectomy syndrome of lumbosacral region: Code(s): M96.1 - Postlaminectomy syndrome, not elsewhere classified Category: Medical (4) Right lumbar radiculopathy: Code(s): M54.16 - Radiculopathy, lumbar region Category: Medical (5) Radiculopathy of lumbar region: Code(s): M54.16 - Radiculopathy, lumbar region Category: Medical Plan Continue Oxycodone 10 mg t.i.d. I will prescribe it on 01/10/2025. He has 3 pills short today, he was strictly warned. The full discussion see as above. Next appointment is in 1 month. I will send him for x-ray of the right hip before doing PRP. His naloxone was prescribed on 05/2024. Orders: Orders XR hip RT min 2V Today M16.11 - Unilateral primary osteoarthritis, right hip, M25.551 - Pain in right hip Patient Instructions: I here by testify that I spent 30 minutes in conversation with this patient as well as planning his care and organizing this note. Coding Level of Care Code Est Pt Level 4 (09206) Diagnoses Hip pain, right M25.551 Osteoarthritis of right hip M16.11 Postlaminectomy syndrome of lumbosacral region M96.1 Right lumbar radiculopathy M54.16 Radiculopathy of lumbar region M54.16
[2025-01-08 08:26] VITALS: BP 179/90; PULSE 87; RESP 16; O2SAT 95; BMI 28.8
--- OUTSIDE RECORDS SUMMARY | 2025-01-08 08:40 | XMS_ITS | Clinical Summary ---
Author Organization [facility] Address [address] [address] Phone Care Team Providers Care Corporate Real Estate Manager Name Role Phone Dharmesh Mcmanus DO Primary Care Provider [phone] Social History Tobacco Use Types Packs/Day Years [...] topic Medical Devices Not on file Insurance [facility] MEDICARE SUPPLEMENT MEDIC[place] PART A & [place] [id number] [facility] MEDICARE SUPPLEMENT MEDICARE PART A & B [facility] MEDICARE SUPPLEMENT MEDICARE PART A & B [facility] MEDICARE SUPPLEMENT MEDICARE PART A & B MEDICARE SUPPLEMENT MEDICARE PART A & B MEDICARE SUPPLEMENT MEDICARE PART A & B MEDICARE SUPPLEMENT MEDICARE PART A & B MEDICARE SUPPLEMENT MEDICARE PART A & B [facility] MEDICARE SUPPLEMENT Member Subscriber Plan / Payer (Ef fective 2019-Present) Name:Issac Nolan Relation to Subscriber:Self Name:Issac Nolan Payer ID:Not on file Type:Indemnity Address: [place] [id number] MEDICARE PART A & B Care Teams Corporate Real Estate Manager Relationship Specialty Start Date End Date Dharmesh Mcmanus DO [address] [place] [address] PCP - General 01/01/17 Additional Source Comments The information contained in this document represents components of the legal health record. It is not the complete legal health record.[facility]
== END 2025-01-08 08:56 | disposition home or self-care (01) ==
LOC: HO.PMC 08:20
PROVIDERS: PCP Internal Medicine; Visit Provider Anesthesiology
DX: M25.551 Pain in right hip (principal); M16.11 Unilateral primary osteoarthritis, right hip; M96.1 Postlaminectomy syndrome, not elsewhere classified; M54.16 Radiculopathy, lumbar region
CPT/HCPCS: 99213

== ENCOUNTER → 2025-01-08 09:08 | Outpatient (BNV) | payer MEDICARE, OTHER, SELFPAY | PROVIDERS: PCP Internal Medicine; Visit Provider Radiology Diagnostic Radiology | DX: M16.11 Unilateral primary osteoarthritis, right hip (principal) | CPT/HCPCS: 73502 ==

== ENCOUNTER → 2025-01-27 13:37 | Outpatient (BNV) | payer MEDICARE, OTHER, SELFPAY | PROVIDERS: PCP Internal Medicine; Referring Provider Internal Medicine; Visit Provider Internal Medicine Medical Oncology | DX: D72.829 Elevated white blood cell count, unspecified (principal) | CPT/HCPCS: 99203 ==

== ENCOUNTER 2025-02-05 08:13 | Outpatient (AMB) | payer MEDICARE, OTHER, SELFPAY ==
--- OUTSIDE RECORDS SUMMARY | 2024-05-26 02:30 | XMS_ITS ---
Author Organization [facility] Address [address] [place] [id number] Care Team Providers Care Certified Novell Engineer Name Role Phone Augusta RANGEL, Bear Primary Care Provider Kirt Thompson [phone] REASON FOR VISIT screening,hx polyps Encounters Encounter Location Date Provider Diagnosis [facility] [address] [place] [phone] 05/26/2024 Kirt Platt Colon cancer scree maya Z12.11 ; Colon polyps K63.5 ; Diverticulosis of large intestine without perforation or abscess without bleeding K57.30 and Other hemorrhoids K64.8 Assessments Encounter Date Diagnosis (ICD Code) Assessment Notes Treatment Notes Treatment Clinical Notes Section Notes 05/26/2024 Colon cancer screening (ICD-10 - Z12.11) 05/26/2024 Colon polyps (ICD-10 - K63.5) 05/26/2024 Diverticulosis of large intestine without perforation or abscess without bleeding (ICD-10 - K57.30) 05/26/2024 Other hemorrhoids (ICD-10 - K64.8) Plan Of Treatment No Information Progress Notes * RADHA MANNING AmbarDOB:[birth year] (64 yo M)Acc No.[id number]:05/26/2024 COLON WITH MAC Patient: RADHA DOVE Provider: Renan Platt MD :1960 A ge:64 Y S ex:Male Date:05/26/2024 Address:[address] [place], [place] [phone] Pcp:Bear Deras MD Subjective: * Chief Complaints: * S creening,hx polyps Assessment: * Assessment: 1. C olon cancer screening - Z12.11 (Primary) 2 . C olon polyps - K63.5? 3. D iverticulosis of large intestine without perforation or abscess without bleeding - K57.30 4 . O ther hemorrhoids - K64.8 Plan: * Procedure Codes: 4 5380 COLONOSCOPY AND BIOPSY, Modifiers: PT 0529F INTRVL 3+YRS PTS CLNSCP [id number] RCMND FLW-UP 10 YRS DOCD Billing Information: * Procedure Codes: 13650 COLONOSCOPY AND BIOPSY. Modifiers: PT 0529F INTRVL 3+YRS PTS CLNSCP DOCD. 0528F RCMND FLW-UP 10 YRS DOCD. * The named appointment provid er may or may not be the originator of this progress note, and it is not deemed complete until electronically signed by the appointment provider. Sign off status: Pending * Provider: Renan Platt MD Date: 0 05/26/2024 Generated for Oneyda segal/Hari/Ghulamitting on: 04/07/2024 08:39 AM EST
[2025-02-05 08:21] VITALS: BP 160/77; PULSE 62; RESP 16; O2SAT 97; BMI 27.5
--- NOTE | 2025-02-05 08:21 | A.OFFVIS_ITS ---
Vital Signs 02/05/25 08:21 Height 5 ft 10 in Weight 192 lb BMI 27.5 BP 160/77 H Blood Pressure Location Rt brachial Position Sitting Respiration 16 Pulse 62 Pulse Source Pulse Oximeter Pulse Oximetry (%) 97 Oxygen Delivery Method Room Air Intake Visit Reasons: Pill Count Intake Note: Patient here for a pill count of Oxycodone per directions patient should have 12 pills. Patient presented 18 pills. 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 He wants me to perform PRP injections for him after hunting season is over. He presents today for pill count. He supposed to have 12 pills in his possession. His supposed to have 18 pills in his possession. This demonstrates responsible attitude of opioid medications. He denies side effects of the opioid medications he denies complications. He is able to perform activities of daily living while he is on medication. Prior: He is under care of multiple orthopedic surgeons including orthopedic surgeon in [place] and he receives multiple steroid injections. I agree with him that in the situation steroid load is significant and the injection of the hip would not be safe in this situation. Besides he reports today that his right hip pain is not very prominent. He suffers from multiple pain generators including pain in the bilateral shoulders, he had multiple surgeries of bilateral shoulders including arthroscopy of the right shoulder several times and several procedures on the left shoulder with open surgeries and anchors and hardware insertion. He also was diagnose with left elbow arthritis he complains on severe pain in left elbow. He was examined by neurosurgeon Dr. Nieto and in Dr. Poole opinion he does not need any neurosurgical intervention. He reports in his note that there is no nerve root compressions. Therefore it is unlikely that the transforaminal epidural steroid injections will help the patient. However Dr. Nieto paid attention to symptoms of right hip joint arthritis. He has pain in the hip on lateral rotation of the hip and he has pain in the groin with Peter test performance. He had an x-ray of the right hip done at [facility] dose in [place], he will sign medical information release and we will obtain the report. Prior :? History of low back pain 2 to postlaminectomy syndrome with radiation of the pain into bilateral lower extremity however with sensation of intermittent numbness into the right lower extremity when he positions himself on the right side in the bed.? He received sacroiliac joint diagnostic injection right with bupivacaine only and he reports overall 75% pain relief for the 1st 6 hours.? ? I offered him sacroiliac joint fusion versus sacroiliac joint peripheral stimulation on the right.? 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 He is asking me to return to this issue in the future. [facility] Medical History GERD (gastroesophageal reflux disease) Elevated CPK Depression Hyperlipidemia Pre-diabetes History of shingles Hx of migraines Anxiety and depression HELDER on CPAP Asthma On beta irineo at home CAD (coronary artery disease) Angina pectoris HTN (hypertension) Sacroiliitis Postlaminectomy syndrome of lumbosacral region Right lumbar radiculopathy Spinal cord stimulator status Derangement of left shoulder joint Cervical arthritis Surgical History Hx of vasectomy Hx of elbow surgery History of esophagogastroduodenoscopy (EGD) Hx of colonoscopy Hx of shoulder surgery History of carpal tunnel release History of umbilical hernia repair History of coronary artery bypass graft History of lumbar discectomy Social History (Updated 01/27/25 @ 14:08 by Kelli Roque) Household Members: Spouse and Children Household Members Other:: lives with and son Housing: House Are you a primary health care administrator to a significant other at home: Yes Do you presently have visiting nurse or other home services: No Alcohol intake: never Patient Tobacco Use Status: Former Tobacco user service: No Current occupational 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: 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 Review of Systems Const All systems reviewed & are unremarkable except as noted in HPI and below ENT Reports Normal hearing present Neuro Reports Normal hearing present and Denies Abnormal speech present Physical Exam Vital Signs: Last Vital Signs Pulse 62 02/05/25 08:21 Resp 16 02/05/25 08:21 BP 160/77 H 02/05/25 08:21 Pulse Ox 97 11/20/25 08:21 Oxygen Delivery Method Room Air 02/05/25 08:21 BMI result Body Mass Index 27.5 Const General: cooperative, healthy appearing and alert Orientation/consciousness: patient oriented x3 HEENT Head: Yes normocephalic and Yes atraumatic Ears: hearing grossly normal bilaterally Eyes General: appearance normal, both eyes and all related structures Eyelids: Yes eyelids normal Pupils: Equal, round and reactive pupils present EOM: EOMs intact bilaterally Neck Neck: Yes normal visual inspection Resp Effort & Inspection: normal respiratory effort and able to speak in complete sentences Cardio Jugular venous distension: no JVD Back/Spine/Pelvis Other: Lumbar spine visible inspection multiple very well-healed scars demonstrates previous fusions. Lateral left hip incision also demonstrates the results of anterior fusion. Peter test positive on right Pelvic compression test positive on right Suri finger test positive on right SLR with increased pain on right Spurling test negative bilaterally Stinchfield positive on right Neuro General: patient oriented x3 and gait normal Cranial nerves: Yes Equal, round and reactive pupils present and Yes Normal hearing present Cognition (Neuro): normal cognition Speech: No Abnormal speech present Motor exam (neuro): 5/5 motor strength present throughout Psych Appearance: grossly normal Mental Status: mental status grossly normal Speech and movement: Normal speech and movement present Affect: normal affect Attitude: cooperative Thought process: Normal thought process present Thought content: Normal thought content present Insight: Good insight present (Psych) Judgement: Good judgement present (Psych) Results Reviewed Results Reviewed: MRI of the lumbar spine was obtained using routine sequences with and without contrast. Intravenous contrast: Gadavist 8.5 mL FINDINGS: There are redemonstrated postoperative changes following laminectomy and posterior instrumented lumbar interbody fusion at the L4-S1 levels. The surgical hardware is not diagnostically assessed on MRI. There are 5 nonrib-bearing lumbar-type vertebral bodies. There is no bone marrow edema. There are no acute fractures. There is an intraosseous hemangioma within the T12 vertebral body. Fatty marrow changes involving the L5 vertebral body. Nonsurgical disc volumes are preserved. There is disc desiccation at L3-L4. Conus terminates at the L1 level. There are no significant extraspinal soft tissue findings. There is artifact from a spinal stimulator device versus baclofen pump within the lower thoracic spine. At T11-T12, there is stable slight grade 1 degenerative anterolisthesis in the setting of advanced bilateral facet arthropathy resulting in bilateral foraminal encroachment with mass effect on the exiting nerve roots bilaterally. L1-L2: Disc contour is normal. There is mild bilateral facet arthropathy. There is no central canal stenosis and there is no foraminal stenosis. L2-L3: There is a diffuse annular disc bulge and there is mild bilateral facet arthropathy. There is no central canal stenosis. There is mild foraminal encroachment bilaterally. L3-L4: There is a diffuse annular disc bulge and there is severe bilateral facet arthropathy and ligamentum flavum thickening. Findings in concert result in right subarticular zone stenosis with mass effect on the traversing right L4 nerve root which is progressed. Disc C5 and facet arthropathy result in similar mild to moderate bilateral foraminal stenosis. L4-L5: There are postoperative changes following laminectomy and posterior instrumented lumbar interbody fusion. There is diffuse osteophytic ridging and there is advanced bilateral facet arthropathy. There is no central canal stenosis. There is mild foraminal encroachment bilaterally. L5-S1: There are postoperative changes following laminectomy and posterior instrumented lumbar interbody fusion. There is no central canal stenosis. Osteophytic ridging results in mass effect on the extraforaminal L5 nerve roots bilaterally and narrowing of the right subarticular zone with mass effect on the traversing right S1 nerve root which is unchanged. There is enhancing granulation/scar tissue inseparable from the traversing right S1 nerve root as well. IMPRESSION: - At the junctional L3-L4 level, progressive spondylitic changes result in worsening right subarticular zone stenosis with mass effect on the traversing right L4 nerve root. Similar mild to moderate bilateral foraminal stenosis at this level. - There are redemonstrated postoperative changes following laminectomy and posterior instrumented lumbar interbody fusion at the L4-S1 levels. Osteophytic ridging at L5-S1 results in mass effect on the extraforaminal L5 nerve roots bilaterally and narrowing of the right subarticular zone with mass effect on the traversing right S1 nerve root which is unchanged. There is enhancing granulation/scar tissue inseparable from the traversing right S1 nerve root as well. - At T11-T12, there is stable slight grade 1 degenerative anterolisthesis in the setting of advanced bilateral facet arthropathy resulting in bilateral foraminal encroachment with mass effect on the exiting nerve roots bilaterally Assessment & Plan Assessment & Plan (1) Hip pain, right: Code(s): M25.551 - Pain in right hip Category: Medical (2) Osteoarthritis of right hip: Code(s): M16.11 - Unilateral primary osteoarthritis, right hip Category: Medical (3) Postlaminectomy syndrome of lumbosacral region: Code(s): M96.1 - Postlaminectomy syndrome, not elsewhere classified Category: Medical (4) Right lumbar radiculopathy: Code(s): M54.16 - Radiculopathy, lumbar region Category: Medical (5) Radiculopathy of lumbar region: Code(s): M54.16 - Radiculopathy, lumbar region Category: Medical Plan Continue Oxycodone 10 mg t.i.d. I will prescribe it on 01/10/2025. He has 3 pills short today, he was strictly warned. The full discussion see as above. Next appointment is in 1 month. His naloxone was prescribed on 05/2024. Medications: Refilled oxycodone Partial Fill upon patient request. 10 mg PO Q8H 30 days PRN 90 tabs 0RF pain oxycodone Partial Fill upon patient request. 10 mg PO Q8H PRN 90 tabs 0RF pain 30 days Coding Level of Care Code Est Pt Level 3 (44160) Diagnoses Hip pain, right M25.551 Osteoarthritis of right hip M16.11 Postlaminectomy syndrome of lumbosacral region M96.1 Right lumbar radiculopathy M54.16 Radiculopathy of lumbar region M54.16
--- OUTSIDE RECORDS SUMMARY | 2025-02-05 08:40 | XMS_ITS | Clinical Summary ---
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 Name Role Phone Dharmesh Mcmanus DO Primary Care Provider [phone] Social History Tobacco Use Types Packs/Day Years [...] topic Medical Devices Not on file Insurance [facility] MEDICARE SUPPLEMENT MEDICARE PART A & B Member Subscriber Plan / Payer (Ef fective 2019-Present) Name:Issac Nolan Member ID:[id number] Relation to Subscriber:Self Name:Issac Nolan Subscriber ID:[id number] Payer ID:[id number] Group ID:Not on file Type:Medicare Address: [facility] [employer] [facility] [place] [address] [place] [phone] [facility] MEDICARE SUPPLEMENT MEDICARE PART A & B [facility] MEDICARE SUPPLEMENT MEDICARE PART A & B [facility] MEDICARE SUPPLEMENT MEDICARE PART A & B MEDICARE SUPPLEMENT MEDICARE PART A & B MEDICARE SUPPLEMENT MEDICARE PART A & B MEDICARE SUPPLEMENT MEDICARE PART A & B MEDICARE SUPPLEMENT MEDICARE PART A & B [facility] MEDICARE SUPPLEMENT Member Subscriber Plan / Payer (Ef fective 2019-Present) Name:Issac Nolan Relation to Subscriber:Self Name:Issac Nolan Payer ID:Not on file Type:Indemnity Address: [place] [id number] MEDICARE PART A & B Care Teams 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 It is not the complete legal health record.[facility]
--- OUTSIDE RECORDS SUMMARY | 2025-02-05 08:40 | XMS_ITS | Patient Health Record ---
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 Name Role Phone Bear Deras MD Primary Care Provider Kirt Thompson [phone] Allergies Allergen (clinical drug ingredient) Drug/Non Drug Allergy documented on EMR Reaction Allergy Type Onset Date Status Substance with 0-fpvjseh-4-methylgluta ryl-coenzyme A reductase inhibitor mechanism of action (substance) statin drugs (uncoded) Unknown Allergy Activ e Results Component Value Reference Range Flag Notes Pathology (Not yet reviewed by provider) Interpretation: Performing Lab:[facility], [address] [place] [phone] Notes/Report: Glucose, Whole Blood Reviewed date:05/26/2024 05:12:20 PM Interpretation: Performing Lab:[facility], [address] [place] [phone] Notes/Report: Glucose, Whole Blood 101 60-115 mg/dL [facility] #: [id number] Reason For Referral No Information Medications Medication SIG (Take, Route, Frequency, Duration) Notes Start Date End Date Status Repatha SureClick 140 MG/ML Solution Auto-injector Subcutaneous; Duration: 84 Active Valsartan 80 MG Tablet Oral; Duration: 30 Active oxyCODONE-Acetaminophen 5-325 MG Tablet 1 tablet as needed Orally every 6 hrs Active LORazepam 1 MG Tablet 1 tablet as needed Orally Once a day Active Metoprolol Succinate ER 100 MG Tablet Extended Release 24 Hour 1 tablet Orally twice a day Active Omeprazole 20 MG Tablet Delayed Release 1 tablet 30 minutes before morning meal Orally Once a day; Duration: 30 day(s) Active Herb Aspirin EC Low Dose Active Testosterone 0.4 % Cream as directed Tra nsdermal as directed Active Immunizations Vaccine Route Administration Date Status Comme nts Influenza Unknown 01/17/2018 Administered Influenza Unknown 06/17/2021 Administered Social History Tobacco Use: Social History Observation Description Date Details (start date - stop date) Former Smoker NA - NA Social History Drugs/Alcohol: Social Info Question Answer Notes Alcohol Screen Did you have a drink containing alcohol in the past year? Yes How often did you have a drink containing alcohol in the past year? 2 to 3 times a week (3 points) How many drinks did you have on a typical day when you were drinking in the past year? 1 or 2 drinks (0 point) How often did you have 6 or more drinks on one occasion in the past year? Less than monthly (1 point) Points 4 Interpretation Positive Tobacco Use: Social Info Question Answer Notes Tobacco Use/Smoking Patient is a former smoker How long has it been since you last smoked? 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[employer] Section Notes: Nonsmoker > 10 yrs; a couple of drinks QOD Nonsmoker > 10 yrs; a couple of drinks QOD Nonsmoker > 10 yrs; a couple of drinks once a week Nonsmoker > 10 yrs; a couple of drinks once a week Problems Problem Type SNOMED Code ICD Code Onset Dates Problem Status W/U Status Risk Notes Problem Esophageal reflux (139557010) Esophageal reflux (K21.9) Active confirmed Problem Screening for malignant neoplasm of colon (624351996) Encounter for screening for malignant neoplasm of colon (Z12.11) Active confirmed Problem History of adenomatous polyp of colon (310410015) History of adenomatous polyp of colon (Z86.010) Active confirmed Problem Dysphagia (22668182) Dysphagia (R13.10) Active confirmed Problem Preprocedural examination (646209714364229) Preprocedural examination (Z01.818) Active confirmed Problem Gastritis (0139890) Gastritis (K29.70) Active confirmed Problem Gastroesophageal reflux disease (964671032) GERD (gastroesophagea l reflux disease) (K21.9) Active confirmed Encounters Encounter Location Date Provider Diagnosis [facility] [address] [place] [id number] 05/26/2024 Kirt Platt Colon cancer sudarshane maya Z12.11 ; Colon polyps K63.5 ; [...] hemorrhoids (ICD-10 - K64.8) Plan Of Treatment Pending Test Test Name [...] Date MEDICARE OF [place] [address] [place] [address] [id number] CARRIER, RADHA Self - patient is the insured [facility] [address] [address] [place] [address] [id number] CARRIER, RADHA Self - patient is the insured Medical (General) History Medical History History ICD Code Hospitalized in 06/2012 for a bd.pain--neg. CT scan and U/S, resolved spontaneously Hypertension Hyperlipidemia Depression Hypertension Sleep apnea--he describes a history of being told of a difficult intubation during his heart surgery in [address] [facility]; not using a CPAP as of the 10/2021 OV Denies NM,DM,CVA,Lung disease,renal dise ase Elevated CPK's-being evaluated GERD-EGD in 2012-small HH--no esophagiti s, no Barrettt's Migraines Colonoscopy in 2012--1 small tubular jossie noma CAD--3V-CABG on 01/14/[address] [facility]--se gladys Vizcarra cardiology at [facility] Colonoscopy 04/2019 with 1 tubular adenom a removed Upper endoscopy in [place] of 2022-small hiatal hernia, minimal changes of reflux and gastritis. There was no evidence of Reyes's esophagus, H. pylori, nor eosinophilic esophagitis Surgical History Surgery Date(Month/Year) Back surgery triple fusion Carpal tunnel surgery Umbilical hernia surgery Patient had triple bypass surgery on dec Shoulder surgery x 4 Spinal simulator in back Vasectomy Elbow surgery
== END 2025-02-05 09:07 | disposition home or self-care (01) ==
PROVIDERS: PCP Internal Medicine; Visit Provider Anesthesiology
DX: M25.551 Pain in right hip (principal); M16.11 Unilateral primary osteoarthritis, right hip; M96.1 Postlaminectomy syndrome, not elsewhere classified; M54.16 Radiculopathy, lumbar region
CPT/HCPCS: 99213

== ENCOUNTER → 2025-02-05 08:13 | Outpatient (BNVA) | payer MEDICARE, OTHER, SELFPAY | PROVIDERS: PCP Internal Medicine; Visit Provider Anesthesiology | DX: M25.551 Pain in right hip (principal); M16.11 Unilateral primary osteoarthritis, right hip; M54.16 Radiculopathy, lumbar region; M46.1 Sacroiliitis, not elsewhere classified; M96.1 Postlaminectomy syndrome, not elsewhere classified; Z51.81 Encounter for therapeutic drug level monitoring; Z79.891 Long term (current) use of opiate analgesic | CPT/HCPCS: 99212 ==

== ENCOUNTER 2025-03-11 08:19 | Outpatient (AMB) | payer MEDICARE, OTHER, SELFPAY ==
--- OUTSIDE RECORDS SUMMARY | 2024-05-26 02:30 | XMS_ITS ---
Author Organization [facility] Address [address] [place] [address] Care Team Providers Care Bolt Threader Name Role Phone Augusta RANGEL, Bear Primary Care Provider Kirt Thompson [phone] REASON FOR VISIT screening,hx polyps Encounters Encounter Location Date Provider Diagnosis [facility] [place] [address] [place] [phone] 05/26/2024 Kirt Platt Colon cancer scree maya [...] RADHA MANNING AmbarDOB:[birth year] (64 yo M)Acc No.[id number]:05/26/2024 COLON WITH MAC Patient: RADHA DOVE Provider: Renan Platt MD :1960 A ge:64 Y S ex:Male Date:05/26/2024 Address:[address] [place], [place] [phone] Pcp:Bear Deras MD Subjective: * Chief Complaints: [...] Modifiers: PT 0529F INTRVL 3+YRS PTS CLNSCP [id number] RCMND FLW-UP 10 YRS DOCD Billing Information: * Procedure Codes: 63266 COLONOSCOPY AND BIOPSY. Modifiers: PT 0529F INTRVL [...] 0 05/26/2024 Generated for Oneyda segal/Hari/Ghulamitting on: 05/12/2024 08:21 AM EST
--- OUTSIDE RECORDS SUMMARY | 2025-03-11 08:21 | XMS_ITS | Patient Health Record ---
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 [employer] Name Role Phone Bear Deras MD Primary Care Provider Kirt Thompson [phone] Allergies Allergen (clinical drug ingredient) Drug/Non Drug Allergy documented on EMR Reaction Allergy Type Onset Date Status Substance with 9-hovzsnf-5-methylgluta ryl-coenzyme A reductase inhibitor mechanism of action (substance) statin drugs (uncoded) Unknown Allergy Activ e Results Component Value Reference Range Flag Notes Pathology (Not yet reviewed by provider) Interpretation: Performing Lab:[facility], [address] [place] [phone] Notes/Report: Glucose, Whole Blood Reviewed date:05/26/2024 05:12:20 PM Interpretation: Performing Lab:[facility], [address] [place] [phone] Notes/Report: Glucose, Whole Blood 101 60-115 mg/dL [facility] #: [id number] Reason For Referral No Information Medications Medication [...] Details Miscellaneous: Marital status: 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 > 10 yrs; a couple of drinks QOD Nonsmoker > 10 yrs; a couple of drinks QOD Nonsmoker > 10 yrs; a couple of drinks once a week Nonsmoker > 10 yrs; a couple of drinks once a week Problems Problem Type SNOMED Code ICD Code Onset Dates Problem Status W/U Status Risk Notes Problem Esophageal reflux (003404628) Esophageal reflux (K21.9) Active confirmed Problem Screening for malignant neoplasm of colon (929620200) Encounter for screening for malignant neoplasm of colon (Z12.11) Active confirmed Problem History of adenomatous polyp of colon (515519384) History of adenomatous polyp of colon (Z86.010) Active confirmed Problem Dysphagia (28006362) Dysphagia (R13.10) Active confirmed Problem Preprocedural examination (541676409106702) Preprocedural examination (Z01.818) Active confirmed Problem Gastritis (9195674) Gastritis (K29.70) Active confirmed Problem Gastroesophageal reflux disease (232204145) GERD (gastroesophagea l reflux disease) (K21.9) Active confirmed Encounters Encounter Location Date Provider Diagnosis [facility] [place] [address] [place] [id number] 05/26/2024 Kirt Platt Colon cancer sudarshane maya [...] Date MEDICARE OF [place] [address] [place] [address] [phone] [id number] CARRIER, RADHA Self - patient is the insured [facility] [address] [address] [place] [address] [id number] CARRIER, RADHA Self - patient is the insured Medical (General) History Medical History History ICD Code Hospitalized in 06/2012 for a bd.pain--neg. CT scan and U/S, resolved spontaneously Hypertension Hyperlipidemia Depression Hypertension Sleep apnea--he describes a history of being told of a difficult intubation during his heart surgery in 2019 at [facility]; not using a CPAP as of the 10/2021 OV Denies [place],DM,CVA,Lung disease,renal dise ase Elevated CPK's-being evaluated GERD-EGD in 2012-small HH--no esophagiti s, no Barrettt's Migraines Colonoscopy in 2012--1 small tubular jossie noma CAD--3V-CABG on 01/14/19 at [facility]--se gladys Vizcarra cardiology at [facility] Colonoscopy 04/2019 with 1 tubular adenom a [...]
--- OUTSIDE RECORDS SUMMARY | 2025-03-11 08:21 | XMS_ITS | Clinical Summary ---
Author Organization [facility] Address [address] [place], [place] [id number] Care Team Providers Care Editor School Photograph Name Role Phone Talha Summers Primary Care Provider [phone] Social History Tobacco Use Types Packs/Day Years Used Date Smoking Tobacco: Never Assessed Sex and Gender Information Value Date Recorded Sex Assigned at Male 12/19/2024 11:12 AM EDT Legal Sex Male 12:06 AM EST Gender Identity Male 12/19/2024 11:12 AM EDT Sexual Orientation Not on file Last Filed Vital Signs Vital Sign Reading Time Taken Comments Blood Pressure - - Pulse - - Temperature - - Respiratory Rate - - Oxygen Saturation - - Inhaled Oxygen Concentration - - Weight 89.8 kg (198 lb) 04/28/2014 4:59 PM EST Height 177.8 cm (5' 10 ) 04/28/2014 4:59 PM EST Body Mass Index 28.41 04/28/2014 4:59 PM EST Plan of Treatment Health Maintenance Due Date Last Done Comments Blood Pressure 1958 Lipid Panel 1958 PSA 1958 Prostate Cancer Screening 1958 SDM 1958 Depression Screening 1970 Hepatitis C Screening 1976 DTaP,Tdap,and Td Vaccines (1 - Tdap) 1977 CT Colonography 2003 Colonoscopy 2003 Colorectal Cancer Screening 2003 FIT 2003 FOBT 2003 Multitarget Stool DNA (Cologuard) 2003 Sigmoidoscopy 2003 Pneumococcal Vaccine: 50+ Ye ars (1 of 1 - PCV) 2008 Zoster Vaccine (1 of 2) 2008 Medicare Initial AWV [id number] 10/17/2020 COVID-19 Vaccine ( - 2024-2 6 season) 2024 Influenza Vaccine (#1) 2024 Meningococcal B Vaccines Aged Out No longer eligible based on patient's age to complete this topic Meningococcal Vaccines Aged Out No lo nger eligible based on patient's age to complete this topic Insurance MEDICARE [employer] SUPPLEMENT Care Teams Editor School Photograph Relationship Specialty Start Date End Date Talha Summers [address] [place] [address] PCP - General 07/12/23
--- OUTSIDE RECORDS SUMMARY | 2025-03-11 08:21 | XMS_ITS | Clinical Summary ---
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 MEDICARE SUPPLEMENT [facility] Address: [address] [address] MEDICARE PART A [place] [id number] [facility] MEDICARE SUPPLEMENT MEDICARE PART A & B [facility] MEDICARE SUPPLEMENT MEDICARE PART A & B [facility] MEDICARE SUPPLEMENT MEDICARE PART A & B MEDICARE SUPPLEMENT MEDICARE PART A & B MEDICARE SUPPLEMENT MEDICARE PART A & B MEDICARE SUPPLEMENT MEDICARE PART A & B MEDICARE SUPPLEMENT MEDICARE PART A & B [facility] MEDICARE SUPPLEMENT Member Subscriber Plan / Payer (Ef fective 2019-Present) Name:Issac Nolan Relation to Subscriber:Self Name:Issac Nolan Payer ID:Not on file Type:Indemnity Address: [place] [id number] MEDICARE PART A & B Care Teams Shipping And Receiving Clerk Relationship Specialty Start Date End Date Dharmesh Mcmanus DO [address] [place] [address] PCP - General 01/01/17 Additional Source Comments The information contained in this document represents components of the legal health record. It is not the complete legal health record.[facility]
[2025-03-11 08:24] VITALS: BP 149/90; PULSE 70; RESP 16; O2SAT 97; BMI 28.8
--- NOTE | 2025-03-11 08:24 | MHC.OFFVIS ---
Vital Signs 03/11/25 08:24 Height 5 ft 10 in Weight 201 lb BMI 28.8 BP 149/90 H Blood Pressure Location Rt brachial Position Sitting Respiration 16 Pulse 70 Pulse Source Pulse Oximeter Pulse Oximetry (%) 97 Oxygen Delivery Method Room Air Intake Visit Reasons: Pill Count Intake Note: Patient here for a pill count of Oxycodone per directions patient should have 9 pills, Patient presented 12 pills. Last Took 12 midnight. 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 He had hunting accident and now he complains on pain in the lower back. He is thinking about performing evaluation of his lower back with the MRI. He has postlaminectomy syndrome and his MRI needs to be with contrast. I explained to him the nature of the MRI and the longevity of the procedure. He expressed understanding. His pill count is correct today. His supposed to have 9 pills in his possession. He has 12 pills in his possession. He denies side effects of the opioid medication she he denies constipation. He reports that opioids allow him to continue to stay active perform better activity of daily living. Prior: He is under care of multiple orthopedic surgeons including orthopedic surgeon in [place] and he receives multiple steroid injections. I agree with him that in the situation steroid load is significant and the injection of the hip would not be safe in this situation. Besides he reports today that his right hip pain is not very prominent. He suffers from multiple pain generators including pain in the bilateral shoulders, he had multiple surgeries of bilateral shoulders including arthroscopy of the right shoulder several times and several procedures on the left shoulder with open surgeries and anchors and hardware insertion. He also was diagnose with left elbow arthritis he complains on severe pain in left elbow. He was examined by neurosurgeon Dr. Nieto and in Dr. Poole opinion he does not need any neurosurgical intervention. He reports in his note that there is no nerve root compressions. Therefore it is unlikely that the transforaminal epidural steroid injections will help the patient. However Dr. Nieto paid attention to symptoms of right hip joint arthritis. He has pain in the hip on lateral rotation of the hip and he has pain in the groin with Peter test performance. He had an x-ray of the right hip done at [facility] dose in [place], he will sign medical information release and we will obtain the report. Prior :? History of low back pain 2 to postlaminectomy syndrome with radiation of the pain into bilateral lower extremity however with sensation of intermittent numbness into the right lower extremity when he positions himself on the right side in the bed.? He received sacroiliac joint diagnostic injection right with bupivacaine only and he reports overall 75% pain relief for the 1st 6 hours.? ? I offered him sacroiliac joint fusion versus sacroiliac joint peripheral stimulation on the right.? 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 He is asking me to return to this issue in the future. [facility] Medical History GERD (gastroesophageal reflux disease) Elevated CPK Depression Hyperlipidemia Pre-diabetes History of shingles Hx of migraines Anxiety and depression HELDER on CPAP Asthma On beta irineo at home CAD (coronary artery disease) Angina pectoris HTN (hypertension) Sacroiliitis Postlaminectomy syndrome of lumbosacral region Right lumbar radiculopathy Spinal cord stimulator status Derangement of left shoulder joint Cervical arthritis Surgical History Hx of vasectomy Hx of elbow surgery History of esophagogastroduodenoscopy (EGD) Hx of colonoscopy Hx of shoulder surgery History of carpal tunnel release History of umbilical hernia repair History of coronary artery bypass graft History of lumbar discectomy Social History (Updated 01/27/25 @ 14:08 by Kelli Roque) Household Members: Spouse and Children Household Members Other:: lives with and son Housing: House Are you a primary acute care certified nursing assistant to a significant other at home: Yes Do you presently have visiting nurse or other home services: No Alcohol intake: never Patient Tobacco Use Status: Former Tobacco user service: No Current occupational status: retired 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 Review of Systems Const All systems reviewed & are unremarkable except as noted in HPI and below ENT Reports Normal hearing present Neuro Reports Normal hearing present and Denies Abnormal speech present Physical Exam Vital Signs: Last Vital Signs Pulse 70 03/11/25 08:24 Resp 16 03/11/25 08:24 BP 149/90 H 03/11/25 08:24 Pulse Ox 97 03/11/25 08:24 Oxygen Delivery Method Room Air 03/11/25 08:24 BMI result Body Mass Index 28.8 Const General: cooperative, healthy appearing and alert Orientation/consciousness: patient oriented x3 HEENT Head: Yes normocephalic and Yes atraumatic Ears: hearing grossly normal bilaterally Eyes General: appearance normal, both eyes and all related structures Eyelids: Yes eyelids normal Pupils: Equal, round and reactive pupils present EOM: EOMs intact bilaterally Neck Neck: Yes normal visual inspection Resp Effort & Inspection: normal respiratory effort and able to speak in complete sentences Cardio Jugular venous distension: no JVD Back/Spine/Pelvis Other: Lumbar spine visible inspection multiple very well-healed scars demonstrates previous fusions. Lateral left hip incision also demonstrates the results of anterior fusion. Peter test positive on right Pelvic compression test positive on right Suri finger test positive on right SLR with increased pain on right Spurling test negative bilaterally Stinchfield positive on right Neuro General: patient oriented x3 and gait normal Cranial nerves: Yes Equal, round and reactive pupils present and Yes Normal hearing present Cognition (Neuro): normal cognition Speech: No Abnormal speech present Motor exam (neuro): 5/5 motor strength present throughout Psych Appearance: grossly normal Mental Status: mental status grossly normal Speech and movement: Normal speech and movement present Affect: normal affect Attitude: cooperative Thought process: Normal thought process present Thought content: Normal thought content present Insight: Good insight present (Psych) Judgement: Good judgement present (Psych) Assessment & Plan Assessment & Plan (1) Hip pain, right: Code(s): M25.551 - Pain in right hip Category: Medical (2) Osteoarthritis of right hip: Code(s): M16.11 - Unilateral primary osteoarthritis, right hip Category: Medical (3) Postlaminectomy syndrome of lumbosacral region: Code(s): M96.1 - Postlaminectomy syndrome, not elsewhere classified Category: Medical (4) Right lumbar radiculopathy: Code(s): M54.16 - Radiculopathy, lumbar region Category: Medical (5) Radiculopathy of lumbar region: Code(s): M54.16 - Radiculopathy, lumbar region Category: Medical Plan Continue Oxycodone 10 mg t.i.d. I will prescribe it on 01/10/2025. His pill count is correct. He has a excess of 3 pills in his possession. He has a hunting accident and considers MRI of the lumbar spine where he has pain. He has postlaminectomy syndrome. Next appointment is in 1 month. His naloxone was prescribed on 05/2024. Medications: Refilled oxycodone Partial Fill upon patient request. 10 mg PO Q8H PRN 90 tabs 0RF pain 30 days Coding Level of Care Code Est Pt Level 3 (64169) Diagnoses Hip pain, right M25.551 Osteoarthritis of right hip M16.11 Postlaminectomy syndrome of lumbosacral region M96.1 Right lumbar radiculopathy M54.16 Radiculopathy of lumbar region M54.16
== END 2025-03-11 08:43 | disposition home or self-care (01) ==
LOC: HO.PMC 08:19
PROVIDERS: PCP Internal Medicine; Visit Provider Anesthesiology
DX: M25.551 Pain in right hip (principal); M16.11 Unilateral primary osteoarthritis, right hip; M96.1 Postlaminectomy syndrome, not elsewhere classified; M54.16 Radiculopathy, lumbar region
CPT/HCPCS: 99213

== ENCOUNTER → 2025-03-11 08:19 | Outpatient (BNVA) | payer MEDICARE, OTHER, SELFPAY | PROVIDERS: PCP Internal Medicine; Visit Provider Anesthesiology | DX: M25.551 Pain in right hip (principal); M96.1 Postlaminectomy syndrome, not elsewhere classified; M16.11 Unilateral primary osteoarthritis, right hip; M54.16 Radiculopathy, lumbar region; I10 Essential (primary) hypertension; Z87.891 Personal history of nicotine dependence; Z79.891 Long term (current) use of opiate analgesic | CPT/HCPCS: 99212 ==